=== PATIENT | male | born 1950 | race Hispanic/Latino ===

== ENCOUNTER 2018-02-02 17:39 | Inpatient (IN) | payer MEDICARE, OTHER ==
[~2018-02-02] VITALS: Ht 172.7 cm; Wt 97.5 kg
[~2018-02-02 17:39] MED LIST: GABAPENTIN300 MG PO; LISINOPRIL10 MG PO; METFORMIN HCL500 MG PO; PANTOPRAZOLE SO40 MG PO; TAMSULOSIN HCL0.4 MG PO; ULTRAM50 MG PO
[2018-02-02] MEDS ORDERED: ALBUTEROL SULFATE HFA 8GM INHALATION AEROSOL INH PRN (18:45)
[2018-02-02] MEDS: SALMETEROL/FLUTICASONE 250/50 INH SCH (19:00)
[2018-02-02 20:00] VITALS: BP 129/66
[2018-02-02] MEDS ORDERED: DEXTROSE 50% SYRINGE 50 ML IV PRN (20:00)
--- NOTE | 2018-02-02 20:30 | Diagnostic Imaging Report ---
EXAMINATION: Head CT without contrast. HISTORY:Near syncope. COMPARISON:None. TECHNIQUE: Multidetector axial images were obtained from the foramen magnum to the vertex without contrast. The images were reconstructed using brain and bone algorithms. Thin section brain images were reformatted into coronal and sagittal planes. Intravenous contrast: None IMAGE QUALITY: Suboptimal evaluation due to motion artifacts. FINDINGS: Skull/scalp: No lytic or blastic. lesions. No surgical changes. Parenchyma: Nonspecific few, scattered supratentorial white matter patchy hypodensity are likely related to small vessel ischemic changes. No acute hemorrhage, mass or acute major vascular territorial infarct. Arteries: No density suggestive of thrombosis. Dural sinuses: No abnormal density suggestive of thrombosis. Ventricles: Mild compensated dilatation due to volume loss. No hydrocephalus. Extra-axial spaces: No abnormal density. Brain volume: Normal for age. Craniocervical junction: No mass, Chiari malformation, or basilar invagination. Sella: No mass. Paranasal/mastoid sinuses: Imaged portions unremarkable. IMPRESSION: Suboptimal evaluation due to motion artifacts, despite the limitation no gross acute intracranial abnormality. Mild supratentorial white matter microvascular ischemic changes. Mild generalized cerebral volume loss. Signed by: Dr. Ashli Shearer M.D. on 02/02/2018 8:27 PM
[2018-02-02 20:40] LABS: BASOPHILS # (AUTO) 0.1 (0.0-0.1); BASOPHILS % 0.6 % (0.0-1.0); EOSINOPHILS # (AUTO) 0.1 (0.0-0.4); EOSINOPHILS % 1.2 % (0.0-6.0); HEMATOCRIT 40.1 % (38.2-49.6); HEMOGLOBIN 13.6 g/dL (14.0-18.0); LYMPHOCYTES # (AUTO) 2.9 (1.0-3.2); LYMPHOCYTES % 30.6 % (18.0-39.1); MEAN CORPUSCULAR HEMOGLOBIN 32.2 pg (28-32); MEAN CORPUSCULAR HGB CONC 33.9 g/dL (31-35); MONOCYTES # (AUTO) 0.6 (0.2-0.8); MONOCYTES % 6.2 % (4.4-11.3); NEUTROPHILS # (AUTO) 5.9 (2.1-6.9); PLATELET COUNT 146 x10e3/uL (140-360); RED BLOOD COUNT 4.22 x10e6/uL (4.3-5.7); RED CELL DISTRIBUTION WIDTH 12.2 % (11.7-14.4)
[2018-02-02 20:54] VITALS: BP 129/66
[2018-02-02 20:55] LABS: ALANINE AMINOTRANSFERASE 39 IU/L (0-55); ALBUMIN 3.7 g/dL (3.5-5.0); ALKALINE PHOSPHATASE 116 IU/L (40-150); ANION GAP 15.8 mmol/L (8-16); BLOOD UREA NITROGEN 19 mg/dL (7-26); BUN/CREATININE RATIO 16 (6-25); CALCIUM 9.4 mg/dL (8.4-10.2); CARBON DIOXIDE 18 mmol/L (22-29); CHLORIDE 105 mmol/L (98-107); CREATININE, SERUM 1.17 mg/dL (0.72-1.25); EST GLOMERULAR FILTRATION RATE > 60 ML/MIN (60-); GLUCOSE 305 mg/dL (74-118); POTASSIUM 3.8 mmol/L (3.5-5.1); SODIUM 135 mmol/L (136-145)
[2018-02-02] MEDS: GABAPENTIN 300 MG CAP PO SCH (21:00)
[2018-02-02] MEDS: SODIUM CHLORIDE 0.9% 1000ML 1,000 ML IV SCH (21:00)
[2018-02-02] MEDS: TAMSULOSIN HCL 0.4 MG CAP PO SCH (21:00)
[2018-02-02] MEDS: MONTELUKAST SODIUM 10 MG TAB PO SCH (21:00)
[2018-02-02] MEDS ORDERED: INSULIN DETEMIR 100 UNIT/ML PEN SQ SCH (21:00)
[2018-02-02] MEDS: TRAMADOL HCL 50 MG TAB PO SCH (21:00)
[2018-02-02] MEDS: INSULIN REGULAR, HUMAN 100 UNIT/1 ML 3ML VIAL SQ SCH (21:00)
[2018-02-02] MEDS: INSULIN DETEMIR 100 UNIT/ML PEN SQ SCH (21:00)
[2018-02-03] VITALS (7 sets, daily range): BP systolic 112–148; BP diastolic 55–70
[2018-02-03] MEDS: SODIUM CHLORIDE 0.9% 1000ML 1,000 ML IV SCH ×3 (04:49→20:25)
[2018-02-03] MEDS ORDERED: TIOTROPIUM 18 MCG INH POWDER INH SCH (06:00)
[2018-02-03] MEDS ORDERED: INSULIN DETEMIR 100 UNIT/ML PEN SQ SCH (07:30)
[2018-02-03] MEDS: PANTOPRAZOLE SOD 40 MG TABEC PO SCH (08:40)
[2018-02-03] MEDS: FENOFIBRATE 145 MG TAB PO SCH (08:40)
[2018-02-03] MEDS: INSULIN REGULAR, HUMAN 100 UNIT/1 ML 3ML VIAL SQ SCH ×4 (08:40→21:30)
[2018-02-03] MEDS: GABAPENTIN 300 MG CAP PO SCH ×3 (08:40→21:43)
[2018-02-03] MEDS: TRAMADOL HCL 50 MG TAB PO SCH ×3 (08:41→21:44)
[2018-02-03] MEDS ORDERED: METFORMIN HCL 500 MG TAB PO SCH (09:00)
--- NOTE | 2018-02-03 12:27 | History and Physical ---
HISTORY OF PRESENT ILLNESS: A 68-year-old male with past medical history positive for hypertension, diabetes mellitus, hypercholesterolemia and diabetic neuropathy came to the clinic originally complaining of difficulty walking, unsteady gait, extremely high blood sugar of 600. The patient was found to have orthostatic hypotension, extremely dizzy. The patient was admitted to the hospital. REVIEW OF SYSTEMS: CARDIOVASCULAR: No chest pain, no palpitation. RESPIRATORY: No shortness of breath. No cough. GASTROINTESTINAL: No nausea, no vomiting, no diarrhea. GENITOURINARY: No frequency, no dysuria. ALLERGIES: HE IS NOT ALLERGIC TO ANY MEDICATION. SOCIAL HISTORY: He smokes. He does not drink alcohol. PAST MEDICAL HISTORY: Positive for hypertension, hypercholesterolemia, diabetes mellitus type 2, diabetic neuropathy and COPD. PHYSICAL EXAMINATION: VITAL SIGNS: The blood pressure 112/55, temperature 96.9, heart rate 55 per minute, respiratory rate is 20 per minute. Oxygen saturation 98%. LAB: On the BMP: Sodium 135, potassium 3.8, chloride 105, CO2 18, BUN 19, creatinine 1.17 and glucose 305. On the CBC: White blood count 9.62, hemoglobin 13.6, hematocrit 40.1, platelet count 146,000. AST 54, ALT 39, total bilirubin 0.4, alkaline phosphatase 116. FINAL IMPRESSION: 1. Orthostatic hypotension most likely secondary to dehydration. 2. Uncontrolled diabetes mellitus type 2 with chronic renal insufficiency and neuropathy. 3. Chronic obstructive pulmonary disease. 4. Gastroesophageal reflux disease. 5. Unsteady gait. 6. Near syncopal episode. PLAN OF TREATMENT: Continue normal saline at 120 mL an hour, albuterol q.6 hours, Levemir 10 units in the morning and 30 units at night, Singular 10 mg daily, Spiriva 1 inhalation daily, Protonix 40 mg daily. Continue monitoring blood sugar a.c. and nightly. Continue Advair 1 inhalation twice a day. Continue fenofibrate 145 mg daily. Metformin 500 mg twice a day. Gabapentin 300 mg 3 times a day. Tramadol 50 mg 3 times a day as needed. Flomax 0.4 mg at bedtime. We are going to order the physical and occupational therapy. We are going to monitor BUN and creatinine. Continue monitoring the orthostatic blood pressure. Job#: [id number] EV
[2018-02-03] MEDS: METFORMIN HCL 500 MG TAB PO SCH (17:58)
[2018-02-03] MEDS: SALMETEROL/FLUTICASONE 250/50 INH SCH (19:40)
[2018-02-03 20:26] LABS: FOLATE 3.6 ng/mL (7.0-15.4)
[2018-02-03] MEDS: INSULIN DETEMIR 100 UNIT/ML PEN SQ SCH (21:35)
[2018-02-03] MEDS: MONTELUKAST SODIUM 10 MG TAB PO SCH (21:43)
[2018-02-03] MEDS: TAMSULOSIN HCL 0.4 MG CAP PO SCH (21:43)
[2018-02-04 00:05] VITALS: BP 140/64
[2018-02-04 00:39] VITALS: BP 140/64
--- NOTE | 2018-02-04 00:51 | Consultation ---
DATE OF CONSULTATION: February 03, 2018 NEUROLOGY CONSULTATION HISTORY OF PRESENT ILLNESS: Mr. Mendez is a 68-year-old right hand dominant man with past medical history significant for hypertension, hyperlipidemia, and insulin dependent diabetes type-2 admitted to [facility] on February 02, 2018 with dizziness, impairment of gait, and multiple falls. On February 02, 2018, the patient presented to his primary care physician, Dr. Garduno's, office for evaluation of dizziness which was further described as a lightheaded sensation, impairment of balance and gait, and multiple recent falls. While in Dr. Garduno's office, the patient was found to be hypotensive with a serum glucose in the 600's. Mr. Mendez was instructed to proceed to [facility] where he was admitted for further evaluation and treatment. The patient reports an unsteady gait and impairment of balance for "a long time". The patient endorses numbness over the feet and bilateral forelegs. He endorses burning pain and a pins and needles sensation in the same distribution. These symptoms occur intermittently. Mr. Mendez has not identified any triggers for these symptoms. He reports his pain is mildly alleviated with gabapentin 300 milligrams by mouth three times daily. When walking, the patient says it feels like he is "walking on pillows". Multiple family members have recently noticed Mr. Mendez's unsteady gait. The patient endorses multiple falls without significant injury over the last few months. The patient has a known history of insulin dependent diabetes mellitus for which he takes metformin and insulin. The patient reports his finger stick blood glucoses at home are usually in the 200's. He does not know the value of his most recent hemoglobin A1c. The patient does not endorse current or prior heavy alcohol use. He does not endorse prior treatment with a chemotherapeutic agent. There is no known family history of neuromuscular disease. In addition to the above symptoms, the patient does report recent urinary frequency as well as dizziness, which is further described as lightheadedness as documented above. REVIEW OF SYSTEMS: Urinary frequency, numbness and tingling of the feet and forelegs, burning pain in the feet and forelegs, impaired balance and gait, and low back pain. Otherwise the 12 point review of systems is negative. PAST MEDICAL HISTORY: Hypertension, hyperlipidemia, insulin-dependent diabetes mellitus type 2, benign prostatic hypertrophy. PAST SURGICAL HISTORY: None. PAST HOSPITALIZATIONS: The patient reports previous hospitalization for fall. He has had multiple prior hospitalizations, but does not recall the reason for these admissions. FAMILY HISTORY: The patient's paternal and maternal grandparents are . Their medical histories are not known. The patient's father is . He had hypertension and diabetes mellitus. The patient's mother is . She had diabetes mellitus. The patient has nine brothers, four of whom are . Three brothers are from coronary artery coronary disease/myocardial infarction. The 4th brother is from complications of diabetes mellitus. The patient had one sister who is from renal failure. The patient has five remaining brothers who are living. Four of those brothers have diabetes mellitus. Mr. Mendez has two sons and one daughter, all of whom are healthy. SOCIAL HISTORY: The patient is . He completed school through the eighth grade in [place], which is equivalent to graduating high school in the [place]. 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 The patient does report tobacco use, but says he quit smoking cigarettes one week ago. The patient does not report current or prior alcohol or recreational drug use. HOME MEDICATIONS: Gabapentin 300 mg by mouth three times daily, lisinopril 10 mg by mouth daily, metformin 500 mg by mouth twice daily, Protonix 40 mg by mouth daily, tamsulosin 0.4 milligrams by mouth daily, tramadol 50 milligrams by mouth three times daily, unknown insulin 10 units subcutaneously in the morning and 40 units subcutaneously in the evening. ALLERGIES: NO KNOWN DRUG ALLERGIES. NO KNOWN FOOD ALLERGIES. NO KNOWN ALLERGIES TO LATEX. NO KNOWN ALLERGIES TO IODINE OR OTHER CONTRAST MATERIALS. PHYSICAL EXAMINATION: VITAL SIGNS: Height 68 inches, weight 215 pounds. BMI 32.7 kilograms per meter squared. Blood pressure 148/70 mmHg, pulse 68 beats per minute. Respiratory rate 20 breaths per minute. Oxygen saturation 95% on room air. GENERAL: The patient is awake and alert. Does not appear distressed. Obese. HEENT: Normocephalic and atraumatic. Pupils are surgical. Moist mucous membranes. NECK: Supple. No appreciable thyromegaly. No appreciable carotid bruits. CARDIOVASCULAR: S1 and S2. Regular rate and rhythm. No murmurs, rubs or gallops. RESPIRATORY: Faint inspiratory and expiratory wheezing throughout. EXTREMITIES: The skin is warm and dry. No clubbing, cyanosis or edema. The posterior tibial and dorsalis pedis pulses are 1+ and symmetric. SKIN: No rashes or lesions. NEUROLOGIC: Memory/attention: The patient is awake and alert. Oriented to person, place, time, and situation. CRANIAL NERVES: Cranial nerve I: Not tested. Cranial nerves II, III, IV, : Pupils are surgical, extraocular movements intact, no nystagmus. Cranial nerve V: Sensation to light touch and pinprick is intact in the bilateral V1 through V3 distributions. Strength of the temporalis and masseter muscles is within normal limits. Cranial nerve VII: The face is symmetric, as are all facial movements. Strength is within normal limits. Cranial nerve VIII: Hearing is intact to finger rub bilaterally. Cranial nerve IX and X: The soft palate elevates equally and symmetrically. Cranial nerve XI: Normal strength of the bilateral sternocleidomastoid and trapezius muscles. Cranial nerve XII: The tongue protrudes midline and moves symmetrically from side to side. STRENGTH: Bulk is normal, and strength is 5/5 in the bilateral deltoids, biceps, triceps, wrist flexors and extensors, finger flexors and extensors, intrinsic hand muscles, hip flexors, knee flexors and extensors, ankle dorsiflexion and plantar flexion, and intrinsic foot muscles. Tone is normal. DTRs: Deep tendon reflexes are 2+ and symmetric at the triceps, biceps, and brachioradialis. Deep tendon reflexes are absent and symmetric at the patellas and Achilles. Plantar responses are flexor bilaterally. Absent clonus. SENSATION: Sensation to light touch and pin prick is diminished in a stocking distribution. Vibratory sensation is diminished at the toes. CEREBELLAR: Frqwec-magj-dtjozs and heel-noriega movements are intact without dysmetria or other impairment. Rapid alternating movements are intact. GAIT: Deferred. SPEECH: Spontaneous speech is normal without appreciable dysarthria or aphasia. Repetition is intact. INVOLUNTARY MOVEMENTS: None. PRONATOR DRIFT: None. LABORATORY DATA: Sodium 135, potassium 3.8, chloride 105, carbon dioxide 18. Anion gap 15.8. BUN 19, creatinine 1.17. Estimated GFR greater than 60. BUN to creatinine ratio 16. Glucose 305, 296, 224, 276, and 205. Calcium 9.4. Total bilirubin 0.4. AST 54, ALT 39, alkaline phosphatase 116. Total protein 7.3, albumin 3.7, globulin 3.6. Albumin to globulin ratio 1.0. CBC with differential and platelets revealed a white blood cell count of 9.62 with a normal differential. Hemoglobin and hematocrit 13.6 and 40.1, respectively. Platelet count is 146,000. DIAGNOSTIC STUDIES: CT of the brain without contrast on 02/02/2018: Evaluation is limited by motion artifact. There is no evidence of large territorial ischemia, hemorrhage, mass or mass effect. There is diffuse cerebral volume loss, appropriate for age. Their are findings compatible with mild chronic small vessel ischemic disease. ASSESSMENT AND PLAN: Mr. Mendez is a 68-year-old right hand dominant man with past medical history significant for hypertension, hyperlipidemia, and insulin dependent diabetes mellitus type II, not well controlled, admitted to [facility] on February 02, 2018 with dizziness, which is further described as lightheadedness, impairment of balance, unsteady gait with multiple recent falls, and neuropathic pain affecting the feet and forelegs. The patient's neurological examination is significant for absent deep tendon reflexes at the patellas and Achilles as well as diminished sensation to light touch, pinprick, and vibration in a stocking distribution. The patient's laboratory data and diagnostic studies have been reviewed and are documented above. Mr. Mendez has a peripheral neuropathy, probably secondary to diabetes mellitus which is the most common cause of peripheral neuropathy in the [place]. Superimposed on this peripheral neuropathy is dehydration with orthostatic hypotension (please see progress note labeled orthostatic vital signs). The presence of dehydration with orthostatic hypotension accounts for the lightheadedness described by the patient and contributes to the unsteady gait and impairment of balance. RECOMMENDATIONS: 1. Blood work will be ordered to evaluate for other treatable causes of peripheral neuropathy. However, as stated above, the most probable cause of the patient's peripheral neuropathy is poorly controlled diabetes mellitus. Mr. Mendez is advised to follow with his treating physician at regular intervals for repeated assessments of his diabetes mellitus and adjustments of his medications as needed. 2. Continue with intravenous fluids for dehydration and orthostatic hypotension. 3. The patient endorses burning pain and a pins and needles sensation affecting both feet and both forelegs, which is only mildly alleviated with gabapentin 300 milligrams by mouth three times daily. The dose of this medication will be increased to 600 mg by mouth three times daily. 4. A physical therapy evaluation has been ordered and is pending. Follow up the recommendations from the physical therapist. 5. Defer treatment of other medical comorbidities to the primary and other services. Thank you for this consultation. I will continue to follow this patient while he remains in the hospital. TIME SPENT: 70 minutes. Job#: [id number] MTDD
[2018-02-04] MEDS: SODIUM CHLORIDE 0.9% 1000ML 1,000 ML IV SCH (04:02)
[2018-02-04 04:18] VITALS: BP 142/69
[2018-02-04 07:02] LABS: ANION GAP 12.2 mmol/L (8-16); BLOOD UREA NITROGEN 15 mg/dL (7-26); BUN/CREATININE RATIO 18 (6-25); CALCIUM 8.9 mg/dL (8.4-10.2); CARBON DIOXIDE 24 mmol/L (22-29); CHLORIDE 108 mmol/L (98-107); CREATININE, SERUM 0.85 mg/dL (0.72-1.25); EST GLOMERULAR FILTRATION RATE > 60 ML/MIN (60-); GLUCOSE 216 mg/dL (74-118); POTASSIUM 4.2 mmol/L (3.5-5.1); SODIUM 140 mmol/L (136-145)
[2018-02-04 08:03] VITALS: BP 145/65
[2018-02-04] MEDS: METFORMIN HCL 500 MG TAB PO SCH (08:37)
[2018-02-04] MEDS: TRAMADOL HCL 50 MG TAB PO SCH (08:37)
[2018-02-04] MEDS: PANTOPRAZOLE SOD 40 MG TABEC PO SCH (08:37)
[2018-02-04] MEDS: FENOFIBRATE 145 MG TAB PO SCH (08:37)
[2018-02-04] MEDS: GABAPENTIN 300 MG CAP PO SCH (08:37)
[2018-02-04] MEDS: INSULIN REGULAR, HUMAN 100 UNIT/1 ML 3ML VIAL SQ SCH ×2 (08:38→12:00)
[2018-02-04] MEDS ORDERED: INSULIN DETEMIR 100 UNIT/ML PEN SQ SCH (09:00)
[2018-02-04 11:52] VITALS: BP 157/74
--- NOTE | 2018-02-04 11:56 | Diagnostic Imaging Report ---
PROCEDURE:US RETROPERITONEAL ( KIDNEY ). COMPARISON:None. INDICATIONS:ARF TECHNIQUE: Urrutia-scale and color sonographic images of the bilateral kidneys and bladder where obtained in transverse and longitudinal planes. FINDINGS: RIGHT KIDNEY: 11.3 cm, cortex 2.4 cm Cysts: None. Solid masses: None. Stones: None. Hydronephrosis: None. Echogenicity: Normal. LEFT KIDNEY: 10.5 cm, cortex 2.3 cm Cysts: None. Solid masses: None. Stones: None. Hydronephrosis: None. Echogenicity: Normal. Bladder: Normal contour. Left ureteral jet was visualized. Right ureteral jet was not visualized. Prostate: Normal. CONCLUSION: No acute sonographic abnormality. Dictated by: Santi Pickett M.D. on 02/04/2018 at 11:57 Electronically approved by: Santi Pickett M.D. on 02/04/2018 at 11:57
[2018-02-04 12:27] VITALS: BP 157/74
[2018-02-04] MEDS ORDERED: NEURONTIN300 MG PO (12:42)
[2018-02-04] MEDS ORDERED: SPIRIVA18 MCG INH (12:45)
[2018-02-04] MEDS ORDERED: ADVAIR 250-501 EACH INH (12:46)
[2018-02-04] MEDS ORDERED: LEVEMIR100 UNIT/1 SC (12:46)
[2018-02-04] MEDS ORDERED: LEVEMIR100 UNIT/1 SQ (12:47)
--- NOTE | 2018-02-04 13:01 | Discharge Summary ---
The patient is a 68-year-old male who has a past medical history positive for hypertension and diabetes, very noncompliant with the diet at home. Apparently the blood sugar was in the 600s. He had a near syncopal episode at home. He was very dizzy. His blood sugar, as I said, was 600. When he came to the clinic, he was very orthostatic. The systolic blood pressure dropped to the 80s in the clinic, so we sent the patient to the hospital and started him on IV normal saline. We increased the amount of insulin that he was taking. We requested neurology consult with Dr. Sung who diagnosed him with severe diabetic neuropathy. The dose on the metformin was increased. Patient is feeling a lot better and not orthostatic anymore. He had a renal ultrasound that came back negative. CT of the head came back negative. Blood pressure 157/74, temperature 96.8, heart rate 74 per minute, respiratory rate 20 per minute, oxygen saturation 94%. On the physical exam, the heart shows regular rhythm. Normal S1 and S2 sounds. Lungs are clear bilaterally. Abdomen is soft. Extremities show no evidence of cyanosis, edema or trauma. On the BMP, sodium 140, potassium 4.2, chloride 108, CO2 24, BUN 15, creatinine 0.85, glucose 216. On the CBC, white blood count 9.62, hemoglobin 13.6, hematocrit 40.1, platelet count 146,000. AST 54, ALT 39, total bilirubin 0.4, alkaline phosphatase 116. FINAL IMPRESSION 1. Uncontrolled diabetes mellitus, type 2, with severe diabetic neuropathy. 2. Orthostatic hypotension. 3. Hyperlipidemia. 4. Chronic obstructive pulmonary disease. PLAN OF TREATMENT: The patient is going to be discharged home today with Protonix 40 mg daily. He is also taking Symbicort 1 inhalation twice a day, fenofibrate 145 mg daily, metformin 500 mg twice a day, Flomax 0.4 mg daily. We are going to increase the Levemir to 35 units in the morning and 18 units in the evening. Continue Spiriva 1 inhalation daily. Gabapentin 600 mg 3 times a day. Diet is 1800-calorie, ADA diet. We are going to order home health for physical and occupational therapy due to an unsteady gait due to diabetic neuropathy. He is to see me in a week. HAYES BEAL MD Job#: [id number] MH
== END 2018-02-04 13:23 | disposition home health service (06) | DRG 74 ==
LOC: MED/SURG 18:32
PROVIDERS: ADMIT Internal Medicine; ATTEND Internal Medicine
DX: E11.40 Type 2 diabetes mellitus with diabetic neuropathy, unspecified (principal); E11.65 Type 2 diabetes mellitus with hyperglycemia; J44.9 Chronic obstructive pulmonary disease, unspecified; I10 Essential (primary) hypertension; I95.1 Orthostatic hypotension; E86.0 Dehydration; K21.9 Gastro-esophageal reflux disease without esophagitis; R26.81 Unsteadiness on feet; Z91.11 Patient's noncompliance with dietary regimen; Z79.4 Long term (current) use of insulin
CPT/HCPCS: 36415; 70450; 76770; 80048; 80053; 82607; 82746; 82948; 83036; 84252; 84425; 84443; 85025; 85651; 86039; 86140; 86235; 86431; 93005; 94640; J7030

== ENCOUNTER → 2018-04-05 | Outpatient (CLI) | payer MEDICARE, OTHER ==
[~2018-04-05] MED LIST changes: +ADVAIR 250-501 EACH INH; +LEVEMIR100 UNIT/1 SC; +LEVEMIR100 UNIT/1 SQ; +NEURONTIN300 MG PO; +SPIRIVA18 MCG INH
--- NOTE | 2018-04-05 13:04 | Diagnostic Imaging Report ---
PROCEDURE:SP LUMBAR, COMPLETE MIN 4VW TECHNIQUE:AP, lateral, coned-down lateral and bilateral oblique views lumbar spine: 5 radiographs INDICATION:Falls COMPARISON:None. FINDINGS: 5 nonrib-bearing lumbar vertebral bodies. Normal vertebral body height. Multilevel degenerative disc disease as evidenced by endplate sclerosis with marginal osteophytosis. The space narrowing most notable at L4-L5. Bilateral facet arthropathy at L5-S1. No spondylolysis. CONCLUSION: Mild multilevel degenerative disc disease and L5-S1 facet arthropathy. Moderate degenerative disc disease at L4-L5. Dictated by: Home June M.D. on 04/05/2018 at 13:07 Electronically approved by: Home June M.D. on 04/05/2018 at 13:07
--- NOTE | 2018-04-05 13:06 | Diagnostic Imaging Report ---
PROCEDURE:KNEE THREE VIEWS BILATERAL TECHNIQUE:AP, lateral and oblique views right and left knees. Total 6 radiograph. INDICATION:Falls COMPARISON:None. FINDINGS: Both knees are intact. Mild 3 compartment joint space narrowing bilaterally, most dominant in both medial compartments. Small marginal osteophytes. No effusions. Regional soft tissues are unremarkable. CONCLUSION: Mild 3 compartment osteoarthritis bilaterally. Dictated by: Home June M.D. on 04/05/2018 at 13:09 Electronically approved by: Home June M.D. on 04/05/2018 at 13:09
== END ==
LOC: RAD 11:51
PROVIDERS: ATTEND Internal Medicine
DX: M54.5 Low back pain (principal); M25.562 Pain in left knee; M25.561 Pain in right knee
CPT/HCPCS: 72110

== ENCOUNTER 2018-07-20 14:32 | Outpatient (RCR) | payer MEDICARE, OTHER | END 2018-07-25 | LOC: OT 14:32 | PROVIDERS: ATTEND Specialist | DX: S52.501D Unspecified fracture of the lower end of right radius, subsequent encounter for closed fracture with routine healing (principal); M25.531 Pain in right wrist; M25.631 Stiffness of right wrist, not elsewhere classified; R53.1 Weakness | CPT/HCPCS: 97022 ×3; 97110 ×3; 97165; G8987; G8988 ==

== ENCOUNTER 2018-07-27 15:42 | Outpatient (RCR) | payer MEDICARE, OTHER | END 2018-08-25 | LOC: OT 15:42 | PROVIDERS: ATTEND Specialist | DX: S62.101A Fracture of unspecified carpal bone, right wrist, initial encounter for closed fracture (principal) | CPT/HCPCS: 97110; 97139; G8988; G8989 ==

== ENCOUNTER 2018-09-30 18:14 | Observation (INO) | payer MEDICARE ==
[~2018-09-30] VITALS: Ht 172.7 cm; Wt 131.1 kg
[2018-09-30] MEDS ORDERED: SODIUM CHLORIDE 0.9% 1000ML 1,000 ML IV STA ×2 (18:44→19:01)
[2018-09-30] MEDS ORDERED: ONDANSETRON HCL INJ 2 MG/ML VIAL IV STA (18:44)
[2018-09-30 19:26] LABS: BASOPHILS # (AUTO) 0.1 (0.0-0.1); BASOPHILS % 0.5 % (0.0-1.0); EOSINOPHILS # (AUTO) 0.1 (0.0-0.4); HEMATOCRIT 49.7 % (38.2-49.6); LYMPHOCYTES # (AUTO) 3.6 (1.0-3.2); LYMPHOCYTES % 24.1 % (18.0-39.1); MEAN CORPUSCULAR HEMOGLOBIN 32.7 pg (28-32); MEAN CORPUSCULAR HGB CONC 34.2 g/dL (31-35); MEAN CORPUSCULAR VOLUME 95.6 fL (81-99); MONOCYTES # (AUTO) 0.9 (0.2-0.8); MONOCYTES % 6.2 % (4.4-11.3); NEUTROPHILS # (AUTO) 9.9 (2.1-6.9); NEUTROPHILS % 67.5 % (38.7-80.0); PLATELET COUNT 201 x10e3/uL (140-360); RED CELL DISTRIBUTION WIDTH 12.4 % (11.7-14.4)
[2018-09-30 19:53] LABS: ALANINE AMINOTRANSFERASE 45 IU/L (0-55); ALBUMIN 4.1 g/dL (3.5-5.0); ALBUMIN/GLOBULIN RATIO 0.8 (0.8-2.0); ALKALINE PHOSPHATASE 198 IU/L (40-150); ANION GAP 18.5 mmol/L (8-16); BLOOD UREA NITROGEN 29 mg/dL (7-26); BUN/CREATININE RATIO 16 (6-25); CALCIUM 9.8 mg/dL (8.4-10.2); CARBON DIOXIDE 13 mmol/L (22-29); CHLORIDE 104 mmol/L (98-107); CREATINE KINASE 76 IU/L (30-200); CREATININE, SERUM 1.85 mg/dL (0.72-1.25); EST GLOMERULAR FILTRATION RATE 37 ML/MIN (60-); GLUCOSE 222 mg/dL (74-118); LIPASE 81 U/L (8-78); POTASSIUM 4.5 mmol/L (3.5-5.1); SODIUM 131 mmol/L (136-145)
[2018-09-30 19:57] LABS: INR 0.94; PROTHROMBIN TIME 13.4 seconds (11.9-14.5)
[2018-09-30 19:58] LABS: PARTIAL THROMBOPLASTIN TIME 31.2 seconds (23.8-35.5)
--- NOTE | 2018-09-30 19:59 | Diagnostic Imaging Report ---
EXAMINATION: Chest PA and lateral views INDICATION: Chest pain. COMPARISON: None FINDINGS: TUBES and LINES: None. LUNGS: Mild prominence of the pulmonary vasculature bilaterally. Coarsening of the pulmonary interstitium. PLEURA: No pleural effusion or pneumothorax. HEART AND MEDIASTINUM: The cardiac silhouette is mildly enlarged. BONES AND SOFT TISSUES: No acute osseous lesion. Soft tissues are unremarkable. UPPER ABDOMEN: No free air under the diaphragm. IMPRESSION: Mild pulmonary venous congestion. Mild interstitial edema versus interstitial lung disease changes. Signed by: Dr. Nick Benitez M.D. on 09/30/2018 7:56 PM
[2018-09-30 20:36] LABS: CLARITY,URINE CLEAR (CLEAR); COLOR,URINE YELLOW (YELLOW)
[2018-09-30 20:37] LABS: BILIRUBIN,URINE 1+ (NEGATIVE); KETONES,URINE NEGATIVE (NEGATIVE); LEUKOCYTE ESTERASE ,URINE NEGATIVE (NEGATIVE); NITRITE,URINE NEGATIVE (NEGATIVE); PROTEIN,URINE DIPSTICK 2+ (NEGATIVE); URINE UROBILINOGEN 0.2 mg/dL (0.2 - 1)
[2018-09-30] MEDS ORDERED: DIATRIZOATE MEGL/DIATRIZOA SOD 30 ML BTL PO ONE (20:58)
[2018-09-30 21:03] LABS: BACTERIA,URINE MANY /HPF; EPITHELIAL CELLS,URINE FEW /LPF; RBC,URINE 0-5 /HPF (0-5); WBC,URINE (MAN) 0-5 /HPF (0-5)
[2018-09-30] MEDS ORDERED: OZEMPIC SC (22:02)
[2018-09-30] MEDS ORDERED: NAPROXEN500 MG PO (22:02)
--- NOTE | 2018-09-30 23:04 | Diagnostic Imaging Report ---
EXAM: CT ABDOMEN/PELVIS WO DATE: 09/30/2018 6:44 PM INDICATION: Abdominal pain, nausea, vomiting COMPARISON: None TECHNIQUE: The abdomen and pelvis were scanned using a multidetector helical scanner. Coronal and sagittal reformations were obtained. CT low dose techniques were utilized, as applicable. IV Contrast: 0 ml Isovue 300/370 Oral contrast was administered. FINDINGS: Lack of IV contrast decreases sensitivity in evaluating abdominal and pelvic organs. LOWER THORAX: Scattered peripheral reticular opacities, likely scarring. Nonspecific 5 mm right lower lobe nodule on image 10. LIVER/BILIARY: Nodular liver contour with hypertrophy of the caudate and left lateral segment. GALLBLADDER: Unremarkable SPLEEN: Unremarkable PANCREAS: Unremarkable ADRENALS: No nodules KIDNEYS: No stones. No hydronephrosis. GI TRACT: No wall thickening or evidence of obstruction. Diverticulosis. Normal appendix. VESSELS: Moderate to severe aortic and iliac atherosclerotic calcifications. PERITONEUM/RETROPERITONEUM: No free air or fluid LYMPH NODES: No lymphadenopathy REPRODUCTIVE ORGANS/BLADDER: Unremarkable SOFT TISSUES: Bilateral fat-containing inguinal hernias. Subcutaneous stranding anteriorly, likely inflammatory. BONES: Scattered degenerative changes, worse at L4-5 with disc bulge. IMPRESSION: 1. No acute abnormality in the abdomen or pelvis. 2. Morphologic changes which can be seen with cirrhosis/chronic liver disease. Signed by: Dr Surekha Rowe MD on 09/30/2018 11:00 PM
[2018-09-30] MEDS ORDERED: ONDANSETRON HCL INJ 2 MG/ML VIAL IV PRN (23:30)
[2018-09-30] MEDS ORDERED: DEXTROSE 50% SYRINGE 50 ML IV PRN (23:30)
--- OUTSIDE RECORDS SUMMARY | 2018-09-30 23:36 | XMS REPORT ---
Author Author [facility] Address Unknown Phone Unavailable Care Team Providers Care Meat Team Member Name Role Phone LEONILA, Prashant ENG Unavailable Unavailable HAYES BEAL Unavailable Unavailable Problems This patient has no known problems. Allergies, Adverse Reactions, Alerts This patient has no known allergies or adverse reactions. Medications This patient has no known medications. Results Test Description Test Time Test Comments Text Results Atomic Results Result Comments CT ABDOMEN/PELVIS WO 2018-09-30 22:55:00 [facility] [address] [place] [address] Patient Name: HAYES VERDE MR #: [id number] : 1950 Age/Sex: 68/M Req #: [id number] Adm Physician: Ordered by: JAIME OJEDA [employer] Report #: [id number] Location: ER Room/Bed: Procedure: [id number] CT/CT ABDOMEN/PELVIS WO Exam Date: 09/30/18 Exam Time: 2158 REPORT STATUS: Signed EXAM: CT ABDOMEN/PELVIS WO DATE: 09/30/2018 6:44 PM INDICATION: Abdominal pain, nausea, vomiting COMPARISON: None TECHNIQUE: The abdomen and pelvis were scanned using a multidetector helical scanner. Coronal and sagittal reformations were obtained. CT low dose techniques were utilized, as applicable. IV Contrast: 0 ml Isovue 300/370 Oral contrast was administered. FINDINGS: Lack of IV contrast decreases sensitivity in evaluating abdominal and pelvic organs. LOWER THORAX: Scattered peripheral reticular opacities, likely scarring. Nonspecific 5 mm right lower lobe nodule on image 10. LIVER/BILIARY: Nodular liver contour with hypertrophy of the caudate and left lateral segment. GALLBLADDER: Unremarkable SPLEEN: Unremarkable PANCREAS: Unremarkable ADRENALS: No nodules KIDNEYS: No stones. No hydronephrosis. GI TRACT: No wall thickening or evidence of obstruction. Diverticulosis. Normal appendix. VESSELS: Moderate to severe aortic and iliac atherosclerotic calcifications. PERITONEUM/RETROPERITONEUM: No free air or fluid LYMPH NODES: No lymphadenopathy REPRODUCTIVE ORGANS/BLADDER: Unremarkable SOFT TISSUES: Bilateral fat-containing inguinal hernias. Subcutaneous stranding anteriorly, likely inflammatory. BONES: Scattered degenerative changes, worse at L4-5 with disc bulge. IMPRESSION: 1. No acute abnormality in the abdomen or pelvis. 2. Morphologic changes which can be seen with cirrhosis/chronic liver disease. Signed by: Dr Kate Rowe MD on 09/30/2018 11:00 PM Dictated By: KATE ROWE MD 99 Transcribed By: NEMO on 09/30/182299 COPY TO: JAIME OJEDA NP CHEST SINGLE (PORTABLE) 2018-09-30 19:55:00 [place] [address] Patient Name: HAYES VERDE MR #: [id number] : 1950 Age/Sex: 68/M Req #: [id number] Adm Physician: Ordered by: JAIME OJEDA [employer] Report #: [id number] Location: ER Room/Bed: Procedure: [id number] DX/CHEST SINGLE (PORTABLE) Exam Date: 09/30/18 Exam Time: 1909 REPORT STATUS: Signed EXAMINATION: Chest PA and lateral views INDICA TION: Chest pain. COMPARISON: None FINDINGS: TUBES and LINES: None. LUNGS: Mild prominence of the pulmonary vasculature bilaterally. Coarsening of the pulmonary interstitium. PLEURA: No pleural effusion or pneumothorax. HEART AND MEDIASTINUM: The cardiac silhouette is mildly enlarged. BONES AND SOFT TISSUES: No acute osseous lesion. Soft tissues are unremarkable. UPPER ABDOMEN: No free air under the diaphragm. IMPRESSION: Mild pulmonary venous congestion. Mild interstitial edema versus interstitial lung disease changes. Signed by: Dr. Nick Bledsoe M.D. on 09/30/2018 7:56 PM Dictated By: GEOFFREY BLEDSOE MD, MD 55 Transcribed By: NEMO on 09/30/181955 COPY TO: JAIME OJEDA NP KNEE THREE VIEWS BILATERAL 2018-04-05 13:09:00 [place] [address] Patient Name: HAYES VERDE MR #: [id number] : 1950 Age/Sex: 68/M Req #: [id number] Adm Physician: Ordered by: HAYES BEAL MD Report #: [id number] Location: [facility] Room/Bed: Procedure: [id number] DX/KNEE THREE VIEWS BILATERAL Exam Date: 04/05/18 Exam Time: 1213 REPORT STATUS: Signed PROCEDURE: KNEE THREE VIEWS BILATERAL TECHNIQUE: AP, lateral and oblique views right and left knees. Total 6 radiograph. INDICATION: Falls COMPARISON: None. FINDINGS: Both knees are intact. Mild 3 compartmen t joint space narrowing bilaterally, most dominant in both medial compartments. Small marginal osteophytes. No effusions. Regional soft tissues are unremarkable. CONCLUSION: Mild 3 compartment osteoarthritis bilaterally. Dictated by: Kiko June M.D. on 04/05/2018 at 13:09 Electronically approved by: Kiko June M.D. on 04/05/2018 at 13:09 Dictated By: KIKO JUNE MD 1309 Transcribed By: ULYSSES on 04/05/18 1309 COPY TO: HAYES BEAL MD SP LUMBAR, COMPLETE MIN 4VW 2018-04-05 13:07:00 [place] [id number] Patient Name: HAYES VERDE MR #: [id number] : 1950 Age/Sex: 68/M Req #: [id number] Adm Physician: Ordered by: HAYES BEAL MD Report #: [id number] Location: [facility] Room/Bed: Procedure: [id number] DX/SP LUMBAR, COMPLETE MIN 4VW Exam Date: 04/05/18 Exam Time: 1240 REPORT STATUS: Signed PROCEDURE: SP LUMBAR, COMPLETE MIN 4VW TECHNIQUE: AP, lateral, coned-down lateral and bilateral oblique views lumbar spine: 5 radiographs INDICATION: Falls COMPARISON: None. FINDINGS: 5 nonrib-bearing lumbar vertebral bodies. Normal vertebral body height. Multilevel degenerative disc disease as evidenced by endplate sclerosis with marginal osteophytosis. The space narrowing most notable at L4-L5. Bilateral facet arthropathy at L5-S1. No spondylolysis. CONCLUSION: Mild multilevel degenerative disc disease and L5-S1 facet arthropathy. Moderate degenerative disc disease at L4-L5. Dictated by: Kiko June M.D. on 04/05/2018 at 13:07 Electronically approved by: Kiko June M.D. on 04/05/2018 at 13:07 Dictated By: KIKO JUNE MD 1307 Transcribed By: ULYSSES on 04/05/18 1307 COPY TO: HAYES BEAL MD US RENAL RETROPERITONEAL COMP [place] [address] Patient Name: HAYES VERDE MR #: [id number] : 1950 Age/Sex: 68/M Req #: [id number] Adm Physician: HAYES BEAL MD Ordered by: HAYES BEAL MD Report #: [id number] Location: MED/SURG Room/Bed: [facility] Procedure: [id number] US/US RENAL RETROPERITONEAL COMP Exam Date: 02/04/18 Exam Time: 1020 REPORT STATUS: Signed PROCEDURE: US RETROPERITONEAL ( KIDNEY ). COMPARISON: None. INDICATIONS: ARF TECHNIQUE: Urrutia-scale and color sonographic images of the bilateral kidneys and bladder where obtained in transverse and longitudinal planes. FINDINGS: RIGHT KIDNEY: 11.3 cm, cortex 2.4 cm Cysts: None. Solid masses: None. Stones: None. Hydronephrosis: None. Echogenicity: Normal. LEFT KIDNEY: 10.5 cm, cortex 2.3 cm Cysts: None. Solid masses: None. Stones: None. Hydronephrosis: None. Echogenicity: Normal. Bladder: Normal contour. Left ureteral jet was visualized. Right ureteral jet was not visualized. Prostate: Normal. CONCLUSION: No acute sonographic abnormality. Dictated by: Emeka Castellon M.D. on 02/04/2018 at 11:57 Electronically approved by: Emeka Castellon M.D. on 02/04/2018 at 11:57 Dictated By: EMEKA CASTELLON MD 1157 Transcribed By: ULYSSES on 02/04/181156 COPY TO: HAYES BEAL MD CT BRAIN WO [place] [address] Patient Name: HAYES VERDE MR #: [id number] : 1950 Age/Sex: 68/M Req #: [id number] Adm Physician: HAYES BEAL MD Ordered by: HAYES BEAL MD Report #: [id number] Location: MED/SURG Room/Bed: [facility] Procedure: [id number] CT/CT BRAIN WO Exam Date: 02/02/18 Exam Time: 1999 REPORT STATUS: Signed EXAMINATION: Head CT without contrast. HISTORY:Near syncope. COMPARISON:None. TECHNIQUE: Multidetector axial images were obtained from the foramen magnum to the vertex without contrast. The images were reconstructed using brain and bone algorithms. Thin section brain images were reformatted into coronal and sagittal planes. Intravenous contrast: None IMAGE QUALITY: Suboptimal evaluation due to motion artifacts. FINDINGS: Skull/scalp: No lytic or blastic. lesions. No surgical changes. Parenchyma: Nonspecific few, scattered supratentorial white matter patchy hypodensity are likely related to small vessel ischemic changes. No acute hemorrhage, mass or acute major vascular territorial infarct. Arteries: No density suggestive of thrombosis. Dural sinuses: No abnormal density suggestive of thrombosis. Ventricles: Mild compensated dilatation due to volume loss. No hydrocephalus. Extra-axial spaces: No abnormal density. Brain volume: Normal for age. Craniocervical junction: No mass, Chiari malformation, or basilar invagination. Sella: No mass. Paranasal/mastoid sinuses: Imaged portions unremarkable. IMPRESSION: Suboptimal evaluation due to motion artifacts, despite the limitation no gross acute intracranial abnormality. Mild supratentorial white matter microvascular ischemic changes. Mild generalized cerebral volume loss. Signed by: Dr. Ashli Shearer M.D. on 02/02/2018 8:27 PM Dictated By: ASHLI SHEARER MD 26 Transcribed By: NEMO on 02/02/182026 COPY TO: HAYES BEAL MD
[2018-10-01] MEDS: SODIUM CHLORIDE 0.9% 1000ML 1,000 ML IV SCH ×4 (00:02→18:04)
[2018-10-01 05:15] VITALS: BP 125/65
[2018-10-01] MEDS: GABAPENTIN 300 MG CAP PO SCH ×3 (05:21→21:29)
[2018-10-01 05:27] LABS: BASOPHILS # (AUTO) 0.1 (0.0-0.1); BASOPHILS % 0.5 % (0.0-1.0); EOSINOPHILS # (AUTO) 0.2 (0.0-0.4); EOSINOPHILS % 1.4 % (0.0-6.0); HEMATOCRIT 41.4 % (38.2-49.6); HEMOGLOBIN 13.7 g/dL (14.0-18.0); LYMPHOCYTES # (AUTO) 3.2 (1.0-3.2); LYMPHOCYTES % 24.5 % (18.0-39.1); MEAN CORPUSCULAR HEMOGLOBIN 32.6 pg (28-32); MEAN CORPUSCULAR HGB CONC 33.1 g/dL (31-35); MEAN CORPUSCULAR VOLUME 98.6 fL (81-99); MONOCYTES % 7.7 % (4.4-11.3); NEUTROPHILS # (AUTO) 8.7 (2.1-6.9); NEUTROPHILS % 65.6 % (38.7-80.0); PLATELET COUNT 125 x10e3/uL (140-360); RED CELL DISTRIBUTION WIDTH 12.4 % (11.7-14.4)
[2018-10-01 05:41] LABS: ALANINE AMINOTRANSFERASE 33 IU/L (0-55); ALBUMIN 3.1 g/dL (3.5-5.0); ALBUMIN/GLOBULIN RATIO 0.9 (0.8-2.0); ALKALINE PHOSPHATASE 159 IU/L (40-150); ANION GAP 13.1 mmol/L (8-16); BLOOD UREA NITROGEN 23 mg/dL (7-26); BUN/CREATININE RATIO 23 (6-25); CALCIUM 8.4 mg/dL (8.4-10.2); CARBON DIOXIDE 17 mmol/L (22-29); CHLORIDE 110 mmol/L (98-107); CREATININE, SERUM 1.02 mg/dL (0.72-1.25); EST GLOMERULAR FILTRATION RATE > 60 ML/MIN (60-); GLUCOSE 152 mg/dL (74-118); POTASSIUM 4.1 mmol/L (3.5-5.1); SODIUM 136 mmol/L (136-145)
[2018-10-01] MEDS: INSULIN REGULAR, HUMAN 100 UNIT/1 ML 3ML VIAL SQ SCH ×4 (07:30→21:00)
[2018-10-01 08:00] VITALS: BP 118/61
[2018-10-01 09:10] VITALS: BP 118/61
[2018-10-01] MEDS: TAMSULOSIN HCL 0.4 MG CAP PO SCH (09:16)
[2018-10-01] MEDS: PANTOPRAZOLE SOD 40 MG TABEC PO SCH (09:16)
[2018-10-01] MEDS: LISINOPRIL 10 MG TAB PO SCH (09:16)
[2018-10-01 11:00] VITALS: BP 125/69
[2018-10-01] MEDS: METFORMIN HCL 500 MG TAB PO SCH (18:03)
[2018-10-01] MEDS: LOPERAMIDE HCL 2 MG CAP PO PRN ×2 (18:03→22:23)
--- NOTE | 2018-10-01 19:47 | History and Physical ---
HISTORY OF PRESENT ILLNESS: A 68-year-old male with past medical history positive for hypertension, diabetes, and cirrhosis, came here with vomiting and having diarrhea since Thursday. Patient was feeling very-very weak. REVIEW OF SYSTEMS CARDIOVASCULAR: No chest pain or palpitation. RESPIRATORY: He has some shortness of breath on exertion because of COPD that he has. GASTROINTESTINAL: No nausea, vomiting, diarrhea. No abdominal pain. No blood in the stools. No hematemesis. GENITOURINARY: No frequency, no dysuria. ALLERGIES: HE IS NOT ALLERGIC TO ANY MEDICATION. SOCIAL HISTORY: He smokes. He drinks. PAST MEDICAL HISTORY: Hypertension, diabetes, and cirrhosis. PHYSICAL EXAMINATION HEART: Shows regular rhythm. Normal S1 and S2 sounds. LUNGS: Clear bilaterally. ABDOMEN: Soft. Minimal tenderness in the epigastric and mid-periumbilical area. No distention. No visceromegaly. EXTREMITIES: Show no evidence of cyanosis, edema or trauma. VITAL SIGNS: Blood pressure is 125/69, temperature 97.9, heart rate 67 per minute, respiratory rate is 20 per minute, and oxygen saturation 96%. LAB DATA: On the BMP; sodium 136, potassium 4.1, chloride 110, CO2 17. BUN 23, creatinine 1.02. Glucose of 152. On the CBC; white blood count 13.2, hemoglobin 13.7, hematocrit 41.4, platelet count 125,000. PT 13.4, INR 0.94, and PTT 31.2. AST 43, ALT 33. Total bilirubin 0.9, alkaline phosphatase 159. PLAN OF TREATMENT: We are going to continue normal saline at 150 mL an hour, Zofran 4 mg IV q.4 hours as needed, gabapentin 600 mg q.8 hours, lisinopril 10 mg daily, Protonix 40 mg daily, Flomax 0.4 mg daily. Continue monitoring blood sugar a.c. and h.s. Resume diabetic diet as tolerated. Continue the insulin regimen that he was taking before. We are going to do a CBC and BMP tomorrow. Imodium 2 mg every time he has diarrhea, not more than 6 tablets a day. Stool for C. difficile completely negative so far. Job#: [id number] RTY
[2018-10-01 20:00] VITALS: BP 131/71
[2018-10-01] MEDS ORDERED: INSULIN DETEMIR 35 UNIT SC SCH (21:00)
[2018-10-01] MEDS: INSULIN DETEMIR 100 UNIT/ML PEN SQ SCH (21:00)
[2018-10-02] VITALS (7 sets, daily range): BP systolic 112–141; BP diastolic 59–71
[2018-10-02] MEDS: SODIUM CHLORIDE 0.9% 1000ML 1,000 ML IV SCH ×4 (02:00→22:00)
[2018-10-02] MEDS: GABAPENTIN 300 MG CAP PO SCH ×3 (05:18→21:44)
[2018-10-02] MEDS: LOPERAMIDE HCL 2 MG CAP PO PRN ×2 (05:27→20:17)
[2018-10-02 05:44] LABS: BASOPHILS # (AUTO) 0.1 (0.0-0.1); BASOPHILS % 0.6 % (0.0-1.0); EOSINOPHILS # (AUTO) 0.2 (0.0-0.4); EOSINOPHILS % 1.5 % (0.0-6.0); HEMATOCRIT 40.8 % (38.2-49.6); HEMOGLOBIN 13.5 g/dL (14.0-18.0); LYMPHOCYTES # (AUTO) 2.9 (1.0-3.2); LYMPHOCYTES % 29.3 % (18.0-39.1); MEAN CORPUSCULAR HEMOGLOBIN 32.5 pg (28-32); MEAN CORPUSCULAR HGB CONC 33.1 g/dL (31-35); MEAN CORPUSCULAR VOLUME 98.3 fL (81-99); MONOCYTES # (AUTO) 0.8 (0.2-0.8); MONOCYTES % 7.9 % (4.4-11.3); NEUTROPHILS % 60.2 % (38.7-80.0); PLATELET COUNT 69 x10e3/uL (140-360); RED BLOOD COUNT 4.15 x10e6/uL (4.3-5.7)
[2018-10-02] MEDS: INSULIN REGULAR, HUMAN 100 UNIT/1 ML 3ML VIAL SQ SCH ×4 (07:30→20:58)
[2018-10-02] MEDS ORDERED: INSULIN DETEMIR SQ SCH (07:30)
[2018-10-02] MEDS: INSULIN DETEMIR 100 UNIT/ML PEN SQ SCH ×2 (08:50→21:00)
[2018-10-02] MEDS: METFORMIN HCL 500 MG TAB PO SCH ×2 (09:00→16:05)
[2018-10-02] MEDS: TAMSULOSIN HCL 0.4 MG CAP PO SCH (09:00)
[2018-10-02] MEDS: LISINOPRIL 10 MG TAB PO SCH (09:00)
[2018-10-02] MEDS: PANTOPRAZOLE SOD 40 MG TABEC PO SCH (09:00)
[2018-10-03] VITALS: BP 93/54
[2018-10-03 04:00] VITALS: BP 137/73
[2018-10-03] MEDS: SODIUM CHLORIDE 0.9% 1000ML 1,000 ML IV SCH (04:40)
[2018-10-03] MEDS: GABAPENTIN 300 MG CAP PO SCH ×3 (06:00→21:16)
[2018-10-03] MEDS: INSULIN REGULAR, HUMAN 100 UNIT/1 ML 3ML VIAL SQ SCH ×4 (07:30→20:54)
[2018-10-03 07:39] VITALS: BP 108/63
[2018-10-03] MEDS: TAMSULOSIN HCL 0.4 MG CAP PO SCH (08:27)
[2018-10-03] MEDS: METFORMIN HCL 500 MG TAB PO SCH ×2 (08:27→16:00)
[2018-10-03] MEDS: PANTOPRAZOLE SOD 40 MG TABEC PO SCH (08:27)
[2018-10-03] MEDS: INSULIN DETEMIR 100 UNIT/ML PEN SQ SCH ×2 (08:28→21:17)
[2018-10-03] MEDS: LISINOPRIL 10 MG TAB PO SCH (08:28)
[2018-10-03] MEDS ORDERED: OZEMPIC 0.5 MG SC SCH (09:00)
[2018-10-03 11:07] VITALS: BP 117/50
--- NOTE | 2018-10-03 13:48 | Progress Note ---
DATE: INTERNAL MEDICINE PROGRESS NOTE SUBJECTIVE: Patient is doing well, but is still complaining of diarrhea. PHYSICAL EXAMINATION VITAL SIGNS: Blood pressure 117/50, temperature 97.8, heart rate 68 per minute, respiratory rate 16 per minute, oxygen saturation 96%. HEART: Showed regular rhythm. Normal S1, S2 sounds. LUNGS: Clear bilaterally. ABDOMEN: Soft. No tenderness. No distention. No visceromegaly. EXTREMITIES: Show no evidence of cyanosis, edema, or trauma. LABS: On the blood work, we have a BMP, sodium 136, potassium 4.1, chloride 110, CO2 of 17, BUN 23, creatinine 1.02, glucose 152. On the CBC, white blood count 9.89, hemoglobin 13.7, hematocrit 40.8, platelet count 69,000. PT 13.4, INR 0.94, PTT 31.2. AST 43, ALT 33, total bilirubin 0.9, alkaline phosphatase 159. FINAL IMPRESSION 1. Acute gastroenteritis. 2. Hypertension. 3. Uncontrolled diabetes mellitus type 2. 4. Benign prostatic hypertrophy. PLAN OF TREATMENT: We are going to discontinue IV fluids because the patient is eating well. Continue Zofran 4 mg q.4 hours as needed, gabapentin 600 mg q.8 hours, lisinopril 10 mg daily, D50 IV push as needed, loperamide 2 mg q.4 hours as needed, Protonix 40 mg daily, metformin 500 mg twice a day. Continue gabapentin 600 mg q.8 hours, Flomax 0.4 mg daily, Levemir 35 units at bedtime. Continue monitoring blood sugar a.c. and nightly and Levemir 19 units with breakfast. Patient also has diabetic neuropathy. Stools for C. difficile are negative so far. Job#: [id number] LELA
[2018-10-03 15:20] VITALS: BP 120/71
[2018-10-03] MEDS: LEVOFLOXACIN 250 MG TAB PO SCH (15:30)
[2018-10-03] MEDS: LOPERAMIDE HCL 2 MG CAP PO PRN (16:15)
[2018-10-03 20:00] VITALS: BP 130/73
[2018-10-04] VITALS: BP 115/64
[2018-10-04 04:00] VITALS: BP 120/63
[2018-10-04] MEDS: GABAPENTIN 300 MG CAP PO SCH ×2 (05:38→14:50)
[2018-10-04 07:20] VITALS: BP 126/63
[2018-10-04 07:21] VITALS: BP 126/63
[2018-10-04] MEDS: INSULIN REGULAR, HUMAN 100 UNIT/1 ML 3ML VIAL SQ SCH ×3 (07:30→16:23)
[2018-10-04] MEDS: INSULIN DETEMIR 100 UNIT/ML PEN SQ SCH (07:55)
[2018-10-04] MEDS: METFORMIN HCL 500 MG TAB PO SCH (07:55)
[2018-10-04] MEDS: PANTOPRAZOLE SOD 40 MG TABEC PO SCH (08:57)
[2018-10-04] MEDS: LISINOPRIL 10 MG TAB PO SCH (08:57)
[2018-10-04] MEDS: TAMSULOSIN HCL 0.4 MG CAP PO SCH (08:57)
[2018-10-04 11:49] VITALS: BP 98/56
[2018-10-04] MEDS: LEVOFLOXACIN 250 MG TAB PO SCH (14:50)
[2018-10-04 16:15] VITALS: BP 131/69
--- NOTE | 2018-10-04 16:58 | Discharge Summary ---
The patient is a 68 year old with a past medical history positive for hypertension, diabetes, diabetic neuropathy, came to the hospital complaining of vomiting and diarrhea. He was started on IV fluids. Stool for C. difficile came back negative. The diarrhea and the vomiting are completely gone. Patient is asymptomatic. Tolerating the diet. He is going home today. PHYSICAL EXAMINATION HEART: Shows regular rhythm. Normal S1 and S2 sounds. LUNGS: Clear bilaterally. ABDOMEN: Soft. No hepatosplenomegaly or visceromegaly. VITAL SIGNS: Blood pressure is 98/56, temperature 96.5, heart rate 78 per minute, respiratory rate 16 per minute, oxygen saturation 97%. BLOOD WORK: We have a BMP with sodium of 136, potassium 4.1, chloride 110, CO2 17, BUN 23, creatinine 1.02, glucose 152. On the CBC, white blood count 9.89, hemoglobin 13.5, hematocrit 40.8, and platelet count 69,000. PT 13.4, INR 0.94 and PTT 31.2. AST 43, ALT 33, total bilirubin 0.9, alkaline phosphatase 159. Stool for C. difficile negative. FINAL IMPRESSION 1. Episode of nausea and vomiting most likely secondary to viral gastroenteritis, which has completely resolved. 2. Uncontrolled diabetes mellitus, type 2 with diabetic neuropathy. 3. Hypertension. 4. Benign prostatic hypertrophy. PLAN OF TREATMENT: We are going to continue: 1. Gabapentin 600 mg p.o. q.8 h. 2. Lisinopril 10 mg daily. 3. Protonix 40 mg daily. 4. Metformin 500 mg p.o. twice a day. 5. Continue Flomax 0.4 mg daily. 6. Levemir 35 units at bedtime and 19 units in the morning. 7. Continue monitoring blood sugar a.c. and at night. 8. Loperamide 2 mg q.4 h. as needed. Follow up in a couple of weeks. HAYES BEAL MD Job#: [id number] DC
== END 2018-10-04 17:05 | disposition home or self-care (01) ==
LOC: ER 18:14 → ERHOLD 23:33 → IMCU 10-01 00:39
PROVIDERS: ADMIT Internal Medicine; ATTEND Internal Medicine
DX: R11.2 Nausea with vomiting, unspecified (principal); R19.7 Diarrhea, unspecified; E86.0 Dehydration; E11.65 Type 2 diabetes mellitus with hyperglycemia; E11.40 Type 2 diabetes mellitus with diabetic neuropathy, unspecified; E11.22 Type 2 diabetes mellitus with diabetic chronic kidney disease; I12.9 Hypertensive chronic kidney disease with stage 1 through stage 4 chronic kidney disease, or unspecified chronic kidney disease; N18.9 Chronic kidney disease, unspecified; Z79.4 Long term (current) use of insulin; Z79.84 Long term (current) use of oral hypoglycemic drugs; I10 Essential (primary) hypertension; K74.60 Unspecified cirrhosis of liver; E78.5 Hyperlipidemia, unspecified; J44.9 Chronic obstructive pulmonary disease, unspecified; F17.210 Nicotine dependence, cigarettes, uncomplicated; N40.0 Benign prostatic hyperplasia without lower urinary tract symptoms
CPT/HCPCS: 36415 ×5; 71045; 74176; 80053 ×2; 81001; 82550; 82553; 82948 ×5; 83605; 83690; 84484; 85025 ×3; 85610; 85730; 87045; 87086; 87493; 93005; 99284; G0378 ×5; J2405; J7030 ×4; Q9663; S0164 ×4

== ENCOUNTER 2019-04-09 17:41 | Inpatient (IN) | payer MEDICARE ==
[~2019-04-09] VITALS: Ht 175.3 cm; Wt 131.1 kg
[~2019-04-09 17:41] MED LIST changes: +NAPROXEN500 MG PO; +OZEMPIC SC
[2019-04-09] MEDS ORDERED: SODIUM CHLORIDE 0.9% 1000ML 1,000 ML IV STA (18:02)
[2019-04-09] MEDS ORDERED: PANTOPRAZOLE 40 MG 10ML VIAL IV NR (18:15)
[2019-04-09 18:53] LABS: BASOPHILS # (AUTO) 0.1 (0.0-0.1); BASOPHILS % 0.5 % (0.0-1.0); EOSINOPHILS # (AUTO) 0.1 (0.0-0.4); HEMOGLOBIN 14.3 g/dL (14.0-18.0); LYMPHOCYTES # (AUTO) 2.4 (1.0-3.2); MEAN CORPUSCULAR HEMOGLOBIN 32.9 pg (28-32); MEAN CORPUSCULAR HGB CONC 34.9 g/dL (31-35); MEAN CORPUSCULAR VOLUME 94.5 fL (81-99); MONOCYTES # (AUTO) 0.9 (0.2-0.8); MONOCYTES % 7.9 % (4.4-11.3); NEUTROPHILS # (AUTO) 8.4 (2.1-6.9); NEUTROPHILS % 70.2 % (38.7-80.0); PLATELET COUNT 114 x10e3/uL (140-360); RED BLOOD COUNT 4.34 x10e6/uL (4.3-5.7); RED CELL DISTRIBUTION WIDTH 13.1 % (11.7-14.4)
[2019-04-09 18:56] LABS: BILIRUBIN,URINE NEGATIVE (NEGATIVE); CLARITY,URINE CLEAR (CLEAR); COLOR,URINE YELLOW (YELLOW); KETONES,URINE NEGATIVE (NEGATIVE); LEUKOCYTE ESTERASE ,URINE NEGATIVE (NEGATIVE); NITRITE,URINE NEGATIVE (NEGATIVE); PROTEIN,URINE DIPSTICK NEGATIVE (NEGATIVE); URINE UROBILINOGEN 0.2 mg/dL (0.2 - 1)
[2019-04-09 19:04] LABS: PROTHROMBIN TIME 13.7 seconds (11.9-14.5)
[2019-04-09] MEDS ORDERED: GABAPENTIN300 MG PO (19:11)
[2019-04-09] MEDS ORDERED: ULTRACET TABLE1 EACH PO (19:11)
[2019-04-09] MEDS ORDERED: FENOFIBRATE160 MG PO (19:11)
[2019-04-09] MEDS ORDERED: AMITIZA24 MCG PO (19:11)
[2019-04-09] MEDS ORDERED: OMEPRAZOLE20 MG PO (19:11)
[2019-04-09] MEDS ORDERED: MONTELUKAST SOD10 MG PO (19:11)
[2019-04-09] MEDS ORDERED: ADVAIR 250-501 EACH INH (19:11)
[2019-04-09 19:16] LABS: ALANINE AMINOTRANSFERASE 43 IU/L (0-55); ALBUMIN 3.6 g/dL (3.5-5.0); ALBUMIN/GLOBULIN RATIO 0.8 (0.8-2.0); ALKALINE PHOSPHATASE 341 IU/L (40-150); AMYLASE 78 U/L (25-125); ANION GAP 15.9 mmol/L (8-16); BACTERIA,URINE FEW /HPF; BLOOD UREA NITROGEN 10 mg/dL (7-26); BUN/CREATININE RATIO 11 (6-25); CARBON DIOXIDE 14 mmol/L (22-29); CHLORIDE 107 mmol/L (98-107); CREATINE KINASE 61 IU/L (30-200); CREATININE, SERUM 0.89 mg/dL (0.72-1.25); EST GLOMERULAR FILTRATION RATE > 60 ML/MIN (60-); LIPASE 103 U/L (8-78); POTASSIUM 3.9 mmol/L (3.5-5.1); RBC,URINE 0-5 /HPF (0-5); SODIUM 133 mmol/L (136-145); WBC,URINE (MAN) 0-5 /HPF (0-5)
[2019-04-09 19:17] LABS: YEAST,URINE RARE
[2019-04-09 19:31] LABS: GLUCOSE 407 mg/dL (74-118)
--- NOTE | 2019-04-09 19:54 | NUR ---
FORMED STOOL SENT TO LAB
[2019-04-09] MEDS ORDERED: INSULIN REGULAR, HUMAN 100 UNIT/1 ML 3ML VIAL SQ ONE (20:00)
[2019-04-09 20:33] LABS: OCCULT BLOOD STOOL POSITIVE (NEGATIVE)
--- NOTE | 2019-04-09 21:00 | NUR ---
PT AWAKE ALERT SKIN W/D RESP NONLAB, NAD NOTED. PT ASKING FOR FOOD, EXPLAINED NPO FOR NOW
--- NOTE | 2019-04-09 22:04 | Diagnostic Imaging Report ---
EXAMINATION: Chest PA and lateral views INDICATION: Pain. COMPARISON: 09/30/2018. FINDINGS: TUBES and LINES: None. LUNGS: Interval increase in diffuse coarsening of the pulmonary interstitium suggestive of interstitial lung disease is less fibrosis. PLEURA: No pleural effusion or pneumothorax. HEART AND MEDIASTINUM: The cardiac silhouette is mildly enlarged. BONES AND SOFT TISSUES: No acute osseous lesion. Soft tissues are unremarkable. UPPER ABDOMEN: No free air under the diaphragm. IMPRESSION: Interval increase in interstitial lung disease pattern. Signed by: Dr. Nick Benitez M.D. on 04/09/2019 10:01 PM
--- NOTE | 2019-04-09 22:12 | NUR ---
AWAKE ALERT SKIN W/D RESP NONLAB. NAD NOTED. AWAITING CT RESULTS. VSS
--- NOTE | 2019-04-09 22:26 | Diagnostic Imaging Report ---
EXAM: CT Abdomen and Pelvis WITH contrast INDICATION: Severe Abdominal pain, and diarrhea COMPARISON: 09/30/2018. TECHNIQUE: Abdomen and pelvis were scanned utilizing a multidetector helical scanner from the lung base to the pubic symphysis after administration of IV contrast. Coronal and sagittal reformations were obtained. Routine protocol was performed. Scan was performed when during portal venous phase. IV CONTRAST: 100 cc Isovue 300 ORAL CONTRAST: Water RADIATION DOSE: Total DLP: 811.67 mGy*cm Estimated effective dose: (DLP x 0.015 x size factor) mSv COMPLICATIONS: None FINDINGS: LINES and TUBES: None. LOWER THORAX: Unremarkable HEPATOBILIARY: Cirrhotic hepatic morphology. No focal hepatic lesions. No biliary ductal dilation. GALLBLADDER: Decompressed No radio-opaque stones or sludge. No wall thickening. SPLEEN: Enlarged measuring 15.4 cm in craniocaudal dimension. PANCREAS: Mild diffuse hyperenhancement, with minimal surrounding fat stranding particularly about the posterior body and tail as seen on image 36 may reflect acute interstitial pancreatitis. ADRENALS: No adrenal nodules. KIDNEYS/URETERS: Kidneys enhance symmetrically. No hydronephrosis. No cystic or solid mass lesions. No stones. GI TRACT: Mild diffuse wall thickening of the sigmoid colon. Diverticulosis predominantly involving the sigmoid colon, associated with mild perisigmoid fat stranding seen on images 76 and 77, possibly mild diverticulitis. Appendix is normal. PELVIC ORGANS/BLADDER: Unremarkable. LYMPH NODES: No lymphadenopathy. VESSELS: There is moderate atherosclerotic disease in the aorta and major arterial branches. The main portal vein measures 1.7 cm in diameter. PERITONEUM / RETROPERITONEUM: No free air or fluid. Increased density of the retroperitoneal and mesenteric fat associated with small lymph nodes BONES: There are degenerative changes in the lumbar spine. SOFT TISSUES: Small fat-containing inguinal hernias, left greater than right. IMPRESSION: 1. Findings suggestive of acute sigmoid diverticulitis. No abscess formation. 2. Possible mild acute edematous interstitial pancreatitis in the proper clinical setting. Recommend correlation with amylase and lipase. 3. Hepatic cirrhosis. 4. Mild shy mesentery is nonspecific, however, may reflect ongoing inflammatory/infectious process in the abdomen as described above. 5. Splenomegaly and portal hypertension. Signed by: Dr. Nick Benitez M.D. on 04/09/2019 10:23 PM
[2019-04-09] MEDS ORDERED: DEXTROSE 50% SYRINGE 50 ML IV PRN (22:45)
[2019-04-09] MEDS ORDERED: ONDANSETRON HCL INJ 2MG/ML 2ML 2 MG/ML VIAL IV PRN (22:45)
[2019-04-09] MEDS ORDERED: MORPHINE SULFATE 2 MG/ML SYR 1ML IV PRN (22:45)
[2019-04-09] MEDS: METRONIDAZOLE 500MG/NS 100ML 100 ML IV SCH (22:53)
--- NOTE | 2019-04-09 23:25 | NUR ---
received patient aaox3, at bedside. stable condition, no distress observed. denies pain. updated on plan of care. bed locked and in lowest position, call light within easy reach. instructed to call for assistance, patient verbalized understanding. bed alarm activated. will continue to monitor the patient.
[2019-04-10] VITALS (8 sets, daily range): BP systolic 101–143; BP diastolic 53–93
[2019-04-10] MEDS: LEVOFLOXACIN 500MG/D5W 100ML 100 ML IV SCH ×2 (00:07→21:41)
[2019-04-10] MEDS: SODIUM CHLORIDE 0.9% 1000ML 1,000 ML IV SCH ×4 (00:07→23:58)
[2019-04-10] MEDS ORDERED: IOPAMIDOL 370 MG/ML 200 ML INFUS..BTL INJ ONE (01:18)
[2019-04-10] MEDS ORDERED: SODIUM CHLORIDE 0.9% 50ML 50 ML ONE (01:18)
[2019-04-10 05:58] LABS: BASOPHILS % 0.5 % (0.0-1.0); EOSINOPHILS # (AUTO) 0.2 (0.0-0.4); EOSINOPHILS % 2.1 % (0.0-6.0); HEMATOCRIT 36.9 % (38.2-49.6); HEMOGLOBIN 12.7 g/dL (14.0-18.0); LYMPHOCYTES % 24.3 % (18.0-39.1); MEAN CORPUSCULAR HEMOGLOBIN 32.5 pg (28-32); MEAN CORPUSCULAR HGB CONC 34.4 g/dL (31-35); MEAN CORPUSCULAR VOLUME 94.4 fL (81-99); MONOCYTES # (AUTO) 0.6 (0.2-0.8); MONOCYTES % 7.6 % (4.4-11.3); NEUTROPHILS # (AUTO) 5.3 (2.1-6.9); NEUTROPHILS % 65.1 % (38.7-80.0); PLATELET COUNT 98 x10e3/uL (140-360); RED BLOOD COUNT 3.91 x10e6/uL (4.3-5.7); RED CELL DISTRIBUTION WIDTH 13.1 % (11.7-14.4)
[2019-04-10] MEDS: METRONIDAZOLE 500MG/NS 100ML 100 ML IV SCH ×5 (06:05→23:58)
[2019-04-10 06:37] LABS: ALANINE AMINOTRANSFERASE 34 IU/L (0-55); ALBUMIN/GLOBULIN RATIO 0.8 (0.8-2.0); ALKALINE PHOSPHATASE 294 IU/L (40-150); AMYLASE 60 U/L (25-125); ANION GAP 10.9 mmol/L (8-16); BLOOD UREA NITROGEN 7 mg/dL (7-26); BUN/CREATININE RATIO 9 (6-25); CALCIUM 8.6 mg/dL (8.4-10.2); CARBON DIOXIDE 18 mmol/L (22-29); CHLORIDE 111 mmol/L (98-107); CREATININE, SERUM 0.75 mg/dL (0.72-1.25); EST GLOMERULAR FILTRATION RATE > 60 ML/MIN (60-); GLUCOSE 183 mg/dL (74-118); LIPASE 74 U/L (8-78); POTASSIUM 3.9 mmol/L (3.5-5.1); SODIUM 136 mmol/L (136-145)
--- NOTE | 2019-04-10 07:00 | NUR ---
BEDSIDE SHIFT REPORT RECEIVED FROM NIGHT RN. PT DENIES NEEDS AT THIS TIME.
[2019-04-10] MEDS: INSULIN REGULAR, HUMAN 100 UNIT/1 ML 3ML VIAL SQ SCH ×4 (07:30→20:32)
[2019-04-10] MEDS ORDERED: MORPHINE SULFATE INJ 4 MG/ML INJ 1ML IV PRN (08:15)
[2019-04-10] MEDS ORDERED: TRAMADOL/APAP 37.5MG-325MG TAB PO PRN (12:30)
[2019-04-10 14:45] LABS: C DIFFICILE TOXIN A&B AMP PROB NEGATIVE (NEGATIVE)
[2019-04-10] MEDS: LUBIPROSTONE 24 MCG CAP PO SCH (17:25)
[2019-04-10] MEDS: METFORMIN HCL 500 MG TAB PO SCH (17:26)
[2019-04-10] MEDS: GABAPENTIN 300 MG CAP PO SCH (17:26)
--- NOTE | 2019-04-10 20:53 | History and Physical ---
HISTORY OF PRESENT ILLNESS: The patient is 69 years old male, past medical history positive for hypertension, diabetes, and cirrhosis of the liver, came here with abdominal pain. He was found to have diverticulitis and pancreatitis, and admitted to the hospital. REVIEW OF SYSTEMS: CARDIOVASCULAR: No chest pain or palpitation. RESPIRATORY: No shortness of breath. No cough. GASTROINTESTINAL: He had abdominal pain. No nausea. No vomiting. No diarrhea. GENITOURINARY: No frequency or dysuria. ALLERGIES: NOT ALLERGIC TO ANY MEDICATION. PAST MEDICAL HISTORY: Cirrhosis of the liver, diabetes mellitus, and hypertension. SOCIAL HISTORY: He used to be a heavy alcohol drinker in the past, he quit according to him 12 years ago. He smokes occasionally. PHYSICAL EXAMINATION: HEART: Showed regular rhythm. HEART: Normal S1, S2 sound. LUNGS: Clear bilaterally. ABDOMEN: Soft. He has mild tenderness in the suprapubic and periumbilical area. No distention. No visceromegaly. EXTREMITIES: No evidence of cyanosis or hematoma. LABORATORY DATA: Sodium 136, potassium 3.9, chloride 111, CO2 of 18, BUN 7, creatinine 0.75, and glucose 183. On CBC, white blood count 8.12, hemoglobin 12.7, hematocrit 36.9, and platelet count 188,000. PT 13.7, INR 1.00, and PTT 32.0. AST 43, ALT 34, total bilirubin 0.7, alkaline phosphatase 294, and lipase 74. CT of the abdomen showed diverticulitis and acute pancreatitis. IMPRESSION: 1. Acute pancreatitis. 2. Acute diverticulitis. 3. Cirrhosis of the liver. 4. Uncontrolled diabetes mellitus type 2. 5. Chronic obstructive pulmonary disease. PLAN OF TREATMENT: Continue n.p.o. status. We are going to start a liquid diet at the end of the day. Continue Levaquin and Flagyl. Continue with sodium chloride 125 mL an hour. Continue monitoring blood sugar before meals and at bedtime. Zofran 4 mg IV q.4 hours and morphine 4 mg IV q.4 hours as needed. We are going to resume all the home medications except for the metformin. We are going to recheck the CMP and lipase level tomorrow, consult Dr. Rich Ramos for Gastroenterology, and continue current antibiotic therapy. The patient is much more comfortable right now. MD ABILIO Antoine/NURY /[id number]
[2019-04-10] MEDS: MONTELUKAST SODIUM 10 MG TAB PO SCH (21:41)
[2019-04-10] MEDS: SALMETEROL/FLUTICASONE 250/50 INH SCH (23:30)
[2019-04-11] VITALS (8 sets, daily range): BP systolic 97–133; BP diastolic 52–70
[2019-04-11] MEDS: METRONIDAZOLE 500MG/NS 100ML 100 ML IV SCH ×3 (05:21→17:08)
[2019-04-11 06:08] LABS: ALANINE AMINOTRANSFERASE 31 IU/L (0-55); ALBUMIN/GLOBULIN RATIO 0.8 (0.8-2.0); ALKALINE PHOSPHATASE 256 IU/L (40-150); ANION GAP 10.7 mmol/L (8-16); BLOOD UREA NITROGEN 7 mg/dL (7-26); BUN/CREATININE RATIO 9 (6-25); CALCIUM 8.9 mg/dL (8.4-10.2); CARBON DIOXIDE 21 mmol/L (22-29); CHLORIDE 111 mmol/L (98-107); CREATININE, SERUM 0.76 mg/dL (0.72-1.25); EST GLOMERULAR FILTRATION RATE > 60 ML/MIN (60-); GLUCOSE 155 mg/dL (74-118); POTASSIUM 3.7 mmol/L (3.5-5.1); SODIUM 139 mmol/L (136-145)
[2019-04-11] MEDS: SODIUM CHLORIDE 0.9% 1000ML 1,000 ML IV SCH ×2 (06:45→14:45)
[2019-04-11] MEDS: SALMETEROL/FLUTICASONE 250/50 INH SCH ×2 (07:30→19:36)
[2019-04-11] MEDS: INSULIN REGULAR, HUMAN 100 UNIT/1 ML 3ML VIAL SQ SCH ×4 (08:30→21:00)
[2019-04-11] MEDS: PANTOPRAZOLE SOD 40 MG TABEC PO SCH (08:54)
[2019-04-11] MEDS: METFORMIN HCL 500 MG TAB PO SCH ×2 (08:54→17:08)
[2019-04-11] MEDS: TAMSULOSIN HCL 0.4 MG CAP PO SCH (08:54)
[2019-04-11] MEDS: LUBIPROSTONE 24 MCG CAP PO SCH ×2 (08:54→17:00)
[2019-04-11] MEDS: GABAPENTIN 300 MG CAP PO SCH ×2 (08:54→17:41)
[2019-04-11] MEDS: LISINOPRIL 10 MG TAB PO SCH (08:54)
--- NOTE | 2019-04-11 11:13 | NUR ---
EDUCATED ABOUT IMM, SIGNED, FILED IN CHART, WITH COPY LEFT WITH FAMILY AT BEDSIDE.
--- NOTE | 2019-04-11 11:46 | Progress Note ---
DATE: 04/11/2019 I am covering for Dr. Garduno. SUBJECTIVE: Mr. Mendez is a 69-year-old man with history of hypertension, diabetes, and liver cirrhosis, came to the emergency room complaining of abdominal pain. He was found to have pancreatitis and diverticulitis. He was admitted to the hospital. PHYSICAL EXAMINATION: GENERAL: Today, he is awake and alert. VITAL SIGNS: Temperature is 95, blood pressure is 131/60. HEART: Regular rate. LUNGS: Clear to auscultation. ABDOMEN: Soft. Bowel sounds positive. LABORATORY DATA: On the blood work; white count yesterday was 8.12, hemoglobin 12.7, hematocrit 36.9. Potassium 3.7, creatinine 0.76, glucose 155. Alkaline phosphatase is 256. Lipase is 43 today. The urine culture is showing gram-negative rods. Abdominal and pelvic CT show a finding suggestive of acute sigmoid diverticulitis, possible mild acute edematous interstitial pancreatitis, hepatic cirrhosis, splenomegaly and portal hypertension. Chest x-ray shows some interval increase in interstitial lung disease pattern. ASSESSMENT AND PLAN: On this patient is: 1. Acute pancreatitis. 2. Acute sigmoid diverticulitis. 3. Liver cirrhosis. 4. Diabetes type 2 with hyperglycemia. 5. Chronic obstructive pulmonary disease. 6. Hypertension. The plan at present time is to see if it is okay with GI. Start the patient on a liquid diet. Continue IV antibiotics. Continue sliding scale with insulin. Zofran for nausea and morphine for pain. Continue to monitor the liver enzymes and lipase. Dr. Rich Ramos already saw the patient and he is on the case following the patient with me. All this was discussed with the patient at bedside. All questions were answered to satisfaction. MD LARRY Oconnor/MODL /[id number]
--- NOTE | 2019-04-11 12:06 | NUR ---
Stool specimen taken to lab
--- NOTE | 2019-04-11 19:00 | NUR ---
report received from day nurse. patient is resting comfortably in bed. bed is in lowest position and call acevedo is within reach. will continue to monitor patient's plan of care.
[2019-04-11] MEDS: LEVOFLOXACIN 500MG/D5W 100ML 100 ML IV SCH (22:19)
[2019-04-11] MEDS: MONTELUKAST SODIUM 10 MG TAB PO SCH (22:19)
[2019-04-12] VITALS (8 sets, daily range): BP systolic 108–152; BP diastolic 53–75
[2019-04-12] MEDS: SODIUM CHLORIDE 0.9% 1000ML 1,000 ML IV SCH ×4 (00:21→21:30)
[2019-04-12] MEDS: METRONIDAZOLE 500MG/NS 100ML 100 ML IV SCH ×4 (01:33→16:29)
[2019-04-12] MEDS: SALMETEROL/FLUTICASONE 250/50 INH SCH ×2 (07:00→19:50)
--- NOTE | 2019-04-12 07:05 | NUR ---
report given to morning nurse. patient is resting comfortably in bed. bed is in lowest position and call acevedo is within reach.
[2019-04-12] MEDS: INSULIN REGULAR, HUMAN 100 UNIT/1 ML 3ML VIAL SQ SCH ×4 (08:00→21:15)
[2019-04-12] MEDS: LUBIPROSTONE 24 MCG CAP PO SCH ×2 (09:00→16:29)
[2019-04-12] MEDS: PANTOPRAZOLE SOD 40 MG TABEC PO SCH (09:45)
[2019-04-12] MEDS: LISINOPRIL 10 MG TAB PO SCH (09:45)
[2019-04-12] MEDS: TAMSULOSIN HCL 0.4 MG CAP PO SCH (09:45)
[2019-04-12] MEDS: GABAPENTIN 300 MG CAP PO SCH ×2 (09:45→16:29)
[2019-04-12] MEDS: METFORMIN HCL 500 MG TAB PO SCH ×2 (09:45→16:29)
--- NOTE | 2019-04-12 11:30 | Progress Note ---
DATE: 04/12/2019 SUBJECTIVE: Mr. Mendez is a 69-year-old man with history of hypertension, diabetes, liver cirrhosis, came to the emergency room complaining of abdominal pain. Lipase was a little elevated. He was found to have a mild pancreatitis and diverticulitis. He has been seen by Dr. Ramos. Stool guaiac came back positive. PHYSICAL EXAMINATION: GENERAL: Today, he is awake and alert. He is feeling better. He wants to go home. VITAL SIGNS: Temperature is 97.2, blood pressure 124/58. HEART: Regular rate. LUNGS: Clear to auscultation. ABDOMEN: Soft. LABORATORY DATA: On the blood work; white count 8.12, hemoglobin 12.7, hematocrit 36.9. Potassium 3.7, glucose 155, creatinine 0.76. Lipase and amylase are normal. Hepatitis profile negative. Clostridium difficile negative. Stool occult blood positive, stool lactoferrin positive. Urine culture is growing E coli. ASSESSMENT: 1. Acute mild pancreatitis. 2. Acute sigmoid diverticulitis. 3. Liver cirrhosis. 4. Diabetes type 2 with hyperglycemia. 5. Chronic obstructive pulmonary disease. 6. Hypertension. 7. Urinary tract infection with E coli. PLAN: The plan at present time is to continue IV antibiotics. Continue ADA diet, sliding scale. Continue to advance diet as tolerated. If the patient is stable and if it is okay with Dr. Rich Ramos, he is going to be discharged home tomorrow. All this was discussed with the patient. All questions were answered to his satisfaction. MD LARRY Oconnor/NURY /[id number]
[2019-04-12] MEDS ORDERED: ONDANSETRON HCL 4 MG ORAL DISINTEGRATING TAB PO PRN (14:45)
--- NOTE | 2019-04-12 19:25 | NUR ---
RECEIVED PATIENT. PATIENT IS AAOX3. RESP EVEN AND UNLABORED. NO ACUTE DISTRESS NOTED. PATIENT STATES HE DOESN'T HAVE ANYMORE DIARRHEA. FAMILY AT BED SIDE. CALL LIGHT WITHIN REACH. INSTRUCT TO CALL FOR ASSISTANCE. BED LOW/LOCKED. CONTINUE TO MONITOR CLOSELY
[2019-04-12] MEDS: MONTELUKAST SODIUM 10 MG TAB PO SCH (20:40)
[2019-04-12] MEDS: LEVOFLOXACIN 500MG/D5W 100ML 100 ML IV SCH (21:30)
[2019-04-13] MEDS: METRONIDAZOLE 500MG/NS 100ML 100 ML IV SCH ×3 (00:35→12:00)
[2019-04-13 01:00] VITALS: BP 121/60
[2019-04-13 05:41] LABS: HEMATOCRIT 37.1 % (38.2-49.6); HEMOGLOBIN 12.7 g/dL (14.0-18.0); MEAN CORPUSCULAR HEMOGLOBIN 32.9 pg (28-32); MEAN CORPUSCULAR HGB CONC 34.2 g/dL (31-35); MEAN CORPUSCULAR VOLUME 96.1 fL (81-99); PLATELET COUNT 99 x10e3/uL (140-360); RED BLOOD COUNT 3.86 x10e6/uL (4.3-5.7)
[2019-04-13 05:47] LABS: ANION GAP 11.6 mmol/L (8-16); BLOOD UREA NITROGEN 10 mg/dL (7-26); BUN/CREATININE RATIO 14 (6-25); CALCIUM 8.7 mg/dL (8.4-10.2); CARBON DIOXIDE 21 mmol/L (22-29); CHLORIDE 111 mmol/L (98-107); CREATININE, SERUM 0.73 mg/dL (0.72-1.25); EST GLOMERULAR FILTRATION RATE > 60 ML/MIN (60-); GLUCOSE 153 mg/dL (74-118); POTASSIUM 3.6 mmol/L (3.5-5.1); SODIUM 140 mmol/L (136-145)
[2019-04-13 05:51] VITALS: BP 132/63
[2019-04-13] MEDS: SODIUM CHLORIDE 0.9% 1000ML 1,000 ML IV SCH (05:52)
[2019-04-13] MEDS: SALMETEROL/FLUTICASONE 250/50 INH SCH (06:54)
--- NOTE | 2019-04-13 07:00 | NUR ---
BEDSIDE SHIFT REPORT RECEIVED FROM CECE REA. PT DENIES NEEDS AT THIS TIME.
[2019-04-13] MEDS: LUBIPROSTONE 24 MCG CAP PO SCH (08:21)
[2019-04-13] MEDS: METFORMIN HCL 500 MG TAB PO SCH (08:21)
[2019-04-13] MEDS: TAMSULOSIN HCL 0.4 MG CAP PO SCH (08:21)
[2019-04-13] MEDS: GABAPENTIN 300 MG CAP PO SCH (08:21)
[2019-04-13] MEDS: LISINOPRIL 10 MG TAB PO SCH (08:22)
[2019-04-13] MEDS: PANTOPRAZOLE SOD 40 MG TABEC PO SCH (08:22)
[2019-04-13] MEDS: INSULIN REGULAR, HUMAN 100 UNIT/1 ML 3ML VIAL SQ SCH ×2 (08:23→11:30)
[2019-04-13 08:54] VITALS: BP 143/66
[2019-04-13 11:09] LABS: EOSINOPHILS % (MANUAL) 3 % (0-7); LYMPHOCYTES % (MANUAL) 27 % (19-48); MONOCYTES % (MANUAL) 9 % (3.4-9.0); NEUTROPHILS % (MANUAL) 61 % (40-74); PLATELET ESTIMATE ADEQUATE; PLATELET MORPHOLOGY COMMENT NORMAL; RBC MORPHOLOGY COMMENT NORMAL
--- NOTE | 2019-04-13 11:26 | Discharge Summary ---
HOSPITAL COURSE: Mr. Mendez is a 69-year-old man with history of hypertension, diabetes, liver cirrhosis, came to the emergency room complaining of abdominal pain. He was found to have mild pancreatitis and sigmoid diverticulitis. He has been on IV antibiotics. Diet was advanced from soft to clear diet. He is doing better, the pain is resolved, he can tolerate the diet, so if it is okay with Dr. Ramos, the patient is going to be discharged home and he is going to follow up as an outpatient. PHYSICAL EXAMINATION: GENERAL: Today, he is awake and alert. He wants to go home. VITAL SIGNS: Temperature is 97.9, blood pressure is 143/66. HEART: Regular rate. LUNGS: Clear to auscultation. ABDOMEN: Soft. EXTREMITIES: Lower extremity; no edema, no erythema. LABORATORY DATA: On blood work, C difficile negative. Hepatitis profile negative. Potassium 3.6, creatinine 0.73, glucose 153. White count 5.50, hemoglobin 12.5, hematocrit 37.1. ASSESSMENT: 1. Acute mild pancreatitis, resolved. 2. Acute sigmoid diverticulitis, improved. 3. Liver cirrhosis. 4. Positive stool guaiac probably due to diverticulitis. 5. Diabetes type 2 with hyperglycemia. 6. Chronic obstructive pulmonary disease. 7. Hypertension. 8. Urinary tract infection with Escherichia coli. PLAN: At present time, since the patient had acute diverticulitis, we have to wait, but he is probably going to need colonoscopy. We are going to switch him to p.o. Levaquin 500 mg daily for 10 more days and Flagyl 500 mg q.8 h. for 10 more days. Continue ADA diet. Continue home medications. All this was discussed with the patient. All questions were answered to satisfaction. He needs followup with PCP next week and with Dr. Ramos as directed by him. He is to call me or come back to the emergency room if any recurrent problem. Please see home medication reconciliation list. MD LARRY Oconnor/NURY /[id number]
--- NOTE | 2019-04-13 11:38 | NUR ---
OK WITH DR. BONILLA TO DISCHARGE HOME. FU IN HIS OFFICE IN 1 WEEK.
[2019-04-13] MEDS ORDERED: LEVAQUIN500 MG PO (11:43)
[2019-04-13] MEDS ORDERED: FLAGYL250 MG (11:45)
--- NOTE | 2019-04-13 12:00 | NUR ---
Spoke to pt at bedside and reminded him of his Medicare Rights. He states he is ready to discharge. Signed copy placed in chart. Copy to pt.
[2019-04-13 12:11] VITALS: BP 129/76
== END 2019-04-13 12:20 | disposition home or self-care (01) | DRG 439 ==
LOC: ER 17:41 → ERHOLD 22:53 → MED/SURG2 23:33
PROVIDERS: ADMIT Internal Medicine; ATTEND Internal Medicine
DX: K85.90 Acute pancreatitis without necrosis or infection, unspecified (principal); K57.92 Diverticulitis of intestine, part unspecified, without perforation or abscess without bleeding; N39.0 Urinary tract infection, site not specified; K70.30 Alcoholic cirrhosis of liver without ascites; E11.65 Type 2 diabetes mellitus with hyperglycemia; J44.9 Chronic obstructive pulmonary disease, unspecified; B96.20 Unspecified Escherichia coli [E. coli] as the cause of diseases classified elsewhere; Z16.29 Resistance to other single specified antibiotic; F10.21 Alcohol dependence, in remission
CPT/HCPCS: 36415; 71045; 74177; 80048; 80053; 81001; 82150; 82270; 82550; 82553; 82948; 83630; 83690; 83735; 84484; 85007; 85025; 85027; 85610; 85730; 86850; 86900; 87045; 87086; 87177; 87186; 87493; 93005; 94664; 99284; J1956; J2270; J2405; J7030; Q9967

== ENCOUNTER 2019-05-05 17:13 | Emergency (ER) | payer MEDICARE, OTHER ==
[~2019-05-05] VITALS: Ht 175.3 cm; Wt 131.1 kg
[~2019-05-05 17:13] MED LIST changes: +AMITIZA24 MCG PO; +FENOFIBRATE160 MG PO; +FLAGYL250 MG; +LANTUS 3ML100 UNITS/ SQ; +LEVAQUIN500 MG PO; +MONTELUKAST SOD10 MG PO; +OMEPRAZOLE20 MG PO; +ULTRACET TABLE1 EACH PO
[2019-05-05] MEDS ORDERED: DIATRIZOATE MEGL/DIATRIZOA SOD 30 ML BTL PO ONE (18:07)
[2019-05-05 18:20] LABS: BASOPHILS # (AUTO) 0.1 (0.0-0.1); BASOPHILS % 0.6 % (0.0-1.0); EOSINOPHILS # (AUTO) 0.1 (0.0-0.4); EOSINOPHILS % 1.6 % (0.0-6.0); HEMATOCRIT 42.1 % (38.2-49.6); LYMPHOCYTES # (AUTO) 2.1 (1.0-3.2); LYMPHOCYTES % 24.7 % (18.0-39.1); MEAN CORPUSCULAR HEMOGLOBIN 32.4 pg (28-32); MEAN CORPUSCULAR HGB CONC 33.3 g/dL (31-35); MEAN CORPUSCULAR VOLUME 97.5 fL (81-99); MONOCYTES # (AUTO) 0.6 (0.2-0.8); MONOCYTES % 7.1 % (4.4-11.3); NEUTROPHILS # (AUTO) 5.7 (2.1-6.9); NEUTROPHILS % 65.7 % (38.7-80.0); PLATELET COUNT 120 x10e3/uL (140-360); RED BLOOD COUNT 4.32 x10e6/uL (4.3-5.7); RED CELL DISTRIBUTION WIDTH 12.6 % (11.7-14.4)
[2019-05-05 18:36] LABS: BILIRUBIN,URINE NEGATIVE (NEGATIVE); CLARITY,URINE CLEAR (CLEAR); COLOR,URINE STRAW (YELLOW); KETONES,URINE TRACE (NEGATIVE); LEUKOCYTE ESTERASE ,URINE TRACE (NEGATIVE); NITRITE,URINE NEGATIVE (NEGATIVE); PROTEIN,URINE DIPSTICK TRACE (NEGATIVE); URINE UROBILINOGEN 0.2 mg/dL (0.2 - 1)
[2019-05-05 18:38] LABS: ALANINE AMINOTRANSFERASE 37 IU/L (0-55); ALBUMIN 3.9 g/dL (3.5-5.0); ALBUMIN/GLOBULIN RATIO 0.9 (0.8-2.0); ALKALINE PHOSPHATASE 244 IU/L (40-150); ANION GAP 14.6 mmol/L (8-16); BLOOD UREA NITROGEN 15 mg/dL (7-26); BUN/CREATININE RATIO 16 (6-25); CALCIUM 9.4 mg/dL (8.4-10.2); CARBON DIOXIDE 19 mmol/L (22-29); CHLORIDE 106 mmol/L (98-107); CREATININE, SERUM 0.91 mg/dL (0.72-1.25); EST GLOMERULAR FILTRATION RATE > 60 ML/MIN (60-); GLUCOSE 200 mg/dL (74-118); POTASSIUM 3.6 mmol/L (3.5-5.1); SODIUM 136 mmol/L (136-145)
[2019-05-05 18:48] LABS: BACTERIA,URINE FEW /HPF; EPITHELIAL CELLS,URINE MODERATE /LPF
[2019-05-05 18:49] LABS: MUCUS,URINE MODERATE (RARE)
--- NOTE | 2019-05-05 19:42 | Diagnostic Imaging Report ---
EXAM: CT Abdomen and Pelvis WITH contrast INDICATION: Abdominal pain. Blood in stool. Diverticulitis. COMPARISON: 04/09/2019. TECHNIQUE: Abdomen and pelvis were scanned utilizing a multidetector helical scanner from the lung base to the pubic symphysis after administration of IV contrast. Coronal and sagittal reformations were obtained. Routine protocol was performed. Scan was performed when during portal venous phase. IV CONTRAST: 100 cc Isovue 300 ORAL CONTRAST: Gastrografin and water mixture. RADIATION DOSE: Total DLP: 787.92 mGy*cm Estimated effective dose: (DLP x 0.015 x size factor) mSv COMPLICATIONS: None FINDINGS: LINES and TUBES: None. LOWER THORAX: Unremarkable HEPATOBILIARY: Nodular hepatic contour suggestive of cirrhotic morphology. No focal hepatic lesions. No biliary ductal dilation. GALLBLADDER: No radio-opaque stones or sludge. No wall thickening. SPLEEN: The spleen is enlarged measuring 13.1 cm in length. PANCREAS: No focal masses or ductal dilatation. ADRENALS: No adrenal nodules KIDNEYS/URETERS: Kidneys enhance symmetrically. No hydronephrosis. No cystic or solid mass lesions. No stones. GI TRACT: No abnormal distention, wall thickening, or evidence of bowel obstruction. There are diverticula within the colon without evidence of diverticulitis. Appendix is normal. PELVIC ORGANS/BLADDER: Unremarkable. LYMPH NODES: No lymphadenopathy. VESSELS: There is moderate atherosclerotic disease in the aorta and major arterial branches. PERITONEUM / RETROPERITONEUM: No free air or fluid. BONES: There are degenerative changes in the lumbar spine. SOFT TISSUES: Bilateral small fat-containing inguinal hernias, left greater than right. IMPRESSION: 1. Colonic diverticulosis without acute diverticulitis. Previously present perisigmoid inflammatory changes have resolved. 2. Cirrhotic hepatic morphology. Signed by: Dr. Nick Benitez M.D. on 05/05/2019 7:38 PM
[2019-05-05 20:16] VITALS: BP 146/70
[2019-05-05] MEDS ORDERED: IOPAMIDOL 370 MG/ML 200 ML INFUS..BTL INJ ONE (23:03)
[2019-05-05] MEDS ORDERED: SODIUM CHLORIDE 0.9% 50ML 50 ML ONE (23:03)
[2019-06-02] MEDS ORDERED: METFORMIN HCL500 MG PO (13:47)
== END 2019-05-05 20:20 | disposition home or self-care (01) ==
LOC: ER 17:13
DX: R10.32 Left lower quadrant pain (principal); R19.7 Diarrhea, unspecified; K57.90 Diverticulosis of intestine, part unspecified, without perforation or abscess without bleeding
CPT/HCPCS: 36415; 74177; 80053; 81001; 85025; 86850; 86900; 99283; Q9967

== ENCOUNTER → 2019-05-12 | Day surgery (SDC) | payer MEDICARE, OTHER ==
[2019-05-03 14:24] LABS: BASOPHILS # (AUTO) 0.1 (0.0-0.1); BASOPHILS % 0.7 % (0.0-1.0); EOSINOPHILS # (AUTO) 0.1 (0.0-0.4); EOSINOPHILS % 1.6 % (0.0-6.0); HEMATOCRIT 42.8 % (38.2-49.6); HEMOGLOBIN 14.1 g/dL (14.0-18.0); LYMPHOCYTES # (AUTO) 1.9 (1.0-3.2); LYMPHOCYTES % 27.2 % (18.0-39.1); MEAN CORPUSCULAR HEMOGLOBIN 32.5 pg (28-32); MEAN CORPUSCULAR HGB CONC 32.9 g/dL (31-35); MEAN CORPUSCULAR VOLUME 98.6 fL (81-99); MONOCYTES # (AUTO) 0.5 (0.2-0.8); MONOCYTES % 7.6 % (4.4-11.3); NEUTROPHILS # (AUTO) 4.4 (2.1-6.9); NEUTROPHILS % 62.6 % (38.7-80.0); PLATELET COUNT 114 x10e3/uL (140-360); RED BLOOD COUNT 4.34 x10e6/uL (4.3-5.7); RED CELL DISTRIBUTION WIDTH 12.8 % (11.7-14.4)
[2019-05-03 14:35] LABS: INR 1.03
[2019-05-03 14:36] LABS: PARTIAL THROMBOPLASTIN TIME 31.4 seconds (23.8-35.5)
[2019-05-03 14:45] LABS: ALANINE AMINOTRANSFERASE 40 IU/L (0-55); ALBUMIN 3.8 g/dL (3.5-5.0); ALBUMIN/GLOBULIN RATIO 0.9 (0.8-2.0); ALKALINE PHOSPHATASE 212 IU/L (40-150); ANION GAP 11.6 mmol/L (8-16); BLOOD UREA NITROGEN 12 mg/dL (7-26); BUN/CREATININE RATIO 15 (6-25); CALCIUM 9.1 mg/dL (8.4-10.2); CARBON DIOXIDE 23 mmol/L (22-29); CHLORIDE 105 mmol/L (98-107); CREATININE, SERUM 0.81 mg/dL (0.72-1.25); EST GLOMERULAR FILTRATION RATE > 60 ML/MIN (60-); GLUCOSE 256 mg/dL (74-118); POTASSIUM 3.6 mmol/L (3.5-5.1); SODIUM 136 mmol/L (136-145)
[~2019-05-12] MED LIST changes: +FENTANYL CITRATE/PF 100MCG/2 ML INJ ONE; +HYOSCYAMINE 0.125 MG TAB ONE; +MIDAZOLAM HCL 2 MG/2 ML VIAL ONE; +PROPOFOL IV EMULSION 10 MG/ML 50 ML VIAL ONE
[2019-05-12 14:20] VITALS: BP 127/79
[2019-05-12 15:55] LABS: WBC,FECAL (FECAL LACTOFERRIN) NEGATIVE (NEGATIVE)
--- NOTE | 2019-05-12 16:23 | Operative Report ---
DATE OF PROCEDURE: 05/12/2019 SURGEON: Rich Ramos MD PROCEDURE: Colonoscopy with polypectomy and biopsies. INDICATIONS FOR COLONOSCOPY: Diarrhea, lower abdominal pain. MEDICATIONS: The patient was done under MAC, please see anesthesiologist's note. PROCEDURE IN DETAIL: With the patient in left lateral decubitus position, flexible fiberoptic Olympus colonoscope was inserted into the rectum with ease and advanced all the way to the cecum. One minute polyp was removed per hot biopsy forceps from the cecum and site was hemoclipped. The ileocecal valve was intubated and the scope was advanced into the terminal ileum. Biopsies were obtained. The scope was then withdrawn back into the colon. Of note, the prep was poor with moderate amount of retained stools in the colon. The scope was then withdrawn slowly whatever was visualized of the mucosa overlying the ascending colon, transverse colon appeared to be within normal limits. One polyp was hot biopsied from the descending colon. The mucosa overlying the left colon revealed some mild patchy inflammatory changes and random biopsies were obtained. Diverticular disease was noted to involve the distal descending and the sigmoid colon. One polyp was hot biopsied from the sigmoid colon. The scope was then retroflexed into the distal rectum. Small internal hemorrhoids were noted, none of which was actively bleeding. The scope was then straightened out, it was subsequently withdrawn after securing an adequate stool specimen that was sent for the appropriate stool studies. The patient tolerated the procedure well. IMPRESSION: 1. Poor prep. 2. Cecal polyp, hot biopsied, site hemoclipped. 3. Descending colon polyp, hot biopsied. 4. Mild patchy left-sided colitis. 5. Diverticulosis. 6. Sigmoid colon polyp, hot biopsied. 7. Internal hemorrhoids, none actively bleeding. PLAN: Follow up histology. Follow up stool studies. Initiate Bentyl 10 mg one p.o. t.i.d. The patient will need a repeat colonoscopy after a better prep. Rich Ramos MD [facility] [place] /[id number] cc: Pardeep Garduno MD
[2019-05-13 12:22] LABS: C DIFFICILE TOXIN A&B AMP PROB NEGATIVE (NEGATIVE)
== END | disposition home or self-care (01) ==
LOC: OR 08:22
PROVIDERS: ATTEND Internal Medicine Gastroenterology
DX: K51.50 Left sided colitis without complications (principal); D12.0 Benign neoplasm of cecum; D12.4 Benign neoplasm of descending colon; D12.5 Benign neoplasm of sigmoid colon; K64.8 Other hemorrhoids; K57.92 Diverticulitis of intestine, part unspecified, without perforation or abscess without bleeding; K59.00 Constipation, unspecified; K85.90 Acute pancreatitis without necrosis or infection, unspecified; K74.60 Unspecified cirrhosis of liver; K21.9 Gastro-esophageal reflux disease without esophagitis; K30 Functional dyspepsia; E11.9 Type 2 diabetes mellitus without complications; I11.0 Hypertensive heart disease with heart failure; I50.9 Heart failure, unspecified; Z01.812 Encounter for preprocedural laboratory examination; Z68.30 Body mass index [BMI] 30.0-30.9, adult; Z87.891 Personal history of nicotine dependence; Z80.0 Family history of malignant neoplasm of digestive organs
CPT/HCPCS: 36415 ×2; 45380; 45384; 80053; 82948; 83630; 83993; 85025; 85610; 85730; 87045; 87177; 87328; 87493; J2250; J2704; J3010

== ENCOUNTER → 2019-06-09 | Day surgery (SDC) | payer MEDICARE, OTHER ==
[2019-06-02 15:30] LABS: BASOPHILS % 0.3 % (0.0-1.0); EOSINOPHILS # (AUTO) 0.1 (0.0-0.4); EOSINOPHILS % 0.8 % (0.0-6.0); HEMATOCRIT 42.6 % (38.2-49.6); HEMOGLOBIN 14.3 g/dL (14.0-18.0); LYMPHOCYTES % 22.3 % (18.0-39.1); MEAN CORPUSCULAR HEMOGLOBIN 32.5 pg (28-32); MEAN CORPUSCULAR HGB CONC 33.6 g/dL (31-35); MEAN CORPUSCULAR VOLUME 96.8 fL (81-99); MONOCYTES # (AUTO) 0.6 (0.2-0.8); MONOCYTES % 6.8 % (4.4-11.3); NEUTROPHILS # (AUTO) 6.4 (2.1-6.9); NEUTROPHILS % 69.5 % (38.7-80.0); PLATELET COUNT 117 x10e3/uL (140-360); RED CELL DISTRIBUTION WIDTH 12.1 % (11.7-14.4)
[2019-06-02 15:40] LABS: INR 1.01; PARTIAL THROMBOPLASTIN TIME 31.7 seconds (23.8-35.5); PROTHROMBIN TIME 13.8 seconds (11.9-14.5)
[2019-06-02 15:48] LABS: ALANINE AMINOTRANSFERASE 52 IU/L (0-55); ALBUMIN 3.7 g/dL (3.5-5.0); ALBUMIN/GLOBULIN RATIO 0.8 (0.8-2.0); ALKALINE PHOSPHATASE 266 IU/L (40-150); ANION GAP 17.4 mmol/L (8-16); BLOOD UREA NITROGEN 11 mg/dL (7-26); BUN/CREATININE RATIO 13 (6-25); CALCIUM 9.5 mg/dL (8.4-10.2); CARBON DIOXIDE 19 mmol/L (22-29); CHLORIDE 105 mmol/L (98-107); CREATININE, SERUM 0.84 mg/dL (0.72-1.25); EST GLOMERULAR FILTRATION RATE > 60 ML/MIN (60-); GLUCOSE 224 mg/dL (74-118); POTASSIUM 3.4 mmol/L (3.5-5.1); SODIUM 138 mmol/L (136-145)
[~2019-06-09] MED LIST changes: +GLUCAGON FOR INJ 1 MG VIAL ONE
[2019-06-09 15:37] LABS: WBC,FECAL (FECAL LACTOFERRIN) NEGATIVE (NEGATIVE)
[2019-06-09 15:55] VITALS: BP 142/77
--- NOTE | 2019-06-09 16:08 | Operative Report ---
DATE OF PROCEDURE: 06/09/2019 SURGEON: Rich Ramos MD PROCEDURES: Esophagogastroduodenoscopy with biopsies and colonoscopy with polypectomy. INDICATIONS FOR EGD: History of melena. INDICATIONS FOR COLONOSCOPY: Surveillance colonoscopy, personal history of colon polyps, poor prep, one previous colonoscopy. MEDICATIONS: The patient was done under MAC, please see anesthesiologist's note. PROCEDURE IN DETAIL: With the patient in left lateral decubitus position, a flexible fiberoptic Olympus gastroscope was introduced into the esophagus under direct visualization without any difficulty. Grade 2 esophageal varices were noted in mid and distal esophagus without active bleeding or stigmata of recent hemorrhage. The scope was then advanced with ease into the stomach. Mucosa overlying the antrum and the body revealed some changes compatible with portal hypertensive gastropathy. Biopsies were obtained and sent to stain for H. pylori. The pylorus was intubated with ease and the scope was advanced all the way to the second portion of the duodenum. Biopsies were obtained from the second portion as well as the duodenal bulb to rule out sprue. The scope was then withdrawn back into the stomach and retroflexed. Mucosa overlying the fundus and cardia grossly appeared to be within normal limits. The scope was then straightened out, it was subsequently withdrawn. The patient tolerated the procedure well. IMPRESSION: 1. Grade 2 esophageal varices without active bleeding or stigmata of recent hemorrhage. 2. Portal hypertensive gastropathy. 3. Rule out sprue. PLAN: Followup histology. Initiate Protonix 40 mg one p.o. q.a.m. a.c. Check acute hepatitis panel. The patient will need an ultrasound of the liver and possibly an alpha fetoprotein. PROCEDURE IN DETAIL: The patient was then turned around and after adequate lubrication of the anal canal, flexible fiberoptic Olympus colonoscope was inserted into the rectum with ease and advanced all the way to the cecum. The scope was then withdrawn slowly. Mucosa overlying the cecum appeared to be within normal limits. One polyp was snared. One polyp was hot biopsied from the ascending colon. Diverticular disease was noted to be scattered pretty much throughout. Mucosa overlying the transverse colon grossly appeared to be within normal limits. One polyp was hot biopsied and two polyps were snared from the descending colon and one polyp was hot biopsied, one polyp was snared from the sigmoid colon. One previous polypectomy site appeared somewhat lobular and polypoid and it was hot biopsied. One minute polyp was hot biopsied from the rectum. The scope was then retroflexed into the distal rectum and moderate size internal hemorrhoids were noted, none of which was actively bleeding. The scope was then straightened out, it was subsequently withdrawn. The patient tolerated the procedure well. IMPRESSION: 1. Diverticulosis. 2. Ascending colon polyps x2, one snared and one hot biopsied. 3. Descending colon polyps x4, three snared and one hot biopsied. 4. Sigmoid colon polyps x2, one hot biopsied and one snared. 5. Previous polypectomy site, distal sigmoid colon somewhat globular and it was hot biopsied. 6. Rectal polyp, hot biopsied. 7. Internal hemorrhoids, none actively bleeding. PLAN: Follow up histology. Follow up stool studies. The patient might benefit from a followup colonoscopy in 2 to 3 years. Rich Ramos MD [facility] [place]/NURY /[id number] cc: Pardeep Garduno MD
[2019-06-10 10:20] LABS: C DIFFICILE TOXIN A&B AMP PROB NEGATIVE (NEGATIVE)
== END | disposition home or self-care (01) ==
LOC: OR 11:44
PROVIDERS: ATTEND Internal Medicine Gastroenterology
DX: R19.7 Diarrhea, unspecified (principal); K29.50 Unspecified chronic gastritis without bleeding; D12.4 Benign neoplasm of descending colon; D12.5 Benign neoplasm of sigmoid colon; K62.1 Rectal polyp; D12.2 Benign neoplasm of ascending colon; K74.60 Unspecified cirrhosis of liver; I85.10 Secondary esophageal varices without bleeding; K76.6 Portal hypertension; K31.89 Other diseases of stomach and duodenum; K21.9 Gastro-esophageal reflux disease without esophagitis; K58.9 Irritable bowel syndrome, unspecified; K57.30 Diverticulosis of large intestine without perforation or abscess without bleeding; K63.89 Other specified diseases of intestine; E11.9 Type 2 diabetes mellitus without complications; I11.0 Hypertensive heart disease with heart failure; I50.9 Heart failure, unspecified; M19.90 Unspecified osteoarthritis, unspecified site; J44.9 Chronic obstructive pulmonary disease, unspecified; E05.90 Thyrotoxicosis, unspecified without thyrotoxic crisis or storm; K64.8 Other hemorrhoids; F17.210 Nicotine dependence, cigarettes, uncomplicated; Z01.810 Encounter for preprocedural cardiovascular examination; Z01.812 Encounter for preprocedural laboratory examination; Z79.4 Long term (current) use of insulin; Z79.84 Long term (current) use of oral hypoglycemic drugs; Z80.0 Family history of malignant neoplasm of digestive organs
CPT/HCPCS: 36415 ×2; 43239; 45384; 45385; 80053; 82948; 83630; 85025; 85610; 85730; 87045; 87177; 87328; 87493; 93005; J1610; J2250; J2704; J3010; 45378; 83993

== ENCOUNTER → 2019-06-13 | Outpatient (CLI) | payer MEDICARE, OTHER ==
[~2019-06-13] MED LIST changes: -FENTANYL CITRATE/PF 100MCG/2 ML INJ ONE; -GLUCAGON FOR INJ 1 MG VIAL ONE; -HYOSCYAMINE 0.125 MG TAB ONE; -MIDAZOLAM HCL 2 MG/2 ML VIAL ONE; -PROPOFOL IV EMULSION 10 MG/ML 50 ML VIAL ONE
--- NOTE | 2019-06-13 13:21 | Diagnostic Imaging Report ---
Right upper quadrant abdominal ultrasound, 06/13/2019. History: Hepatitis. Comparison: CT abdomen 05/05/2019. Discussion: Transverse and longitudinal images of the right upper quadrant of the abdomen were obtained demonstrating a liver of normal size but diffusely coarsened echogenicity measuring 15.0 cm in length. There is mild nodularity of the liver surface contour. There is no evidence of a focal hepatic mass. The portal vein is patent with hepatopetal flow and is within normal limits measuring 11 mm in diameter. The biliary tree is within normal limits with the common bile duct measuring for mm in diameter. The gallbladder is normal without evidence of wall thickening or pericholecystic fluid. The sonographic Nunes's sign was negative. The right kidney is normal in size and echogenicity without evidence of hydronephrosis, stones, or mass and measures 10.5 cm in length. The pancreatic <body and tail> are visualized and are normal in appearance. The abdominal aorta is within normal limits. There is no evidence of free fluid. IMPRESSION: Cirrhotic appearance of the liver without focal hepatic abnormality. Otherwise unremarkable exam. Signed by: Solomon Lewis on 06/13/2019 1:18 PM
== END ==
LOC: US 09:56
PROVIDERS: ATTEND Internal Medicine Gastroenterology
DX: K76.9 Liver disease, unspecified (principal)
CPT/HCPCS: 76705

== ENCOUNTER 2019-11-15 16:39 | Inpatient (IN) | payer MEDICARE, OTHER ==
[~2019-11-15] VITALS: Ht 175.3 cm; Wt 92.1 kg
[~2019-11-15 16:39] MED LIST changes: +PREDNISONE10 MG PO
[2019-11-15] MEDS ORDERED: SODIUM CHLORIDE 0.9% 1000ML 1,000 ML IV STA ×3 (17:07→18:27)
--- NOTE | 2019-11-15 18:02 | Diagnostic Imaging Report ---
EXAMINATION: CHEST SINGLE (PORTABLE) COMPARISON: None INDICATION: ^sob, low BP ^[id number] ^1740 DISCUSSION: Frontal view of the chest obtained at 1739 hours. HEART AND MEDIASTINUM: The cardiomediastinal silhouette is unremarkable. LINES: None. LUNGS: Diffuse hyperinflation consistent with COPD. Increasing airspace opacities in the right upper lobe and right lower lobe. Coarse interstitial markings in the left lung are similar suggestive of fibrosis. PLEURA: No pleural effusion or pneumothorax. BONES AND SOFT TISSUES: No focal osseous lesion. The soft tissues are normal. IMPRESSION: New right upper lobe and right lower lobe airspace opacities may represent pneumonia. COPD. Stable fibrosis of the left lung. Signed by: Dr. Celestina Magana MD on 11/15/2019 6:00 PM
[2019-11-15 18:08] LABS: BASOPHILS # (AUTO) 0.1 (0.0-0.1); BASOPHILS % 0.2 % (0.0-1.0); EOSINOPHILS # (AUTO) 0.1 (0.0-0.4); EOSINOPHILS % 0.2 % (0.0-6.0); HEMATOCRIT 43.5 % (38.2-49.6); HEMOGLOBIN 14.3 g/dL (14.0-18.0); LYMPHOCYTES # (AUTO) 2.2 (1.0-3.2); LYMPHOCYTES % 7.6 % (18.0-39.1); MEAN CORPUSCULAR HEMOGLOBIN 32.7 pg (28-32); MEAN CORPUSCULAR HGB CONC 32.9 g/dL (31-35); MEAN CORPUSCULAR VOLUME 99.5 fL (81-99); MONOCYTES # (AUTO) 2.7 (0.2-0.8); MONOCYTES % 9.4 % (4.4-11.3); NEUTROPHILS # (AUTO) 22.6 (2.1-6.9); NEUTROPHILS % 79.9 % (38.7-80.0); PLATELET COUNT 124 x10e3/uL (140-360); RED BLOOD COUNT 4.37 x10e6/uL (4.3-5.7); RED CELL DISTRIBUTION WIDTH 12.9 % (11.7-14.4)
[2019-11-15 18:14] LABS: INR 1.3; PROTHROMBIN TIME 16.8 seconds (11.9-14.5)
[2019-11-15 18:15] LABS: PARTIAL THROMBOPLASTIN TIME 35.4 seconds (23.8-35.5)
[2019-11-15 18:25] LABS: ALBUMIN 3.8 g/dL (3.5-5.0); ALBUMIN/GLOBULIN RATIO 0.9 (0.8-2.0); ANION GAP 20.6 mmol/L (8-16); CALCIUM 9.5 mg/dL (8.4-10.2); CREATININE, SERUM 2.28 mg/dL (0.72-1.25); POTASSIUM 3.6 mmol/L (3.5-5.1)
[2019-11-15] MEDS ORDERED: ALBUTEROL SULF 0.083% NEB SOLN 3 ML NEB NEB STA (18:27)
[2019-11-15] MEDS ORDERED: CEFEPIME 2 GM/NS 0.9% 100 ML 100 ML IV ONE (18:30)
[2019-11-15] MEDS ORDERED: VANCOMYCIN 1GM/NS 250 ML 250 ML IV ONE (18:30)
[2019-11-15] MEDS ORDERED: IPRATROPIUM BROMIDE 0.02% 2.5 ML NEB NEB ONE (18:30)
[2019-11-15 18:32] LABS: CREATINE KINASE MB 8.7 ng/mL (0-5.0)
[2019-11-15 18:40] LABS: B-TYPE NATRIURETIC PEPTIDE2 204.4 pg/mL (0-100)
[2019-11-15] MEDS ORDERED: SODIUM CHLORIDE 0.9% 1000ML 1,000 ML IV SCH (19:22)
[2019-11-15] MEDS ORDERED: DEXTROSE 50% SYRINGE 50 ML IV PRN (19:30)
[2019-11-15 20:12] LABS: BAND NEUTROPHILS % (MANUAL) 1 %; LYMPHOCYTES % (MANUAL) 12 % (19-48); MONOCYTES % (MANUAL) 10 % (3.4-9.0); NEUTROPHILS % (MANUAL) 77 % (40-74)
[2019-11-15 20:13] LABS: PLATELET ESTIMATE ADEQUATE; PLATELET MORPHOLOGY COMMENT NORMAL; RBC MORPHOLOGY COMMENT NORMAL
--- NOTE | 2019-11-15 20:30 | NUR ---
PT BECOMING INCREASINGLY SOB. O2 SAT 91% ON O2 2L NC. O2 INCREASED TO 3L NC. O2 SAT INCREASED TO 93%. DR FERNANDO INFORMED. ORDERED TO STOP IVF BOLUS AND REDRAW LACTIC ACID. IVF STOPPED. LACTIC ACID REDRAWN AND SENT TO LAB.
--- NOTE | 2019-11-15 21:03 | NUR ---
RUFINA CULP NOTIFIED AND AWARE OF CRITICAL LAB VALUE, LACTIC ACID 5.7.
--- NOTE | 2019-11-15 21:05 | NUR ---
DR ENRIQUE CALLED TO ROOM. PT C LABORED BREATHING, RESP RATE 30. BIPAP ORDERED. RT CALLED. MD REQUEST CENTRAL LINE KIT TO BEDSIDE.
--- NOTE | 2019-11-15 21:20 | NUR ---
L FEMORAL TRIPLE LUMEN INSERTED BY MD AT BEDSIDE. STATES THAT CENTRAL LINE READY TO USE P INSERTOIN. Addendum: 11/15/19 at 2150 by LENORE L FEMORAL TRIPLE LUMEN INSERTED BY MD AT BEDSIDE. STATES THAT CENTRAL LINE READY TO USE P INSERTION.
--- NOTE | 2019-11-15 21:35 | NUR ---
16 FR ACOSTA CATHETER INSERTED PER MD ORDERS AT THIS TIME. STERILE TECHNIQUE MAINTAINED. URINE SPECIMEN COLLECTED AND SENT TO LAB PER ORDERS.
[2019-11-15] MEDS: ALBUTEROL SULF 0.083% NEB SOLN 3 ML NEB NEB SCH (21:36)
[2019-11-15] MEDS: IPRATROPIUM BROMIDE 0.02% 2.5 ML NEB NEB SCH ×2 (21:36→21:56)
[2019-11-15] MEDS: AZITHROMYCIN 500MG/NS 250 ML 250 ML IV SCH (21:45)
[2019-11-15 21:50] LABS: BILIRUBIN,URINE NEGATIVE (NEGATIVE); CLARITY,URINE SL CLOUDY (CLEAR); COLOR,URINE YELLOW (YELLOW); KETONES,URINE NEGATIVE (NEGATIVE); LEUKOCYTE ESTERASE ,URINE NEGATIVE (NEGATIVE); NITRITE,URINE NEGATIVE (NEGATIVE); PROTEIN,URINE DIPSTICK 2+ (NEGATIVE); URINE UROBILINOGEN 0.2 mg/dL (0.2 - 1)
[2019-11-15 21:59] LABS: AMORPHOUS SEDIMENT,URINE MODERATE (FEW); BACTERIA,URINE MODERATE /HPF; CALCIUM OXALATE CRYSTALS,UR RARE (FEW); EPITHELIAL CELLS,URINE RARE /LPF
[2019-11-15] MEDS: INSULIN LISPRO 100 UNIT/1 ML 3ML VIAL SQ SCH (22:13)
[2019-11-15] MEDS ORDERED: VANCOMYCIN 1GM/NS 250 ML 250 ML ONE (22:35)
[2019-11-15] MEDS: ACETAMINOPHEN 325 MG SUPP PR PRN (22:50)
[2019-11-15 23:00] VITALS: BP 98/50
[2019-11-16] VITALS (28 sets, daily range): BP systolic 78–154; BP diastolic 42–89
[2019-11-16] MEDS ORDERED: SODIUM CHLORIDE 0.9% 250ML 150 ML IV ONE
[2019-11-16] MEDS: SODIUM CHLORIDE 0.9% 1000ML 1,000 ML IV SCH ×2 (00:05→19:00)
[2019-11-16] MEDS: HEPARIN SOD (PORCINE) 5,000 UNIT/ML VIAL SC SCH ×3 (00:26→21:52)
[2019-11-16] MEDS ORDERED: NOREPINEPHRINE 8 MG/D5W 250 ML 250 ML IV PRN ×2 (01:15)
--- NOTE | 2019-11-16 01:36 | Consultation ---
DATE OF CONSULTATION: 11/15/2019 Pulmonary Critical Care Medicine Consult REASON FOR REFERRAL: Multiorgan dysfunction in evolution. HISTORY OF PRESENT ILLNESS: Mr. Mendez is a pleasant 69-year-old gentleman with evolving multiorgan dysfunction. The patient presented to [facility] on November 15, 2019. The patient had dyspnea. He had cough and weakness. He slumped to the floor last night. Onset of malaise was 3 days ago. He went to the emergency room yesterday, but was sent home. Today, he comes back to emergency room. The patient is noted with lactic acid 6.2 and creatinine 2.28. The patient became gradually more dyspneic. He required BiPAP for salvage. His noted chest x-ray was showing some right upper lobe and right lower lobe airspace opacity at that time with initial fibrosis of the lungs. The patient on laboratory had 28 white count, BNP 204, and albumin of 3.8. Of note, his creatinine about 10 days ago was normal. Urinalysis without evidence of urinary tract infection. At this point, he is admitted . PAST MEDICAL HISTORY: Hypertension, diabetes, chronic liver disease, cirrhosis, possible COPD, hyperlipidemia, CKD possible, although creatinines were previously normal in the past. MEDICATIONS: Medication list reviewed per the chart record. ALLERGIES: NO KNOWN DRUG ALLERGIES. SOCIAL HISTORY: The patient formally would drink about a 12-pack of beer a week. Smoking was from age [age] active, one pack per day. No drugs. 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 FAMILY HISTORY: Noncontributory. REVIEW OF SYSTEMS: Cannot get as he is on respiratory assist device BiPAP. PHYSICAL EXAMINATION: VITAL SIGNS: The patient is afebrile when he came to the emergency room, but fever came to 103.2. Heart rate in the 100s, tachypnea, stable, on BiPAP per report. HEENT: Normocephalic, atraumatic. NECK: Supple. Throat midline. LUNGS: Bilateral air entry, few rhonchi. CARDIOVASCULAR: S1, S2. No murmurs, rubs, or gallops. ABDOMINAL: Soft, obese, and nontender. EXTREMITIES: No clubbing. No cyanosis. There is 1 to 2+ edema. INTEGUMENT: No rash or purpura. LABORATORY DATA: Labs reviewed per the chart record. BUN 27 and creatinine 2.28. White count 16. Potassium 3.6. White count 28, hematocrit 44, platelets 124. INR 1.3. LFTs mostly unremarkable with the albumin being 3.8. IMPRESSION AND PLAN: 1. Severe sepsis. 2. Febrile syndrome consistent with sepsis. Source could be viral infection versus bacterial infection and the source is likely in the lungs due to the radiographic abnormalities. 3. Acute kidney injury. 4. Diabetes. 5. Hypertension. 6. Possible chronic obstructive pulmonary disease, long-time smoker. 7. Hyperlipidemia. 8. Liver cirrhosis. 9. Hypoxemia, 90% room air saturation on presentation. . Give antibiotics. Follow up cultures. Supportive therapy for fevers and for other hemodynamics. Continue some fluids, although cut down rate as the patient decompensated when he was given a lot of fluids. Smoking cessation is highly recommended. Follow kidney function and ensure stability. Control blood sugars. Thank you very much, Dr. Garduno, for this consult. Please call for questions. Abilio Urbano MD [facility] /[id number]
[2019-11-16 01:44] LABS: ABG HCO3 13 mmol/L (23-28); ABG PCO2 21 mmHg (41-51); ABG PO2 90 mmHg (80-105)
[2019-11-16 02:02] LABS: CREATINE KINASE MB 21.9 ng/mL (0-5.0)
[2019-11-16] MEDS: ALBUTEROL SULF 0.083% NEB SOLN 3 ML NEB NEB SCH ×6 (03:42→23:30)
[2019-11-16] MEDS: IPRATROPIUM BROMIDE 0.02% 2.5 ML NEB NEB SCH ×6 (03:42→23:30)
[2019-11-16 06:09] LABS: BASOPHILS # (AUTO) 0.1 (0.0-0.1); BASOPHILS % 0.3 % (0.0-1.0); EOSINOPHILS # (AUTO) 0.1 (0.0-0.4); EOSINOPHILS % 0.2 % (0.0-6.0); HEMATOCRIT 33.4 % (38.2-49.6); HEMOGLOBIN 11.2 g/dL (14.0-18.0); LYMPHOCYTES # (AUTO) 3.3 (1.0-3.2); LYMPHOCYTES % 9.3 % (18.0-39.1); MEAN CORPUSCULAR HEMOGLOBIN 33.1 pg (28-32); MEAN CORPUSCULAR HGB CONC 33.5 g/dL (31-35); MEAN CORPUSCULAR VOLUME 98.8 fL (81-99); MONOCYTES # (AUTO) 3.1 (0.2-0.8); MONOCYTES % 8.8 % (4.4-11.3); NEUTROPHILS # (AUTO) 27.2 (2.1-6.9); NEUTROPHILS % 77.7 % (38.7-80.0); PLATELET COUNT 165 x10e3/uL (140-360); RED BLOOD COUNT 3.38 x10e6/uL (4.3-5.7); RED CELL DISTRIBUTION WIDTH 13.2 % (11.7-14.4)
[2019-11-16 06:37] LABS: ALBUMIN 2.7 g/dL (3.5-5.0); ALBUMIN/GLOBULIN RATIO 0.8 (0.8-2.0); ANION GAP 16.4 mmol/L (8-16); CALCIUM 8.1 mg/dL (8.4-10.2); CREATININE, SERUM 1.62 mg/dL (0.72-1.25); POTASSIUM 3.4 mmol/L (3.5-5.1)
[2019-11-16] MEDS: INSULIN LISPRO 100 UNIT/1 ML 3ML VIAL SQ SCH ×4 (07:30→21:53)
[2019-11-16 07:41] LABS: BAND NEUTROPHILS % (MANUAL) 9 %; LYMPHOCYTES % (MANUAL) 6 % (19-48); MONOCYTES % (MANUAL) 8 % (3.4-9.0); NEUTROPHILS % (MANUAL) 77 % (40-74); PLATELET MORPHOLOGY COMMENT NORMAL; RBC MORPHOLOGY COMMENT NORMAL
[2019-11-16] MEDS ORDERED: ASPIRIN 81 MG CHEW TAB PO ONE (08:45)
--- NOTE | 2019-11-16 08:58 | Diagnostic Imaging Report ---
Chest, 1 view, 11/16/2019. History: Shortness of breath, pneumonia. Comparison: 11/15/2019. Findings: The cardiomediastinal silhouette and pulmonary vasculature are within normal limits for a portable exam. Patchy right upper and lower lobe opacities are unchanged. Linear scarring again noted throughout both lungs. There are no acute osseous or soft tissue abnormalities. Impression: No significant change. Signed by: Solomon Lewis on 11/16/2019 8:55 AM
[2019-11-16] MEDS: TAMSULOSIN HCL 0.4 MG CAP PO SCH (09:00)
[2019-11-16] MEDS: GABAPENTIN 300 MG CAP PO SCH ×2 (09:00→17:00)
[2019-11-16] MEDS: MONTELUKAST SODIUM 10 MG TAB PO SCH (09:00)
[2019-11-16] MEDS ORDERED: POTASSIUM CHLORIDE 20 MEQ TAB CR PO ONE (09:10)
[2019-11-16] MEDS: PANTOPRAZOLE SOD 40 MG TABEC PO SCH (09:30)
[2019-11-16] MEDS: LISINOPRIL 20 MG TAB PO SCH (09:30)
[2019-11-16] MEDS: SALMETEROL/FLUTICASONE 250/50 INH SCH ×2 (10:00→19:30)
[2019-11-16] MEDS: NON-FORMULARY MEDICATION (Fenofibrate 160 MG) PO SCH (10:00)
[2019-11-16] MEDS: FAMOTIDINE 20 MG/2 ML VIAL IV SCH (10:37)
[2019-11-16 10:38] LABS: MAGNESIUM 1.6 MG/DL (1.3-2.1)
[2019-11-16 10:45] LABS: CREATINE KINASE MB 13.3 ng/mL (0-5.0)
--- NOTE | 2019-11-16 12:46 | History and Physical ---
HISTORY OF PRESENT ILLNESS: The patient is a 69-year-old male, who had a past medical history positive for COPD, history of diabetes, and history of hypertension, came originally to the emergency room complaining of shortness of breath, cough, and fever. The patient was found to be hypotensive, started on IV fluids and IV Levophed. He was found to also be on respiratory failure secondary to COPD exacerbation, started on the BiPAP, started on broad-spectrum IV antibiotics. The patient was admitted to the intensive care unit due to the septic shock and acute respiratory failure. REVIEW OF SYSTEMS: CONSTITUTIONAL: The patient has BiPAP mask. He cannot give me too much information. RESPIRATORY: He does say that he has shortness of breath and cough. GASTROINTESTINAL: No nausea or vomiting. No diarrhea. GENITOURINARY: No frequency or dysuria. CARDIOVASCULAR: No chest pain or palpitation. ALLERGIES: NOT ALLERGIC TO ANY MEDICATION. PAST MEDICAL HISTORY: Positive for diabetes mellitus type 2, COPD, and hypertension. SOCIAL HISTORY: He is a smoker. He does not drink. PHYSICAL EXAMINATION: HEART: Showed regular rhythm. Normal S1 and S2 sound. LUNGS: Clear bilaterally with some crackles on the right side. ABDOMEN: Soft. No tenderness. No distention. EXTREMITIES: Show no evidence of edema. VITAL SIGNS: Blood pressure is right now 99/49, but he is on Levophed drip, temperature 98.6, heart rate is 62 per minute, respiratory rate 16 per minute, and oxygen saturation 98% on BiPAP. LABORATORY DATA: We have a CBC; white blood count is elevated at 34,950, hemoglobin 11.2, hematocrit 33.4, and platelet count 165,000. On the BMP, we have a low sodium of 132, low potassium of 3.4, chloride 104, CO2 is 15, BUN 33, creatinine 1.62, estimated GFR 43, which put him on stage 3 renal insufficiency. The last blood sugar was 196. Lactic acid was 4.0, now 3.4. Calcium is 8.1. Total bilirubin 1.6, AST 65, ALT 33, and alkaline phosphatase 77. Creatine kinase elevated at 1385. CK-MB is elevated at 21.90. Troponin is negative 0.068. Total protein 5.9, albumin 2.7, and globulin 3.2. The urine shows some red blood cells, amorphous sediment, bacteria, and hyaline casts. Serologies negative for influenza type A and B. We also have a chest x-ray, which showed new right upper lobe and right lower lobe opacity, which may represent pneumonia. He also has COPD and he also has fibrosis on the left lung. FINAL IMPRESSION: 1. Septic shock. 2. Acute respiratory failure secondary to chronic obstructive pulmonary disease exacerbation secondary to pneumonia, which is most likely gram-negative. 3. Right lower lobe and right upper lobe pneumonia, most likely negative bacteria. 4. Uncontrolled diabetes mellitus type 2 with chronic renal insufficiency. 5. Ibyuw-ys-yrxclnk renal failure, stage 3. 6. Hyponatremia. 7. Hypokalemia. 8. Elevated CK, most likely secondary to rhabdomyolysis. 9. History of smoking. 10. Leukocytosis. PLAN OF TREATMENT: The patient is seen in intensive care unit, of course on telemetry. We will continue with the Levophed drip. He is on Zithromax and cefepime, Zithromax 500 mg IV daily and cefepime 1 g IV daily. He is also on normal saline at 50 mL an hour. He received one dose of vancomycin in the emergency room. He is on Tylenol 650 mg q.8 hours as needed for mild pain or fever. He is also taking albuterol q.4 hours around the clock. He is on Atrovent q.4 hours. He is taking Pepcid 20 mg IV daily for gastritis prophylaxis. He is on gabapentin 300 mg twice a day for diabetic neuropathy. He is also getting DVT prophylaxis with heparin 5000 units subcutaneously twice a day. We are going to continue to monitor blood sugar before meals and at bedtime. He is on Lantus 10 units at bedtime. He is taking lisinopril 20 mg daily, Singulair 10 mg daily, and Protonix 20 mg daily. He received a dose of potassium 20 mEq x1 because of hypokalemia. He is on prednisone 10 mg daily. He is on Advair one inhalation twice a day and Flomax 0.4 mg daily. He is on tramadol 37.5-325 q.6 hours as needed for moderate pain. We are going to hold on the fenofibrate due to the fact that the patient has elevated LFTs. For the blood work, we are going to order a CMP and a CK tomorrow, going to cardiac markers also. We are going to get also a Cardiology consult due to elevated total CK, most likely secondary to rhabdomyolysis. The patient will continue to be monitoring in the intensive care unit until he is in a much more stable situation. He might qualify to go to a long-term care hospital down the line. We are going to also recheck the magnesium level also. MD ABILIO Antoine/NURY /[id number]
[2019-11-16] MEDS: CEFEPIME 1GM/ SOD CHL 50 ML BAG IV SCH (17:22)
[2019-11-16] MEDS: AZITHROMYCIN 500MG/NS 250 ML 250 ML IV SCH (18:35)
[2019-11-16] MEDS: TRAMADOL/APAP 37.5MG-325MG TAB PO PRN (18:36)
[2019-11-16] MEDS: ACETAMINOPHEN 325 MG TAB PO PRN (20:40)
[2019-11-16] MEDS: INSULIN GLARGINE 100 UNITS/ML VIAL SQ SCH (21:53)
[2019-11-16] MEDS ORDERED: VANCOMYCIN 1GM/NS 250 ML 250 ML IV ONE (23:45)
[2019-11-17] VITALS (25 sets, daily range): BP systolic 95–132; BP diastolic 45–81
--- NOTE | 2019-11-17 00:28 | NUR ---
Pulmonary Critical Care Medicine DATE 11/16/2019 SUBJECTIVE: NS at 50/hr ivf levophed 1.5/ . was as high as 12 mcg/min today on nasal cannula for much of the day later on bipap at night, some dyspnea noted UOP ~ 67/hr REVIEW OF SYSTEMS: Cannot get as he is on BiPAP. PHYSICAL EXAMINATION: VITAL SIGNS: afebrile now, vitals per EMR HEENT: Normocephalic, atraumatic. NECK: Supple. Throat midline. LUNGS: Bilateral air entry, few rhonchi. CARDIOVASCULAR: S1, S2. No murmurs, rubs, or gallops. ABDOMINAL: Soft, obese, and nontender. EXTREMITIES: No clubbing. No cyanosis. 1-2+ edema. INTEGUMENT: No rash or purpura. LABORATORY DATA: k 3.4, cr 1.62, hco3 15. 35 wbc, 33 hct, plt 165. IMPRESSION AND PLAN: 1. Severe sepsis. 2. Febrile syndrome. Source most likely viral vs bacterial pneumonia. r/o other 3. Acute kidney injury. 4. Diabetes. 5. Hypertension. 6. Possible chronic obstructive pulmonary disease, long-time smoker. 7. Hyperlipidemia. 8. Liver cirrhosis. 9. Hypoxemia, 90% room air saturation on presentation. 10. acute respiratory failure, bipap salvage BIPAP salvage continue continue antibiotics. Follow up cultures. He has not produced sputum yet Continue some fluids, although cut down rate as the patient decompensated when he was given a lot of fluids. Smoking cessation Follow kidney function and ensure stability. Control blood sugars. Thank you very much, Dr. Garduno, for this consult. Please call for questions.
--- NOTE | 2019-11-17 02:07 | Consultation ---
DATE OF CONSULTATION: 11/16/2019 Cardiology Consultation CONSULTING PHYSICIAN: Oj Porter MD, Interventional Cardiology REASON FOR CONSULTATION: Chest pain. HISTORY OF PRESENT ILLNESS: Mr. Mendez is a pleasant 69-year-old man with history of diabetes mellitus, hypertension, end-stage liver disease, COPD, and chronic kidney disease, recently discharged from hospital with pleuritic type chest discomfort, who presents with fever and hypertension and found to have severe sepsis with septic shock requiring pressor support, elevated lactic acid on initial admission with improvement with the initial therapy. He continues to complain of chest discomfort, worse with deep inspiration and cough. He continues to have dry cough. Antibiotics have been initiated. REVIEW OF SYSTEMS: A 12-system review and negative except for as noted above. PAST MEDICAL HISTORY: As per HPI. SOCIAL HISTORY: Negative x3. FAMILY HISTORY: Noncontributory. PHYSICAL EXAMINATION: VITAL SIGNS: Temperature 98.1, heart rate 81, respiratory rate 18, blood pressure 110/54. GENERAL: In no acute distress. Alert. CHEST: Decreased breath sounds in bilateral bases. CARDIOVASCULAR: Regular rate and rhythm. Normal S1, S2. Tachycardic. ABDOMEN: Soft. Bowel sounds positive. EXTREMITIES: No edema. Warm distal extremities. CARDIOVASCULAR MEDICATIONS: Reviewed, on Levophed. STUDIES: Reviewed. Cardiac enzymes negative. Creatinine 1.6. Hemoglobin 11.2. Bicarbonate 15. INR 1.3. Platelets 165, white blood cells 34.9. AST 65, ALT 33. ASSESSMENT AND PLAN: 1. Severe sepsis with septic shock in the setting of pneumonia. 2. End-stage liver disease. 3. Acute kidney injury on chronic kidney disease. 4. Diabetes mellitus. 5. History of hypertension. 6. Pleuritic-type chest discomfort. RECOMMEND: 1. Continue antibiotic therapy. 2. Continue hydration. 3. Wean pressors as tolerated. Maintain MAP 65 to 70. 4. Overall guarded prognosis. 5. Monitor renal function and correct electrolyte and metabolic imbalances. Oj Porter MD AFV/MODL /[id number]
[2019-11-17] MEDS: ALBUTEROL SULF 0.083% NEB SOLN 3 ML NEB NEB SCH ×6 (03:15→23:00)
[2019-11-17] MEDS: IPRATROPIUM BROMIDE 0.02% 2.5 ML NEB NEB SCH ×6 (03:15→23:00)
[2019-11-17 05:17] LABS: BASOPHILS # (AUTO) 0.1 (0.0-0.1); BASOPHILS % 0.4 % (0.0-1.0); EOSINOPHILS # (AUTO) 0.1 (0.0-0.4); EOSINOPHILS % 0.5 % (0.0-6.0); HEMATOCRIT 29.9 % (38.2-49.6); LYMPHOCYTES # (AUTO) 2.1 (1.0-3.2); MEAN CORPUSCULAR HEMOGLOBIN 32.6 pg (28-32); MEAN CORPUSCULAR HGB CONC 33.4 g/dL (31-35); MEAN CORPUSCULAR VOLUME 97.4 fL (81-99); MONOCYTES # (AUTO) 0.9 (0.2-0.8); MONOCYTES % 6.5 % (4.4-11.3); NEUTROPHILS # (AUTO) 10.5 (2.1-6.9); NEUTROPHILS % 76.4 % (38.7-80.0); PLATELET COUNT 99 x10e3/uL (140-360); RED BLOOD COUNT 3.07 x10e6/uL (4.3-5.7)
[2019-11-17 05:42] LABS: ALANINE AMINOTRANSFERASE 50 IU/L (0-55); ALBUMIN 2.4 g/dL (3.5-5.0); ALBUMIN/GLOBULIN RATIO 0.7 (0.8-2.0); ALKALINE PHOSPHATASE 81 IU/L (40-150); ANION GAP 13.5 mmol/L (8-16); BLOOD UREA NITROGEN 20 mg/dL (7-26); BUN/CREATININE RATIO 26 (6-25); CALCIUM 8.2 mg/dL (8.4-10.2); CARBON DIOXIDE 19 mmol/L (22-29); CHLORIDE 105 mmol/L (98-107); CREATINE KINASE 572 IU/L (30-200); CREATININE, SERUM 0.78 mg/dL (0.72-1.25); EST GLOMERULAR FILTRATION RATE > 60 ML/MIN (60-); GLUCOSE 157 mg/dL (74-118); POTASSIUM 3.5 mmol/L (3.5-5.1); SODIUM 134 mmol/L (136-145)
[2019-11-17] MEDS: SALMETEROL/FLUTICASONE 250/50 INH SCH ×2 (07:09→19:50)
[2019-11-17] MEDS ORDERED: PREDNISONE 10 MG TAB PO SCH (07:30)
[2019-11-17] MEDS: LISINOPRIL 20 MG TAB PO SCH (08:32)
[2019-11-17] MEDS: NON-FORMULARY MEDICATION (Fenofibrate 160 MG) PO SCH (08:32)
[2019-11-17] MEDS: INSULIN LISPRO 100 UNIT/1 ML 3ML VIAL SQ SCH ×4 (08:43→21:07)
--- NOTE | 2019-11-17 08:43 | Diagnostic Imaging Report ---
Chest, 1 view, 11/17/2019. History: Pneumonia, shortness of breath. Comparison: 11/16/2019. Findings: The cardiomediastinal silhouette and pulmonary vasculature are within normal limits for a portable exam. Patchy consolidation is present in the right upper lobe and both lower lobes, slightly increased compared to prior exam. There are no acute osseous or soft tissue abnormalities. Impression: Slight worsening of bilateral pneumonia. Signed by: Solomon Lewis on 11/17/2019 8:41 AM
[2019-11-17] MEDS: FAMOTIDINE 20 MG/2 ML VIAL IV SCH (09:13)
[2019-11-17] MEDS: HEPARIN SOD (PORCINE) 5,000 UNIT/ML VIAL SC SCH ×2 (09:13→21:07)
[2019-11-17] MEDS: PANTOPRAZOLE SOD 40 MG TABEC PO SCH (09:13)
[2019-11-17] MEDS: GABAPENTIN 300 MG CAP PO SCH ×2 (09:13→18:34)
[2019-11-17] MEDS: TAMSULOSIN HCL 0.4 MG CAP PO SCH (09:13)
[2019-11-17] MEDS: MONTELUKAST SODIUM 10 MG TAB PO SCH (09:13)
--- NOTE | 2019-11-17 11:20 | Progress Note ---
DATE: Internal Medicine Progress Note SUBJECTIVE: The patient is doing better now, off pressors, off the BiPAP, on oxygen by nasal cannula, complaining of left eye pain after a fall that he had a few days ago. PHYSICAL EXAMINATION: VITAL SIGNS: Blood pressure 110/45, temperature 98.1, heart rate 102 per minute, respiratory rate 21 per minute, oxygen saturation 95%. HEART: Showed regular rhythm. Normal S1, S2 sound. LUNGS: Showing decreased breath sounds bilaterally. ABDOMEN: Soft. EXTREMITIES: Show no evidence of cyanosis or hematoma. LABORATORY DATA: Blood work, we have CBC; white blood count 13,760, hemoglobin 10.0, hematocrit 29.9, platelet count is 99,000. CMP, sodium 134, potassium 3.5, chloride 105, CO2 of 19, BUN 20, creatinine 0.78, GFR is more than 60, blood sugar 170, calcium 8.2, total bilirubin 0.8, AST 89, ALT 50, alkaline phosphatase of 81. Troponin 0.081. Creatine kinase is 572, albumin is 2.4, globulin is 3.4. Influenza A and B were negative. Urinalyses showed some red blood cells, protein in the urine, moderate amount of amorphous sediment, bacteria and hyaline cast. The last chest x-ray showed no significant change compared to the prior one and then as of today, some slight worsening bilateral pneumonia. Blood culture has been negative so far. Urine culture is negative also. IMPRESSION: 1. Septic shock, which is resolving. 2. Acute respiratory failure, which is slowly resolving. 3. Bilateral most likely gram-negative pneumonia. 4. Chronic obstructive pulmonary disease exacerbation. 5. 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 6. Acute on chronic renal failure stage 3. TREATMENT: Continue oxygen by nasal cannula. Continue nebulization treatment with albuterol and Atrovent. He is on Zithromax 250 mg IV daily. He is on normal saline 50 mL an hour. He is on Tylenol 650 mg q.8 hours as needed for mild pain, albuterol q.4 hours, Atrovent q.4 hours, cefepime 1 g IV daily, Pepcid 20 mg IV daily for gastritis prophylaxis, gabapentin 300 mg twice a day because of diabetic neuropathy. He also getting heparin 5000 units subcutaneous twice a day for DVT prophylaxis. Continue monitoring blood sugar before meals and at bedtime, continue diabetic diet. Continue Lantus 10 units at bedtime. Continue lisinopril 20 mg daily, Singulair 10 mg daily, Protonix 40 mg daily, prednisone 10 mg daily. Continue Advair one inhalation twice a day, Flomax 0.4 mg daily because of the benign prostatic hypertrophy, continue Ultracet 1 tablet q.6 hours as needed for pain and finally fenofibrate 160 mg daily. The patient is progressing well. Finally, he is off the pressors, off the BiPAP. Case was discussed with the patient. Labs have been reviewed. Consult on report have been reviewed. MD ABILIO Antoine/NURY /[id number]
[2019-11-17] MEDS: SODIUM CHLORIDE 0.9% 1000ML 1,000 ML IV SCH (14:45)
--- NOTE | 2019-11-17 17:51 | Progress Note ---
DATE: 11/17/2019 Cardiology Progress Note SUBJECTIVE: Feels better today. Pleuritic chest discomfort improving. Shortness of breath improving. Off pressors. Sitting up in chair at bedtime. OBJECTIVE: VITAL SIGNS: Temperature 98.4, heart rate 82 to 120, sinus rhythm to sinus tachycardia on telemetry, blood pressure 141/62, respiratory rate 20, and O2 saturation 97%. GENERAL: No acute distress. Alert. NECK: No JVD. CHEST: Decreased breath sounds and scattered rales. CARDIOVASCULAR: Regular rate and rhythm. Normal S1 and S2. Systolic ejection murmur. ABDOMEN: Soft. Bowel sounds positive. EXTREMITIES: No edema. Warm distal extremities. CARDIOVASCULAR MEDICATIONS: Off pressors, on albuterol, ipratropium, azithromycin antibiotic, prednisone, and heparin 5000 units subcutaneous q.12 hours. STUDIES: Reviewed. Potassium 3.5, bicarbonate 19, and creatinine is 0.7. White blood cells 13.7, hemoglobin 10, and platelets 99. ASSESSMENT AND PLAN: 1. A 69-year-old man presents with severe sepsis with septic shock in the setting of pneumonia. 2. End-stage liver disease. 3. Acute kidney injury on chronic kidney disease. 4. Chronic diastolic heart failure. 5. History of hypertension. RECOMMEND: 1. Monitor blood pressure rates today. Consider up titration of antihypertensive medicines starting tomorrow if continues to remain stable. 2. Continue hydration. 3. Continue antibiotic therapy per primary service expertise. I thank, Dr. Garduno, for the opportunity to participate in the care of Mr. Mendez. Please call with any questions. Oj Porter MD AFFany/MODL /[id number]
[2019-11-17] MEDS: TRAMADOL/APAP 37.5MG-325MG TAB PO PRN (18:30)
[2019-11-17] MEDS: AZITHROMYCIN 500MG/NS 250 ML 250 ML IV SCH (18:34)
[2019-11-17] MEDS: CEFEPIME 1GM/ SOD CHL 50 ML BAG IV SCH (21:05)
[2019-11-17] MEDS: INSULIN GLARGINE 100 UNITS/ML VIAL SQ SCH (21:07)
[2019-11-17] MEDS: ACETAMINOPHEN 325 MG TAB PO PRN (21:34)
--- NOTE | 2019-11-17 22:27 | NUR ---
Pulmonary Critical Care Medicine DATE 11/17/2019 SUBJECTIVE: NS at 50/hr ivf levophed off at 5 am ate well sat in chair, didnt walk good UOP REVIEW OF SYSTEMS: Cannot get as he is on BiPAP. PHYSICAL EXAMINATION: VITAL SIGNS: vitals per EMR HEENT: Normocephalic, atraumatic. NECK: Supple. Throat midline. LUNGS: Bilateral air entry, few rhonchi. CARDIOVASCULAR: S1, S2. No murmurs, rubs, or gallops. ABDOMINAL: Soft, obese, and nontender. EXTREMITIES: No clubbing. No cyanosis. 1-2+ edema. INTEGUMENT: No rash or purpura. LABORATORY DATA: k 3.5, hco3 19, cr 0.70. wbc 13.7, hct 30 CXR worse edema / pneumonia pattern IMPRESSION AND PLAN: 1. Severe sepsis/shock 2. pneumonia. hospital associated , acquired prior to admit 3. Acute kidney injury. resolving 4. Diabetes. 5. Hypertension. 6. Possible chronic obstructive pulmonary disease, long-time smoker. 7. Hyperlipidemia. 8. Liver cirrhosis. 9. Hypoxemia, 90% room air saturation on presentation. 10. acute respiratory failure, bipap salvage / bipap off 11. fluid overload BIPAP dc oxygen per protocol dc central line tomorrow likely continue antibiotics. adjust based on cultures dc IVF start diuresis trial Smoking cessation Follow kidney function and ensure stability. Control blood sugars. Thank you very much, Dr. Garduno, for this consult. Please call for questions.
[2019-11-17] MEDS ORDERED: POTASSIUM CHLORIDE 20 MEQ TAB CR PO STA (22:30)
[2019-11-18] VITALS (20 sets, daily range): BP systolic 90–143; BP diastolic 44–90
[2019-11-18] MEDS: IPRATROPIUM BROMIDE 0.02% 2.5 ML NEB NEB SCH ×6 (03:00→23:30)
[2019-11-18] MEDS: ALBUTEROL SULF 0.083% NEB SOLN 3 ML NEB NEB SCH ×6 (03:00→23:30)
[2019-11-18 06:04] LABS: BASOPHILS % 0.2 % (0.0-1.0); EOSINOPHILS # (AUTO) 0.1 (0.0-0.4); EOSINOPHILS % 0.8 % (0.0-6.0); HEMATOCRIT 26.7 % (38.2-49.6); HEMOGLOBIN 9.3 g/dL (14.0-18.0); LYMPHOCYTES # (AUTO) 1.7 (1.0-3.2); LYMPHOCYTES % 19.3 % (18.0-39.1); MEAN CORPUSCULAR HEMOGLOBIN 33.7 pg (28-32); MEAN CORPUSCULAR HGB CONC 34.8 g/dL (31-35); MEAN CORPUSCULAR VOLUME 96.7 fL (81-99); MONOCYTES # (AUTO) 0.7 (0.2-0.8); MONOCYTES % 7.9 % (4.4-11.3); NEUTROPHILS # (AUTO) 6.1 (2.1-6.9); NEUTROPHILS % 71.2 % (38.7-80.0); PLATELET COUNT 101 x10e3/uL (140-360); RED BLOOD COUNT 2.76 x10e6/uL (4.3-5.7); RED CELL DISTRIBUTION WIDTH 12.7 % (11.7-14.4)
[2019-11-18] MEDS: SALMETEROL/FLUTICASONE 250/50 INH SCH ×2 (07:00→20:00)
[2019-11-18] MEDS: TAMSULOSIN HCL 0.4 MG CAP PO SCH (08:02)
[2019-11-18] MEDS: GABAPENTIN 300 MG CAP PO SCH ×2 (08:02→16:00)
[2019-11-18] MEDS: PANTOPRAZOLE SOD 40 MG TABEC PO SCH (08:02)
[2019-11-18] MEDS: FAMOTIDINE 20 MG/2 ML VIAL IV SCH (08:02)
[2019-11-18] MEDS: HEPARIN SOD (PORCINE) 5,000 UNIT/ML VIAL SC SCH ×2 (08:02→20:15)
[2019-11-18] MEDS: INSULIN LISPRO 100 UNIT/1 ML 3ML VIAL SQ SCH ×4 (08:02→20:14)
[2019-11-18] MEDS: MONTELUKAST SODIUM 10 MG TAB PO SCH (08:02)
[2019-11-18] MEDS: LISINOPRIL 20 MG TAB PO SCH (08:05)
[2019-11-18] MEDS: ACETAMINOPHEN 325 MG TAB PO PRN ×2 (08:45→20:17)
[2019-11-18] MEDS: NON-FORMULARY MEDICATION (Fenofibrate 160 MG) PO SCH (08:46)
--- NOTE | 2019-11-18 08:55 | Diagnostic Imaging Report ---
Chest, 1 view, 11/18/2019. History: Pneumonia. Comparison: 11/17/2019. Findings: The cardiomediastinal silhouette and pulmonary vasculature are within normal limits for a portable exam. Right upper lobe consolidation and patchy bibasilar opacities unchanged. There are no acute osseous or soft tissue abnormalities. Impression: No significant change. Signed by: Solomon Lewis on 11/18/2019 8:53 AM
--- NOTE | 2019-11-18 11:49 | NUR ---
Pulmonary Critical Care Medicine DATE 11/18/2019 SUBJECTIVE: 2 L/min oxygen 95% saturation CXR pneumonia stable high amount of assist to mobilize the patient REVIEW OF SYSTEMS: no headaches, no rash PHYSICAL EXAMINATION: VITAL SIGNS: vitals per EMR HEENT: Normocephalic, atraumatic. NECK: Supple. Throat midline. LUNGS: Bilateral air entry, few wheezing CARDIOVASCULAR: S1, S2. No murmurs, rubs, or gallops. ABDOMINAL: Soft, obese, and nontender. EXTREMITIES: No clubbing. No cyanosis. 1-2+ edema. INTEGUMENT: No rash or purpura. LABORATORY DATA: wbc 8.6, hct 27, plt 101 CXR worse edema / pneumonia pattern IMPRESSION AND PLAN: 1. Severe sepsis/shock 2. pneumonia. hospital associated , acquired prior to admit 3. Acute kidney injury. resolving 4. Diabetes. 5. Hypertension. 6. Possible chronic obstructive pulmonary disease, long-time smoker. 7. Hyperlipidemia. 8. Liver cirrhosis. 9. Hypoxemia, 90% room air saturation on presentation. 10. acute respiratory failure, bipap salvage / bipap off 11. fluid overload oxygen per protocol dc central line continue antibiotics. adjust based on cultures dc IVF Smoking cessation Control blood sugars. budesonide nebs for wheezing Thank you very much, Dr. Garduno, for this consult. Please call for questions
--- NOTE | 2019-11-18 12:25 | Progress Note ---
DATE: Cardiology Progress Note SUBJECTIVE: No complaints. OBJECTIVE: VITAL SIGNS: Temperature 98.5, heart rate 102, blood pressure 114/61, respiratory rate 26, and O2 saturation 97%. GENERAL: In no acute distress, alert. NECK: No JVD. CHEST: Clear to auscultation. CARDIOVASCULAR: Regular rate and rhythm. Normal S1, S2. ABDOMEN: Soft. Bowel sounds positive. EXTREMITIES: Trace edema. Warm distal extremities. CARDIOVASCULAR MEDICATIONS: Reviewed. On cefepime and azithromycin. Remains off pressors. Lisinopril 20 mg daily. STUDIES: Reviewed. Potassium 3.5, creatinine 0.78. White blood cells 8.6, hemoglobin 9.3, and platelets 101. INR 1.3. AST 89, ALT 50, and alkaline phosphatase 81. ASSESSMENT AND PLAN: A 69-year-old man, presents with, 1. Severe sepsis with septic shock, now status post pressors. 2. Pneumonia, on antibiotic therapy. 3. End-stage liver disease, currently euvolemic. 4. Hypertension, blood pressure currently well controlled. 5. Chronic diastolic heart failure, remains euvolemic. 6. Anemia, stable, being monitored. 7. Diabetes mellitus with stable glucose. We will follow closely with you. MD MARNI Joy/NURY /[id number]
[2019-11-18] MEDS: BUDESONIDE 0.5MG/2 ML NEB INH SCH ×2 (12:30→20:00)
[2019-11-18] MEDS: CEFEPIME 1GM/ SOD CHL 50 ML BAG IV SCH (16:00)
--- NOTE | 2019-11-18 16:31 | NUR ---
Received initial denial for [facility]. Daylin with [facility] is setting up peer to peer with Dr. Garduno
--- NOTE | 2019-11-18 16:46 | Progress Note ---
DATE: Internal Medicine Progress Note SUBJECTIVE: The patient is feeling better, treated with other physical deconditioning. He is on oxygen by room air 100%. PHYSICAL EXAMINATION: VITAL SIGNS: On the blood pressure 91/50, temperature is 96.7, heart rate 107 per minute, respiratory rate is 27 per minute, oxygen saturation is 95%. HEART: Showed regular rhythm. Normal S1, S2 sound. LUNGS: Show decreased breath sounds bilaterally. ABDOMEN: Soft. EXTREMITIES: Show no evidence of edema. LABORATORY DATA: On the BMP; sodium 134, potassium 3.5, chloride 105, CO2 19, BUN 20, creatinine 0.78, glucose 157, calcium 9.2. AST 89, ALT 50, alkaline phosphatase 81, creatine kinase 572, troponin 0.081, total protein 5.8, albumin 2.4, albumin globin ratio is 0.7. Last creatine kinase is 225. Last blood sugar is 238. On the CBC; white blood count 8.61, hemoglobin of 9.3, hematocrit 26.7, and platelet count of 101. PT 16.8, INR 1.30, PTT 35.4. Influenza A and B negative. Blood culture negative. Urine culture is negative after 36-48 hours. FINAL IMPRESSION: 1. Septic shock, which is finally resolving. 2. Right lung and left lung pneumonia, most likely gram-negative bacteria. 3. Acute respiratory failure, which is slowly resolving. 4. Chronic obstructive pulmonary disease exacerbation. 5. Uncontrolled diabetes mellitus type 2 with diabetic nephropathy. 6. Acute on chronic renal failure. PLAN OF TREATMENT: The patient is off the pressors. Central line has been removed. Continue Zithromax 500 mg IV daily, Tylenol 650 mg p.o. q.8 hours as needed for mild pain, albuterol q.4 hours, Atrovent q.4 hours, budesonide one inhalation twice a day, cefepime 1 g IV daily, Pepcid 20 mg IV daily for gastritis prophylaxis, gabapentin 300 mg twice a day, heparin 5000 units subcutaneously twice a day, Humalog with sliding scale before meals and at bedtime. Continue Lantus 30 units at bedtime, lisinopril 20 mg daily, Singulair 10 mg daily, Protonix 40 mg daily. Continue Advair 1 inhalation twice a day, Flomax 0.4 mg daily, Ultracet 1 tablet q.4 hours as needed for pain, fenofibrate 160 mg daily. I discussed the case with the family at the bedside. The consultants reports reviewed. Labs have been reviewed. Plan of care have been reviewed. The patient is going to be transferred to the medical floor as he is doing better. Diagnosis of cirrhosis. The patient has been seen by Dr. Oj Carbajal because of the elevated CPK. He has a diagnosis of chronic diastolic congestive heart failure. He remains euvolemic. In patient is going to be evaluated for long-term care hospital depending on how he is doing the rest of the weekend, but he meets all the criteria to go there. MD ABILIO Antoine/NURY /[id number]
--- NOTE | 2019-11-18 17:04 | NUR ---
Dr. Urbano gave orders to remove femoral central line and physical therapy. Dr. Garduno gave orders to transfer to medical surgical floor with telemetry. Pt ambulated in hallway with walker with physical therapy. Central line removed and new PIV started on L forearm. Report called to Daphne REA. Patient transferred to room 198.
[2019-11-18] MEDS: AZITHROMYCIN 500MG/NS 250 ML 250 ML IV SCH (18:30)
[2019-11-18] MEDS: INSULIN GLARGINE 100 UNITS/ML VIAL SQ SCH (20:15)
[2019-11-18] MEDS: TRAMADOL/APAP 37.5MG-325MG TAB PO PRN (23:04)
[2019-11-19] MEDS: IPRATROPIUM BROMIDE 0.02% 2.5 ML NEB NEB SCH ×6 (03:00→23:35)
[2019-11-19] MEDS: ALBUTEROL SULF 0.083% NEB SOLN 3 ML NEB NEB SCH ×6 (03:00→23:35)
[2019-11-19 04:45] VITALS: BP 84/54
[2019-11-19 05:20] LABS: BASOPHILS % 0.4 % (0.0-1.0); EOSINOPHILS # (AUTO) 0.1 (0.0-0.4); EOSINOPHILS % 1.3 % (0.0-6.0); HEMATOCRIT 27.8 % (38.2-49.6); HEMOGLOBIN 9.1 g/dL (14.0-18.0); LYMPHOCYTES # (AUTO) 2.2 (1.0-3.2); MEAN CORPUSCULAR HEMOGLOBIN 32.9 pg (28-32); MEAN CORPUSCULAR HGB CONC 32.7 g/dL (31-35); MEAN CORPUSCULAR VOLUME 100.4 fL (81-99); MONOCYTES # (AUTO) 1.1 (0.2-0.8); MONOCYTES % 11.5 % (4.4-11.3); PLATELET COUNT 114 x10e3/uL (140-360); RED BLOOD COUNT 2.77 x10e6/uL (4.3-5.7); RED CELL DISTRIBUTION WIDTH 12.8 % (11.7-14.4)
[2019-11-19 05:33] LABS: ANION GAP 13.6 mmol/L (8-16); BLOOD UREA NITROGEN 15 mg/dL (7-26); BUN/CREATININE RATIO 21 (6-25); CALCIUM 8.3 mg/dL (8.4-10.2); CARBON DIOXIDE 20 mmol/L (22-29); CHLORIDE 105 mmol/L (98-107); CREATININE, SERUM 0.72 mg/dL (0.72-1.25); EST GLOMERULAR FILTRATION RATE > 60 ML/MIN (60-); GLUCOSE 155 mg/dL (74-118); POTASSIUM 3.6 mmol/L (3.5-5.1); SODIUM 135 mmol/L (136-145)
[2019-11-19 07:13] VITALS: BP 114/47
[2019-11-19] MEDS: INSULIN LISPRO 100 UNIT/1 ML 3ML VIAL SQ SCH ×4 (07:25→20:10)
[2019-11-19] MEDS: BUDESONIDE 0.5MG/2 ML NEB INH SCH ×2 (08:05→19:25)
[2019-11-19] MEDS: SALMETEROL/FLUTICASONE 250/50 INH SCH ×2 (08:05→19:40)
[2019-11-19] MEDS: NON-FORMULARY MEDICATION (Fenofibrate 160 MG) PO SCH (09:00)
[2019-11-19] MEDS: GABAPENTIN 300 MG CAP PO SCH ×2 (09:58→17:10)
[2019-11-19] MEDS: TAMSULOSIN HCL 0.4 MG CAP PO SCH (09:58)
[2019-11-19] MEDS: FAMOTIDINE 20 MG/2 ML VIAL IV SCH (09:58)
[2019-11-19] MEDS: PANTOPRAZOLE SOD 40 MG TABEC PO SCH (09:58)
[2019-11-19] MEDS: MONTELUKAST SODIUM 10 MG TAB PO SCH (09:58)
[2019-11-19] MEDS: HEPARIN SOD (PORCINE) 5,000 UNIT/ML VIAL SC SCH ×2 (09:59→19:39)
[2019-11-19 11:12] VITALS: BP 86/47
[2019-11-19] MEDS: CEFEPIME 1GM/ SOD CHL 50 ML BAG IV SCH ×2 (11:16→19:37)
--- NOTE | 2019-11-19 11:39 | Progress Note ---
DATE: 11/19/2019 CHIEF COMPLAINT/HISTORY OF PRESENT ILLNESS: This is a 69-year-old man, his primary treating diagnosis is sepsis secondary to right-sided pneumonia. On admission, he was found to have acute renal failure as well as rhabdomyolysis. Moreover, he was found to have acute on chronic diastolic heart failure on admission. The patient states his breathing is improved. He is also able to ambulate better with his rolling walker. Apparently referral to long-term acute care facility was denied by his insurance. Overall, the patient states he feels better. LABORATORY DATA: Today's blood work revealed potassium 3.6. BUN creatinine 15 and 0.72 respectively. Serum bicarb is still low with a value of 20. White blood cell count today is 9400 with 63% segmented neutrophils. REVIEW OF SYSTEMS: As per HPI. PHYSICAL EXAMINATION: GENERAL: He is awake, alert, fluent, in distress, very pleasant on exam. VITAL SIGNS: Blood pressure 114/47, but overnight blood pressure did get as low as 84/54, pulse 96, respiratory rate 18, oxygen 99% on 2 L oxygen, temperature got as high as 102 degrees last night 8 p.m., currently is 99.4. INTEGUMENT: Skin is warm and dry. No pallor, jaundice, or diaphoresis. HEENT: Anterior sclerae with moist mucous membranes. NECK: Supple. CARDIOVASCULAR: Tachycardic rate. Regular rate and rhythm. The patient has an S3 gallop. LUNGS: The patient has diminished breath sounds in the right lung field. ABDOMEN: Benign. EXTREMITIES: No edema or deformity. DIAGNOSES: 1. Sepsis secondary to right-sided pneumonia, resolving. 2. Right-sided pneumonia likely gram-negative vikas. 3. Acute renal insufficiency secondary to acute tubular necrosis, resolved. 4. Acute on chronic diastolic heart failure, resolving. 5. Rhabdomyolysis, resolving. PLAN: 1. We will tamsulosin since patient is experiencing hypotension. 2. Start intravenous fluids. 3. We will follow electrolytes and renal function. 4. We will order chest x-ray today. 5. We will change intravenous cefepime from daily to twice a day. 6. We will check a creatine kinase level since patient was diagnosed with rhabdomyolysis on admission. 7. Mobilize physical therapy. 8. Continue nebulized bronchodilators. I spent 35 minutes in the care of this patient. MD KALE Foster/NURY /[id number]
--- NOTE | 2019-11-19 11:56 | Diagnostic Imaging Report ---
Chest, 1 view, 11/19/2019. History: Right-sided pneumonia. Comparison: 11/18/2019. Findings: The cardiomediastinal silhouette and pulmonary vasculature are within normal limits for a portable exam. Diffuse patchy reticular nodular opacities throughout the right lung. Diffuse coarsening of the left pulmonary interstitium, particularly in the lower lobe. Hyperinflation of the left upper lobe again observed. There are no acute osseous or soft tissue abnormalities. Impression: No significant interval change. Findings consistent with diffuse right lung and left lower lobe infectious etiology superimposed on chronic changes. Signed by: Dr. Nick Benitez M.D. on 11/19/2019 11:54 AM
--- NOTE | 2019-11-19 13:36 | NUR ---
Pulmonary Critical Care Medicine DATE 11/19/2019 SUBJECTIVE: 2 L/min oxygen 95% saturation off IVF not dizzy, walked the bolden CXR pneumonia moderate to large, but stable REVIEW OF SYSTEMS: no headaches, no rash PHYSICAL EXAMINATION: VITAL SIGNS: vitals per EMR HEENT: Normocephalic, atraumatic. NECK: Supple. Throat midline. LUNGS: Bilateral air entry, few wheezing CARDIOVASCULAR: S1, S2. No murmurs, rubs, or gallops. ABDOMINAL: Soft, obese, and nontender. EXTREMITIES: No clubbing. No cyanosis. 1-2+ edema. INTEGUMENT: No rash or purpura. LABORATORY DATA: k 3.6, cr 0.72. 9.5 wbc, hct 28 IMPRESSION AND PLAN: 1. Severe sepsis/shock 2. pneumonia. hospital associated organisms, acquired prior to admit 3. Acute kidney injury. resolving 4. Diabetes. 5. Hypertension. 6. Possible chronic obstructive pulmonary disease, long-time smoker. 7. Hyperlipidemia. 8. Liver cirrhosis. 9. Hypoxemia, slowly improving 10. acute respiratory failure, bipap salvage / bipap off 11. fluid overload, improving oxygen per protocol, wean continue antibiotics. adjust based on cultures, still NGTD Smoking cessation Control blood sugars. budesonide nebs for wheezing ambulate Thank you very much, Dr. Garduno, for this consult. Please call for questions
[2019-11-19] MEDS ORDERED: POTASSIUM CHLORIDE 20 MEQ TAB CR PO NR (13:45)
[2019-11-19] MEDS: ACETAMINOPHEN 325 MG TAB PO PRN ×2 (17:10→19:40)
[2019-11-19] MEDS: SODIUM CHLORIDE 0.9% 1000ML 1,000 ML IV SCH ×2 (17:10→20:13)
[2019-11-19] MEDS: AZITHROMYCIN 500MG/NS 250 ML 250 ML IV SCH (17:10)
[2019-11-19 17:11] VITALS: BP 125/78
--- NOTE | 2019-11-19 19:31 | Progress Note ---
DATE: Cardiology Progress Note SUBJECTIVE: Denies chest pain or shortness of breath. Tolerating meal and p.o. intake. No other complaints. OBJECTIVE: VITAL SIGNS: Temperature 99 degrees, heart rate 82, blood pressure 90/46, respiratory rate 18, and O2 saturation 93%. GENERAL: No acute distress, alert. NECK: No JVD. CHEST: Clear to auscultation. CARDIOVASCULAR: Regular rate and rhythm. Normal S1, S2. ABDOMEN: Soft. Bowel sounds positive. EXTREMITIES: Trace edema. CARDIOVASCULAR MEDICATIONS: Reviewed. STUDIES: Reviewed. Potassium 3.6, bicarbonate 20, creatinine 0.7. Hemoglobin 9.1, platelets 114. AST 89, ALT 56. ASSESSMENT AND PLAN: 1. A 69-year-old man presents with severe sepsis with septic shock in the setting of pneumonia. 2. End-stage liver disease. 3. Hypertension, chronic diastolic heart failure. RECOMMEND: Continue current cardiovascular medications. Avoid antihypertensive medications for now due to low normal blood pressure reads. MD MARNI Joy/MODL /[id number]
[2019-11-19] MEDS: TRAMADOL/APAP 37.5MG-325MG TAB PO PRN (19:40)
[2019-11-19] MEDS: INSULIN GLARGINE 100 UNITS/ML VIAL SQ SCH (20:10)
[2019-11-19 20:17] VITALS: BP 117/71
[2019-11-20] VITALS (7 sets, daily range): BP systolic 127–144; BP diastolic 51–84
[2019-11-20] MEDS: ALBUTEROL SULF 0.083% NEB SOLN 3 ML NEB NEB SCH ×6 (03:40→23:45)
[2019-11-20] MEDS: IPRATROPIUM BROMIDE 0.02% 2.5 ML NEB NEB SCH ×6 (03:40→23:45)
[2019-11-20 05:14] LABS: BASOPHILS % 0.5 % (0.0-1.0); EOSINOPHILS # (AUTO) 0.2 (0.0-0.4); EOSINOPHILS % 1.8 % (0.0-6.0); HEMATOCRIT 27.4 % (38.2-49.6); HEMOGLOBIN 8.9 g/dL (14.0-18.0); LYMPHOCYTES # (AUTO) 2.2 (1.0-3.2); LYMPHOCYTES % 26.4 % (18.0-39.1); MEAN CORPUSCULAR HEMOGLOBIN 33.2 pg (28-32); MEAN CORPUSCULAR HGB CONC 32.5 g/dL (31-35); MEAN CORPUSCULAR VOLUME 102.2 fL (81-99); MONOCYTES # (AUTO) 0.8 (0.2-0.8); MONOCYTES % 9.4 % (4.4-11.3); NEUTROPHILS # (AUTO) 5.2 (2.1-6.9); NEUTROPHILS % 60.5 % (38.7-80.0); PLATELET COUNT 119 x10e3/uL (140-360); RED BLOOD COUNT 2.68 x10e6/uL (4.3-5.7); RED CELL DISTRIBUTION WIDTH 13.1 % (11.7-14.4)
[2019-11-20 05:51] LABS: ALANINE AMINOTRANSFERASE 57 IU/L (0-55); ALBUMIN 2.2 g/dL (3.5-5.0); ALBUMIN/GLOBULIN RATIO 0.6 (0.8-2.0); ALKALINE PHOSPHATASE 99 IU/L (40-150); ANION GAP 13.6 mmol/L (8-16); BLOOD UREA NITROGEN 12 mg/dL (7-26); BUN/CREATININE RATIO 18 (6-25); CALCIUM 8.3 mg/dL (8.4-10.2); CARBON DIOXIDE 20 mmol/L (22-29); CHLORIDE 109 mmol/L (98-107); CREATININE, SERUM 0.65 mg/dL (0.72-1.25); EST GLOMERULAR FILTRATION RATE > 60 ML/MIN (60-); GLUCOSE 157 mg/dL (74-118); POTASSIUM 3.6 mmol/L (3.5-5.1); SODIUM 139 mmol/L (136-145)
[2019-11-20] MEDS: BUDESONIDE 0.5MG/2 ML NEB INH SCH ×2 (07:14→19:15)
[2019-11-20] MEDS: INSULIN LISPRO 100 UNIT/1 ML 3ML VIAL SQ SCH ×4 (07:26→21:36)
[2019-11-20] MEDS: SALMETEROL/FLUTICASONE 250/50 INH SCH ×2 (07:30→19:15)
--- NOTE | 2019-11-20 08:09 | NUR ---
Met with Daphne Fuchs RN and discussed pt status and order for home oxygen. She stated pt is not ready for dc for 2-3 days due to pneumonia. CM to follow up prior to dc
[2019-11-20] MEDS: MONTELUKAST SODIUM 10 MG TAB PO SCH (08:10)
[2019-11-20] MEDS: GABAPENTIN 300 MG CAP PO SCH ×2 (08:10→16:00)
[2019-11-20] MEDS: PANTOPRAZOLE SOD 40 MG TABEC PO SCH (08:10)
[2019-11-20] MEDS: CEFEPIME 1GM/ SOD CHL 50 ML BAG IV SCH ×2 (08:10→21:09)
[2019-11-20] MEDS: FAMOTIDINE 20 MG/2 ML VIAL IV SCH (08:10)
[2019-11-20] MEDS: HEPARIN SOD (PORCINE) 5,000 UNIT/ML VIAL SC SCH ×2 (08:12→21:09)
[2019-11-20] MEDS: NON-FORMULARY MEDICATION (Fenofibrate 160 MG) PO SCH (08:14)
--- NOTE | 2019-11-20 10:03 | Progress Note ---
DATE: 11/20/2019 CHIEF COMPLAINT/HISTORY OF PRESENT ILLNESS: This is a 69-year-old man whose primary treating diagnosis is sepsis secondary to right-sided pneumonia. The patient underwent a chest x-ray today, which revealed persistent right upper lobe and left lower lobe patchy opacities. The patient states he feels much better today. His hypotension has resolved. White blood cell count today is 8500 with 60% segmented neutrophils. Hemoglobin is 8.9 g/dL. The patient's BUN and creatinine are 12 and 0.65 respectively. Potassium is 3.6. AST and ALT are 63 and 57 respectively. Creatine kinase level is 80, which is normal. The patient's B-type natriuretic peptide level was normal at 83.5. REVIEW OF SYSTEMS: As per HPI. PHYSICAL EXAMINATION: GENERAL: He is awake, alert, and fully oriented, in distress, very pleasant on exam. VITAL SIGNS: Blood pressure is 128/74, pulse is 86, respiratory rate 22, ox saturation is 100% on 2 L oxygen, but apparently his oxygen saturation dropped to 81% on room air, temperature currently is 98.0. His temperature did get as high as 99.9 at 5:00 p.m. yesterday. INTEGUMENT: Skin is warm and dry. No pallor, jaundice, or diaphoresis. HEENT: Anterior sclerae with moist mucous membranes. NECK: Supple. CARDIOVASCULAR: Tachycardic rate. Regular rate and rhythm. The patient has S3 gallop. LUNGS: The patient has diminished breath sounds in the right lung field. ABDOMEN: Benign. EXTREMITIES: No edema or deformity. DIAGNOSES: 1. Sepsis secondary to right-sided pneumonia, resolved. 2. Right-sided pneumonia likely gram-negative vikas. 3. Acute renal insufficiency secondary to acute tubular necrosis, resolved. 4. Acute on chronic diastolic heart failure, resolving. 5. Rhabdomyolysis, resolved. PLAN: 1. Discontinue telemetry. 2. Remove El catheter. 3. Will not restart tamsulosin since the patient was experiencing orthostatic hypotension. 4. Continue intravenous fluids. 5. Continue intravenous antibiotics for his pneumonia. 6. Mobilize physical therapy. 7. Continue nebulized bronchodilators. 8. We will assess the patient for home oxygen therapy. 9. Discharge planning to home either tomorrow November 21 or Friday November 22, 2019. I spent 30 minutes in the care of the patient. MD KALE Foster/NURY /[id number]
[2019-11-20] MEDS: SODIUM CHLORIDE 0.9% 1000ML 1,000 ML IV SCH (10:18)
--- NOTE | 2019-11-20 10:34 | NUR ---
jansen catheter removed, patient tolerated well.
[2019-11-20] MEDS: ACETAMINOPHEN 325 MG SUPP PR PRN (14:55)
--- NOTE | 2019-11-20 14:55 | NUR ---
Visit made by the Spiritual Care Department Pastoral Visitor, Sandro Dowling. PV provided pastoral presence, prayer, communion, hospitality, and supportive listening. Pastoral Visitor informed pt/family of the scope of [employer] and availability. BRIAN PABLO Diesel Stationary Engineer Spiritual Care Department O: [phone] Pager: [phone] ([phone] number calling from)
[2019-11-20] MEDS: TRAMADOL/APAP 37.5MG-325MG TAB PO PRN (14:56)
--- NOTE | 2019-11-20 16:14 | NUR ---
Received patient resting in bed. No acute distress noted, denies pain or discomfort at this time. Call light within reach. Bed in the lowest position.
--- NOTE | 2019-11-20 17:39 | Progress Note ---
DATE: 11/20/2019 Cardiology Progress Note SUBJECTIVE: No complaints today. OBJECTIVE: VITAL SIGNS: Temperature 98.2, heart rate 94, blood pressure 128/64, respiratory rate 19, O2 saturation 97%. GENERAL: No acute distress, alert. NECK: No JVD. CHEST: Clear to auscultation. CARDIOVASCULAR: Regular rate and rhythm. Normal S1 and S2. ABDOMEN: Soft. Bowel sounds positive. EXTREMITIES: Trace edema. CARDIOVASCULAR MEDICATIONS: Reviewed. STUDIES: Reviewed. Creatinine 0.6. White blood cells 8.5, hemoglobin 8.9, platelets 119. ASSESSMENT: 1. Atypical chest pain, musculoskeletal etiology versus pleurisy, improved. 2. Chronic obstructive pulmonary disease. 3. Diabetes mellitus type 2. 4. Liver cirrhosis. 5. Hyperlipidemia. 6. Tobacco abuse, undergoing cessation counseling and treatment. 7. Status post severe sepsis with septic shock and pneumonia. RECOMMENDATIONS: 1. Continue current cardiovascular medication. 2. Continue to hold antihypertensive regimen for now, given low blood pressure reads. 3. Continue nicotine gum. MD MARNI Joy/NURY /[id number]
[2019-11-20] MEDS ORDERED: SODIUM CHLORIDE 0.9% 250ML 250 ML ONE (17:42)
--- NOTE | 2019-11-20 17:44 | NUR ---
Pulmonary Critical Care Medicine DATE 11/20/2019 SUBJECTIVE: 2 L/min oxygen more energy he walked eating better REVIEW OF SYSTEMS: no headaches, no rash PHYSICAL EXAMINATION: VITAL SIGNS: vitals per EMR HEENT: Normocephalic, atraumatic. NECK: Supple. Throat midline. LUNGS: Bilateral air entry, few wheezing CARDIOVASCULAR: S1, S2. No murmurs, rubs, or gallops. ABDOMINAL: Soft, obese, and nontender. EXTREMITIES: No clubbing. No cyanosis. 1+ edema. INTEGUMENT: No rash or purpura. LABORATORY DATA: k 3.6, cr 0.72. 9.5 wbc, hct 28 IMPRESSION AND PLAN: 1. Severe sepsis/shock, resolved 2. pneumonia. hospital associated organisms, acquired prior to admit 3. Acute kidney injury. resolving 4. Diabetes. 5. Hypertension. 6. Possible chronic obstructive pulmonary disease, long-time smoker. 7. Hyperlipidemia. 8. Liver cirrhosis. 9. Hypoxemia, slowly improving 10. acute respiratory failure, bipap salvage / bipap off 11. fluid overload, improving oxygen per protocol, wean continue antibiotics. adjust based on cultures, still NGTD Smoking cessation Control blood sugars. budesonide nebs for wheezing ambulate Thank you very much, Dr. Garduno, for this consult. Please call for questions
[2019-11-20] MEDS: AZITHROMYCIN 500MG/NS 250 ML 250 ML IV SCH (18:04)
--- NOTE | 2019-11-20 19:03 | NUR ---
Bedside shift report given to oncoming nurse. Patient is resting in bed. No acute distress noted, denies pain or discomfort. Family at bedside. Call light within reach. Bed in the lowest position.
[2019-11-20] MEDS: INSULIN GLARGINE 100 UNITS/ML VIAL SQ SCH (21:09)
[2019-11-21] VITALS (10 sets, daily range): BP systolic 112–192; BP diastolic 55–81
[2019-11-21] MEDS: IPRATROPIUM BROMIDE 0.02% 2.5 ML NEB NEB SCH ×6 (03:00→23:45)
[2019-11-21] MEDS: ALBUTEROL SULF 0.083% NEB SOLN 3 ML NEB NEB SCH ×6 (03:00→23:45)
[2019-11-21 05:59] LABS: BASOPHILS # (AUTO) 0.1 (0.0-0.1); BASOPHILS % 0.6 % (0.0-1.0); EOSINOPHILS # (AUTO) 0.2 (0.0-0.4); EOSINOPHILS % 2.2 % (0.0-6.0); HEMATOCRIT 30.1 % (38.2-49.6); HEMOGLOBIN 9.7 g/dL (14.0-18.0); LYMPHOCYTES # (AUTO) 2.2 (1.0-3.2); LYMPHOCYTES % 26.8 % (18.0-39.1); MEAN CORPUSCULAR HEMOGLOBIN 32.6 pg (28-32); MEAN CORPUSCULAR HGB CONC 32.2 g/dL (31-35); MONOCYTES # (AUTO) 0.8 (0.2-0.8); NEUTROPHILS # (AUTO) 4.8 (2.1-6.9); NEUTROPHILS % 57.6 % (38.7-80.0); PLATELET COUNT 169 x10e3/uL (140-360); RED BLOOD COUNT 2.98 x10e6/uL (4.3-5.7); RED CELL DISTRIBUTION WIDTH 13.2 % (11.7-14.4)
[2019-11-21 06:23] LABS: ALANINE AMINOTRANSFERASE 52 IU/L (0-55); ALBUMIN 2.4 g/dL (3.5-5.0); ALBUMIN/GLOBULIN RATIO 0.6 (0.8-2.0); ALKALINE PHOSPHATASE 123 IU/L (40-150); ANION GAP 13.7 mmol/L (8-16); BLOOD UREA NITROGEN 11 mg/dL (7-26); BUN/CREATININE RATIO 17 (6-25); CALCIUM 8.8 mg/dL (8.4-10.2); CARBON DIOXIDE 21 mmol/L (22-29); CHLORIDE 106 mmol/L (98-107); CREATININE, SERUM 0.65 mg/dL (0.72-1.25); EST GLOMERULAR FILTRATION RATE > 60 ML/MIN (60-); GLUCOSE 131 mg/dL (74-118); POTASSIUM 3.7 mmol/L (3.5-5.1); SODIUM 137 mmol/L (136-145)
[2019-11-21] MEDS: SALMETEROL/FLUTICASONE 250/50 INH SCH ×2 (07:00→19:40)
[2019-11-21] MEDS: BUDESONIDE 0.5MG/2 ML NEB INH SCH ×2 (07:04→19:40)
[2019-11-21] MEDS: INSULIN LISPRO 100 UNIT/1 ML 3ML VIAL SQ SCH ×4 (07:30→21:50)
[2019-11-21] MEDS: NON-FORMULARY MEDICATION (Fenofibrate 160 MG) PO SCH (09:00)
[2019-11-21] MEDS: FAMOTIDINE 20 MG/2 ML VIAL IV SCH (09:22)
[2019-11-21] MEDS: PANTOPRAZOLE SOD 40 MG TABEC PO SCH (09:43)
[2019-11-21] MEDS: GABAPENTIN 300 MG CAP PO SCH ×2 (09:43→18:24)
[2019-11-21] MEDS: CEFEPIME 1GM/ SOD CHL 50 ML BAG IV SCH ×2 (09:43→21:50)
[2019-11-21] MEDS: HEPARIN SOD (PORCINE) 5,000 UNIT/ML VIAL SC SCH ×2 (09:43→21:50)
[2019-11-21] MEDS: MONTELUKAST SODIUM 10 MG TAB PO SCH (09:43)
--- NOTE | 2019-11-21 11:17 | Progress Note ---
DATE: 11/21/2019 Cardiology Progress Note SUBJECTIVE: No complaints. OBJECTIVE: VITAL SIGNS: Temperature 98 degrees, heart rate 77, respiratory rate 20, blood pressure 118/56, and O2 saturation 98% on 3 L/minute nasal cannula. GENERAL: No acute distress. Alert. NECK: No JVD. CHEST: Clear to auscultation. CARDIOVASCULAR: Regular rate and rhythm. Normal S1 and S2. ABDOMEN: Soft. Bowel sounds positive. EXTREMITIES: No edema. CARDIOVASCULAR MEDICATIONS: Reviewed. STUDIES: Reviewed. White blood cells 8.3, hemoglobin 9.7, and platelets 169. Sodium 137, potassium 3.7, chloride 106, bicarbonate 21, BUN 11, creatinine 0.6, and glucose 131. Lactic acid normal at 1.5. Magnesium was 1.6 on 11/16. No repeated magnesium since. Telemetry has been discontinued. ASSESSMENT AND PLAN: 1. Atypical chest pain, suspect musculoskeletal etiology versus pleurisy, now improved. 2. Chronic obstructive pulmonary disease. 3. Diabetes mellitus type 2. 4. Liver cirrhosis. 5. Dyslipidemia. 6. Smoking/tobacco abuse, undergoing cessation counseling and treatment. 7. Severe sepsis with septic shock and pneumonia, now improving. RECOMMEND: Continue current cardiovascular medications, particularly hold off on any antihypertensives for now. Antibiotics per primary service. Oj Porter MD AFV/MODL /[id number]
--- NOTE | 2019-11-21 11:37 | Progress Note ---
DATE: Internal Medicine Progress Note SUBJECTIVE: The patient is sleeping comfortably. PHYSICAL EXAMINATION: HEART: Showed irregularly irregular heart rate. Normal S1 and S2 sounds. LUNGS: Show decreased breath sounds bilaterally. ABDOMEN: Soft. VITAL SIGNS: Blood pressure 118/56, temperature 98 degrees, heart rate 77 per minute, respiratory rate 20 per minute, oxygen saturation 98%. LABORATORY DATA: On the BMP; sodium 137, potassium 3.7, chloride 106 CO2 21, BUN 11, creatinine 0.65, glucose 131. On the CBC; white blood count 8.32, hemoglobin 9.7, hematocrit 30.1, platelet count of 169,000. PT 16.8, INR 1.30, PTT 35.4. AST 56, ALT 52, total bilirubin 1.0, alkaline phosphatase 123. FINAL IMPRESSION: 1. Septic shock, which is resolving. 2. Chronic obstructive pulmonary disease exacerbation. 3. Acute respiratory failure, which is resolving. 4. Uncontrolled diabetes mellitus type 2 with diabetic neuropathy. 5. Anemia of chronic disease. 6. Bilateral pneumonia, most likely gram-negative bacteria. 7. Acute renal failure, which is resolving. PLAN OF TREATMENT: Continue with current IV antibiotic therapy. Continue with albuterol q.4 hours, Atrovent q.4 hours, Zithromax 500 mg IV once a day, Tylenol 650 mg q.8 hours as needed for pain or fever, gabapentin 300 mg twice a day, Advair 1 inhalation twice a day, Pepcid 20 mg daily, Lantus 10 units at bedtime. Continue monitoring blood sugar before meals and at bedtime. Continue diabetic diet. Continue heparin 5000 units subcutaneously twice a day. For DVT prophylaxis Singulair 10 mg daily, cefepime 1 g IV twice a day, Ultracet 1 tablet q.6 hours as needed, Protonix 40 mg daily. Long-term care hospital transfer has been denied by the [facility] insurance medical editor while filling an appeal. We are going to also continue physical and occupational therapy. MD ABILIO Antoine/NURY /[id number]
--- NOTE | 2019-11-21 15:10 | NUR ---
Nutrition Screen Note RD Recommendation for Physician: - Continue current diet Plan of Care: RD following, monitoring for tolerance and adequacy Nutrition reason for involvement: LOS Primary Diagnose(s): PNA, septic shock, COPD exacerbation PMH: COPD, DM2, HTN Ht: 69 in Wt: 203 lb BMI: 30 kg/m2 IBW: [address] Assessment: (11/21) 69 YOM admitted for PNA, septic shock, and COPD exacerbation. 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 Pt reports UBW of "around 220#", pt with fluid loss since admit- volume overload per MD notes. Pt denies any GI distress. Pt discussed during am rounds. Chart reviewed. Labs and meds reviewed. Will monitor and continue to follow. Current Diet: 1600 ADA Malnutrition Evaluation (11/21/19) The patient does not meet criteria for a specified degree of malnutrition at this time. Will re-evaluate at follow-up as appropriate. Diet Education Needs Assessment: Diet education not indicated. Diet tolerance: tolerating po Nutrition Care Level: low Signed: Daysi Krishna RD, LD, [facility]
[2019-11-21] MEDS: AZITHROMYCIN 500MG/NS 250 ML 250 ML IV SCH (18:24)
--- NOTE | 2019-11-21 19:04 | NUR ---
Received bedside report from day nurse. Patient resting in bed, no s/s of distress or c/o pain at this time. All safety measures in place. Will continue to monitor.
[2019-11-21] MEDS: INSULIN GLARGINE 100 UNITS/ML VIAL SQ SCH (21:50)
[2019-11-22] VITALS (8 sets, daily range): BP systolic 111–139; BP diastolic 55–70
[2019-11-22] MEDS: IPRATROPIUM BROMIDE 0.02% 2.5 ML NEB NEB SCH ×6 (03:00→23:00)
[2019-11-22] MEDS: ALBUTEROL SULF 0.083% NEB SOLN 3 ML NEB NEB SCH ×6 (03:00→23:00)
--- NOTE | 2019-11-22 03:02 | NUR ---
Pulmonary Critical Care Medicine DATE 11/21/2019 SUBJECTIVE: 3 L/min oxygen walked the bolden not dizzy eating well REVIEW OF SYSTEMS: no headaches, no rash PHYSICAL EXAMINATION: VITAL SIGNS: vitals per EMR HEENT: Normocephalic, atraumatic. NECK: Supple. Throat midline. LUNGS: Bilateral air entry, few wheezing CARDIOVASCULAR: S1, S2. No murmurs, rubs, or gallops. ABDOMINAL: Soft, obese, and nontender. EXTREMITIES: No clubbing. No cyanosis. 1+ edema. INTEGUMENT: No rash or purpura. LABORATORY DATA: k 3.7, cr 0.66 IMPRESSION AND PLAN: 1. Severe sepsis/shock, resolved 2. large pneumonia. hospital associated organisms, acquired prior to admit 3. Acute kidney injury. resolving 4. Diabetes. 5. Hypertension. 6. Possible chronic obstructive pulmonary disease, long-time smoker. 7. Hyperlipidemia. 8. Liver cirrhosis. 9. Hypoxemia, slowly improving 10. acute respiratory failure, bipap salvage / bipap off 11. fluid overload, improving oxygen per protocol, wean continue antibiotics. negative cultures Smoking cessation Control blood sugars. budesonide nebs for wheezing ambulate DVT ppx Thank you very much, Dr. Garduno, for this consult. Please call for questions
--- NOTE | 2019-11-22 06:55 | NUR ---
Bedside report given to day nurse. Patient resting in bed, no s/s of distress or c/o pain at this time. All safety measures in place.
[2019-11-22] MEDS: BUDESONIDE 0.5MG/2 ML NEB INH SCH ×2 (07:00→19:45)
[2019-11-22] MEDS: SALMETEROL/FLUTICASONE 250/50 INH SCH ×2 (07:11→19:45)
[2019-11-22] MEDS: INSULIN LISPRO 100 UNIT/1 ML 3ML VIAL SQ SCH ×4 (07:43→22:51)
[2019-11-22] MEDS: NON-FORMULARY MEDICATION (Fenofibrate 160 MG) PO SCH (09:00)
[2019-11-22] MEDS: PANTOPRAZOLE SOD 40 MG TABEC PO SCH (09:11)
[2019-11-22] MEDS: GABAPENTIN 300 MG CAP PO SCH ×2 (09:11→17:06)
[2019-11-22] MEDS: FAMOTIDINE 20 MG/2 ML VIAL IV SCH (09:11)
[2019-11-22] MEDS: MONTELUKAST SODIUM 10 MG TAB PO SCH (09:11)
[2019-11-22] MEDS: CEFEPIME 1GM/ SOD CHL 50 ML BAG IV SCH ×2 (09:11→22:22)
[2019-11-22] MEDS: HEPARIN SOD (PORCINE) 5,000 UNIT/ML VIAL SC SCH ×2 (09:11→22:52)
--- NOTE | 2019-11-22 11:11 | Progress Note ---
DATE: 11/22/2019 Cardiology Progress Note SUBJECTIVE: No complaints. OBJECTIVE: VITAL SIGNS: Temperature 98.1, heart rate 53, blood pressure 111/55, respiratory rate 17, and O2 saturation 98%. GENERAL: No acute distress. Alert. NECK: No JVD. CHEST: Clear to auscultation. CARDIOVASCULAR: Regular rate and rhythm. Normal S1 and S2. ABDOMEN: Soft. Bowel sounds positive. EXTREMITIES: No edema. CARDIOVASCULAR MEDICATIONS: Reviewed. STUDIES: Reviewed. Creatinine 0.6. Hemoglobin 9.7 and platelets 167. ASSESSMENT AND PLAN: 1. A 69-year-old man with chronic obstructive pulmonary disease, end-stage liver disease, tobacco abuse, hypertension history, presents with pneumonia and severe sepsis with septic shock. 2. Chronic diastolic heart failure. RECOMMEND: 1. Continue current cardiovascular management. 2. Outpatient followup advised in 3 to 4 weeks post discharge. MD MARNI Joy/NURY /[id number]
--- NOTE | 2019-11-22 12:44 | NUR ---
Pulmonary Critical Care Medicine DATE 11/22/2019 SUBJECTIVE: 3 L/min oxygen walked the bolden again slightly more stamina eating well REVIEW OF SYSTEMS: no headaches, no rash PHYSICAL EXAMINATION: VITAL SIGNS: vitals per EMR HEENT: Normocephalic, atraumatic. NECK: Supple. Throat midline. LUNGS: Bilateral air entry, few wheezing CARDIOVASCULAR: S1, S2. No murmurs, rubs, or gallops. ABDOMINAL: Soft, obese, and nontender. EXTREMITIES: No clubbing. No cyanosis. 1+ edema. INTEGUMENT: No rash or purpura. LABORATORY DATA: no new updates IMPRESSION AND PLAN: 1. Severe sepsis/shock, resolved 2. large pneumonia. hospital associated organisms, acquired prior to admit 3. Acute kidney injury. resolving 4. Diabetes. 5. Hypertension. 6. Possible chronic obstructive pulmonary disease, long-time smoker. 7. Hyperlipidemia. 8. Liver cirrhosis. 9. Hypoxemia, slowly improving 10. acute respiratory failure, bipap salvage / bipap off 11. fluid overload, improving intermittent CXR until clear steady negative fluid balance for the hypoxemia oxygen per protocol, wean continue antibiotics. negative cultures so far Smoking cessation Control blood sugars. budesonide nebs for wheezing ambulate DVT ppx Thank you very much, Dr. Garduno, for this consult. Please call for questions
--- NOTE | 2019-11-22 17:08 | Progress Note ---
DATE: Internal Medicine Progress Note SUBJECTIVE: The patient is feeling better. PHYSICAL EXAMINATION: VITAL SIGNS: Blood pressure 139/70, temperature 96.8, heart rate 79 per minute, respiratory rate is 20 per minute, and oxygen saturation 99%. HEART: Showed regular rhythm. Normal S1 and S2 sound. LUNGS: Clear bilaterally. ABDOMEN: Soft. EXTREMITIES: Show no evidence of cyanosis or hematoma. LABORATORY DATA: On the BMP; sodium 137, potassium 3.7, chloride 106, CO2 21, BUN 11, creatinine 0.65, and glucose 131. On the CBC; white blood count 8.32, hemoglobin 9.7, hematocrit 30.1, and platelet count 169,000. PT 16.8, INR 1.30, and PTT 35.4. AST 56, ALT 52, total bilirubin 1.0, and alkaline phosphatase 123. Blood culture came negative. Urine culture is negative. FINAL IMPRESSION: 1. Status post septic shock, which is resolving. 2. Chronic obstructive pulmonary disease exacerbation. 3. Uncontrolled diabetes mellitus type 2 with diabetic neuropathy. 4. Chronic anemia. 5. Bilateral gram-negative pneumonia. 6. Acute renal failure. 7. Hypoxemic respiratory failure. PLAN OF TREATMENT: Continue oxygen. He does desaturate the oxygen saturation when he walks, so he is going to need oxygen when he goes home. We are waiting for a [place] to see if he can be approved to go to a long-term care hospital, since he was denied the first time and we sent an appeal. So, the rest of medication, albuterol q.4 hours, Atrovent q.4 hours, budesonide twice a day, Zithromax 250 mg IV once a day, Tylenol 650 mg q.8 hours as needed, gabapentin 300 mg twice a day, Advair 1 inhalation twice a day, Pepcid 20 mg daily, and Lantus 10 units at bedtime. Continue monitoring blood sugar before meals and at bedtime. Continue heparin subcutaneously 5,000 units twice a day, Singulair 10 mg daily, cefepime 1 g IV twice a day, Tylenol 650 mg q.8 hours as needed for pain or fever, Ultracet 1 tablet q.6 hours as needed, and Protonix 40 mg daily. We are waiting for the answer about the appeal for [facility] to see the patient can go to an LTAC, originally he was denied. If not, we will continue with IV antibiotics for few more days. MD ABILIO Antoine/NURY /[id number]
[2019-11-22] MEDS: AZITHROMYCIN 500MG/NS 250 ML 250 ML IV SCH (17:44)
--- NOTE | 2019-11-22 19:28 | NUR ---
SBAR report received at bedside, patient seen sitting on chair, in room, AOX3, able to verbalize needs, thai/latvian speaking, possible discharge tomorrow in the am after advertising copywriter consult, skin warm dry no c/o pain or discomfort at this time
[2019-11-22] MEDS: INSULIN GLARGINE 100 UNITS/ML VIAL SQ SCH (22:56)
[2019-11-23] VITALS (9 sets, daily range): BP systolic 105–142; BP diastolic 59–80
[2019-11-23] MEDS: ALBUTEROL SULF 0.083% NEB SOLN 3 ML NEB NEB SCH ×4 (03:00→16:30)
[2019-11-23] MEDS: IPRATROPIUM BROMIDE 0.02% 2.5 ML NEB NEB SCH ×4 (03:00→16:30)
[2019-11-23] MEDS: INSULIN LISPRO 100 UNIT/1 ML 3ML VIAL SQ SCH ×3 (07:18→17:07)
[2019-11-23] MEDS: SALMETEROL/FLUTICASONE 250/50 INH SCH (07:30)
[2019-11-23] MEDS ORDERED: FAMOTIDINE 20 MG TAB PO SCH (07:30)
[2019-11-23] MEDS: BUDESONIDE 0.5MG/2 ML NEB INH SCH (07:30)
[2019-11-23] MEDS: NON-FORMULARY MEDICATION (Fenofibrate 160 MG) PO SCH (09:00)
[2019-11-23] MEDS: CEFEPIME 1GM/ SOD CHL 50 ML BAG IV SCH (09:09)
[2019-11-23] MEDS: PANTOPRAZOLE SOD 40 MG TABEC PO SCH (09:09)
[2019-11-23] MEDS: MONTELUKAST SODIUM 10 MG TAB PO SCH (09:09)
[2019-11-23] MEDS: GABAPENTIN 300 MG CAP PO SCH ×2 (09:09→17:10)
--- NOTE | 2019-11-23 10:31 | Progress Note ---
DATE: Internal Medicine Progress Note SUBJECTIVE: The patient is still complaining of shortness of breath on exertion, still feeling better from what he was feeling before. PHYSICAL EXAMINATION: VITAL SIGNS: Blood pressure 122/80, temperature 96.8, heart rate 71 per minute, respiratory rate 20 per minute, oxygen saturation 99%. HEART: Showed regular rhythm. Normal S1, S2 sound. LUNGS: Clear bilaterally. ABDOMEN: Soft. EXTREMITIES: Show no evidence of cyanosis or hematoma. LABORATORY DATA: On the BMP; sodium 137, potassium 3.7, chloride 106, CO2 21, BUN 11, creatinine 0.65, glucose 131. CBC; white count 8.32, hemoglobin 9.7, hematocrit 30.1, platelet count of 169,000. On PT 16.8, INR 1.30, PTT 35.4. AST 56, ALT 52, total bilirubin 1.0, alkaline phosphatase 123. FINAL IMPRESSION: 1. Septic shock, which is resolving. 2. Chronic obstructive pulmonary disease exacerbation, which is low, slowly resolving. 3. Uncontrolled diabetes mellitus type 2 with diabetic neuropathy. 4. Anemia of chronic disease. 5. Bilateral gram-negative pneumonia. 6. Acute renal failure. 7. Hypoxemic respiratory failure secondary to chronic obstructive pulmonary disease exacerbation and pneumonia. PLAN OF TREATMENT: Continue albuterol and Atrovent q.4 hours. Continue budesonide twice a day. Continue Zithromax q.4 hours 24 hours, Singulair 10 mg daily, Tylenol 650 mg q.8 hours as needed for pain or fevers, cefepime 1 g IV twice a day. Continue monitoring blood sugar before meals and at bedtime. Continue Ultracet 1 tablet q.6 hours as needed for pain, Protonix 40 mg daily, Pepcid 20 mg daily. Continue gabapentin 300 mg twice a day for diabetic neuropathy. Continue Advair 1 inhalation twice a day. Continue with Lantus 10 units at bedtime. Continue physical and occupational therapy. Continue fenofibrate 160 mg daily. The patient requires oxygen whenever he walks. His oxygen saturation goes below 90%. Most likely he is going to need oxygen when he goes home. We are still waiting for [facility] to see if they can reverse the denial on the patient to go to [facility]. MD ABILIO Antoine/NURY /[id number]
--- NOTE | 2019-11-23 10:42 | Progress Note ---
DATE: 11/23/2019 Cardiology Progress Note SUBJECTIVE: No new complaints. Shortness of breath. OBJECTIVE: VITAL SIGNS: Temperature 96.8, heart rate 71, blood pressure 122/80, respiratory rate 20, O2 saturation 99%. BMI 29.9. GENERAL: No acute distress, alert. NECK: No JVD. CHEST: Clear to auscultation. CARDIOVASCULAR: Regular rate and rhythm. Normal S1, S2. ABDOMEN: Soft. Bowel sounds positive. EXTREMITIES: No edema. CARDIOVASCULAR MEDICATION: Reviewed. LABORATORY DATA: Studies reviewed. Creatinine 0.6. White blood cells 8.3, hemoglobin 9.7, platelets 169. AST 56, ALT 52, alkaline phosphatase 123. ASSESSMENT AND PLAN: A 69-year-old man with pneumonia, septic shock, history of end-stage liver disease, COPD, smoking, tobacco abuse, hypertension, diabetes mellitus. RECOMMEND: Continue rehabilitation. The patient seems to be doing better with ambulation in the halls, however, continues to have some dyspnea with exertion on antibiotic therapy with azithromycin and cefepime for recent infection. Pleuritic atypical chest discomfort continues to improve. Outpatient followup advised. Blood pressure currently adequately controlled. MD MARNI Joy/NURY /[id number]
--- NOTE | 2019-11-23 13:40 | NUR ---
Per Daylin with [facility], patient's denial of LTAC was overturned. She is reaching out to Dr. Garduno now. [facility] REA notified.
--- NOTE | 2019-11-23 13:59 | NUR ---
patient approved for [facility]. will transfer today.
--- NOTE | 2019-11-23 14:29 | NUR ---
Bed 208 is assigned to patient at [facility] Lopez RN contacting Dr. Garduno, This CM spoke to patient about his upcoming transfer. He verbalized understanding. MOT is completed. Call report to [phone]
[2019-11-23] MEDS: ACETAMINOPHEN 325 MG TAB PO PRN (14:30)
--- NOTE | 2019-11-23 21:14 | NUR ---
Pulmonary Critical Care Medicine DATE 11/23/2019 SUBJECTIVE: patient with continued hypoxemia desats readily too sick for home 2 L/min oxygen BM REVIEW OF SYSTEMS: no headaches, no rash PHYSICAL EXAMINATION: VITAL SIGNS: vitals per EMR HEENT: Normocephalic, atraumatic. NECK: Supple. Throat midline. LUNGS: Bilateral air entry, few wheezing CARDIOVASCULAR: S1, S2. No murmurs, rubs, or gallops. ABDOMINAL: Soft, obese, and nontender. EXTREMITIES: No clubbing. No cyanosis. 1+ edema. INTEGUMENT: No rash or purpura. LABORATORY DATA: no new updates IMPRESSION AND PLAN: 1. Severe sepsis/shock, resolved 2. large pneumonia. hospital associated organisms, acquired prior to admit 3. Acute kidney injury. resolving 4. Diabetes. 5. Hypertension. 6. Possible chronic obstructive pulmonary disease, long-time smoker. 7. Hyperlipidemia. 8. Liver cirrhosis. 9. Hypoxemia, slowly improving 10. acute respiratory failure, bipap salvage / bipap off 11. fluid overload, improving intermittent CXR until clear steady negative fluid balance for the hypoxemia oxygen per protocol, wean continue antibiotics. negative cultures so far Smoking cessation Control blood sugars. budesonide nebs for wheezing ambulate DVT ppx too sick for home, send to [facility] Thank you very much, Dr. Garduno, for this consult. Please call for questions
--- NOTE | 2019-11-24 11:50 | Discharge Summary ---
HOSPITAL COURSE: He is a 69-year-old male with past medical history positive for diabetes, cirrhosis, COPD, came here to the hospital with septic shock, pneumonia, acute respiratory failure. He required BiPAP. He required IV Levophed. He required IV fluids. He required IV antibiotics. The patient eventually improved. He was transferred out of the ICU. BiPAP was removed, but he states he had to continue the oxygen because of the severe oxygen desaturation that happened when he was walking. The patient had bilateral pneumonia also on top of the COPD, diabetes, and cirrhosis. Due to his multiple medical condition, bilateral pneumonia with severe respiratory failure, the patient finally was approved by [facility], which initially refused to approve him to go to a long-term care hospital, so finally after re-appeal they approved him to go to a long-term [facility] hospital. PHYSICAL EXAMINATION: HEART: Showed regular rhythm. Normal S1, S2 sound. LUNGS: Showing decreased breath sounds bilaterally. ABDOMEN: Soft. EXTREMITIES: Showed no edema. FINAL IMPRESSION: 1. Septic shock secondary to pneumonia. 2. Bilateral pneumonia, most likely gram-negative bacteria. 3. Acute respiratory failure secondary to chronic obstructive pulmonary disease exacerbation, pneumonia. 4. Cirrhosis of the liver. 5. Uncontrolled diabetes mellitus type 2 with diabetic neuropathy. PLAN OF TREATMENT: We are going to continue current IV antibiotic therapy. Continue corticosteroids. Continue with nebulization treatment. Continue oxygen supplementation. Continue with Lantus 10 units at bedtime. Continue diabetic diet. Continue the oxygen supplementation. The patient is going to be transferred to [facility] for continuation of IV antibiotic and optimization of pulmonary status. MD ABILIO Antoine/MODL /[id number]
== END 2019-11-23 19:00 | DRG 871 ==
LOC: ER 16:39 → ERHOLD 19:27 → ICU 22:55 → IMCU 11-18 17:46 → MED/SURG3 11-20 16:17
PROVIDERS: ADMIT Internal Medicine; ATTEND Internal Medicine
PROC: 02HV33Z Insertion of Infusion Device into Superior Vena Cava, Percutaneous Approach (ICD-10-PCS; principal; 2019-11-15)
PROC: B548ZZA Ultrasonography of Superior Vena Cava, Guidance (ICD-10-PCS; 2019-11-15)
PROC: 3E043XZ Introduction of Vasopressor into Central Vein, Percutaneous Approach (ICD-10-PCS; 2019-11-15)
PROC: 5A09357 Assistance with Respiratory Ventilation, Less than 24 Consecutive Hours, Continuous Positive Airway Pressure (ICD-10-PCS; 2019-11-15)
DX: A41.9 Sepsis, unspecified organism (principal); R65.21 Severe sepsis with septic shock; J96.01 Acute respiratory failure with hypoxia; J15.6 Pneumonia due to other Gram-negative bacteria; I50.33 Acute on chronic diastolic (congestive) heart failure; N17.0 Acute kidney failure with tubular necrosis; N17.9 Acute kidney failure, unspecified; J44.1 Chronic obstructive pulmonary disease with (acute) exacerbation; I13.0 Hypertensive heart and chronic kidney disease with heart failure and stage 1 through stage 4 chronic kidney disease, or unspecified chronic kidney disease; E87.1 Hypo-osmolality and hyponatremia; M62.82 Rhabdomyolysis; K74.60 Unspecified cirrhosis of liver; E11.22 Type 2 diabetes mellitus with diabetic chronic kidney disease; Z87.891 Personal history of nicotine dependence; Z82.49 Family history of ischemic heart disease and other diseases of the circulatory system; K72.90 Hepatic failure, unspecified without coma; N18.3 Chronic kidney disease, stage 3 (moderate); E11.42 Type 2 diabetes mellitus with diabetic polyneuropathy; E87.6 Hypokalemia; E78.5 Hyperlipidemia, unspecified; R07.81 Pleurodynia; E11.21 Type 2 diabetes mellitus with diabetic nephropathy
CPT/HCPCS: 36415; 36600; 51700; 71045; 71046; 80048; 80053; 81001; 82550; 82553; 82805; 82948; 83605; 83735; 83880; 84484; 85025; 85610; 85730; 87040; 87086; 87400; 93005; 94640; 94660; 94664; 96372; 97139; 99284; J0456; J0692; J1644; J1815; J3370; J7030; J7050; J7512

== ENCOUNTER → 2020-04-18 | Outpatient (CLI) | payer MEDICARE, OTHER ==
--- NOTE | 2020-04-18 15:31 | Diagnostic Imaging Report ---
CT of the chest, without contrast. History: COPD, history of tobacco use. Comparison: CT abdomen/pelvis from 05/05/2019, 04/09/2019. Technique: Multidetector CT scanning of the chest was performed from the level of the apices to the upper abdomen without contrast. Coronal and sagittal multiplanar reformations were obtained. RADIATION DOSE: Total DLP: 254.36 mGy*cm Dose modulation, iterative reconstruction, and/or weight based adjustment of the mA/kV was utilized to reduce the radiation dose to as low as reasonably achievable. FINDINGS: The thyroid and remaining visualized structures within the base of the neck demonstrate no significant abnormalities. The thoracic aorta is normal course and caliber with atherosclerotic calcifications within its course and branch vessels including the coronary arteries. The heart is not enlarged. There is no abnormal pericardial fluid present. Nonspecific normal sized to mildly prominent mediastinal lymph nodes identified. A precarinal lymph node measures 1.3 cm in short axis with normal appearing fatty hilum. There is no abnormal axillary or hilar lymph node enlargement. The trachea and proximal airways are patent. Examination of the lungs demonstrates moderate to severe centrilobular emphysematous changes, more prominent within the upper lobes. Additionally, there is interlobular septal thickening, architectural distortion, and traction bronchiectasis present with a peripheral and basilar predominance. Suggestion of early honeycombing noted within the periphery of the right lower lobe. There is no evidence for superimposed consolidation, mass, suspicious nodule, or pleural effusion. Subtle nodular contour noted of the visualized liver which can be seen in the setting of hepatic dysfunction/cirrhosis. Limited views of the upper abdomen otherwise demonstrate no significant abnormalities. The osseous structures demonstrate no evidence for acute fracture or destructive process. The extrathoracic soft tissues are unremarkable. IMPRESSION: Interlobular septal thickening, architectural distortion, and traction bronchiectasis noted with a peripheral and basilar predominance. Spectrum of findings are suggestive of a chronic interstitial lung disease superimposed on centrilobular emphysematous changes. Nonspecific normal sized to mildly prominent mediastinal lymph nodes. Signed by: Dr. Ruben Romano MD on 04/18/2020 3:28 PM
== END ==
LOC: CT 13:10
PROVIDERS: ATTEND Internal Medicine Critical Care Medicine
DX: R06.00 Dyspnea, unspecified (principal); J44.9 Chronic obstructive pulmonary disease, unspecified; K21.9 Gastro-esophageal reflux disease without esophagitis; I10 Essential (primary) hypertension; Z87.891 Personal history of nicotine dependence
CPT/HCPCS: 71250

== ENCOUNTER → 2020-06-19 | Day surgery (SDC) | payer MEDICARE, OTHER ==
[2020-06-14 13:05] LABS: BASOPHILS # (AUTO) 0.1 (0.0-0.1); BASOPHILS % 0.7 % (0.0-1.0); EOSINOPHILS # (AUTO) 0.1 (0.0-0.4); EOSINOPHILS % 1.4 % (0.0-6.0); HEMATOCRIT 42.3 % (38.2-49.6); HEMOGLOBIN 14.1 g/dL (14.0-18.0); LYMPHOCYTES # (AUTO) 1.8 (1.0-3.2); LYMPHOCYTES % 21.3 % (18.0-39.1); MEAN CORPUSCULAR HEMOGLOBIN 32.8 pg (28-32); MEAN CORPUSCULAR HGB CONC 33.3 g/dL (31-35); MEAN CORPUSCULAR VOLUME 98.4 fL (81-99); MONOCYTES # (AUTO) 0.6 (0.2-0.8); MONOCYTES % 6.5 % (4.4-11.3); NEUTROPHILS # (AUTO) 5.9 (2.1-6.9); NEUTROPHILS % 69.7 % (38.7-80.0); PLATELET COUNT 130 x10e3/uL (140-360); RED CELL DISTRIBUTION WIDTH 12.5 % (11.7-14.4)
[2020-06-14 13:17] LABS: INR 1.07; PROTHROMBIN TIME 14.5 seconds (11.9-14.5)
[2020-06-14 13:18] LABS: PARTIAL THROMBOPLASTIN TIME 31.5 seconds (23.8-35.5)
[2020-06-14 13:24] LABS: ALANINE AMINOTRANSFERASE 37 IU/L (0-55); ALBUMIN 3.6 g/dL (3.5-5.0); ALBUMIN/GLOBULIN RATIO 0.9 (0.8-2.0); ALKALINE PHOSPHATASE 128 IU/L (40-150); BLOOD UREA NITROGEN 13 mg/dL (7-26); BUN/CREATININE RATIO 17 (6-25); CALCIUM 9.3 mg/dL (8.4-10.2); CARBON DIOXIDE 19 mmol/L (22-29); CHLORIDE 109 mmol/L (98-107); CREATININE, SERUM 0.78 mg/dL (0.72-1.25); EST GLOMERULAR FILTRATION RATE > 60 ML/MIN (60-); GLUCOSE 131 mg/dL (74-118); SODIUM 140 mmol/L (136-145)
--- NOTE | 2020-06-14 13:43 | Diagnostic Imaging Report ---
Exam: CHEST 2 VIEWS Date: 06/14/2020 1:38 PM INDICATION: ^[id number] ^1310 ^PRE OP Comparison: 11/14 03/14 and 04/18/2020 FINDINGS: Lines/Tubes:None Lungs:Lungs are well expanded. Scattered areas of interstitial scarring are noted bilaterally. Previously identified patchy opacities in the right have resolved when compared to 11/19/2019. Difficult to exclude subtle interstitial infection given background of interstitial scarring. Negative for focal consolidation. Pleura:No pleural effusion. No pneumothorax. Heart/Mediastinum:The cardiomediastinal silhouette is normal in size and contour. Bones/Soft Tissues: No acute osseous abnormality. Upper abdomen: Unremarkable. IMPRESSION: 1. Negative for focal consolidation or suspicious infiltrate. 2. Stable background of chronic interstitial scarring throughout the lungs. Superimposed subtle interstitial infection is difficult to exclude given background of scarring. In the presence of concerning symptoms would recommend follow-up CT chest if clinically indicated. Signed by: Bg Navarro MD on 06/14/2020 1:40 PM
[~2020-06-19] MED LIST changes: +BUPIVACAINE HCL 0.5% INJ 30 ML VIAL INJ ONE; +CEFAZOLIN SOD 1 GM/NS 50ML 100 ML IV ONE; +FENTANYL CITRATE/PF 100MCG/2 ML INJ ONE; +LEVEMIR FL100 UNIT/1 SC; +MIDAZOLAM HCL 2 MG/2 ML VIAL ONE
[2020-06-19 13:55] VITALS: BP 123/65
--- NOTE | 2020-06-28 21:20 | Operative Report ---
DATE OF PROCEDURE: 06/19/2020 SURGEON: Venu Minaya MD PREOPERATIVE DIAGNOSIS: Soft tissue subcutaneous mass over the anterior right knee. POSTOPERATIVE DIAGNOSIS: Soft tissue subcutaneous mass over the anterior right knee. OPERATIONS AND PROCEDURES PERFORMED: The patient underwent removal of an inclusion cyst in the subcutaneous tissues of the right knee. TRADEMARK ATTORNEY: None. ANESTHESIA: General endotracheal intubation anesthesia. IV FLUIDS: Per anesthesia record BRIEF DESCRIPTION OF THE PATIENT'S OPERATIVE PROCEDURE: Mr. Mendez was taken to the operating room, and placed in supine position on the operating room table. Following induction of general anesthesia as well as endotracheal intubation, the patient's right lower extremity was examined under anesthesia. The patient was found to have a soft tissue lesion in the subcutaneous tissues overlying the proximal tibia near the right knee. The patient's lower extremity was prepped and draped in surgical fashion. The case was begun by creating incision overlying this lesion. This incision was carried through skin only. Blunt dissection was used to deepen the incision and a well-circumscribed inclusion cyst was removed from the subcutaneous tissues. The cyst was opened on the back table and contained a small foreign body. The wound was copiously irrigated. Hemostasis was obtained and the wound was closed in a multilayer fashion. Sterile dressings were applied and the patient was then awakened and taken to postanesthesia care in stable condition. MD BRUNO العلي/MODL /[id number]
== END | disposition home or self-care (01) ==
LOC: OR 10:47
PROVIDERS: ATTEND Specialist
DX: L72.0 Epidermal cyst (principal); M17.0 Bilateral primary osteoarthritis of knee; J44.9 Chronic obstructive pulmonary disease, unspecified; G47.33 Obstructive sleep apnea (adult) (pediatric); I10 Essential (primary) hypertension; K74.60 Unspecified cirrhosis of liver; E11.9 Type 2 diabetes mellitus without complications; Z01.810 Encounter for preprocedural cardiovascular examination; Z01.812 Encounter for preprocedural laboratory examination; Z01.818 Encounter for other preprocedural examination; Z11.59 Encounter for screening for other viral diseases; Z79.4 Long term (current) use of insulin; Z79.84 Long term (current) use of oral hypoglycemic drugs; Z87.891 Personal history of nicotine dependence
CPT/HCPCS: 27327; 36415 ×2; 71046; 80053; 82948; 85025; 85610; 85730; 93005; J0690; J2250; J3010; U0002

== ENCOUNTER 2020-09-19 16:37 | Emergency (ER) | payer MEDICARE, OTHER ==
[~2020-09-19] VITALS: Ht 165.1 cm; Wt 103.9 kg
[~2020-09-19 16:37] MED LIST changes: -BUPIVACAINE HCL 0.5% INJ 30 ML VIAL INJ ONE; -CEFAZOLIN SOD 1 GM/NS 50ML 100 ML IV ONE; -FENTANYL CITRATE/PF 100MCG/2 ML INJ ONE; -MIDAZOLAM HCL 2 MG/2 ML VIAL ONE
[2020-09-19] MEDS ORDERED: HYDROMORPHONE 1MG/1ML INJ IV ONE (17:02)
--- NOTE | 2020-09-19 17:23 | Emergency Department Note ---
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 Any updates have been documented here. (JEAN-PAUL BHAGAT MD) Past Medical History Recent Fever: No Clinical Suspicion of Infectio: No New/Unexplained Change in Ment: No Past Medical History: Hypertension, Diabetes, COPD, Liver Disease, Hyperlipedemia, Chronic Kidney Disease Other Medical History: LIVER CIRROHSIS Past Surgical History: Cataract Removal Other Surgery: BILATERAL EYE CATARACT (JEAN-PAUL BHAGAT MD) Other Last Tetanus: UTD (JEAN-PAUL BHAGAT MD) Review of Systems Review of Systems Constitutional: Reports no symptoms EENTM: Reports no symptoms Cardiovascular: Reports no symptoms Respiratory: Reports no symptoms Gastrointestinal: Reports no symptoms Genitourinary: Reports no symptoms Musculoskeletal: Reports as per HPI Integumentary: Reports no symptoms Neurological: Reports no symptoms Psychological: Reports no symptoms Endocrine: Reports no symptoms Hematological/Lymphatic: Reports no symptoms (JEAN-PAUL BHAGAT MD) Physical Exam Related Data Allergies: Coded Allergies: No Known Allergies (Unverified , 04/09/19) Triage Vital Signs Vital Signs Date Time Temp Pulse Resp B/P (MAP) Pulse Ox O2 Delivery O2 Flow Rate FiO2 09/19/20 16:56 98.1 58 17 110/63 99 Room Air Vital signs reviewed: Yes (JEAN-PAUL BHAGAT MD) Physical Exam CONSTITUTIONAL Constitutional: Present well-developed, Present well-nourished HENT HENT: Present normocephalic, Present atraumatic, Present oropharynx clear/moist, Present nose normal HENT L/R: Present left ext ear normal, Present right ext ear normal EYES Eyes: Reports PERRL, Reports conjunctivae normal NECK Neck: Present ROM normal PULMONARY Pulmonary: Present effort normal, Present breath sounds normal CARDIOVASCULAR Cardiovascular: Present regular rhythm, Present heart sounds normal, Present capillary refill normal, Present normal rate GASTROINTESTINAL Abdominal: Present soft, Present nontender, Present bowel sounds normal GENITOURINARY Genitourinary: Present exam deferred SKIN Skin: Present warm, Present dry MUSCULOSKELETAL Musculoskeletal: Present other (LUE pain to shouler and wrist. Cannot move shoulder actively. Passive ROM is largely intact but limited 2/2 pain. Pulses 2+/equal and sensation intact) NEUROLOGICAL Neurological: Present alert, Present oriented x 3, Present no gross motor or sensory deficits PSYCHOLOGICAL Psychological: Present mood/affect normal, Present judgement normal (JEAN-PAUL BHAGAT MD) Results Imaging Imaging results reviewed: Yes (JEAN-PAUL BHAGAT MD) Imaging results reviewed: Yes Impressions Procedure: [id number] CT/CT CERVICAL SPINE WO Exam Date: 09/19/20 Exam Time: 1730 REPORT STATUS: Draft Exam: CT head without contrast, CT cervical spine without contrast History: 70-year-old male with head/neck pain following a fall. Comparison studies: Head CT 02/02/2018 Technique: Axial images were obtained from the brain and cervical spine. Coronal and sagittal images reconstructed from the axial data. Dose modulation, iterative reconstruction, and/or weight based adjustment of the mA/kV was utilized to reduce the radiation dose to as low as reasonably achievable. Intravenous contrast: None Findings: Head CT: Scalp/skull: No abnormalities. No fractures, blastic or lytic lesions. Brain sulci: Mildly prominent. Ventricles: Mild compensatory dilatation. No hydrocephalus. Extra-axial spaces: No masses. No fluid collections. Parenchyma: No abnormal densities. No masses, hemorrhage, acute or chronic cortical vascular insults. Sellar/suprasellar region: No abnormalities. Craniocervical junction: Patent foramen magnum. No Chiari one malformation. Cervical spine CT: Airway: Patent. Fractures: None. Soft tissues: No gross abnormalities. Atlantoaxial articulation: Intact. Advanced degenerative findings at the atlantoaxial interval. Alignment: Straightening of the usual cervical lordosis. Levoscoliotic curvature with the apex at C5. Cervicomedullary junction: No abnormalities. Patent foramen magnum. Vertebrae: No vertebral body fracture. Osseous fusion of C5-C6. Degenerative changes: Moderate degenerative changes of the cervical spine, including uncovertebral facet hypertrophy, which is more pronounced on the right at C3-4, C4-5, and C6-7. Small marginal osteophytes are seen, with posterior osteophytic ridging at C3-C4. Incidental findings: Atherosclerotic calcification in the bilateral carotid bulbs.. IMPRESSION: Head CT: No acute abnormalities. Chronic findings: Mild diffuse cerebral cortical volume loss. Cervical spine CT: 1. No acute fracture of the cervical spine. 2. Moderate degenerative findings of the cervical spine, as described above. 3. Cannot adequately evaluate for ligament, spinal cord and or vascular abnormalities. Dictated By: RUTH MELLO DO 06 COPY TO: ~ Procedure: [id number] DX/WRIST COMPLETE LEFT Exam Date: 09/19/20 Exam Time: 1729 REPORT STATUS: Signed WRIST COMPLETE LEFT - 3 views HISTORY: Pain status post fall. COMPARISON: None available. FINDINGS: Bones: There is a comminuted impaction fracture of the distal radial metadiaphysis, with intra-articular extension, and dorsal angulation. There is also lateral displacement of the distal fracture fragment. Joints: The joint spaces are well-maintained. Soft tissues: Overlying soft tissue swelling. Coarse calcification in the soft tissues of the ventral distal forearm. IMPRESSION: Comminuted impaction fracture of the distal radial metadiaphysis, with intra-articular extension, and dorsal angulation Signed by: Dr. Nick Bledsoe M.D. on 09/19/2020 6:20 PM Dictated By: GEOFFREY BLEDSOE MD, MD 19 Transcribed By: NEMO on 09/19/201819 COPY TO: JEAN-PAUL BHAGAT MD~ Procedure: [id number] DX/CHEST SINGLE (NOT PORTABLE) Exam Date: 09/19/20 Exam Time: 1730 REPORT STATUS: Signed EXAMINATION: CHEST SINGLE (NOT PORTABLE) INDICATION: Pain. Trauma. COMPARISON: 06/14/2020. FINDINGS: TUBES and LINES: None. LUNGS: There is diffuse coarsening of the pulmonary interstitium suture with honeycombing, increased since the prior examination consistent with interstitial lung disease/fibrosis. Parenchymal scarring in the left lower lobe, unchanged. PLEURA: No pleural effusion or pneumothorax. HEART AND MEDIASTINUM: The cardiomediastinal silhouette is stable. BONES AND SOFT TISSUES: No acute osseous lesion. Soft tissues are unremarkable. UPPER ABDOMEN: No free air under the diaphragm. IMPRESSION: Interval increase in bilateral pulmonary fibrosis. No acute abnormality. Signed by: Dr. Nick Bledsoe M.D. on 09/19/2020 6:23 PM Dictated By: GEOFFREY BLEDSOE MD, MD 22 Transcribed By: NEMO on 09/19/201822 COPY TO: JEAN-PAUL BHAGAT MD~ Procedure: [id number] DX/SHOULDER LEFT COMPLETE Exam Date: 09/19/20 Exam Time: 1730 REPORT STATUS: Signed SHOULDER LEFT COMPLETE, ELBOW LEFT AP LAT, HUMERUS LEFT 2+VIEWS - 3 views HISTORY: Pain status post fall. COMPARISON: None available. FINDINGS: Bones: There is a comminuted displaced impaction fracture of the left humeral neck. Degenerative changes of the elbow joint. There is mild deformity of the coronoid process of the ulna not well visualized due to positioning. Joints: The joint spaces are well-maintained. Soft tissues: The soft tissues appear unremarkable. IMPRESSION: Comminuted displaced impaction fracture of the left humeral neck. Signed by: Dr. Nick Bledsoe M.D. on 09/19/2020 6:17 PM Dictated By: GEOFFREY BLEDSOE MD, MD 16 Transcribed By: NEMO on 09/19/201816 COPY TO: JEAN-PAUL BHAGAT MD~ (TK REDD MD) Procedures Orthopedic Splinting/Casting Injury: Injury #1 Side: left Upper exremity injury location: wrist Upper extremity immobilizer: volar splint (orthoglass) Additional comments sling to left shoulder for humeral neck fracture (TK REDD MD) Assessment & Plan Medical Decision Making MDM 70 yo M presents for fall from ground level and subsequent L shoulder/wrist pa in. Exam shows limited ROM of L arm 2/2 pain. Neurovascularly intact. X-rays ordered as well at CT brain/C-spine. Handed off to Hr. Vásquez @ 1800 pending X-rays (JEAN-PAUL BHAGAT MD) Assessment & Plan Final Impression: (1) Shoulder fracture (JEAN-PAUL BHAGAT MD) Final Impression: (1) Shoulder fracture (2) Distal radius fracture, left (TK REDD MD) Depart Disposition: HOME, SELF-CARE Last Vital Signs Date Time Temp Pulse Resp B/P (MAP) Pulse Ox O2 Delivery O2 Flow Rate FiO2 09/19/20 16:56 98.1 58 17 110/63 99 Room Air (JEAN-PAUL BHAGAT MD) Home Meds Reported Medications Insulin Detemir (Levemir Flextouch) 100 Unit/1 Ml Insuln.pen, SC BID, UNIT 06/18/20 Metformin Hcl (METFORMIN HCL) 500 Mg Tablet, 500 MG PO BID, #60 TAB 06/02/19 Insulin Glargine (LANTUS 3ML PEN) 100 Units/1 Ml Inj, SQ BID 40 UNITS IN AM 50 UNITS AT NIGHT 05/03/19 Gabapentin (GABAPENTIN) 300 Mg Capsule, 300 MG PO TID 04/09/19 Lisinopril (LISINOPRIL) 10 Mg Tablet, 100 MG PO DAILY, #30 TAB 10/05/17 Medications in the ED Hydromorphone HCl 1 mg NOW ONCE IV ; Start 09/19/20 at 17:02; Stop 09/19/20 at 17:08; Status DC (JEAN-PAUL BHAGAT MD) JEAN-PAUL BHAGAT MD Sep 19, 2020 17:23 TK REDD MD Sep 19, 2020 18:21
--- OUTSIDE RECORDS SUMMARY | 2020-09-19 17:23 | XMS REPORT | Clinical Summary ---
Author Author [facility] Address Unknown Phone Unavailable Care Team Providers Care Process Controller Name Role Phone Pardeep Garduno MD PCP [phone] Allergies No Known Active Allergies Medications End Date Status Medication Sig Dispensed Refills Start Date Active metFORMIN XR Take 500 mg 0 (GLUCOPHAGE-XR) 500 mg 24 by mouth 5 hr tablet daily. Active lisinopriL (PRINIVIL) 20 Take 20 mg by 0 10/17 mg tablet mouth daily. 5 Active gabapentin (NEURONTIN) Take 300 mg 0 01 300 mg capsule by mouth 3 6 (three) times a day. 09/16/2020 acetaminophen (Tylenol Take 1 tablet 30 tablet 1 1 Extra Strength) 500 MG (500 mg 0 tablet total) by mouth every 6 (six) hours as needed for mild pain (Not to exceed 3 gms) for up to 30 days. Active Problems Problem Noted Date Lumbosacral radiculopathy 08/10/2020 Encounters Care Team Description Date Type Specialty 09/12/2020 Travel Julia Hamm 09/12/2020 Telephone Orthopedic Surgery Ramandeep Willingham MD Therapeutic Left TFESI of L4/5 and L3/4 08/28/2020 Surgery General Surgery Damian Cross MD 08/28/2020 Anesthesia General Surgery Event Ramandeep Willingham MD 08/28/2020 Hospital General Surgery Encounter 08/28/2020 Travel Ramandeep Willingham MD Lumbosacral radiculopathy (Primary Dx) 08/22/2020 Orders Only Orthopedic Surgery Ramandeep Willingham MD Lumbosacral radiculopathy (Primary Dx); Spinal stenosis at L4-L5 level; Facet degeneration of lumbosacral region 08/17/2020 Office Visit Orthopedic Surgery 08/17/2020 Travel Han Patel DO Lumbar radiculopathy (Primary Dx); Lumbosacral radiculopathy 08/10/2020 Office Visit Sports Medicine 08/10/2020 Travel 08/06/2020 Travel Han Patel DO Lumbar radiculopathy 08/03/2020 Hospital Radiology Encounter 08/03/2020 Travel 08/02/2020 Travel 07/30/2020 Travel 07/27/2020 Travel Gisela Zayas MA Lumbar radiculopathy (Primary Dx) 07/25/2020 Orders Only Orthopedic Surgery 07/25/2020 Travel Gisela Zayas MA 07/24/2020 Telephone Orthopedic Surgery 07/20/2020 Travel Han Patel, 07/16/2020 Hospital Radiology Encounter Han Patel, 07/16/2020 Hospital Radiology Encounter Han Patel, DO 07/16/2020 Hospital Radiology Encounter Han Patel DO Lumbar radiculopathy (Primary Dx); Lumbosacral neuritis; Low back pain, unspecified back pain laterality, unspecified chronicity, unspecified whether sciatica present 07/16/2020 Office Visit Sports Medicine 07/16/2020 Travel Gisela Zayas MA Low back pain, unspecified back pain lat erality, unspecified chronicity, unspecified whether sciatica present (Primary Dx) 07/16/2020 Orders Only Orthopedic Surgery 07/13/2020 Travel after 09/19/2019 Surgical History Surgery Date Site/Laterality Comments INJECTION, STEROID, 08/28/2020 Right Procedure: Therapeutic Left TFESI of L4/5 and SPINE, LUMBAR, EPIDURAL, L3/4; Surgeon: Ramandeep Willingham MD; Location: [facility] OR; Service: Pain Management; Laterality: Right; Medical History Medical History Date Comments Arthritis 2 years ago COPD (chronic obstructive pulmonary 1 year ago disease) (HCC) Diabetes (HCC) 9 years Type 2 diabetes mellitus (HCC) Hypertension Family History Medical History Relation Name Comments Diabetes Brother Pa Mendez Diabetes Mother Michelle mendez Relation Name Status Comments Brother Pa Mendez Father Mother Michelle mendez Social History Date Tobacco Use Types Packs/Day Years Used 12/17/1964 - 11/12/2019 Former Smoker Cigarettes 0 0 Smokeless Tobacco: Never Used Drinks/Week oz/Week Comments Alcohol Use 0 Glasses of wine 0 Cans of beer 0 Shots of liquor 0 Standard drinks or equivalent 0.0 Not Currently Sex Assigned at Date Recorded Not on file Industry Job Start Date Occupation Not on file Not on file Not on file Date Recorded COVID-19 Exposure Response 09/12/2020 5:59 PM 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 Last Filed Vital Signs Reading Time Taken Comments Vital Sign 121/67 08/28/2020 8:28 AM GRAVURE PRESS OPERATOR Blood Pressure 65 08/28/2020 8:28 AM GRAVURE PRESS OPERATOR Pulse 36.4 C (97.5 F) 08/28/2020 8:04 AM GRAVURE PRESS OPERATOR Temperature 19 08/28/2020 8:28 AM GRAVURE PRESS OPERATOR Respiratory Rate 95% 08/28/2020 8:28 AM GRAVURE PRESS OPERATOR Oxygen Saturation - - Inhaled Oxygen Concentration 89.4 kg (197 lb) 08/17/2020 2:19 PM CDT Weight 172.7 cm (5' 8") 08/17/2020 2:19 PM CDT Height 29.95 08/17/2020 2:19 PM CDT Body Mass Index Plan of Treatment Care Team Description Date Type Specialty ColmentRamandeep eaton MD [address] [facility] [address] [place], [place] [id number] 09/24/2020 Office Visit Orthopedic Surgery Health Maintenance Due Date Last Done Comments DIABETES: RETINAL EYE 1961 EXAM DIABETIC FOOT EXAM 1961 URINE MICROALBUMIN 1961 COLONOSCOPY SCREENING 2001 SHINGLES VACCINES (#1) 2001 65+ PNEUMOCOCCAL VACCINE 01/24/2016 (1 of 1 - PPSV23) INFLUENZA VACCINE 05/26/2020 Procedures Comments Procedure Name Priority Date/Time Associated Diag nosis ECG 12-LEAD Routine 08/28/2020 8:15 AM GRAVURE PRESS OPERATOR OR [place] < 1 HOUR Routine 08/28/2020 8:10 AM GRAVURE PRESS OPERATOR INJECTION, STEROID, 08/28/2020 Lumbosacral radic ulopathy SPINE, LUMBAR, EPIDURAL, 7:42 AM GRAVURE PRESS OPERATOR SINGLE POC GLUCOSE Routine 08/28/2020 7:19 AM GRAVURE PRESS OPERATOR MRI LUMBAR SPINE WO Routine 08/03/2020 Lumbar rad iculopathy CONTRAST 8:16 PM CDT XR LUMBAR SPINE 2 OR 3 VW Routine 07/17/2020 Low back pain, 4:05 PM CDT unspecified back pain laterality, unspecified chronicity, unspecified whether sciatica present NURSING COMMUNICATION Routine 07/16/2020 XR ABD/PELVIC EXTERNAL Routine 06/28/2020 STUDY 3:18 PM CDT XR LOWER EXTREMITY Routine 06/28/2020 EXTERNAL STUDY 3:12 PM CDT after 09/19/2019 Results * ECG 12 lead (08/28/2020 8:15 AM GRAVURE PRESS OPERATOR) Ventricular 71 [facility] rate Atrial rate 71 [facility] NC interval 164 [facility] QRSD interval 98 [facility] QT interval 402 [facility] QTC interval 436 [facility] P axis 1 54 [facility] QRS axis 1 61 [facility] T wave axis 83 [facility] EKG impression Normal sinus rhythm-Normal [facility] ECG-No previous ECGs available- Specimen Narrative Performed At This result has an attachment that is n ot available. Performing Organization Address City/[facility] Code P alin Number [facility] [address] [place] [address] * OR FL < 1 Hour (08/28/2020 8:10 AM GRAVURE PRESS OPERATOR) Specimen Narrative Performed At EXAMINATION: OR FL < 1 HOUR [facility] C-arm fluoroscopy was requested in OR. FLUORO TIME 1:52 IMPRESSION: Intraoperative fluoroscopic images. Rad iologist was not present during the examination. Separate operative report will be issue d by the physician performing the procedure. [id number] Procedure Note Hm Interface, Radiology Results Incoming - 08/28/2020 10:12 AM GRAVURE PRESS OPERATOR EXAMINATION: OR FL < 1 HOUR C-arm fluoroscopy was requested in OR. FLUORO TIME 1:52 IMPRESSION: Intraoperative fluoroscopic images. Radiologist was not present during the examination. Separate operative report will be issued by the physician performing the procedure. [id number] Performing Organization Address City/State/ZIP Code P alin Number [facility] [address] [place] [address] * POC glucose (08/28/2020 7:19 AM GRAVURE PRESS OPERATOR) POC glucose 121 (H) 65 - 99 mg/dL [facility] Comment: MICHELLE BURR Cager Operator Name: [facility] Device ID: [id number] Specimen Blood Performing Organization Address City/State/ZIP Code [place] [address] [place], [place] [address] PATHOLOGY AND GENOMIC MEDICINE [facility] MICHELLE BURR [address] [place] [address] [facility] * MRI Lumbar Spine Wo Contrast (08/03/2020 8:16 PM CDT) Specimen Narrative Performed At EXAMINATION: MRI LUMBAR SPINE WO CONTRAST [facility] CLINICAL HISTORY: M54.16 Radiculopathy lumbar region, lumbar radiculopathy COMPARISON: None TECHNIQUE: Multiplanar multisequence no nenhanced MRI examination was performed of the Lumbar spine. FINDINGS: Last completely dis c space is labeled as L5-S1. Vertebral body heights are maintained. No acute fractures are seen. There is Modic type I end plate edema p resent at L4-L5. No other areas of significant marrow ed ace are present. Visualized distal thoracic cord/conus i s normal in morphology. The conus is seen to terminate at L1-L2 junction. Changes at individual levels are provid ed below. At L1-L2, there is mild diffuse disc bu lge, facet arthrosis. There is no spinal canal narrowing. There is mild bilatera l neural foraminal narrowing. At L2-L3, there is mild diffuse disc bu lge. There is small more focal appearing disc protrusion in the left neural fora lalitha. There is moderate left neural foraminal narrowing. There is facet art hrosis with mild to moderate right neural foraminal narrowing. There is no spinal canal jamie rowing. At L3-L4, there is a small fissuring in the annulus anteriorly. There is a diffuse disc bulge. There is facet arth rosis. There is no spinal canal narrowing. There is moderate to severe bilateral neural foraminal narrowing. At L4-L5, there is a diffuse disc bulge . There is a central, cranially extending disc extrusion that measures 19 mm x 8 mm, this causes severe spinal stenosis, facet arthrosis with severe bilateral n eural foraminal narrowing including bilateral lateral recess narrowing. At L5-S1, minimal annular fissuring is seen. Facet arthrosis. No significant spinal canal or neural foraminal narrow ing. Pre and paraspinal soft tissues are luis ntained. IMPRESSION: Degenerative changes most p rominently present at L4-L5, there is a large cranially extending disc extrusio n with severe spinal stenosis and severe bilateral neural foraminal narrowing. Other changes at individual levels are provided above. [id number] Procedure Note Hm Interface, Radiology Results - 08/03/2020 9:03 PM CDT EXAMINATION: MRI LUMBAR SPINE WO CONTRAST CLINICAL HISTORY: M54.16 Radiculopathy lumbar region, lumbar radiculopathy COMPARISON: None TECHNIQUE: Multiplanar multisequence nonenhanced MRI examination was performed of the Lumbar spine. FINDINGS: Last completely disc space is labeled as L5-S1. Vertebral body heights are maintained. No acute fractures are seen. There is Modic type I end plate edema present at L4-L5. No other areas of significant marrow edema are present. Visualized distal thoracic cord/conus is normal in morphology. The conus is seen to terminate at L1-L2 junction. Changes at individual levels are provided below. At L1-L2, there is mild diffuse disc bulge, facet arthrosis. There is no spinal canal narrowing. There is mild bilateral neural foraminal narrowing. At L2-L3, there is mild diffuse disc bulge. There is small more focal appearing disc protrusion in the left neural foramina. There is moderate left neural foraminal narrowing. There is facet arthrosis with mild to moderate right neural foraminal narrowing. There is no spinal canal narrowing. At L3-L4, there is a small fissuring in the annulus anteriorly. There is a diffuse disc bulge. There is facet arthrosis. There is no spinal canal narrowing. There is moderate to severe bilateral neural foraminal narrowing. At L4-L5, there is a diffuse disc bulge. There is a central, cranially extending disc extrusion that measures 19 mm x 8 mm, this causes severe spinal stenosis, facet arthrosis with severe bilateral neural foraminal narrowing including bilateral lateral recess narrowing. At L5-S1, minimal annular fissuring is seen. Facet arthrosis. No significant spinal canal or neural foraminal narrowing. Pre and paraspinal soft tissues are maintained. IMPRESSION: Degenerative changes most prominently present at L4-L5, there is a large cranially extending disc extrusion with severe spinal stenosis and severe bilateral neural foraminal narrowing. Other changes at individual levels are provided above. [id number] Performing Organization Address City/State/ZIP Code P alin Number [facility] [address] [place] [address] * XR Lumbar Spine 2 Or 3 Vw (07/17/2020 4:05 PM CDT) Specimen Narrative Performed At This result has an attachment that is n ot available. I ordered and reviewed 3 views of the l umbar spine today in the office and discussed them with the patient. He h as diffuse osteoarthritic changes. * Nursing communication (07/16/2020) Narrative Performed At This result has an attachment that is n ot available. * XR Abd/Pelvic External Study (06/28/2020 3:18 PM CDT) Specimen Narrative Performed At This exam was not acquired at a [facility] facility an d has not been [facility] interpreted by a [facility] Provider. The exam was imported into our imaging system. Performing Organization Address [facility]/ZIP Code P alin Number [facility] [address] [place] [address] * XR Lower Extremity External Study (06/28/2020 3:12 PM CDT) Specimen Narrative Performed At This exam was not acquired at a [facility] facility an d has not been [facility] interpreted by a [facility] Provider. The exam was imported into our imaging system. Performing Organization Address City/[facility]/ZIP Code P alin Number [facility] [address] [place] [address] after 09/19/2019 Insurance Type Payer Benefit Subscriber ID Effective Phone Address Plan / Dates Group O [facility] MEDICARE [facility] DUAL [id number] 2019-P COMPLETE resent [facility] Advance Directives For more information, please contact: [phone] Patient It Instructor Explanation Type Date Recorded Advance Directives, Living Will and Medical Power of Senior Treasury Consultant
--- OUTSIDE RECORDS SUMMARY | 2020-09-19 17:23 | XMS REPORT | Clinical Summary ---
Author Author [facility] Organization [facility] Address Unknown Phone Unavailable Care Team Providers Care Auto Body Estimator Name Role Phone Lakia Otero DMD [phone] Allergies No Known Allergies Medications End Date Status Medication Sig Dispensed Refills Start Date Active budesonide-formoterol 2 Puffs by 1 Inhaler 6 11/26 (SYMBICORT HFA) 160-4.5 Mouth route 2 3 mcg/actuation times daily. inhalerIndications: COPD (chronic obstructive pulmonary disease), Cough, Obstructive chronic bronchitis with exacerbation Active benzonatate (TESSALON) Take 2 90 capsule 0 100 mg capsules by 3 capsuleIndications: Cough mouth 3 times daily as needed for Cough. Active tamsulosin (FLOMAX) 0.4 Take 1 90 capsule 2 mg extended release capsule by 3 capsuleIndications: mouth daily. Hypertrophy of prostate without urinary obstruction and other lower urinary tract symptoms (LUTS) Active LANCETSIndications: Type every other 1 Box 5 1 II or unspecified type day. 3 diabetes mellitus without mention of complication, not stated as uncontrolled Active fenofibrate (LOFIBRA) 160 Take 1 tablet 90 tablet 3 mg tabletIndications: by mouth 3 Pure hyperglyceridemia daily. Active albuterol-ipratropium Administer 2 1 Inhaler 6 (COMBIVENT) 18-103 Puffs by 3 mcg/actuation inhalation 4 AeroIndications: COPD times daily. (chronic obstructive pulmonary disease) Active ammonium lactate Apply to 225 g 3 (LAC-HYDRIN) 12 % affected area 3 lotionIndications: 2 times Xerosis cutis daily. Label in Palestinian Active fenofibrate TOME 1 90 tablet 3 nanocrystallized (TRICOR) TABLETA POR 4 145 mg tablet LA BOCA CADA POORNIMA. (AUTO SUBSTITUCION PARA FENOFIBRATE 160) Active piroxicam (FELDENE) 20 mg Take 1 90 capsule 1 capsuleIndications: capsule by 4 Plantar fasciitis mouth daily with dinner. Active clotrimazole (LOTRIMIN) 1 File nails 30 mL 9 % external and apply 2 4 solutionIndications: drops 2 times Onychomycosis daily for 1 year. Active nystatin (MYCOSTATIN) Apply to 30 g 2 05/27 topical creamIndications: affected area 4 Tinea pedis 2 times daily. Active ipratropium (ATROVENT Inhale 2 38.7 g 1 10/27 HFA) 17 mcg/actuation Puffs by 5 inhalerIndications: COPD mouth 4 times (chronic obstructive daily. pulmonary disease) Active ketoconazole (NIZORAL) 2 Apply to 30 g 3 0 % topical affected area 5 creamIndications: 2 times daily Dermatophytosis of foot Label in Palestinian. Active metFORMIN (GLUCOPHAGE-XR) Take 1 tablet 180 tablet 2 500 mg ER extended by mouth 2 5 release times daily. tabletIndications: Essential hypertension Active lisinopril (PRINIVIL, Take 1 tablet 90 tablet 3 ZESTRIL) 20 mg by mouth 5 tabletIndications: daily. Essential hypertension Active varenicline (CHANTIX) 1 Take 1 tablet 60 tablet 5 mg tabletIndications: by mouth 2 5 Tobacco abuse times daily. Active gabapentin (NEURONTIN) Take 1 360 capsule 1 300 mg capsule by 6 capsuleIndications: Type mouth 3 times 2 diabetes mellitus with daily. diabetic polyneuropathy Active blood glucose (PRECISION 2 times 50 Each 1 0 XTRA TEST STRIPS) test weekly. 6 strips Active blood glucose meter Use as 1 Kit 0 (PRECISION XTRA directed.. 6 GLUCOMETER) Active albuterol (VENTOLIN Inhale 2 6.7 g 1 HFA,PROVENTIL HFA,PROAIR Puffs by 6 HFA) 90 mcg/actuation mouth 4 times inhalerIndications: daily as Bronchitis, Tobacco user needed for Wheezing. Active Problems Problem Noted Date DM type 2, uncontrolled, with neuropathy 06/28/2015 Diabetes mellitus 02/27/2012 Hypertension Diabetes Cervical spinal stenosis Immunizations Name Administration Dates Next Due Herpes Zoster Vaccine In 02/29/2016 Clinic Influenza Vaccine 07/31/2015, 07/05/2014, , 08/15/2010 PPD 03/08/2012 Pneumoccoccal 08/01/2013 Tdap Tetanus, diphtheria, 08/15/2010 acellular pertussis Vaccine Family History Medical History Relation Name Comments Diabetes Brother Diabetes Mother Diabetes Sister Relation Name Status Comments Brother Father Mother Sister Social History Date Tobacco Use Types Packs/Day Years Used Current Every Day Smoker Cigarettes 1 40 Smokeless Tobacco: Never Used Tobacco Cessation: Counseling Given: No Drinks/Week oz/Week Comments Alcohol Use social Yes Sex Assigned at Date Recorded Not on file Industry Job Start Date Occupation Not on file Not on file Not on file Travel End Travel History Travel Start No recent travel history available. Last Filed Vital Signs Not on file Plan of Treatment Health Maintenance Due Date Last Done Comments DM Foot Exam (Yearly) 1969 Colorectal Cancer Scrn 2001 Annual (FIT/FOBT) Age 50 to 75 DM HGBA1C (Yearly) 06/15/2016 06/15/2015, 02/06/2014, 03/04/2013, Additional history exists DM Retinal Exam (Yearly) 07/20/2016 07/20/2015, 07/20/2015 IMM Pneumococcal Age 66 Completed 08/01/2013 and Up Results Not on fileafter 09/19/2019 Insurance Type Payer Benefit Subscriber ID Effective Phone Address Plan / Dates Group [place] MEDICAID [id number] xxxxxxxxx 2016-P [id number] MEDICARE [place], [place] BENEFICIAR [id number] Y
--- OUTSIDE RECORDS SUMMARY | 2020-09-19 17:24 | XMS REPORT | Continuity of Care Document ---
Author Author [facility] t Organization [facility] t Address [address] [place] [address] Phone Unavailable Care Team Providers [facility] Name Role Phone PARDEEP BEAL MD PCP Julia Hamm Attphys Unavailable Ramandeep Willingham MD Attphys Donovan Cross MD Attphys Ry Henderson DO Attphys [phone] Gisela Zayas MA Attphys Unavailable Blanco ROSA Attphys Unavailable FARHANARobby Beard Attphys Unavailable PARDEEP BEAL Attphys Unavailable Kingston FERNANDO Attphys Unavailable BONILLALAMAR EDMONDSON Attphys Unavailable MANEEVESSelma, Fany RAMSAY Attphys Unavailable LEONILA, S ALBERTINA Attphys Unavailable RAMANDEEP WILLINGHAM Admphys Unavailable PARDEEP BEAL Admphys Unavailable Payers Payer Name Policy Type Policy Number Effective Date Expiration Date Prashant peterson UHC MEDICAREUHC DUAL COMPLETE [id number] 2018-PresentHMO [id number] 2019 00:00:00 [facility] [id number] 2019 00:00:00 [facility] [id number] 2016 00:00 :00 [facility] [employer] [id number] 2018 00:00:00 [facility] [employer] [id number] 2017 00:00:00 [facility] Problems Condition Name Condition Details Condition Category Status Onset Date Resolution Date Last Treatment Date Treating Clinician Comments Source Lumbosacral radiculopathy Lumbosacral radiculopathy Disease Ac tive 2020-08-10 00:00:00 [facility] DM type 2, uncontrolled, with neuropathy DM type 2, un controlled, with neuropathy Disease Active 2015-06-28 00:00:00 [facility] Acute renal insufficiency Acute renal insufficiency Problem Active [facility] Dehydration Dehydration Problem Active [facility] Diarrhea Diarrhea Problem Active [facility] Hypotension due to hypovolemia Hypotension due to hypovolemia Problem Active [facility] Vomiting Vomiting Problem Active [facility] Diverticulitis Diverticulitis Problem Active [facility] Occult blood in stools Occult blood in stools Problem Active [facility] Pancreatitis Pancreatitis Problem Active [facility] Chest pain Chest pain Problem Active [facility] Pneumonia Pneumonia Problem Active [facility] Septic shock Septic shock Problem Active [facility] Hypertension Hypertension Disease Active [facility] Diabetes Diabetes Disease Active [facility] Cervical spinal stenosis Cervical spinal stenosis Disease Active [facility] Allergies, Adverse Reactions, Alerts Allergy Name Allergy Type Status Severity Reaction(s) Onset Date Inacti ve Date Treating Clinician Comments Source No Known Allergies DA Active U 2018-02-27 00:00:00 [facility] Family History Family Member Diagnosis Comments Start Date Stop Date Source Natural brother Diabetes Frausto M ethodist Natural brother Diabetes [facility] alth Natural mother Diabetes [facility] thodist Natural mother Diabetes [facility] Natural sister Diabetes [facility] Social History Social Habit Start Date Stop Date Quantity Comments Source Exposure to SARS-CoV-2 (event) Not sure Jett Jo Sex Assigned At [facility] Tobacco use and exposure 2020-08-28 00:00:00 2020-08-28 00:00:00 Elaine hope used Jett Jo History of tobacco use 1963-12-17 00:00:00 2019-11-12 00:00:00 Luis Armando waters smoker Jett Jo Cigarettes smoked current (pack per day) - Reported 00:00:00 2016-02-29 00:00:00 [facility] Cigarette pack-years 2016-02-29 00:00:00 2016-02-29 00:00:00 [facility] Alcohol intake 2016-02-29 00:00:00 2016-02-29 00:00:00 Current drinker of alcohol (finding) [facility] Alcohol Comment 2010-07-31 00:00:00 2010-07-31 00:00:00 social [facility] Smoking Status Start Date Stop Date Source Former smoker 2020-08-28 00:00:00 2020-08-28 00:00:00 Jett Jo Current every day smoker 2016-02-29 00:00:00 [facility] Medications Ordered Medication Name Filled Medication Name Start Date Stop Da te Current Medication? Ordering Clinician Indication Dosage Frequency Signature (SIG) Comments Components Source acetaminophen (Tylenol Extra Strength) 500 MG tablet 2020-08-17 00:00:00 2020-09-16 23:59:00 No 500mg Q6H Take 1 tablet (500 mg total) by mouth every 6 (six) hours as needed for mild pain (Not to exceed 3 gms) for up to 30 days. Jett Jo albuterol (VENTOLIN HFA,PROVENTIL HFA,PROAIR HFA) 90 mcg/act uation inhaler 2016-08-06 00:00:00 Yes Tobacco user 2{puff} Inhale 2 Puffs by mouth 4 times daily as needed for Wheezing. [facility] blood glucose (PRECISION XTRA TEST STRIPS) test strips 2016-03-03 00:00:00 Yes 2 times weekly. Anatoly ornelas gabapentin (NEURONTIN) 300 mg capsule 2016-02-29 00:00:00 Yes 300mg Q.[id number] Take 300 mg by mouth 3 (three) times a day. Jett Jo gabapentin (NEURONTIN) 300 mg capsule 2016-02-29 00:00:00 Yes Type 2 diabetes mellitus with diabetic polyneuropathy 300mg Take 1 capsule by mouth 3 times daily. [facility] blood glucose meter (PRECISION XTRA GLUCOMETER) 2016-02-29 00:00 :00 Yes Use as directed.. [facility] metFORMIN XR (GLUCOPHAGE-XR) 500 mg 24 hr tablet 2015-10-17 00:00:00 Yes 500mg QD Take 500 mg by mouth daily. [facility] lisinopriL (PRINIVIL) 20 mg tablet 2015-10-17 00:00:00 Yes 20mg QD Take 20 mg by mouth daily. [facility] metFORMIN (GLUCOPHAGE-XR) 500 mg ER extended release tablet 2015-10-17 00:00:00 Yes Essential hypertension 500mg Q.5D Take 1 tablet by mouth 2 times daily. [facility] lisinopril (PRINIVIL, ZESTRIL) 20 mg tablet 2015-10-17 00:00 :00 Yes Essential hypertension 20mg QD Take 1 tablet by mouth daily. [facility] varenicline (CHANTIX) 1 mg tablet 2015-10-17 00:00:00 Ye s Tobacco abuse 1mg Q.5D Take 1 tablet by mouth 2 times daily. [facility] ketoconazole (NIZORAL) 2 % topical cream 2014-11-28 00:00:00 Yes Dermatophytosis of foot Q.5D Apply to affecte d area 2 times daily Label in Moldovan. [facility] ipratropium (ATROVENT HFA) 17 mcg/actuation inhaler 11-14 00:00:00 Yes COPD (chronic obstructive pulmonary disease) 2{puff} Inhale 2 Puffs by mouth 4 times daily. [facility] piroxicam (FELDENE) 20 mg capsule 2014-06-16 00:00:00 Yes Plantar fasciitis 20mg QD Take 1 capsule by mouth daily with dinner. [facility] clotrimazole (LOTRIMIN) 1 % external solution 2014-06-16 00: 00:00 Yes Onychomycosis File nails and apply 2 drops 2 times daily f or 1 year. [facility] nystatin (MYCOSTATIN) topical cream 2014-06-16 00:00:00 Yes Tinea pedis Q.5D Apply to affected area 2 times daily. [facility] fenofibrate nanocrystallized (TRICOR) 145 mg tablet 03-28 00:00:00 Yes TOME 1 TABLETA P OR LA BOCA CADA POORNIMA.(AUTO SUBSTITUCION PARA FENOFIBRATE 160) [facility] ammonium lactate (LAC-HYDRIN) 12 % lotion 2013-09-13 00:00:0 0 Yes Xerosis cutis Q.5D Apply to affected area 2 times daily. Label in Moldovan [facility] LANCETS 2013-09-01 00:00:00 Yes Type II or unspecified type diabetes mellitus without mention of complication, not stated as uncontrolled every other day. [facility] fenofibrate (LOFIBRA) 160 mg tablet 2013-09-01 00:00:00 Yes Pure hyperglyceridemia 160mg QD Take 1 tablet by mouth daily. [facility] albuterol-ipratropium (COMBIVENT) 18-103 mcg/actuation Aero 2013-09-01 00:00:00 Yes COPD (chronic obstructive pulmonary dise ase) 2{puff} Administer 2 Puffs by inhalation 4 times daily. [facility] tamsulosin (FLOMAX) 0.4 mg extended release capsule 03-22 00:00:00 Yes Hypertrophy of prostate without urinary obstruction and other lower urinary tract symptoms (LUTS) .4mg QD Take 1 capsule by mouth daily. [facility] budesonide-formoterol (SYMBICORT HFA) 160-4.5 mcg/actuation inhaler 2012-12-09 00:00:00 Yes Obstructive chronic bronchitis with exac erbation 2{puff} Q.5D 2 Puffs by Mouth route 2 times daily. [facility] benzonatate (TESSALON) 100 mg capsule 2012-12-09 00:00:00 Yes Cough 200mg Take 2 capsules by mouth 3 times daily as needed for Cough. [facility] Fenofibrate 160 Mg Tablet Fenofibrate 160 Mg Tablet Yes 160 Daily [facility] Fluticasone/Salmeterol (Advair 250-50 Diskus) 1 Each D isk.w.dev Fluticasone/Salmeterol (Advair 250-50 Diskus) 1 Each Disk.w.dev Yes 1 Twice A Day [facility] Gabapentin 300 Mg Capsule Gabapentin 300 Mg Capsule Yes 300 Twice A Day [facility] Insulin Glargine (Lantus 3ML Pen) 100 Units/1 Ml Inj I nsulin Glargine (Lantus 3ML Pen) 100 Units/1 Ml Inj Yes Twice A Da y [facility] Lisinopril 10 Mg Tablet Lisinopril 10 Mg Tablet Yes 20 Daily [facility] Metformin Hcl 500 Mg Tablet Metformin Hcl 500 Mg Tablet Yes 500 Twice Daily With Meals [facility] Montelukast Sodium 10 Mg Tablet Montelukast Sodium 10 Mg Tablet Yes 10 Daily [facility] Omeprazole 20 Mg Capsule. Omeprazole 20 Mg Capsule. Yes 20 Daily [facility] Prednisone 10 Mg Tab Prednisone 10 Mg Tab Yes 10 [facility] Tamsulosin Hcl 0.4 Mg Cap.er.24h Tamsulosin Hcl 0.4 Mg Cap.er.24h Yes .4 Daily [facility] Tramadol Hcl/Acetaminophen (Ultracet Tablet) 1 Each Ta blet Tramadol Hcl/Acetaminophen (Ultracet Tablet) 1 Each Tablet Yes 1 Every 6 Hours as needed for Moderate Pain (4-6) [facility] Lubiprostone (Amitiza) 24 Mcg Capsule, 24 Mcg Oral Lub iprostone (Amitiza) 24 Mcg Capsule, 24 Mcg Oral 2019-06-02 00:00:00 No 24 Twi ce A Day [facility] Levofloxacin (Levaquin) 500 Mg Tablet, 500 Mg Oral Lev ofloxacin (Levaquin) 500 Mg Tablet, 500 Mg Oral 2019-05-03 00:00:00 No 500 D aily [facility] Metformin Hcl 500 Mg Tablet, 500 Mg Oral Metformin Hcl 500 Mg Tablet, 500 Mg Oral 2019-05-03 00:00:00 No 500 Twice A Day [facility] Metronidazole (Flagyl) 250 Mg Tablet, 500 Metronidazol e (Flagyl) 250 Mg Tablet, 500 2019-05-03 00:00:00 No 500 Every 8 Hours [facility] Gabapentin 300 Mg Capsule, 300 Mg Oral Gabapentin 300 Mg Capsule , 300 Mg Oral 2018-02-04 00:00:00 No 300 Three Times A Day [facility] Immunizations Ordered Immunization Name Filled Immunization Name Date Status Comments Source Herpes Zoster Vaccine In Clinic 2016-02-29 00:00:00 Comple seth [facility] Influenza Vaccine 2015-07-31 00:00:00 Completed [facility] Influenza Vaccine 2014-07-05 00:00:00 Completed [facility] Pneumoccoccal 2013-08-01 00:00:00 Completed [facility] PPD 2012-03-08 00:00:00 [facility] Influenza Vaccine 2011-07-25 00:00:00 Completed [facility] Influenza Vaccine 2010-08-15 00:00:00 Completed [facility] Tdap Tetanus, diphtheria, acellular pertussis Vaccine 2010-08-15 00:00:00 Completed [facility] Vital Signs Vital Name Observation Time Observation Value Comments Source Systolic blood pressure 2020-08-28 08:28:00 121 mm[Hg] Jett Jo Diastolic blood pressure 2020-08-28 08:28:00 67 mm[Hg] Jett Jo Heart rate 2020-08-28 08:28:00 65 /min Jett Jo Respiratory rate 2020-08-28 08:28:00 19 /min Bryan Jo Oxygen saturation in Arterial blood by Pulse oximetry 2019-10 08:28:00 95 /min Jett Jo Body temperature 2020-08-28 08:04:00 36.39 Katie Bryan Jo Body height 2020-08-17 14:19:00 172.7 cm Jett Jo Body weight 2020-08-17 14:19:00 89.359 kg Jett Jo BMI 2020-08-17 14:19:00 29.95 kg/m2 Jett Jo Procedures Procedure Date / Time Performed Performing Clinician [facility] e ECG 12-LEAD 2020-08-28 08:15:20 Ramandeep Willingham OR [place] < 1 HOUR 2020-08-28 08:10:00 Ramandeep Willinghamodist INJECTION, STEROID, SPINE, LUMBAR, EPIDURAL, SINGLE 07:42:00 Ramandeep Willingham POC GLUCOSE 2020-08-28 07:19:00 Ramandeep Willingham ethodist MRI LUMBAR SPINE WO CONTRAST 2020-08-03 20:16:29 Han Henderson XR LUMBAR SPINE 2 OR 3 VW 2020-07-17 16:05:14 Han Henderson NURSING COMMUNICATION 2020-07-16 00:00:00 Provider, Historical [place] [facility] XR ABD/PELVIC EXTERNAL STUDY 2020-06-28 15:18:07 Han Henderson XR LOWER EXTREMITY EXTERNAL STUDY 2020-06-28 15:12:14 Casey Henderson X-ray of chest, two views 2019-11-19 00:00:00 JACKY NGO CANDIDA I [facility] X-ray of chest, two views 2019-11-06 00:00:00 SOLOMON OJEDA [facility] US Liver 2019-06-13 00:00:00 LAMAR BONILLA [facility] EGD BIOPSY SINGLE/MULTIPLE 2019-06-09 00:00:00 LAMAR BONILLA [facility] COLONOSCOPY W/LESION REMOVAL 2019-06-09 00:00:00 LAMAR BONILLA [facility] COLONOSCOPY W/LESION REMOVAL 2019-06-09 00:00:00 LAMAR BONILLA [facility] COLONOSCOPY AND BIOPSY 2019-05-12 00:00:00 LAMAR BONILLA [facility] COLONOSCOPY W/LESION REMOVAL 2019-05-12 00:00:00 IRENE LAMAR [facility] Computed tomography of abdomen and pelvis with contrast 2018 00:00:00 SOBIA DELATORRE V [facility] Computed tomography of abdomen and pelvis with contrast 2018 00:00:00 BURAK FERNANDO [facility] Plan of Care Planned Activity Planned Date Details Comments Source Future Scheduled Test 2020-05-26 00:00:00 INFLUENZA VACCINE [code = INFLUENZA VACCINE] Jett Jo Future Scheduled Test 2016-07-20 00:00:00 DM Retinal Exam (Y early) [code = DM Retinal Exam (Yearly)] [facility] Scheduled Test 2016-06-15 00:00:00 Hemoglobin A1c ela surement (procedure) [code = 84333644] [facility] Scheduled Test 2016-01-24 00:00:00 65+ PNEUMOCOCCAL V ACCINE (1 of - PPSV23) [code = 65+ PNEUMOCOCCAL VACCINE (1 of 1 - PPSV23)] [facility] Scheduled Test 2001 00:00:00 COLONOSCOPY SCREEN ING [code = COLONOSCOPY SCREENING] [facility] Scheduled Test 2001 00:00:00 SHINGLES VACCINES (#1) [code = SHINGLES VACCINES (#1)] [facility] Scheduled Test 2001 00:00:00 Screening for jose luis gnant neoplasm of colon (procedure) [code = 582101335] [facility] Scheduled Test 1969 00:00:00 DM Foot Exam (Year ly) [code = DM Foot Exam (Yearly)] [facility] Scheduled Test 1961 00:00:00 DIABETES: RETINAL EYE EXAM [code = DIABETES: RETINAL EYE EXAM] [facility] Scheduled Test 1961 00:00:00 DIABETIC FOOT EXAM [code = DIABETIC FOOT EXAM] [facility] Scheduled Test 1961 00:00:00 URINE MICROALBUMIN [code = URINE MICROALBUMIN] [facility] Encounters Start Date/Time End Date/Time En[facility] Encounter ID Source 2020-08-28 00:00:00 2020-08-28 00:00:00 Outpatient COLMENTLAUREN ALMARAZ [facility] [id number] [facility] 2020-08-17 00:00:00 2020-08-17 00:00:00 Outpatient COLLAUREN DELGADO [facility] [id number] [facility] 2020-08-10 00:00:00 2020-08-10 00:00:00 Outpatient VELVET HENDERSON [facility] [id number] [facility] 2020-08-06 00:00:00 2020-08-06 00:00:00 Outpatient VELVET HENDERSON [facility] [id number] [facility] 2020-08-03 00:00:00 2020-08-03 00:00:00 Outpatient VELVET HENDERSON [facility] [id number] [facility] 2020-08-03 00:00:00 2020-08-03 00:00:00 Outpatient VELVET HENDERSON [facility] [id number] [facility] 2020-07-30 00:00:00 2020-07-30 00:00:00 Outpatient HENDERSON, VELVET D [facility] [id number] [facility] 2020-07-27 00:00:00 2020-07-27 00:00:00 Outpatient HENDERSON, VELVET D [facility] [id number] [facility] 2020-07-25 00:00:00 2020-07-25 00:00:00 Outpatient HENDERSON, VELVET D [facility] [id number] [facility] 2020-07-20 00:00:00 2020-07-20 00:00:00 Outpatient HENDERSON, VELVET D [facility] [id number] [facility] 2020-07-16 00:00:00 2020-07-16 00:00:00 Outpatient HENDERSON, VELVET D [facility] [id number] [facility] 2020-07-16 00:00:00 2020-07-16 00:00:00 Outpatient HENDERSON, VELVET D [facility] [id number] [facility] 2020-07-16 00:00:00 2020-07-16 00:00:00 Outpatient HENDERSON, VELVET D [facility] [id number] [facility] 2020-07-16 00:00:00 2020-07-16 00:00:00 Outpatient HENDERSON, VELVET D [facility] [id number] [facility] 2019-11-15 19:27:00 2019-11-23 19:00:00 Discharged Inpatient 1 PARDEEP BEAL [facility] [id number] [facility] 2019-11-06 18:55:00 2019-11-08 13:48:00 Discharged Inpatient (obs) 1 ABDULLAHIBURAK [facility] [id number] [facility] 2019-06-13 09:56:00 2019-06-13 09:56:00 Registered Clinic 3 BONILLATAVIAE [facility] [id number] [facility] 2019-06-09 11:44:00 2019-06-09 11:44:00 Registered Surgical Day Care [facility] [id number] [facility] 2019-05-12 08:22:00 2019-05-12 08:22:00 Registered Surgical Day Care [facility] [id number] [facility] 2019-05-05 17:13:00 2019-05-05 20:20:00 Departed Emergency Room 1 SOBIA DELATORRE [facility] [id number] [facility] 2019-04-09 22:53:00 2019-04-13 12:20:00 Discharged Inpatient 1 BURAK FERNANDO [facility] [id number] [facility] 2018-09-30 23:33:00 2018-10-04 17:05:00 Discharged Inpatient (obs) 1 ALBERTINA KEEN [facility] [id number] [facility] 2018-07-27 15:42:00 2018-08-25 23:59:00 Discharged Recurring [facility] [id number] [facility] 2018-06-30 12:57:00 2018-07-25 23:59:00 Discharged Recurring [facility] [id number] [facility] 2018-04-05 11:51:00 2018-04-05 11:51:00 Registered Clinic 3 PARDEEP BEAL [facility] [id number] [facility] 2018-02-02 18:32:00 2018-02-04 13:23:00 Discharged Inpatient EL PARDEEP BEAL [facility] [id number] [facility] 2017-10-06 11:50:00 2017-10-06 11:50:00 Registered Surgical Day Care [facility] [id number] [facility] Results Test Description Test Time Test Comments Results Result Comments Source ECG 12 lead 2020-08-29 08:02:11 Test Item Ventricular rate (test code = 253) 71 Atrial rate (test code = 255) 71 [place] interval (test code = 266) 164 QRSD interval (test code = 260) 98 QT interval (test code = 264) 402 QTC interval (test code = 265) 436 P axis 1 (test code = 267) 54 QRS axis 1 (test code = 268) 61 T wave axis (test code = 270) 83 EKG impression (test code = 273) Normal sinus rhythm-N ormal ECG-No previous ECGs available- [facility] [place] < 1 [id number] 10:09:56Hm Interface, Radiology Results Incoming - 08/28/2020 10:12 AM CSTEXAMINATION: OR FL < 1 HOURC-arm fluoroscopy was requested in OR. FLUORO TIME 1:52IMPRESSION:Intraoperative fluoroscopic images. Radiologist was not present during the examination.Separate operative report will be issued by the physician performing the proced [id number] [id number] 07:19:59* Test Item Value Reference Range Interpretation Comments POC glucose (test code = 48302-2) 121 mg/dL 65-99 [employer] Name: Saud Alvarado ID: [id number] Lab Interpretation (test code = 13516-2) Abnormal Frausto JewI Lumbar Spine Wo [id number] 21:00:52Hm Interface, Radiology Results Incoming - 08/03/2020 9:03 PM CDTEXAMINATION: MRI LUMBAR SPINE WO CONTRASTCLINICAL HISTORY: M54.16 Radiculopathy lumbar region, lumbar radiculopathyCOMPARISON: NoneTECHNIQUE: Multiplanar multisequence nonenhanced MRI examination was performed of the Lumbar spine.FINDINGS: Last completely disc space is labeled as L5-S1.Vertebral body heights are maintain ed.No acute fractures are seen.There is Modic type I end plate edema present at L4-L5.No other areas of significant marrow edema are present.Visualized distal t horacic cord/conus is normal in morphology. The conus is seen to terminate at L1 -L2 junction.Changes at individual levels are provided below.At L1-L2, there is mild diffuse disc bulge, facet arthrosis. There is no spinal canal narrowing. Th ere is mild bilateral neural foraminal narrowing.At L2-L3, there is mild diffuse disc bulge. There is small more focal appearing disc protrusion in the left carlos ral foramina. There is moderate left neural foraminal narrowing. There is facet arthrosis with mild to moderate right neural foraminal narrowing. There is no sp inal canal narrowing.At L3-L4, there is a small fissuring in the annulus anterio rly. There is a diffuse disc bulge. There is facet arthrosis. There is no spinal canal narrowing. There is moderate to severe bilateral neural foraminal narrowi ng.At L4-L5, there is a diffuse disc bulge. There is a central, cranially extend ing disc extrusion that measures 19 mm x 8 mm, this causes severe spinal stenosi s, facet arthrosis with severe bilateral neural foraminal narrowing including bi lateral lateral recess narrowing.At L5-S1, minimal annular fissuring is seen. Fa cet arthrosis. No significant spinal canal or neural foraminal narrowing.Pre and paraspinal soft tissues are maintained.IMPRESSION: Degenerative changes most pr ominently present at L4-L5, there is a large cranially extending disc extrusion with severe spinal stenosis and severe bilateral neural foraminal narrowing.Othe r changes at individual levels are provided above. [id number] 2 Or 3 [id number] 16:05:14I ordered and reviewed 3 views of the lumbar spine today in the office and discussed them with the patient. He has diffuse osteoarthritic changes.[facility]/Pelvic External Study 2020-07-16 15:18:19This exam was not acquired at a Jew facility and has not been interpreted by a Jew Provider. The exam was imported into our imaging system.[facility] Lower Extremity External [id number] 15:12:26This exam was not acquired at a Jew facility and has not been interpreted by a Jew Provider. The exam was imported into our imaging system.[facility]- XR HIP W/PEL UNI 2+V [id number] 11:06:00 FAX: Sammy Fernández MD [phone] [place]: St: REG FAX: Pardeep Dawkins MD [phone] Name: PARDEEP VERDE [facility] : 1950 Age/S: 70/M [address] Unit #: [id number] Loc: [place] [address] Phys: Sammy Weaver MD Acct: [id number] Dis Date: Status: REG RCR PHONE #: [phone] Exam Date: 06/28/2020 1100 FAX #: Reason: RIGHT HIP PAIN EXAMS: CPT CODE: [id number] XR HIP W/PEL UNI 2+[place] [address] HISTORY: RIGHT HIP PAIN EXAM: AP pelvis as well as AP and frog-leg views of the right hip Comparison: Pelvis and r ight hip radiographs May 23, 2020 FINDINGS: No acut e fracture of the bony pelvis. No diastases of the SI joints or p ubic symphysis. There are degenerative changes in the bilateral h ip joints that appears similar to the previous exam. Proximal femurs are i ntact. Degenerative changes are present in the spine. IMPRESSION: Degenerative changes of the hips but no acute fracture or malalignment. Location: [facility] Electronically Si gned by David Gutierrez MD on 06/28/2020 at 1106 Reported an d signed by: David Gutierrez MD CC: Sammy Weaver MD; Pardeep Beal Technologist: Akilah Cleary RT(R) Trnscrd Date/Time/By: 06/28/2020 (1106) : By: [email or web address] Orig Print D/T: S: 06/28/2020 (0922) PAGE 1 Signed Report CHEST 2 [id number] 13:38:[address] [address] Patient Name: PARDEEP VERDE MR #: [id number] : 1950 Age/Sex: 70/M Req #: [id number] Adm Physician: Ordered by: DARRELL ROSA MD Report #: [id number] Location: OR Room/Bed: Procedure: [id number] DX/CHEST 2 EWS Exam Date: 06/14/20 Exam Time: 1310 REPORT STATUS: Signed Exam: CHEST 2 VIEWS Date: 06/14/2020 1:38 PM INDICATION: [id number] 1310 PRE OP Com parison: 11/14 03/14 and 04/18/2020 FINDINGS: Lines/Tubes:None Lungs :Lungs are well expanded. Scattered areas of interstitial scarring are noted b ilaterally. Previously identified patchy opacities in the right have resolved when compared to 11/19/2019. Difficult to exclude subtle interstitial infection given background of interstitial scarring. Negative for focal consolidation. Pleura:No pleural effusion. No pneumothorax. Heart/Mediastinum:The car diomediastinal silhouette is normal in size and contour. Bones/Soft Tissu es: No acute osseous abnormality. Upper abdomen: Unremarkable. IMPR ESSION: 1. Negative for focal consolidation or suspicious infiltrate. 2. Stable background of chronic interstitial scarring throughout the lungs. Super imposed subtle interstitial infection is difficult to exclude given background of scarring. In the presence of concerning symptoms would recommend follow-up CT chest if clinically indicated. 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 Mild narrowing of the joint space of both hips. Significant n arrowing of the disc space L4/5. There is almost complete obliteration of the medial aspect of the joint space of the right knee, associated with queen bchondral sclerosis and marginal osteophyte formation. Periarticular soft tissues unremarkable. IMPRESSION: 1. No evidence of acute osseous trauma. 2. Mild osteoarthritis of both hip joints. 3. 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 4. A dvanced osteoarthritis of the right knee joint, affecting primarily the medial compartment. Location code: [facility] El ectronically Signed by Kia Valladares on 05/23 at 1711 Reported and signed by: Maria C Valladares M.D. CC: Pardeep Beal; Kade Blevins NP Technologist: CALEB HUERTA, RT(R),CT Trnscrpt Data: 05/23/2020 (1711) tMARIA A Orig Print D/T: S: 05/23/2020 (3014) PAGE 1 Signed Report - XR HIP W/PEL UNI 2+V [id number] 17:11:00 Name: MEHREENPARDEEP [facility] : 1950 Age/S:70 /M [address] [facility] Unit#:[id number] Loc: [place] [address] Phys: Kade Blevins OLDER WORKER SPECIALIST Dis Date: PHONE #: [phone] Status: REG ER FAX #: [phone] Exam Date: 05/23/2020 Reason: TRAUMA EXAMS: CPT CODE: [id number] XR HIP W/PEL UNI 2+[place] [address] EXAM: Pelvis, one view, right hip, 2 views and right knee, 3 views; INFORMATION: Trauma, pain; FINDINGS: Image bones are intact; no evidence of fracture or dislocation. Mild narrowing of the joint space of both hips. Significant narrowing of the disc space L4/5. There is almost complete obliteration of the medial aspect of the joint space of the right knee, associated with subchondral sclerosis and marginal osteophyte formation. Periarticular soft tissues unremarkable. IMPRESSION: 1. No evidence of acute osseous trauma. 2. Mild osteoarthritis of both hip joints. 3. 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 4. Advanced osteoarthritis of the right knee joint, affecting primarily the medial compartment. Location code: [facility] at 1711 Reported and signed by: Dhruv Valladares M.D. CC: Pardeep Beal; Kade Blevins NP Technologist: CALEB HUERTA, RT(R),CT Trnscrpt Data: 05/23/2020 (1711) t.GRW Orig Print D/T: S: 05/23/2020 (5984) PAGE 1 Signed Report SURGICAL [id number] 04:11:00 RUN DATE: 05/08/20 [facility] *LIVE* PAGE 1 RUN TIME: 411 Specimen Inqui ry RUN USER: INTERFACE PATIENT: PARDEEP VERDE ACCT #: [id number] LOC: [facility] U #: [id number] AGE/SX: 70/M ROOM: RE05/04/20REG DR: Fiona Taylor MD : [birth year] BED: DIS: STATUS: DEP [facility] TLOC: SPEC #: [id number] RECD: 05/04/20 STATUS: [facility] #: [id number] RACHELLE: 05/04/[address] [facility] [address]: Fiona Taylor MD ENTERED: 05/07/20 SP TYPE: SURG SPEC OTHR DR: DOES_N OT KNOW Pardeep Beal MDORDERED: GM LEVEL 4 CODES: [id number] - SOFT TISSUES, N COPIES TO: DOES_NOT KNOW Fiona Taylor MD [address] [place], [place] [id number] Pardeep Beal MD [address] [place] [address] [phone] PROCEDURES: GM LEVEL 4 (Incomplete) TISSUES: 1. SOFT TISSUES , NOS - Soft tissue, pancreas, FNA FINAL DIAGNOSIS Soft tissue, pa ncreas, FNA: Degenerating cyst contents. GROSS AND MICROSCOPIC INTRAOPER ATIVE CONSULTATION (): No cells diagnostic of malignancy. GROSS EXAMINA TION: Received are 4 stain slides and fluid for cell block. MICROSCOPIC EXAMI NATION: Smears of the pancreatic cystic structure reveal hemorrhage with mix ed inflammation and histiocytes. There are only focal epithelial cells pres ent without evidence of malignancy. POST-OP DIAGNOSIS None given CONTINUED ON NEXT PAGE -- RUN DATE: 05/08/20 [facility] *LIVE* PAGE 2 RUN TIME: 411 Specimen Inquiry RUN USER: INTERFACE SPEC #: [id number] PATIENT: PARDEEP VERDE #[id number] (Continued) PRE-OP DIAGNOSIS Pancreatic cyst REVIEWED BY: RAY Signed SIGNATURE ON FILE Han Cagle DO 05/08/20 041 END OF R EPORT [id number] 13:13:00* Test Item Value Reference Range Interpretation Comments GLUBED (test code = GLUBED) 132 MG/DL 70-110 H Performed by certified computer aided design operator at [facility] [id number] 12:13:00* Test Item Value Reference Range Interpretation Comments GLUBED (test code = GLUBED) 148 MG/DL 70-110 H Performed by certified computer aided design operator at [facility] Novel Coronavirus 2019 [id number] 03:23:00* Test Item Value Reference Range Interpretation Comments Novel Coronavirus 2019 Inhouse (test code = COVNONPUI) Negative Negative - XR CHEST 2 [id number] 16:24:00 FAX: Fiona Perea MD [phone] [place]: St: PRE FAX: Pardeep Dawkins MD [phone] FAX: Jenni Culver N Name: PARDEEP VERDE [facility] : 1950 Age/S: 70/M [address] [place] [address] Unit #: [id number] Loc: [place] [address] Phys: Jenni Culver OLDER WORKER SPECIALIST Acct: [id number] Dis Date: Status: PRE SDC PH ONE #: [phone] Exam Date: 05/02/2020 1610 FAX #: [phone] Reason: PREOP EXAMS: CPT CODE: [id number] XR CHEST 2 V 95973 EXAM: XR CHEST 2 VIEWS DATE: 05/02/2020 3:20 PM : 1950; Age: 70 years y/o Male INDICATION: Pancreatic cyst PREOP COMPARISON: November 14, 2019 TECHNIQUE: PA and lateral chest radiographs. FINDINGS: Lines, tubes and hardware: None. Lungs and pleura: Moderate peripheral fibrotic changes are again seen. No definite consolidation. No pleural effusion. Heart and mediasti num: The heart size is normal for technique. Vascular calcifications are p resent at the aorta. Pulmonary vascularity is normal. IMPRESSION: No acute cardiopulmonary process. SL: [id number] at 1624 Reported and signed by: Eligio Rodriguez D.O. CC: Fiona Taylor MD; Pardeep Beal MD; Jenni Culver NP Technologist: Sergio Corral RT(R) Trnscrd Date/Time/By: 05/02/20 20 (5252) : By: [email or web address] Orig Print D/T: S: 05/02/2020 (8945) PAGE 1 Signed Report BASIC METABOLIC [id number] 15:52:00* Test Item Value Reference Range Interpretation Comments SODIUM (test code = NA) 137 mEq/L 134-147 N POTASSIUM (test code = K) 3.9 mEq/L 3.4-5.0 N CHLORIDE (test code = CL) 108 mEq/L 100-108 N CARBON DIOXIDE (test code = CO2) 24 mEq/L 21-33 N ANION GAP (test code = GAP) 9 0-20 N GLUCOSE (test code = GLU) 95 mg/dL 70-110 N BLOOD UREA NITROGEN (test code = BUN) 16 mg/dL 7-18 N GLOMERULAR FILTRATION RATE (test code = GFR) 74.1 80-90 L Units of measure = ml/min/1.73 m2 CREATININE (test code = CREAT) 1.0 mg/dL 0.6-1.3 N CALCIUM (test code = CA) 8.9 mg/dL 8.0-10.5 N BASIC METABOLIC [id number] 15:49:00* Test Item Value Reference Range Interpretation Comments SODIUM (test code = NA) 137 mEq/L 134-147 N POTASSIUM (test code = K) 3.9 mEq/L 3.4-5.0 N CHLORIDE (test code = CL) 108 mEq/L 100-108 N CARBON DIOXIDE (test code = CO2) 24 mEq/L 21-33 N ANION GAP (test code = GAP) 9 0-20 N GLUCOSE (test code = GLU) 95 mg/dL 70-110 N BLOOD UREA NITROGEN (test code = BUN) 16 mg/dL 7-18 N GLOMERULAR FILTRATION RATE (test code = GFR) 80-90 CREATININE (test code = CREAT) mg/dL 0.6-1.3 CALCIUM (test code = CA) 8.9 mg/dL 8.0-10.5 N CBC W/AUTO [id number] 15:43:00* Test Item Value Reference Range Interpretation Comments WHITE BLOOD CELL (test code = WBC) 8.16 x10 3/uL 4.5-11.0 N RED BLOOD CELL (test code = RBC) 4.41 x10 6/uL 4.00-5.60 N HEMOGLOBIN (test code = HGB) 14.8 g/dL 12.5-16.9 N HEMATOCRIT (test code = HCT) 45.5 % 37.5-50.7 N MEAN CELL VOLUME (test code = MCV) 103.2 fL 81.0-99.0 H MEAN CELL HGB (test code = MCH) 33.6 pg 27.0-33.0 H MEAN CELL HGB CONCETRATION (test code = MCHC) 32.5 g/dL 33.0-37. 0 L RED CELL DISTRIBUTION WIDTH CV (test code = RDW) 12.5 % 11.5- 14.5 N RED CELL DISTRIBUTION WIDTH SD (test code = RDW-SD) 48.2 fL 37 .0-54.0 N PLATELET COUNT (test code = PLT) 123 x10 3/uL 150-400 L MEAN PLATELET VOLUME (test code = MPV) 11.8 fL 7.0-9.0 H NEUTROPHIL % (test code = NT%) 65.3 % 56.0-77.0 N IMMATURE GRANULOCYTE % (test code = IG%) 0.4 % 0.0-2.0 N LYMPHOCYTE % (test code = LY%) 24.1 % 14.0-32.0 N MONOCYTE % (test code = MO%) 8.1 % 4.8-9.0 N EOSINOPHIL % (test code = EO%) 1.2 % 0.3-3.7 N BASOPHIL % (test code = BA%) 0.9 % 0.0-2.0 N NUCLEATED RBC % (test code = NRBC%) 0.0 % 0-0 N NEUTROPHIL # (test code = NT#) 5.33 x10 3/uL 2.0-7.6 N IMMATURE GRANULOCYTE # (test code = IG#) 0.03 x10 3/uL 0.00-0.03 N LYMPHOCYTE # (test code = LY#) 1.97 x10 3/uL 1.0-3.8 N MONOCYTE # (test code = MO#) 0.66 x10 3/uL 0.1-0.8 N EOSINOPHIL # (test code = EO#) 0.10 x10 3/uL 0.0-0.2 N BASOPHIL # (test code = BA#) 0.07 x10 3/uL 0.0-0.2 N NUCLEATED RBC # (test code = NRBC#) 0.00 x10 3/uL 0.0-0.1 N MANUAL DIFF REQUIRED (test code = MDIFF) NO CT CHEST [id number] 15:17:00 [place] [address] Patient Name: PARDEEP VERDE MR #: [id number] : 1950 Age/Sex: 70/M Req #: [id number] Adm Physician: Ordered by: MIKE DELCID MD Report #: [id number] Location: CT Room/Bed: Procedure: [id number] CT/CT CHEST WO Exam Date: 04/18/20 Exam Time: 1320 REPORT STATUS: Signed CT of the chest, without contrast. History: COPD, history of tobacco use. Comparison: CT abdomen/pelvis from 05/05/2019, 04/09/2019. Technique: Multidetector CT scan abran of the chest was performed from the level of the apices to the upper abdo men without contrast. Coronal and sagittal multiplanar reformations were obta ined. RADIATION DOSE: Total DLP: 254.36 mGy*cm Dose modulatio n, iterative reconstruction, and/or weight based adjustment of the mA/kV was u tilized to reduce the radiation dose to as low as reasonably achievable. FINDINGS: The thyroid and remaining visualized structures within the base of the neck demonstrate no significant abnormalities. The thoracic aorta is normal course and caliber with atherosclerotic calcifications within its cours e and branch vessels including the coronary arteries. The heart is not enlarge d. There is no abnormal pericardial fluid present. Nonspecific normal sized to mildly prominent mediastinal lymph nodes identified. A precarinal lymph node measures 1.3 cm in short axis with normal appearing fatty hilum. There is no a bnormal axillary or hilar lymph node enlargement. The trachea and proxima l airways are patent. Examination of the lungs demonstrates moderate to severe centrilobular emphysematous changes, more prominent within the upper lobes. A dditionally, there is interlobular septal thickening, architectural distortion , and traction bronchiectasis present with a peripheral and basilar predominan ce. Suggestion of early honeycombing noted within the periphery of the right l ower lobe. There is no evidence for superimposed consolidation, mass, suspicio us nodule, or pleural effusion. Subtle nodular contour noted of the visuali zed liver which can be seen in the setting of hepatic dysfunction/cirrhosis. L imited views of the upper abdomen otherwise demonstrate no significant abnorma lities. The osseous structures demonstrate no evidence for acute fracture o r destructive process. The extrathoracic soft tissues are unremarkable. IMPRESSION: Interlobular septal thickening, architectural distortion, and traction bronchiectasis noted with a peripheral and basilar predominance. Spe ctrum of findings are suggestive of a chronic interstitial lung disease superi mposed on centrilobular emphysematous changes. Nonspecific normal sized t o mildly prominent mediastinal lymph nodes. Signed by: Dr. Ruben Romano MD on 04/18/2020 3:28 PM Dictated By: RUBEN ROMANO MD 1528 Transcribed By: NEMO on 04/18/20 1528 COPY TO: MIKE DELCID MD, [facility] [id number] 16:32:00* Test Item Value Reference Range Interpretation Comments Bedside Glucose (test code = 71747-8) 149 70-120 H Meter ID: [id number] Methodist Baytown Hospitalodium Level 2019-11-21 06:37:00* Test Item Value Reference Range Interpretation Comments Sodium Level (test code = 2951-2) 137 136-145 [facility]stPotassium Acrai8677-70-92 06:37:00* Test Item Value Reference Range Interpretation Comments Potassium Level (test code = 2823-3) 3.7 3.5-5.1 [facility]stChloride Prytg6017-90-38 06:37:00* Test Item Value Reference Range Interpretation Comments Chloride Level (test code = 2075-0) 106 98-107 [facility] Hill[facility]stCarbon Dioxide Pzxhi5835-62-28 06:37:00* Test Item Value Reference Range Interpretation Comments Carbon Dioxide Level (test code = 2028-9) 21 22-29 L [facility] HillcrestAnion [id number] 06:37:00* Test Item Value Reference Range Interpretation Comments Anion Gap (test code = 43977-1) 13.7 8-16 [facility] Hill[facility]stBlood Urea Xfevsmqf1121-74-59 06:37:00* Test Item Value Reference Range Interpretation Comments Blood Urea Nitrogen (test code = 3094-0) 11 7-26 [facility] Hill[facility]stCreatinine2020-01-27 06:37:00* Test Item Value Reference Range Interpretation Comments Creatinine (test code = 2160-0) 0.65 0.72-1.25 L [facility] Hill[facility]stBUN/Creatinine Gouci6791-00-96 06:37:00* Test Item Value Reference Range Interpretation Comments BUN/Creatinine Ratio (test code = 3097-3) 17 6-25 [facility] HillcrestEstimat Glomerular Filtration Rate 2019-11-21 06:37:00* Test Item Value Reference Range Interpretation Comments Estimat Glomerular Filtration Rate (test code = 612837033) > 60 >60 Ranges were taken from the National Kidney Disease Education Program and the [employer] [facility] [employer] literature.Reference ranges:60 or greater: Jkcrbd35-14 ( for 3 consecutive months): Chronic kidney disease 15 or less: Kidney failureBaylor Scott & White Medical Center – HillcrestGlucose Voiim2061-55-74 06:37:00* Test Item Value Reference Range Interpretation Comments Glucose Level (test code = OEP7371) 131 74-118 H [facility] HillcrestCalcium Rjoam1249-59-97 06:37:00* Test Item Value Reference Range Interpretation Comments Calcium Level (test code = 71834-1) 8.8 8.4-10.2 [facility] HillcrestTotal Aifawqxke0392-76-86 06:37:00* Test Item Value Reference Range Interpretation Comments Total Bilirubin (test code = 1975-2) 1.0 0.2-1.2 [facility] HillcrestAspartate Amino Transf (AST/SGOT) 2019-11-21 06:37:00* Test Item Value Reference Range Interpretation Comments Aspartate Amino Transf (AST/SGOT) (test code = Aspartate Amino Transf (AST/SGOT)) 56 5-34 H [facility] HillcrestAlanine Aminotransferase (ALT/SGPT) 2019-11-21 06:37:00* Test Item Value Reference Range Interpretation Comments Alanine Aminotransferase (ALT/SGPT) (test code = 1742-6) 52 0-55 [facility]tal Qrlpwng2709-63-06 06:37:00* Test Item Value Reference Range Interpretation Comments Total Protein (test code = 2885-2) 6.7 6.5-8.1 [facility] HillcrestAlbumin2020-01-27 06:37:00* Test Item Value Reference Range Interpretation Comments Albumin (test code = 1751-7) 2.4 3.5-5.0 L [facility] Hill[facility]stGlobulin2020-01-27 06:37:00* Test Item Value Reference Range Interpretation Comments Globulin (test code = 01866-3) 4.3 2.3-3.5 H [facility] Hill[facility]stAlbumin/Globulin Fhdet5035-95-10 06:37:00 * Test Item Value Reference Range Interpretation Comments Albumin/Globulin Ratio (test code = 1759-0) 0.6 0.8-2.0 L [facility] HillcrestAlkaline Lsdznxbhtvz8110-03-40 06:37:00* Test Item Value Reference Range Interpretation Comments Alkaline Phosphatase (test code = 6768-6) 123 40-150 [facility] HillcrestLactic Acid Nqayv2799-60-49 06:07:00* Test Item Value Reference Range Interpretation Comments Lactic Acid Level (test code = Lactic Acid Level) 1.5 0.5- 2.0 [facility] HillcrestWhite Blood Qykst2958-54-04 06:00:00* Test Item Value Reference Range Interpretation Comments White Blood Count (test code = 6690-2) 8.32 4.8-10.8 [facility] HillcrestRed Blood Pmawa7603-56-15 06:00:00* Test Item Value Reference Range Interpretation Comments Red Blood Count (test code = 789-8) 2.98 4.3-5.7 L [facility]stHemoglobin2020-01-27 06:00:00* Test Item Value Reference Range Interpretation Comments Hemoglobin (test code = 21454-2) 9.7 14.0-18.0 L [facility] Hill[facility]stHematocrit2020-01-27 06:00:00* Test Item Value Reference Range Interpretation Comments Hematocrit (test code = 4544-3) 30.1 38.2-49.6 L [facility] HillcrestMean Corpuscular Yeghrj0075-00-00 06:00:00* Test Item Value Reference Range Interpretation Comments Mean Corpuscular Volume (test code = 787-2) 101.0 81-99 H [facility] Hill[facility]stMean Corpuscular Wmglhbvxbh2295-42-38 06:00:00* Test Item Value Reference Range Interpretation Comments Mean Corpuscular Hemoglobin (test code = 785-6) 32.6 28-32 H [facility] HillcrestMean Corpuscular Hemoglobin Concent 2019-11-21 06:00:00* Test Item Value Reference Range Interpretation Comments Mean Corpuscular Hemoglobin Concent (test code = 786-4) 32.2 31-35 [facility] Hill[facility]stRed Cell Distribution Eebsn1377-11-43 06:00:00* Test Item Value Reference Range Interpretation Comments Red Cell Distribution Width (test code = 97366-6) 13.2 11.7 -14.4 [facility] HillcrestPlatelet Giufy1033-88-72 06:00:00* Test Item Value Reference Range Interpretation Comments Platelet Count (test code = 777-3) 169 140-360 [facility] HillcrestNeutrophils (%) (Auto)2019-11-21 06:00:00 * Test Item Value Reference Range Interpretation Comments Neutrophils (%) (Auto) (test code = 67442-2) 57.6 38.7-80.0 [facility] HillcrestLymphocytes (%) (Auto)2019-11-21 06:00:00 * Test Item Value Reference Range Interpretation Comments Lymphocytes (%) (Auto) (test code = 736-9) 26.8 18.0-39.1 [facility] Hill[facility]stMonocytes (%) (Auto)2019-11-21 06:00:00* Test Item Value Reference Range Interpretation Comments Monocytes (%) (Auto) (test code = 5905-5) 10.0 4.4-11.3 [facility]stEosinophils (%) (Auto)2019-11-21 06:00:00 * Test Item Value Reference Range Interpretation Comments Eosinophils (%) (Auto) (test code = 713-8) 2.2 0.0-6.0 [facility] Hill[facility]stBasophils (%) (Auto)2019-11-21 06:00:00* Test Item Value Reference Range Interpretation Comments Basophils (%) (Auto) (test code = 706-2) 0.6 0.0-1.0 [facility] HillcrestIM GRANULOCYTES %2019-11-21 06:00:00* Test Item Value Reference Range Interpretation Comments IM GRANULOCYTES % (test code = IM GRANULOCYTES %) 2.8 0.0- 1.0 H [facility] HillcrestNeutrophils # (Auto)2019-11-21 06:00:00* Test Item Value Reference Range Interpretation Comments Neutrophils # (Auto) (test code = 751-8) 4.8 2.1-6.9 [facility] HillcrestLymphocytes # (Auto)2019-11-21 06:00:00* Test Item Value Reference Range Interpretation Comments Lymphocytes # (Auto) (test code = 93572-7) 2.2 1.0-3.2 [facility] HillcrestMonocytes # (Auto)2019-11-21 06:00:00* Test Item Value Reference Range Interpretation Comments Monocytes # (Auto) (test code = 742-7) 0.8 0.2-0.8 [facility]stEosinophils # (Auto)2019-11-21 06:00:00* Test Item Value Reference Range Interpretation Comments Eosinophils # (Auto) (test code = 711-2) 0.2 0.0-0.4 [facility]stBasophils # (Auto)2019-11-21 06:00:00* Test Item Value Reference Range Interpretation Comments Basophils # (Auto) (test code = 704-7) 0.1 0.0-0.1 [facility] HillcrestAbsolute Immature Granulocyte (auto 2019-11-21 06:00:00* Test Item Value Reference Range Interpretation Comments Absolute Immature Granulocyte (auto (earle t code = Absolute Immature Granulocyte (auto) 0.23 0-0.1 H [facility] HillcrestBlood Fzqgvgu5282-49-41 18:19:00* Test Item Value Reference Range Interpretation Comments Blood Culture (test code = 33933711) NO GROWTH AFTER 5 DAYS, FINAL REPORT [facility] HillcrestCreatine Olbnka5571-57-59 06:34:00* Test Item Value Reference Range Interpretation Comments Creatine Kinase (test code = 2157-6) 80 30-200 [facility] HillcrestB-Type Natriuretic [id number] 06:11:00* Test Item Value Reference Range Interpretation Comments B-Type Natriuretic Peptide (test code = 24289-2) 83.5 0-100 [facility] 2 CBHFX2614-12-04 11:53:00 [facility] [address] [place] [address] Patient Name: PARDEEP VERDE MR #: [id number] : 1950 Age/Sex: 69/M Req #: [id number] Adm Physician: PARDEEP BEAL MD Ordered by: JACKY NGO MD Report #: [id number] Location: [facility] Room/Bed: [place] [address] Procedure: [id number] DX/C HEST 2 VIEWS Exam Date: 11/19/19 Exam Time: 1138 REPORT STATUS: Signed Chest, 1 view, 11/19/2019. History: Right-sided pneumonia. Comparison: 2019. Findings: The cardiomediastinal silhouette and pulmonary vasculature are within normal limits for a portable exam. Diffuse patchy reticular nodular opacities throughout the right lung. Diffuse coarsening of the left pulmonary interstitium, particularly in the lower lobe. Hyperinflation of the left upper lobe again observed. There are no acute osseous or soft tissue abnormalities. Impression: No significant interval change. Findings consistent with diffuse right lung and left lower lobe infectious etiology superimposed on chr onic changes. Signed by: Dr. Nick Benitez M.D. on 11/19/2019 11:54 AM Dictated By: GEOFFREY BENITEZ MD, MD 1154 Transcribed By: NEMO on 11/19/19 1154 INDUSTRIAL TECHNOLOGIST Y TO: JACKY NGO MD CHEST SINGLE (PORTABLE)2019-11-18 08:50:00 [place] [address] Patient Name: PARDEEP VERDE MR #: [id number] : 1950 Age/Sex: 69/M Req #: [id number] Adm Physician: PARDEEP BEAL MD Ordered by: MIKE DELCID MD Report #: [id number] Location: ICU Room/Bed: ICU 191 Procedure: [id number] DX /CHEST SINGLE (PORTABLE) Exam Date: 11/18/19 Exam Ti me: 0455 REPORT STATUS: Signed C hest, 1 view, 11/18/2019. History: Pneumonia. Comparison: 2019. Findings: The cardiomediastinal silhouette and pulmonary vasculature are within normal limits for a portable exam. Right upper lobe consolidation a nd patchy bibasilar opacities unchanged. There are no acute osseous or soft ti ssue abnormalities. Impression: No significant change. Signed by : Solomon Clark on 11/18/2019 8:53 AM Dictated By: SOLOMON CLARK MD Elect ronically Signed By: SOLMOON CLARK MD on 11/18/19852 Transcribed By: NEMO on 11/18/19852 COPY TO: MIKE DELCID MD, [facility] CHEST SINGLE (PORTABLE)2019-11-17 08:40:00 [place] [address] Patient Name: PARDEEP VERDE MR #: [id number] : 1950 Age/Sex: 69/M Req #: [id number] Adm Physician: PARDEEP BEAL MD Ordered by: MIKE DELCID MD Report #: [id number] Location: ICU Room/Bed: ICU [facility] Procedure: [id number] DX /CHEST SINGLE (PORTABLE) Exam Date: 11/17/19 Exam Ti me: 0610 REPORT STATUS: Signed Opal looneyt, 1 view, 11/17/2019. History: Pneumonia, shortness of breath. Comparison: 11/16/2019. Findings: The cardiomediastinal silhouette and p ulmonary vasculature are within normal limits for a portable exam. Patchy cons olidation is present in the right upper lobe and both lower lobes, slightly in creased compared to prior exam. There are no acute osseous or soft tissue abno rmalities. Impression: Slight worsening of bilateral pneumonia. Si gned by: Solomon Clark on 11/17/2019 8:41 AM Dictated By: SOLOMON CLARK MD 0 Transcribed By: Opal RODRIGUEZ on 11/17/19840 COPY TO: MIKE DELCID MD, ABIM Creatine Kinase [id number] 05:58:00* Test Item Value Reference Range Interpretation Comments Creatine Kinase MB (test code = 95590-7) 4.90 0-5.0 [facility]stTroponin [id number] 05:58:00* Test Item Value Reference Range Interpretation Comments Troponin I (test code = XYY0466) 0.081 0-0.300 [facility]stMagnesium Dfcgs3406-03-91 10:38:00* Test Item Value Reference Range Interpretation Comments Magnesium Level (test code = 83315-1) 1.6 1.3-2.1 [facility] SINGLE [facility])2019-11-16 08:54:00 [place] [address] Patient Name: PARDEEP VERDE MR #: [id number] : 1950 Age/Sex: 69/M Req #: [id number] Adm Physician: PARDEEP BEAL MD Ordered by: BURAK FERNANDO MD Report #: [id number] Location: ICU Room/Bed: ICU 1911 Procedure: [id number] DX/C HEST SINGLE (PORTABLE) Exam Date: 11/16/19 Exam Time : 0530 REPORT STATUS: Signed Francesca st, 1 view, 11/16/2019. History: Shortness of breath, pneumonia. Comparison: 11/15/2019. Findings: The cardiomediastinal silhouette and pul monary vasculature are within normal limits for a portable exam. Patchy right upper and lower lobe opacities are unchanged. Linear scarring again noted thro ughout both lungs. There are no acute osseous or soft tissue abnormalities. Impression: No significant change. Signed by: Solomon Clark on 2019 8:55 AM Dictated By: SOLOMON CLARK MD 4 Transcribed By: NEMO on 11/16/19854 C OPY TO: BURAK FERNANDO MD Differential Total Cells Xjipnuw7593-76-80 07:41:00* Test Item Value Reference Range Interpretation Comments Differential Total Cells Counted (test code = Differen tial Total Cells Counted) 100 [facility]stNeutrophils % (Manual)2019-11-16 07:41:00 * Test Item Value Reference Range Interpretation Comments Neutrophils % (Manual) (test code = 96525-0) 77 40-74 H [facility] Hill[facility]stBand Neutrophils %2019-11-16 07:41:00* Test Item Value Reference Range Interpretation Comments Band Neutrophils % (test code = 764-1) 9 [facility]stLymphocytes % (Manual)2019-11-16 07:41:00 * Test Item Value Reference Range Interpretation Comments Lymphocytes % (Manual) (test code = 737-7) 6 19-48 L [facility]stMonocytes % (Manual)2019-11-16 07:41:00* Test Item Value Reference Range Interpretation Comments Monocytes % (Manual) (test code = 744-3) 8 3.4-9.0 [facility] Hill[facility]stPlatelet Morphology Htzimch8892-26-62 07:41:00* Test Item Value Reference Range Interpretation Comments Platelet Morphology Comment (test code = 91734-5) NORMAL [facility] Hill[facility]stRed Cell Morphology Ngyikfu5642-68-55 07:41:00* Test Item Value Reference Range Interpretation Comments Red Cell Morphology Comment (test code = 6742-1) NORMAL [facility]stArterial Blood [id number] 01:45:00* Test Item Value Reference Range Interpretation Comments Arterial Blood pH (test code = 2744-1) 7.40 7.31-7.41 [facility]stArterial Blood Partial Pressure CO2 2019-11-16 01:45:00* Test Item Value Reference Range Interpretation Comments Arterial Blood Partial Pressure CO2 (test code = 2018-8) 21 41-51 L [facility]stArterial Blood Partial Pressure O2 2019-11-16 01:45:00* Test Item Value Reference Range Interpretation Comments Arterial Blood Partial Pressure O2 (test code = 2018-8) 90 80-105 [facility]stArterial Blood [id number] 01:45:00* Test Item Value Reference Range Interpretation Comments Arterial Blood HCO3 (test code = 1960-4) 13 23-28 L [facility]stArterial Blood Base Lcpyux2564-30-40 01:45:00* Test Item Value Reference Range Interpretation Comments Arterial Blood Base Excess (test code = 1925-7) -12.0 -2-3 L [facility]stArterial Blood Oxygen Saturation 2019-11-16 01:45:00* Test Item Value Reference Range Interpretation Comments Arterial Blood Oxygen Saturation (test code = 2708-6) 97.0 95-98 [facility] Hill[facility]stFiO22020-01-22 01:45:00* Test Item Value Reference Range Interpretation Comments FiO2 (test code = FiO2) 50 Pt was BIPAP 12/6 50% blood drwan from left brachial artery.[facility]stInfluenza Virus Types A,B Qvikkmt1540-33-86 01:03:00* Test Item Value Reference Range Interpretation Comments Influenza Virus Types A,B Antigen (test code = 09474-0) NEGATIVE NEGATIVE [facility]stUrine [id number] 21:59:00* Test Item Value Reference Range Interpretation Comments Urine WBC (test code = 5821-4) NONE 0-5 [facility] Hill[facility]stUrine [id number] 21:59:00* Test Item Value Reference Range Interpretation Comments Urine RBC (test code = 44310-8) 6-10 0-5 H [facility]stUrine Vzedcxpo9807-22-09 21:59:00* Test Item Value Reference Range Interpretation Comments Urine Bacteria (test code = 15568-1) MODERATE NONE H [facility] Hill[facility]stUrine Epithelial Tasfu8102-31-16 21:59:00 * Test Item Value Reference Range Interpretation Comments Urine Epithelial Cells (test code = 77709-9) RARE NONE [facility] Hill[facility]stUrine Calcium Oxalate Stonjqms9272-36-81 21:59:00* Test Item Value Reference Range Interpretation Comments Urine Calcium Oxalate Crystals (test code = 5774-5) RARE FE W [facility] Hill[facility]stUrine Amorphous Elsilaaz7499-70-92 21:59:00* Test Item Value Reference Range Interpretation Comments Urine Amorphous Sediment (test code = 8246-1) MODERATE FEW H [facility] Hill[facility]stUrine Hyaline Alrzn3375-24-20 21:59:00* Test Item Value Reference Range Interpretation Comments Urine Hyaline Casts (test code = 59432-2) 2-5 0-1 H [facility]stUrine Krufy1625-85-72 21:50:00* Test Item Value Reference Range Interpretation Comments Urine Color (test code = 5778-6) YELLOW YELLOW [facility] Hill[facility]stUrine Ejdavng5158-88-78 21:50:00* Test Item Value Reference Range Interpretation Comments Urine Clarity (test code = 36143-2) SL CLOUDY CLEAR H [facility] Hill[facility]stUrine Specific Gxmcwho2711-73-11 21:50:00 * Test Item Value Reference Range Interpretation Comments Urine Specific Gaylord (test code = 5811-5) 1.020 1.010-1.02 5 [facility] Hill[facility]stUrine hU1188-94-31 21:50:00* Test Item Value Reference Range Interpretation Comments Urine pH (test code = 39794-0) 5.5 5-7 [facility] Hill[facility]stUrine Leukocyte Qpewmkza0101-05-53 21:50:00* Test Item Value Reference Range Interpretation Comments Urine Leukocyte Esterase (test code = 5799-2) NEGATIVE NEGATIVE [facility] HillcrestUrine Iohpcxl5123-91-93 21:50:00* Test Item Value Reference Range Interpretation Comments Urine Nitrite (test code = 46117-8) NEGATIVE NEGATIVE [facility] Hill[facility]stUrine Fsmqbns8877-78-64 21:50:00* Test Item Value Reference Range Interpretation Comments Urine Protein (test code = 5804-0) 2+ NEGATIVE H [facility] Hill[facility]stUrine Glucose (UA)2019-11-15 21:50:00* Test Item Value Reference Range Interpretation Comments Urine Glucose (UA) (test code = 2349-9) NEGATIVE NEGATIVE [facility] HillcrestUrine Hfgtifz6423-23-69 21:50:00* Test Item Value Reference Range Interpretation Comments Urine Ketones (test code = 59956-4) NEGATIVE NEGATIVE [facility] Hill[facility]stUrine Sqcuzwlfohdh2141-69-46 21:50:00* Test Item Value Reference Range Interpretation Comments Urine Urobilinogen (test code = 59339-2) 0.2 0.2-1 [facility]stUrine Tevsrvjsa7124-60-61 21:50:00* Test Item Value Reference Range Interpretation Comments Urine Bilirubin (test code = 1978-6) NEGATIVE NEGATIVE [facility] Hill[facility]stUrine Kjjuh6511-03-45 21:50:00* Test Item Value Reference Range Interpretation Comments Urine Blood (test code = 25493-7) 2+ NEGATIVE H [facility] HillcrestPlatelet Jngdsawy5895-40-94 20:13:00* Test Item Value Reference Range Interpretation Comments Platelet Estimate (test code = 87623-6) ADEQUATE [facility] Hill[facility]stProthrombin Rstp6959-76-26 18:18:00* Test Item Value Reference Range Interpretation Comments Prothrombin Time (test code = 5902-2) 16.8 11.9-14.5 H [facility]stProthromb Time International Ratio 2019-11-15 18:18:00* Test Item Value Reference Range Interpretation Comments Prothromb Time International Ratio (test code = 6301-6) 1.30 Oral Anticoagulant Therapy INR Values:1. Low Intensity Therapy 1.5 - 2.02 . Moderate Intensity Therapy 2.0 - 3.03. High Intensity Therapy(1) 2.5 - 3. 54. High Intensity Therapy(2) 3.0 - 4.05. Panic Value INR > 5.0 [facility] HillcrestActivated Partial Thromboplast Time 2019-11-15 18:18:00* Test Item Value Reference Range Interpretation Comments Activated Partial Thromboplast Time (test code = 90886-5) 35.4 23.8-35.5 [facility]stCHEST SINGLE (PORTABLE)2019-11-15 17:58:00 [facility] [address] [place] [address] Patient Name: PARDEEP VERDE MR #: [id number] : 1950 Age/Sex: 69/M Req #: [id number] Adm Physician: Ordered by: BURAK FERNANDO MD Report #: [id number] Location: ER Room/Bed: Procedure: [id number] DX/ EST SINGLE (PORTABLE) Exam Date: 11/15/19 Exam Time: 1739 REPORT STATUS: Signed EXAM INATION: CHEST SINGLE (PORTABLE) COMPARISON: None INDICATION: sob, low BP [id number] DISCUSSION: Frontal view of the chest obtained at 1739 hours. HEART AND MEDIASTINUM: The cardiomediastinal silho uette is unremarkable. LINES: None. LUNGS: Diffuse hyperinflation c onsistent with COPD. Increasing airspace opacities in the right upper lobe and right lower lobe. Coarse interstitial markings in the left lung are similar s uggestive of fibrosis. PLEURA: No pleural effusion or pneumothorax. B ONES AND SOFT TISSUES: No focal osseous lesion. The soft tissues are normal. IMPRESSION: New right upper lobe and right lower lobe airspace opacities may represent pneumonia. COPD. Stable fibrosis of the left lung. Signed by: Dr. Celestina Wheat MD on 11/15/2019 6:00 PM Dictated By: CELESTINA WHEAT MD 99 T ranscribed By: NEMO on 11/15/19 1800 COPY TO: BURAK FERNANDO MD DRUGS OF ABUSE SCREEN [id number] 22:57:00* Test Item Value Reference Range Interpretation Comments UA PH DIPSTICK (test code = DAVION) 6.5 5.0-8.0 URN COCAINE (test code = COCAURN) NEGATIVE <300 ng/mL URN CANNABINOIDS (test code = CANNABURN) NEGATIVE <50 ng/mL URN AMPHETAMINE (test code = AMPHETURN) NEGATIVE <1000 ng/mL URN BARBITURATE (test code = BARBITURN) NEGATIVE <200 ng/mL URN BENZODIAZEPINE (test code = BENZOURN) NEGATIVE <200 ng/mL URN OPIATES (test code = OPIATURN) NEGATIVE <300 ng/mL URN PHENCYCLIDINE (PCP) (test code = PHENCURN) NEGATIVE <25 ng/ mL URN METHADONE (test code = METHAURN) NEGATIVE <300 ng/mL DRUGS OF ABUSE SCREEN [id number] 22:21:00* Test Item Value Reference Range Interpretation Comments UA PH DIPSTICK (test code = DAVION) 5.0-8.0 URN COCAINE (test code = COCAURN) NEGATIVE <300 ng/mL URN CANNABINOIDS (test code = CANNABURN) NEGATIVE <50 ng/mL URN AMPHETAMINE (test code = AMPHETURN) NEGATIVE <1000 ng/mL URN BARBITURATE (test code = BARBITURN) NEGATIVE <200 ng/mL URN BENZODIAZEPINE (test code = BENZOURN) NEGATIVE <200 ng/mL URN OPIATES (test code = OPIATURN) NEGATIVE <300 ng/mL URN PHENCYCLIDINE (PCP) (test code = PHENCURN) NEGATIVE <25 ng/ mL URN METHADONE (test code = METHAURN) NEGATIVE <300 ng/mL URINALYSIS [id number] 22:15:00* Test Item Value Reference Range Interpretation Comments UA COLOR (test code = COLU) Light-Yellow YELLOW UA APPEARANCE (test code = APPU) CLEAR CLEAR UA GLUCOSE DIPSTICK (test code = DGLUU) NEGATIVE mg/dL NEGATIVE UA BILIRUBIN DIPSTICK (test code = BILU) NEGATIVE mg/dL NEGATIVE UA KETONE DIPSTICK (test code = KETU) NEGATIVE mg/dL NEGATIVE UA SPECIFIC GRAVITY (test code = SGU) 1.018 1.001-1.035 UA BLOOD DIPSTICK (test code = JULIUS) Negative mg/dL NEGATIVE UA PH DIPSTICK (test code = DAVION) 6.5 5.0-8.0 UA PROTEIN DIPSTICK (test code = PROU) NEGATIVE mg/dL NEGATIVE UA UROBILINIOGEN DIPSTICK (test code = URO) Normal mg/dL NEGATIVE UA NITRITE DIPSTICK (test code = NELSY) NEGATIVE NEGATIVE UA LEUKOCYTE ESTERASE W REFLEX (test code = LEUUR) NEGATIVE [place]/uL NEGATIVE UA WBC (test code = WBCU) 0-5 per HPF 0-5 UA RBC (test code = RBCU) 0-2 #/HPF 0-5 UA EPITHELIAL CELLS (test code = EPIU) None seen per HPF Few UA BACTERIA (test code = BACU) NONE SEEN per HPF NONE Urine Source? Clean CatchURINALYSIS [id number] 22:13:00* Test Item Value Reference Range Interpretation Comments UA COLOR (test code = COLU) Light-Yellow YELLOW UA APPEARANCE (test code = APPU) CLEAR CLEAR UA GLUCOSE DIPSTICK (test code = DGLUU) NEGATIVE mg/dL NEGATIVE UA BILIRUBIN DIPSTICK (test code = BILU) NEGATIVE mg/dL NEGATIVE UA KETONE DIPSTICK (test code = KETU) NEGATIVE mg/dL NEGATIVE UA SPECIFIC GRAVITY (test code = SGU) 1.018 1.001-1.035 UA BLOOD DIPSTICK (test code = JULIUS) Negative mg/dL NEGATIVE UA PH DIPSTICK (test code = DAVION) 6.5 5.0-8.0 UA PROTEIN DIPSTICK (test code = PROU) NEGATIVE mg/dL NEGATIVE UA UROBILINIOGEN DIPSTICK (test code = URO) Normal mg/dL NEGATIVE UA NITRITE DIPSTICK (test code = NELSY) NEGATIVE NEGATIVE UA LEUKOCYTE ESTERASE W REFLEX (test code = LEUUR) NEGATIVE Herberth/uL NEGATIVE UA WBC (test code = WBCU) per HPF 0-5 UA RBC (test code = RBCU) per HPF 0-5 UA EPITHELIAL CELLS (test code = EPIU) per HPF Few UA BACTERIA (test code = BACU) per HPF NONE Urine Source? Clean CatchURINALYSIS [id number] 22:13:00* Test Item Value Reference Range Interpretation Comments UA COLOR (test code = COLU) Light-Yellow YELLOW UA APPEARANCE (test code = APPU) CLEAR CLEAR UA GLUCOSE DIPSTICK (test code = DGLUU) NEGATIVE mg/dL NEGATIVE UA BILIRUBIN DIPSTICK (test code = BILU) NEGATIVE mg/dL NEGATIVE UA KETONE DIPSTICK (test code = KETU) NEGATIVE mg/dL NEGATIVE UA SPECIFIC GRAVITY (test code = SGU) 1.018 1.001-1.035 UA BLOOD DIPSTICK (test code = JULIUS) Negative mg/dL NEGATIVE UA PH DIPSTICK (test code = DAVION) 6.5 5.0-8.0 UA PROTEIN DIPSTICK (test code = PROU) NEGATIVE mg/dL NEGATIVE UA UROBILINIOGEN DIPSTICK (test code = URO) Normal mg/dL NEGATIVE UA NITRITE DIPSTICK (test code = NELSY) NEGATIVE NEGATIVE UA LEUKOCYTE ESTERASE W REFLEX (test code = LEUUR) NEGATIVE Her[place]th/uL NEGATIVE UA WBC (test code = WBCU) 0-5 per HPF 0-5 UA RBC (test code = RBCU) 0-2 #/HPF 0-5 UA EPITHELIAL CELLS (test code = EPIU) per HPF Few UA BACTERIA (test code = BACU) per HPF NONE Urine Source? Clean Catch- XR CHEST 1 [id number] 22:07:00 FAX: Jennifer Cook MD [place]: St: REG FAX: Pardeep Dawkins MD [phone] Name: PARDEEP VERDE [facility] : 1950 Age/S: 69/M [address] [facility] Unit #: [id number] Loc: [place] [address] Phys: Jennifer Cook MD Acct: [id number] Dis Date: Status: REG ER PHONE #: [phone] Exam Date: 11/14/20192143 FAX #: [phone] Reason: fall EXAMS: CPT CODE: [id number] XR CHEST 1 V 74067 REASON FOR EXAM: fall EXAM ORDER DATE: 10/27 9:36 PM Ordering: Jennifer Cook MD Attending:Bart Cook MD Location: PROCEDURE: - XR CHEST 1 V COMPARISON: 02/27/2018 FINDINGS: Portable AP frontal view of the chest obtained at 9:44 PM shows mild patchy diffuse airspace opacity. There is no evidence of effusion. The heart size is within normal limits. Pulmonary vasculatures are unremarkable. IMPRESSION: Di ffuse pulmonary fibrosis with atelectasis of the lung bases at 2207 Reported and signed by: Michael Carlos M.D. CC: Jennifer Cook MD; Pardeep Beal Technologist: ARTURO LUKE RT(R) Trnscrd Date/Time/By: 11/14/2019 (2206) : By: Dallin QUEZADAL Orig Print D/T: S: 11/14/2019 (2209) PAGE 1 Signed Report B-TYPE NATRIURETIC [id number] 20:30:00* Test Item Value Reference Range Interpretation Comments B-TYPE NATRIURETIC PEPTIDE (test code = BNP) 64.65 pgram/mL 0-100 N BASIC METABOLIC [id number] 19:56:00* Test Item Value Reference Range Interpretation Comments SODIUM (test code = NA) 136 mmol/L 136-145 N POTASSIUM (test code = K) 4.3 mmol/L 3.5-5.1 N CHLORIDE (test code = CL) 103.0 mmol/L 98-107 N CARBON DIOXIDE (test code = CO2) 25.0 mmol/L 21-32 N ANION GAP (test code = GAP) 12.3 10-20 N GLUCOSE (test code = GLU) 154 mg/dL 74-106 H BLOOD UREA NITROGEN (test code = BUN) 18 mg/dL 7-18 N GLOMERULAR FILTRATION RATE (test code = GFR) > 60 mL/min >=60 Estimated GFR by using Modified MDRD formula.Chronic kidney disease is defined as either kidney damageor GFR <60 mL/min/1.73 m2 for >3 months. CREATININE (test code = CREAT) 1.10 mg/dL 0.7-1.3 N BUN/CREATININE RATIO (test code = BUN/CREA) 16.4 10-20 N CALCIUM (test code = CA) 8.8 mg/dL 8.5-10.1 N HEPATIC FUNCTION [id number] 19:56:00* Test Item Value Reference Range Interpretation Comments TOTAL PROTEIN (test code = PROT) 8.4 gram/dL 6.4-8.2 H ALBUMIN (test code = ALB) 3.8 g/dL 3.4-5.0 N GLOBULIN (test code = GLOB) 4.6 gram/dL 2.7-4.2 H ALBUMIN/GLOBULIN RATIO (test code = A/G) 0.8 0.75-1.50 N BILIRUBIN TOTAL (test code = BILT) 1.30 mg/dL 0.0-1.0 H BILIRUBIN DIRECT (test code = BILD) 0.29 mg/dL 0.0-0.20 H SGOT/AST (test code = AST) 40 IUnit/L 15-37 H SGPT/ALT (test code = ALT) 34 IUnit/L 12-78 N ALKALINE PHOSPHATASE TOTAL (test code = ALKP) 113 IUnit/L 45-117 N Note change in reference range due to change in reagent. [id number] 19:56:00* Test Item Value Reference Range Interpretation Comments TROPONIN-I (test code = TROPI) <0.015 ng/mL 0-0.045 N [id number] 19:56:00* Test Item Value Reference Range Interpretation Comments ALCOHOL (test code = ALC) < 3 mg/dL 0.0-3.0 N -- INTERPRETIVE DATA NOTE: POSITIVE SCREENING RESULTS SHOULD BE CONSIDERED PRESUMPTIVE.WHEN COLLECTED FOR MEDICAL PURPOSES ONLY. SPECIMEN WILL NOTBE COLLECTED BY CHAIN OF CUSTODY.IF A CONFIRMATION OF POSITIVE RESULTS IS DESIRED, ACONFIRMATION TEST MUST BE REQUESTED BY THE PHYSICIAN AT ANADDITIONAL CHARGE TO THE PATIENT. BASIC METABOLIC [id number] 19:47:00* Test Item Value Reference Range Interpretation Comments SODIUM (test code = NA) 136 mmol/L 136-145 N POTASSIUM (test code = K) 4.3 mmol/L 3.5-5.1 N CHLORIDE (test code = CL) 103.0 mmol/L 98-107 N CARBON DIOXIDE (test code = CO2) mmol/L 21-32 ANION GAP (test code = GAP) 10-20 GLUCOSE (test code = GLU) mg/dL 74-106 BLOOD UREA NITROGEN (test code = BUN) mg/dL 7-18 GLOMERULAR FILTRATION RATE (test code = GFR) mL/min >=60 CREATININE (test code = CREAT) mg/dL 0.7-1.3 BUN/CREATININE RATIO (test code = BUN/CREA) 10-20 CALCIUM (test code = CA) mg/dL 8.5-10.1 HEPATIC FUNCTION [id number] 19:47:00* Test Item Value Reference Range Interpretation Comments TOTAL PROTEIN (test code = PROT) gram/dL 6.4-8.2 ALBUMIN (test code = ALB) g/dL 3.4-5.0 GLOBULIN (test code = GLOB) gram/dL 2.7-4.2 ALBUMIN/GLOBULIN RATIO (test code = A/G) 0.75-1.50 BILIRUBIN TOTAL (test code = BILT) mg/dL 0.0-1.0 BILIRUBIN DIRECT (test code = BILD) mg/dL 0.0-0.20 SGOT/AST (test code = AST) IUnit/L 15-37 SGPT/ALT (test code = ALT) IUnit/L 12-78 ALKALINE PHOSPHATASE TOTAL (test code = ALKP) IUnit/L 45-117 [id number] 19:47:00* Test Item Value Reference Range Interpretation Comments TROPONIN-I (test code = TROPI) ng/mL 0-0.045 [id number] 19:47:00* Test Item Value Reference Range Interpretation Comments ALCOHOL (test code = ALC) mg/dL 0-3 - CT HEAD/BRAIN W/O [id number] 19:47:00 [facility] 1950 Age/S: 69 / M [address] [facility] Unit #: [id number] Loc: [place] [address] Phys: Jennifer Cook MD Acct: [id number] Dis Date: Status: REG ER PHONE #: [phone] Exam Date: 11/14/2019 193 FAX #: [phone] Reason: Syncope EXAMS: CPT CODE: [id number] CT HEAD/BRAIN W/O CONT 53822 REASON FOR EXAM: Syncope EXAM ORDER DATE: 11/14/2019 7:09 PM Ordering: Jennifer Cook MD Attending:Jennifer Cook MD Location:[facility] PROCEDURE: - CT HEAD/BRAIN W/O CONT COMPARISON: FINDINGS: CT images of the brain were obtained without IV contrast. Dose modulation, iterative reconstruction, and/or weight based adjustment of the MA/KV was utilized to reduce the radiation dose to as low as reasonably achievable. Mild patchy low densities appearance of the paraventricular region noted consistent with nonspecific white matter disease. The palacio-white matter delineation is unremarkable. The ventricles, cisterns, and sulci are unremarkable. There is no evidence of hemorrhage, mass, mass effect. There is no evidence of acute or old infarct. The calvarium is intact. IMPRESSION: Unremarkable brain. at 1947 Reported and signed by: Michael Carlos M.D. CC: Jennifer Cook MD; Pardeep Beal Technologist:Gemini Welsh RT(R) CTDI: DLP: Trnscb Date/Time: 11/14/2019 (1946) [email or web address] Orig Print D/T: S: 11/14/2019 (1949) PAGE 1 Signed Report - XR HIP W/PEL UNI 2+V LT 2019-11-14 19:40:00 FAX: Jennifer Cook MD [place]: St: [facility] FAX: Y Pardeep Beal MD [phone] Name: PARDEEP VERDE [facility] : 1950 Age/S: 69/M [address] [facility] Unit #: [id number] Loc: [place] [address] Phys: Jennifer Cook MD Acct: [id number] Dis Date: Status: REG ER PHONE #: [phone] Exam Date: 11/14/20191938 FAX #: [phone] Reason: FALL EXAMS: CPT CODE: [id number] XR HIP W/PEL UNI 2+V LT [address]6737 REASON FOR EXAM: FALL EXAM ORDER DATE: 11/14/2019 7:09 PM Ordering: Jennifer Cook MD Attending:Jennifer Cook MD Location:[facility] PROCEDURE: - XR HIP W/PEL UNI 2+V LT FINDINGS: 3 views of the left hip with frontal view of the pelvis were obtained. The osseous structures are unremarkable in size and shape. The joint spaces are maintained. No evidence of fracture. There is normal alignment of the left hip joint IMPRESSION: Unremarkable left hip at 1940 Reported and signed by: Michael Carlos M.D. CC: Jennifer Cook MD; Pardeep Beal Technologist: NICOLAS Dengrd Date/Time/By: 11/14/2019 (1939) : By: KathyVTL Orig Print D/T: S: 11/14/2019 (1942) PAGE 1 Signed Report - XR KNEE 1 OR 2 V [id number] 19:40:00 FAX: Jennifer Cook MD [place]: St: [facility] FAX: Y Pardeep Beal MD [phone] Name: PARDEEP VERDE [facility] : 1950 Age/S: 69/M [address] [facility] Unit #: [id number] Loc: [place] [address] Phys: Jennifer Cook MD Acct: [id number] Dis Date: Status: REG ER PHONE #: [phone] Exam Date: 11/14/20191938 FAX #: [phone] Reason: FALL EXAMS: CPT CODE: [id number] XR KNEE 1 OR 2 V LT 17904 REASON FOR EXAM: FALL EXAM ORDER DATE: 11/14/2019 7:09 PM Ordering: Jennifer Cook MD Attending:Jennifer Cook MD Location:[facility] PROCEDURE: - XR KNEE 1 OR 2 V LT FINDINGS: 2 views of the left knee were obtained. The osseous structures are unremarkable in size and shape. The joint s paces are maintained. No evidence of fracture. No evidence of joint effu fran. The patella is intact IMPRESSION: Unremarkable left knee at 1940 Reported and signed by: Michael Carlos M.D. CC: Jennifer Cook MD; Pardeep Beal Technologist: NICOLAS GRIDER Trnscrd Date/Time/By: 11/14/2019 (1939) : By: Hanane Orig Print D/T: S: 11/14/2019 (169) PAGE 1 Signed Report CBC W/O [id number] 19:39:00* Test Item Value Reference Range Interpretation Comments WHITE BLOOD CELL (test code = WBC) 18.0 K/mm3 4.5-12.5 H RED BLOOD CELL (test code = RBC) 4.44 mill/mm3 4.0-5.8 N HEMOGLOBIN (test code = HGB) 14.7 gram/dL 13.0-17.5 N HEMATOCRIT (test code = HCT) 44.0 % 42.0-52.0 N MEAN CELL VOLUME (test code = MCV) 99.1 fL 80-98 H MEAN CELL HGB (test code = MCH) 33.1 picogram 27.0-33.0 H MEAN CELL HGB CONCETRATION (test code = MCHC) 33.4 gram/dL 33.0-36. 0 N RED CELL DISTRIBUTION WIDTH (test code = RDW) 12.8 % 11.6-16. 2 N PLATELET COUNT (test code = PLT) 115 K/mm3 150-450 L MEAN PLATELET VOLUME (test code = MPV) 12.7 fL 6.7-11.0 H Bedside Kxxwunp9267-55-24 07:15:00* Test Item Value Reference Range Interpretation Comments Bedside Glucose (test code = 44171-1) 132 70-120 H Meter ID: [id number] [facility] HospitalCreat[facility] Kinase MB 2019-11-07 14:51:00* Test Item Value Reference Range Interpretation Comments Creatine Kinase MB (test code = 17670-2) 0.80 0-5.0 [facility]stTroponin O3908-30-97 14:51:00* Test Item Value Reference Range Interpretation Comments Troponin I (test code = ZVQ5619) < 0.001 0-0.300 [facility]stCreatine Hnuzmf2096-40-26 14:32:00* Test Item Value Reference Range Interpretation Comments Creatine Kinase (test code = 2157-6) 52 30-200 [facility]stMagnesium Imppe0189-32-72 10:58:00* Test Item Value Reference Range Interpretation Comments Magnesium Level (test code = 91504-0) 1.6 1.3-2.1 [facility]odium Zvkfd8611-31-82 06:58:00* Test Item Value Reference Range Interpretation Comments Sodium Level (test code = 2951-2) 138 136-145 [facility]stPotassium Udxxf7596-48-65 06:58:00* Test Item Value Reference Range Interpretation Comments Potassium Level (test code = 2823-3) 3.7 3.5-5.1 [facility]stChloride Mtvmc9334-69-73 06:58:00* Test Item Value Reference Range Interpretation Comments Chloride Level (test code = 2075-0) 106 98-107 [facility] Hill[facility]stCarbon Dioxide Czgmg2600-04-45 06:58:00* Test Item Value Reference Range Interpretation Comments Carbon Dioxide Level (test code = 2028-9) 22 22-29 [facility] HillcrestAnion Len4181-22-29 06:58:00* Test Item Value Reference Range Interpretation Comments Anion Gap (test code = 94785-9) 13.7 8-16 [facility] HillcrestBlood Urea Froozxuq6589-00-59 06:58:00* Test Item Value Reference Range Interpretation Comments Blood Urea Nitrogen (test code = 3094-0) 17 7-26 [facility]stCreatinine2020-01-13 06:58:00* Test Item Value Reference Range Interpretation Comments Creatinine (test code = 2160-0) 0.80 0.72-1.25 [facility] HillcrestBUN/Creatinine Yywij3655-06-27 06:58:00* Test Item Value Reference Range Interpretation Comments BUN/Creatinine Ratio (test code = 3097-3) 21 6-25 [facility] HillcrestEstimat Glomerular Filtration Rate 2019-11-07 06:58:00* Test Item Value Reference Range Interpretation Comments Estimat Glomerular Filtration Rate (test code = 202467245) > 60 >60 Ranges were taken from the National Kidney Disease Education Program and the [facility] Kidney Foundation literature.Reference ranges:60 or greater: Btfufy07-56 ( for 3 consecutive months): Chronic kidney disease 15 or less: Kidney failureBaylor Scott & White Medical Center – HillcrestGlucose Galog1464-35-13 06:58:00* Test Item Value Reference Range Interpretation Comments Glucose Level (test code = UGJ7770) 139 74-118 H [facility] HillcrestCalcium Zxdos4962-93-68 06:58:00* Test Item Value Reference Range Interpretation Comments Calcium Level (test code = 46671-7) 8.8 8.4-10.2 [facility] HillcrestTotal Cobjqdvto9477-09-39 06:58:00* Test Item Value Reference Range Interpretation Comments Total Bilirubin (test code = 1975-2) 0.6 0.2-1.2 [facility] HillcrestAspartate Amino Transf (AST/SGOT) 2019-11-07 06:58:00* Test Item Value Reference Range Interpretation Comments Aspartate Amino Transf (AST/SGOT) (test code = Aspartate Amino Transf (AST/SGOT)) 33 5-34 [facility] HillcrestAlanine Aminotransferase (ALT/SGPT) 2019-11-07 06:58:00* Test Item Value Reference Range Interpretation Comments Alanine Aminotransferase (ALT/SGPT) (test code = 1742-6) 23 0-55 [facility] HillcrestTotal Kqmzckc5236-20-19 06:58:00* Test Item Value Reference Range Interpretation Comments Total Protein (test code = 2885-2) 7.1 6.5-8.1 [facility] HillcrestAlbumin2020-01-13 06:58:00* Test Item Value Reference Range Interpretation Comments Albumin (test code = 1751-7) 3.2 3.5-5.0 L [facility] HillcrestGlobulin2020-01-13 06:58:00* Test Item Value Reference Range Interpretation Comments Globulin (test code = 78908-5) 3.9 2.3-3.5 H [facility] Hill[facility]stAlbumin/Globulin Qyeem2074-38-06 06:58:00 * Test Item Value Reference Range Interpretation Comments Albumin/Globulin Ratio (test code = 1759-0) 0.8 0.8-2.0 [facility] Hill[facility]stAlkaline Audqiceyykp4798-86-07 06:58:00* Test Item Value Reference Range Interpretation Comments Alkaline Phosphatase (test code = 6768-6) 121 40-150 [facility] Hill[facility]stTriglycerides Lmoks2989-70-20 06:58:00* Test Item Value Reference Range Interpretation Comments Triglycerides Level (test code = 2571-8) 172 0-149 H [facility]stCholesterol Vtuaa8262-43-49 06:58:00* Test Item Value Reference Range Interpretation Comments Cholesterol Level (test code = 2093-3) 114 0-199 Less than 200 mg/dL Low Fvnw451 - 239 mg/dL Borderline Zcjo458 m g/dl and greater High Risk [facility] HillcrestLDL Zkwnkodnswl8311-78-41 06:58:00* Test Item Value Reference Range Interpretation Comments LDL Cholesterol (test code = 2089-1) 61 60-130 [facility] Ktljtxmapnr9029-14-45 06:58:00* Test Item Value Reference Range Interpretation Comments HDL Cholesterol (test code = 2085-9) 19 40-60 L [facility] Hill[facility]stCholesterol/HDL Icadp0872-68-83 06:58:00 * Test Item Value Reference Range Interpretation Comments Cholesterol/HDL Ratio (test code = 9830-1) 6.0 3.9-4.7 H [facility] Hill[facility]stTriglycerides Ywcat9374-53-65 06:58:00* Test Item Value Reference Range Interpretation Comments Triglycerides Level (test code = 2571-8) 172 0-149 H [facility]stCholesterol Gycdv3226-44-48 06:58:00* Test Item Value Reference Range Interpretation Comments Cholesterol Level (test code = 2093-3) 114 0-199 Less than 200 mg/dL Low Ktyp437 - 239 mg/dL Borderline Dson855 m g/dl and greater High Risk [facility] HillcrestLDL Skbclutfgjc7187-68-45 06:58:00* Test Item Value Reference Range Interpretation Comments LDL Cholesterol (test code = 2089-1) 61 60-130 [facility] Rfuejttqrfl1915-93-10 06:58:00* Test Item Value Reference Range Interpretation Comments HDL Cholesterol (test code = 2085-9) 19 40-60 L [facility]stCholesterol/HDL Ekrmz4402-73-24 06:58:00 * Test Item Value Reference Range Interpretation Comments Cholesterol/HDL Ratio (test code = 9830-1) 6.0 3.9-4.7 H [facility] HillcrestWhite Blood Tyzuy5806-84-86 06:20:00* Test Item Value Reference Range Interpretation Comments White Blood Count (test code = 6690-2) 6.17 4.8-10.8 [facility] HillcrestRed Blood Nevfu0934-71-74 06:20:00* Test Item Value Reference Range Interpretation Comments Red Blood Count (test code = 789-8) 4.04 4.3-5.7 L [facility] Hill[facility]stHemoglobin2020-01-13 06:20:00* Test Item Value Reference Range Interpretation Comments Hemoglobin (test code = 95598-1) 13.2 14.0-18.0 L [facility] HillcrestHematocrit2020-01-13 06:20:00* Test Item Value Reference Range Interpretation Comments Hematocrit (test code = 4544-3) 39.9 38.2-49.6 [facility] HillcrestMean Corpuscular Tmppcx8457-88-10 06:20:00* Test Item Value Reference Range Interpretation Comments Mean Corpuscular Volume (test code = 787-2) 98.8 81-99 [facility] HillcrestMean Corpuscular Oxmxgvmfcf1981-02-28 06:20:00* Test Item Value Reference Range Interpretation Comments Mean Corpuscular Hemoglobin (test code = 785-6) 32.7 28-32 H [facility] HillcrestMean Corpuscular Hemoglobin Concent 2019-11-07 06:20:00* Test Item Value Reference Range Interpretation Comments Mean Corpuscular Hemoglobin Concent (test code = 786-4) 33.1 31-35 [facility] HillcrestRed Cell Distribution Ytnnj5120-87-43 06:20:00* Test Item Value Reference Range Interpretation Comments Red Cell Distribution Width (test code = 16863-8) 12.8 11.7 -14.4 [facility] HillcrestPlatelet Qcqqh7114-04-39 06:20:00* Test Item Value Reference Range Interpretation Comments Platelet Count (test code = 777-3) 97 140-360 L [facility] HillcrestNeutrophils (%) (Auto)2019-11-07 06:20:00 * Test Item Value Reference Range Interpretation Comments Neutrophils (%) (Auto) (test code = 27100-8) 55.7 38.7-80.0 [facility] HillcrestLymphocytes (%) (Auto)2019-11-07 06:20:00 * Test Item Value Reference Range Interpretation Comments Lymphocytes (%) (Auto) (test code = 736-9) 34.2 18.0-39.1 [facility] Hill[facility]stMonocytes (%) (Auto)2019-11-07 06:20:00* Test Item Value Reference Range Interpretation Comments Monocytes (%) (Auto) (test code = 5905-5) 7.8 4.4-11.3 [facility]stEosinophils (%) (Auto)2019-11-07 06:20:00 * Test Item Value Reference Range Interpretation Comments Eosinophils (%) (Auto) (test code = 713-8) 1.8 0.0-6.0 [facility] Hill[facility]stBasophils (%) (Auto)2019-11-07 06:20:00* Test Item Value Reference Range Interpretation Comments Basophils (%) (Auto) (test code = 706-2) 0.3 0.0-1.0 [facility] HillcrestIM GRANULOCYTES %2019-11-07 06:20:00* Test Item Value Reference Range Interpretation Comments IM GRANULOCYTES % (test code = IM GRANULOCYTES %) 0.2 0.0- 1.0 [facility] Hill[facility]stNeutrophils # (Auto)2019-11-07 06:20:00* Test Item Value Reference Range Interpretation Comments Neutrophils # (Auto) (test code = 751-8) 3.4 2.1-6.9 [facility] Hill[facility]stLymphocytes # (Auto)2019-11-07 06:20:00* Test Item Value Reference Range Interpretation Comments Lymphocytes # (Auto) (test code = 23313-9) 2.1 1.0-3.2 [facility] Hill[facility]stMonocytes # (Auto)2019-11-07 06:20:00* Test Item Value Reference Range Interpretation Comments Monocytes # (Auto) (test code = 742-7) 0.5 0.2-0.8 [facility]stEosinophils # (Auto)2019-11-07 06:20:00* Test Item Value Reference Range Interpretation Comments Eosinophils # (Auto) (test code = 711-2) 0.1 0.0-0.4 [facility] Hill[facility]stBasophils # (Auto)2019-11-07 06:20:00* Test Item Value Reference Range Interpretation Comments Basophils # (Auto) (test code = 704-7) 0.0 0.0-0.1 [facility] HillcrestAbsolute Immature Granulocyte (auto 2019-11-07 06:20:00* Test Item Value Reference Range Interpretation Comments Absolute Immature Granulocyte (auto (earle t code = Absolute Immature Granulocyte (auto) 0.01 0-0.1 [facility] HillcrestCHEST 2 MACCB8513-48-99 17:42:00 [facility] [address] [place] [address] Patient Name: PARDEEP VERDE MR #: [id number] : 1950 Age/Sex: 69/M Req #: [id number] Adm Physician: Ordered by: SOLOMON OJEDA 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 LUNGS: Diffuse h yperinflation consistent with COPD. Mild diffuse peripheral fibrosis. No soft tissue mass or infiltrate. PLEURA: No pleural effusion or pneumothorax. HEART AND MEDIASTINUM: The cardiomediastinal silhouette is unremarkable.. BONES AND SOFT TISSUES: No focal osseous lesions. Soft tissues are un remarkable. UPPER ABDOMEN: Unremarkable. IMPRESSION: Pulmonary hyp erinflation consistent with COPD. Mild burden of fibrosis. No acute cardiopulm onary process. Signed by: Dr. Celestina Wheat MD on 11/06/2019 5:44 PM Dictated By: CELESTINA WHEAT MD 43 Transcribed By: NEMO on 11/06/191743 COPY TO: SOLOMON OJEDA NP Prothrombin Sobk2591-93-76 16:22:00* Test Item Value Reference Range Interpretation Comments Prothrombin Time (test code = 5902-2) 13.6 11.9-14.5 [facility] HillcrestProthromb Time International Ratio 2019-11-06 16:22:00* Test Item Value Reference Range Interpretation Comments Prothromb Time International Ratio (test code = 6301-6) 0.99 Oral Anticoagulant Therapy INR Values:1. Low Intensity Therapy 1.5 - 2.02 . Moderate Intensity Therapy 2.0 - 3.03. High Intensity Therapy(1) 2.5 - 3. 54. High Intensity Therapy(2) 3.0 - 4.05. Panic Value INR > 5.0 [facility] HillcrestActivated Partial Thromboplast Time 2019-11-06 16:22:00* Test Item Value Reference Range Interpretation Comments Activated Partial Thromboplast Time (test code = 26348-8) 32.8 23.8-35.5 [facility] Hill[facility]stUS VSLNG7363-02-92 13:15:00 [place] [address] Patient Name: PARDEEP VERDE MR #: [id number] : 1950 Age/Sex: 69/M Req #: [id number] [facility] Physician: Ordered by: LAMAR BONILLA MD Report #: [id number] Location: Room/Bed: Procedure: [id number] US/U S LIVER Exam Date: 06/13/19 Exam Time: 1019 REPORT STATUS: Signed Right upper aracely drant abdominal ultrasound, 06/13/2019. History: Hepatitis. Compari son: CT abdomen 05/05/2019. Discussion: Transverse and longitudinal images o f the right upper quadrant of the abdomen were obtained demonstrating a liver of normal size but diffusely coarsened echogenicity measuring 15.0 cm in lengt h. There is mild nodularity of the liver surface contour. There is no evidenc e of a focal hepatic mass. The portal vein is patent with hepatopetal flow and is within normal limits measuring 11 mm in diameter. The biliary t ree is within normal limits with the common bile duct measuring for mm in diam eter. The gallbladder is normal without evidence of wall thickening or pericho lecystic fluid. The sonographic Nunes's sign was negative. The righ t kidney is normal in size and echogenicity without evidence of hydronephrosis , stones, or mass and measures 10.5 cm in length. The pancreatic <body and tail> are visualized and are normal in appearance. The abdominal aorta is within normal limits. There is no evidence of free fluid. IMPRESSION: Cirrhotic appearance of the liver without focal hepatic abnormality. Otherwise unremarkable exam. Signed by: Solomon Clark on 06/13/2019 1:18 PM Dictated By: SOLOMON CLARK MD 1318 Transcribed By: NEMO on 06/13/19 1318 COPY TO: LAMAR BONILLA MD Hepatitis A IgM Ssgvpjej3603-08-99 17:19:00* Test Item Value Reference Range Interpretation Comments Hepatitis A IgM Antibody (test code = 62227-3) Negative Negativ e [facility] B Surface Bbxklql8098-59-93 17:19:00* Test Item Value Reference Range Interpretation Comments Hepatitis B Surface Antigen (test code = 5196-1) Negative Negat [place] [facility] B Core IgM Pbzxtjqp4090-34-01 17:19:00* Test Item Value Reference Range Interpretation Comments Hepatitis B Core IgM Antibody (test code = 79628-7) Negative Ne [facility] C Ubzsbcus9925-04-32 17:19:00* Test Item Value Reference Range Interpretation Comments Hepatitis C Antibody (test code = 11923-8) <0.1 0.0-0.9 Negative: < 0.8 Indeterminate: 0.8 - 0.9 Positive: > 0.9 The CDC recommends that a positive HCV antibody result be followed up with a HCV Nucleic Acid Amplification test (592316).Performed at: - [facility] [id number] Director: Seven Obando MD, Phone: [phone] Hospital at [facility] A IgM Antibody 2019-06-10 17:19:00* Test Item Value Reference Range Interpretation Comments Hepatitis A IgM Antibody (test code = 04949-0) Negative Negativ [facility] B Surface Ilftpry4618-40-73 17:19:00* Test Item Value Reference Range Interpretation Comments Hepatitis B Surface Antigen (test code = 5196-1) Negative Negat [facility] B Core IgM Lcacifhx7876-69-86 17:19:00* Test Item Value Reference Range Interpretation Comments Hepatitis B Core IgM Antibody (test code = 12270-0) Negative Ne [facility] C Hytqojej5211-83-18 17:19:00* Test Item Value Reference Range Interpretation Comments Hepatitis C Antibody (test code = 79207-4) <0.1 0.0-0.9 Negative: < 0.8 Indeterminate: 0.8 - 0.9 Positive: > 0.9 The CDC recommends that a positive HCV antibody result be followed up with a HCV Nucleic Acid Amplification test (808074).Performed at: - [employer] [id number] Director: Seven Obando MD, Phone: [phone] Scott & [facility] Medical Center – HillcrestClostridium Difficile Toxin A & X3599-26-16 10:20:00* Test Item Value Reference Range Interpretation Comments Clostridium Difficile Toxin A & B (test code = 715650701) NEGATIVE NEGATIVE Testing on stool aspirate specimens is outside special education assistant claims since specime n type not validated on this assay.[facility] Clostridium Difficile Toxin A & R5495-56-22 10:20:00* Test Item Value Reference Range Interpretation Comments Clostridium Difficile Toxin A & B (test code = 137851428) NEGATIVE NEGATIVE Testing on stool aspirate specimens is outside special education assistant claims since specime n type not validated on this assay.[facility] Hospitaltool Lactoferrin (LAB)2019-06-09 15:37:00* Test Item Value Reference Range Interpretation Comments Stool Lactoferrin (LAB) (test code = 58649-9) NEGATIVE NEGATIVE Testing on stool aspirate specimens is outside special education assistant claims since specime n type not validated on this assay.[facility] Lactoferrin (LAB)2019-06-09 15:37:00* Test Item Value Reference Range Interpretation Comments Stool Lactoferrin (LAB) (test code = 90826-7) NEGATIVE NEGATIVE Testing on stool aspirate specimens is outside special education assistant claims since specime n type not validated on this assay.[facility] Lhsthdbjloso8088-21-55 05:12:00* Test Item Value Reference Range Interpretation Comments Stool Calprotectin (test code = 83821-4) <16 0-120 Concentration Interpretation Follow-Up<16 - 50 ug/g Normal None>50 -120 ug/g Borderline Re-evaluate in 4-6 weeks >120 ug/g Abnormal Repeat as clinically indicatedPerformed at: [facility] [id number] Director: Adelia Fishman MD, Phone: [phone] [facility] Centertool Oeopuraoklbc9645-20-30 05:12:00* Test Item Value Reference Range Interpretation Comments Stool Calprotectin (test code = 79502-4) <16 0-120 Concentration Interpretation Follow-Up<16 - 50 ug/g Normal None>50 -120 ug/g Borderline Re-evaluate in 4-6 weeks >120 ug/g Abnormal Repeat as clinically indicatedPerformed at: [facility] [id number] Director: Adelia Fishman MD, Phone: [phone] [facility] HospitalCT ABDOMEN/PELVIS R0496-46-73 19:23:00 [facility] [address] [place] [address] Patient Name: PARDEEP VERDE MR #: [id number] : 1950 Age/Sex: 69/M Req #: [id number] Adm Physician: Ordered by: SOBIA DELATORRE MD Report #: [id number] Location: ER Room/Bed: Procedure: [id number] C T/CT ABDOMEN/PELVIS W Exam Date: 05/05/19 Exam Time: 1900 REPORT STATUS: Signed EXAM: CT Abdomen and Pelvis WITH contrast INDICATION: Abdominal pain. Blood in stool. Diverticulitis. COMPARISON: 04/09/2019. TECHNIQUE: Abdomen and pelvis were scanned utilizing a multidetector helical scanner from the lung base to the pubic symphysis after administration of IV contrast. Coronal and sagittal reformations were obtained. Routine protocol was performed. Scan was performed when during portal venous phase. IV CONTRAST: 100 cc Isovue 300 ORAL CONTRAST: Gastrografin and water mixture. RADIAT ION DOSE: Total DLP: 787.92 mGy*cm Estimated effective dose: (DLP x 0.015 x size factor) mSv COMPLICATIONS: None FINDINGS: LINES and TUBES: None. LOWER THORAX: Unremarkable HEPATOBILIARY: No dular hepatic contour suggestive of cirrhotic morphology. No focal hepatic le sions. No biliary ductal dilation. GALLBLADDER: No radio-opaque stones or sludge. No wall thickening. SPLEEN: The spleen is enlarged measuring 13.1 cm in length. PANCREAS: No focal masses or ductal dilatation. ADRENA LS: No adrenal nodules KIDNEYS/URETERS: Kidneys enhance symmetrically. No hydronephrosis. No cystic or solid mass lesions. No stones. GI TRACT: No abnormal distention, wall thickening, or evidence of bowel obstruction. There are diverticula within the colon without evidence of diverticulitis. Ap pendix is normal. PELVIC ORGANS/BLADDER: Unremarkable. LYMPH NODES: No lymphadenopathy. VESSELS: There is moderate atherosclerotic disease in the aorta and major arterial branches. PERITONEUM / RETROPERITONEUM: No free air or fluid. BONES: There are degenerative changes in the lumbar spine. SOFT TISSUES: Bilateral small fat-containing inguinal hernias, left greater than right. IMPRESSION: 1. Colonic diverticulosis without acute diver ticulitis. Previously present perisigmoid inflammatory changes have resolved. 2. Cirrhotic hepatic morphology. Signed by: Yojana Oliva on 05/05/2019 7:38 PM Dictated By: GEOFFREY BENITEZ MD, MD 38 Transcribed By: NEMO on 1936 COPY TO: SOBIA DELATORRE MD Urine [id number] 18:49:00* Test Item Value Reference Range Interpretation Comments Urine WBC (test code = 5821-4) NONE 0-5 [facility]st[facility] [id number] 18:49:00* Test Item Value Reference Range Interpretation Comments Urine RBC (test code = 69116-6) NONE 0-5 [facility]stU[facility] Apjcavsx5681-50-06 18:49:00* Test Item Value Reference Range Interpretation Comments Urine Bacteria (test code = 74004-6) FEW NONE [facility]stUrine Epithelial Pupvp8229-18-11 18:49:00 * Test Item Value Reference Range Interpretation Comments Urine Epithelial Cells (test code = 68026-6) MODERATE NONE [facility]stU[facility] Qolai9946-55-65 18:49:00* Test Item Value Reference Range Interpretation Comments Urine Mucus (test code = 8247-9) MODERATE RARE H [facility]stU[facility] [id number] 18:49:00* Test Item Value Reference Range Interpretation Comments Urine WBC (test code = 5821-4) NONE 0-5 [facility] [id number] 18:49:00* Test Item Value Reference Range Interpretation Comments Urine RBC (test code = 41707-9) NONE 0-5 [facility] Utretuar7121-71-43 18:49:00* Test Item Value Reference Range Interpretation Comments Urine Bacteria (test code = 04126-7) FEW NONE [facility]st[facility] Epithelial Uwmnl6459-89-93 18:49:00 * Test Item Value Reference Range Interpretation Comments Urine Epithelial Cells (test code = 49447-6) MODERATE NONE [facility] Vvdri7015-29-80 18:49:00* Test Item Value Reference Range Interpretation Comments Urine Mucus (test code = 8247-9) MODERATE RARE H [facility] Ccyim1513-25-31 18:49:00* Test Item Value Reference Range Interpretation Comments Urine Mucus (test code = 8247-9) MODERATE RARE H [facility] Cqljg1666-91-32 18:38:00* Test Item Value Reference Range Interpretation Comments Sodium Level (test code = 2951-2) 136 136-145 [facility]stPotassium Toxpu8121-45-17 18:38:00* Test Item Value Reference Range Interpretation Comments Potassium Level (test code = 2823-3) 3.6 3.5-5.1 [facility]stChloride Tdetv0124-55-30 18:38:00* Test Item Value Reference Range Interpretation Comments Chloride Level (test code = 2075-0) 106 98-107 [facility]stCarbon Dioxide Eosii3671-98-60 18:38:00* Test Item Value Reference Range Interpretation Comments Carbon Dioxide Level (test code = 2028-9) 19 22-29 L [facility]stAnion [id number] 18:38:00* Test Item Value Reference Range Interpretation Comments Anion Gap (test code = 66605-1) 14.6 8-16 [facility]stBlood Urea Mmbsevha9924-25-49 18:38:00* Test Item Value Reference Range Interpretation Comments Blood Urea Nitrogen (test code = 3094-0) 15 7-26 [facility]stCreatinine2019-07-11 18:38:00* Test Item Value Reference Range Interpretation Comments Creatinine (test code = 2160-0) 0.91 0.72-1.25 [facility]stBUN/Creatinine Eoato2827-37-33 18:38:00* Test Item Value Reference Range Interpretation Comments BUN/Creatinine Ratio (test code = 3097-3) 16 6-25 [facility] HillcrestEstimat Glomerular Filtration Rate 2019-05-05 18:38:00* Test Item Value Reference Range Interpretation Comments Estimat Glomerular Filtration Rate (test code = 445587676) > 60 >60 Ranges were taken from the National Kidney Disease Education Program and the [facility] Foundation literature.Reference ranges:60 or greater: Wxdpxu66-81 ( for 3 consecutive months): Chronic kidney disease 15 or less: Kidney failureBaylor Scott & [facility] – HillcrestGlucose Taigt8924-23-56 18:38:00* Test Item Value Reference Range Interpretation Comments Glucose Level (test code = ZVZ0180) 200 74-118 H [facility]stCalcium Hthsx2479-18-70 18:38:00* Test Item Value Reference Range Interpretation Comments Calcium Level (test code = 77922-5) 9.4 8.4-10.2 [facility] Hill[facility]stTotal Fwpaanfoe5238-93-70 18:38:00* Test Item Value Reference Range Interpretation Comments Total Bilirubin (test code = 1975-2) 0.8 0.2-1.2 [facility] HillcrestAspartate Amino Transf (AST/SGOT) 2019-05-05 18:38:00* Test Item Value Reference Range Interpretation Comments Aspartate Amino Transf (AST/SGOT) (test code = Aspartate Amino Transf (AST/SGOT)) 64 5-34 H [facility] HillcrestAlanine Aminotransferase (ALT/SGPT) 2019-05-05 18:38:00* Test Item Value Reference Range Interpretation Comments Alanine Aminotransferase (ALT/SGPT) (test code = 1742-6) 37 0-55 [facility]stTotal Snlvudb1805-37-88 18:38:00* Test Item Value Reference Range Interpretation Comments Total Protein (test code = 2885-2) 8.2 6.5-8.1 H [facility] HillcrestAlbumin2019-07-11 18:38:00* Test Item Value Reference Range Interpretation Comments Albumin (test code = 1751-7) 3.9 3.5-5.0 [facility]stGlobulin2019-07-11 18:38:00* Test Item Value Reference Range Interpretation Comments Globulin (test code = 11228-8) 4.3 2.3-3.5 H [facility]stAlbumin/Globulin Iarwr7554-88-75 18:38:00 * Test Item Value Reference Range Interpretation Comments Albumin/Globulin Ratio (test code = 1759-0) 0.9 0.8-2.0 [facility]stAlkaline Cwjmixkzdlg5696-10-07 18:38:00* Test Item Value Reference Range Interpretation Comments Alkaline Phosphatase (test code = 6768-6) 244 40-150 H [facility]stUrine Sgrev2105-78-54 18:36:00* Test Item Value Reference Range Interpretation Comments Urine Color (test code = 5778-6) STRAW YELLOW [facility]stUrine Etdkqgt7804-24-15 18:36:00* Test Item Value Reference Range Interpretation Comments Urine Clarity (test code = 30326-3) CLEAR CLEAR [facility]stUrine Specific Npwdpnz0122-82-88 18:36:00 * Test Item Value Reference Range Interpretation Comments Urine Specific Gaylord (test code = 5811-5) >=1.030 1.010-1.02 5 [facility]stUrine [id number] 18:36:00* Test Item Value Reference Range Interpretation Comments Urine pH (test code = 69281-8) 5.5 5-7 [facility]stUrine Leukocyte Jdqvusiq7945-99-31 18:36:00* Test Item Value Reference Range Interpretation Comments Urine Leukocyte Esterase (test code = 60738-6) TRACE NEGATIV E H [facility]stUrine Xoerkuy3543-68-96 18:36:00* Test Item Value Reference Range Interpretation Comments Urine Nitrite (test code = 00818-5) NEGATIVE NEGATIVE [facility] HillcrestUrine Xmrfdsw5793-49-81 18:36:00* Test Item Value Reference Range Interpretation Comments Urine Protein (test code = 64724-9) TRACE NEGATIVE [facility] LancasterUrine Glucose (UA)2019-05-05 18:36:00* Test Item Value Reference Range Interpretation Comments Urine Glucose (UA) (test code = 75096-8) NEGATIVE NEGATIVE [facility]stUrine Unjlbzm2453-39-91 18:36:00* Test Item Value Reference Range Interpretation Comments Urine Ketones (test code = 45536-4) TRACE NEGATIVE [facility] LancasterUrine Quikatnebuyt8761-96-73 18:36:00* Test Item Value Reference Range Interpretation Comments Urine Urobilinogen (test code = 61556-2) 0.2 0.2-1 [facility]stUrine Yoegtnvoq9874-41-62 18:36:00* Test Item Value Reference Range Interpretation Comments Urine Bilirubin (test code = 1977-8) NEGATIVE NEGATIVE [facility]stUrine Vnkov3148-18-23 18:36:00* Test Item Value Reference Range Interpretation Comments Urine Blood (test code = 56132-8) NEGATIVE NEGATIVE [facility]stUrine Jsnej5553-64-08 18:36:00* Test Item Value Reference Range Interpretation Comments Urine Color (test code = 5778-6) STRAW YELLOW [facility]stUrine Lebgilt6848-73-93 18:36:00* Test Item Value Reference Range Interpretation Comments Urine Clarity (test code = 97375-2) CLEAR CLEAR [facility]stUrine Specific Jngntih8951-70-64 18:36:00 * Test Item Value Reference Range Interpretation Comments Urine Specific Gaylord (test code = 5811-5) >=1.030 1.010-1.02 5 [facility]stUrine [id number] 18:36:00* Test Item Value Reference Range Interpretation Comments Urine pH (test code = 21077-5) 5.5 5-7 [facility]stUrine Leukocyte Uuwdldcp9152-65-96 18:36:00* Test Item Value Reference Range Interpretation Comments Urine Leukocyte Esterase (test code = 90117-3) TRACE NEGATIV E H [facility]stUrine Jtjdvpd9859-06-80 18:36:00* Test Item Value Reference Range Interpretation Comments Urine Nitrite (test code = 25650-3) NEGATIVE NEGATIVE [facility]stUrine Lbcgxac7715-31-03 18:36:00* Test Item Value Reference Range Interpretation Comments Urine Protein (test code = 03970-6) TRACE NEGATIVE [facility] LancasterUrine Glucose (UA)2019-05-05 18:36:00* Test Item Value Reference Range Interpretation Comments Urine Glucose (UA) (test code = 98679-5) NEGATIVE NEGATIVE [facility]stUrine Uhyztlx4548-56-22 18:36:00* Test Item Value Reference Range Interpretation Comments Urine Ketones (test code = 70342-5) TRACE NEGATIVE H [facility]stUrine Sgddtoxltmrd2597-67-40 18:36:00* Test Item Value Reference Range Interpretation Comments Urine Urobilinogen (test code = 98829-5) 0.2 0.2-1 [facility]stUrine Dmhoytyhu0273-93-05 18:36:00* Test Item Value Reference Range Interpretation Comments Urine Bilirubin (test code = 1977-8) NEGATIVE NEGATIVE [facility]stUrine Efgas9704-07-50 18:36:00* Test Item Value Reference Range Interpretation Comments Urine Blood (test code = 77400-7) NEGATIVE NEGATIVE [facility]stWhite Blood Nphnu5182-91-74 18:23:00* Test Item Value Reference Range Interpretation Comments White Blood Count (test code = 6690-2) 8.62 4.8-10.8 [facility] Hill[facility]stRed Blood Spobb4184-84-27 18:23:00* Test Item Value Reference Range Interpretation Comments Red Blood Count (test code = 789-8) 4.32 4.3-5.7 [facility]stHemoglobin2019-07-11 18:23:00* Test Item Value Reference Range Interpretation Comments Hemoglobin (test code = 44368-6) 14.0 14.0-18.0 [facility]stHematocrit2019-07-11 18:23:00* Test Item Value Reference Range Interpretation Comments Hematocrit (test code = 4544-3) 42.1 38.2-49.6 [facility]stMean Corpuscular Rfzkfx6765-67-67 18:23:00* Test Item Value Reference Range Interpretation Comments Mean Corpuscular Volume (test code = 787-2) 97.5 81-99 [facility]stMean Corpuscular Ibebttszdo9632-33-68 18:23:00* Test Item Value Reference Range Interpretation Comments Mean Corpuscular Hemoglobin (test code = 785-6) 32.4 28-32 H [facility]stMean Corpuscular Hemoglobin Concent 2019-05-05 18:23:00* Test Item Value Reference Range Interpretation Comments Mean Corpuscular Hemoglobin Concent (test code = 786-4) 33.3 31-35 [facility]stRed Cell Distribution Fpoki9309-09-20 18:23:00* Test Item Value Reference Range Interpretation Comments Red Cell Distribution Width (test code = 79408-2) 12.6 11.7 -14.4 [facility]stPlatelet Bskot1717-63-43 18:23:00* Test Item Value Reference Range Interpretation Comments Platelet Count (test code = 777-3) 120 140-360 L [facility]stNeutrophils (%) (Auto)2019-05-05 18:23:00 * Test Item Value Reference Range Interpretation Comments Neutrophils (%) (Auto) (test code = 52268-7) 65.7 38.7-80.0 [facility]stLymphocytes (%) (Auto)2019-05-05 18:23:00 * Test Item Value Reference Range Interpretation Comments Lymphocytes (%) (Auto) (test code = 736-9) 24.7 18.0-39.1 [facility]stMonocytes (%) (Auto)2019-05-05 18:23:00* Test Item Value Reference Range Interpretation Comments Monocytes (%) (Auto) (test code = 5905-5) 7.1 4.4-11.3 [facility]stEosinophils (%) (Auto)2019-05-05 18:23:00 * Test Item Value Reference Range Interpretation Comments Eosinophils (%) (Auto) (test code = 713-8) 1.6 0.0-6.0 [facility]stBasophils (%) (Auto)2019-05-05 18:23:00* Test Item Value Reference Range Interpretation Comments Basophils (%) (Auto) (test code = 706-2) 0.6 0.0-1.0 [facility]stIM GRANULOCYTES %2019-05-05 18:23:00* Test Item Value Reference Range Interpretation Comments IM GRANULOCYTES % (test code = IM GRANULOCYTES %) 0.3 0.0- 1.0 [facility]stNeutrophils # (Auto)2019-05-05 18:23:00* Test Item Value Reference Range Interpretation Comments Neutrophils # (Auto) (test code = 751-8) 5.7 2.1-6.9 [facility]stLymphocytes # (Auto)2019-05-05 18:23:00* Test Item Value Reference Range Interpretation Comments Lymphocytes # (Auto) (test code = 23721-6) 2.1 1.0-3.2 [facility]stMonocytes # (Auto)2019-05-05 18:23:00* Test Item Value Reference Range Interpretation Comments Monocytes # (Auto) (test code = 742-7) 0.6 0.2-0.8 [facility]stEosinophils # (Auto)2019-05-05 18:23:00* Test Item Value Reference Range Interpretation Comments Eosinophils # (Auto) (test code = 711-2) 0.1 0.0-0.4 [facility]stBasophils # (Auto)2019-05-05 18:23:00* Test Item Value Reference Range Interpretation Comments Basophils # (Auto) (test code = 704-7) 0.1 0.0-0.1 [facility]stAbsolute Immature Granulocyte (auto 2019-05-05 18:23:00* Test Item Value Reference Range Interpretation Comments Absolute Immature Granulocyte (auto (earle t code = Absolute Immature Granulocyte (auto) 0.03 0-0.1 [facility]stBedside Wlggike0789-23-99 10:57:00* Test Item Value Reference Range Interpretation Comments Bedside Glucose (test code = 31189-1) 132 70-120 H Meter ID: [id number] [facility] & [facility] HillcrestDifferential Total Cells Fgfsyax5430-70-10 11:09:00* Test Item Value Reference Range Interpretation Comments Differential Total Cells Counted (test code = Stella tial Total Cells Counted) 100 [facility]stNeutrophils % (Manual)2019-04-13 11:09:00 * Test Item Value Reference Range Interpretation Comments Neutrophils % (Manual) (test code = 83418-7) 61 40-74 [facility]stLymphocytes % (Manual)2019-04-13 11:09:00 * Test Item Value Reference Range Interpretation Comments Lymphocytes % (Manual) (test code = 737-7) 27 19-48 [facility]stMonocytes % (Manual)2019-04-13 11:09:00* Test Item Value Reference Range Interpretation Comments Monocytes % (Manual) (test code = 744-3) 9 3.4-9.0 [facility]stEosinophils % (Manual)2019-04-13 11:09:00 * Test Item Value Reference Range Interpretation Comments Eosinophils % (Manual) (test code = 714-6) 3 0-7 [facility] HillcrestPlatelet Kwacmbgz9824-46-46 11:09:00* Test Item Value Reference Range Interpretation Comments Platelet Estimate (test code = 82721-2) ADEQUATE [facility] HillcrestPlatelet Morphology Gskcdvy7867-14-93 11:09:00* Test Item Value Reference Range Interpretation Comments Platelet Morphology Comment (test code = 59170-7) NORMAL [facility] Hill[facility]stRed Cell Morphology Fgfdwup5250-17-64 11:09:00* Test Item Value Reference Range Interpretation Comments Red Cell Morphology Comment (test code = 6742-1) NORMAL [facility]stDifferential Total Cells Counted 2019-04-13 11:09:00* Test Item Value Reference Range Interpretation Comments Differential Total Cells Counted (test code = Stella tial Total Cells Counted) 100 [facility]stNeutrophils % (Manual)2019-04-13 11:09:00 * Test Item Value Reference Range Interpretation Comments Neutrophils % (Manual) (test code = 61176-5) 61 40-74 [facility]stLymphocytes % (Manual)2019-04-13 11:09:00 * Test Item Value Reference Range Interpretation Comments Lymphocytes % (Manual) (test code = 737-7) 27 19-48 [facility]stMonocytes % (Manual)2019-04-13 11:09:00* Test Item Value Reference Range Interpretation Comments Monocytes % (Manual) (test code = 744-3) 9 3.4-9.0 [facility]stEosinophils % (Manual)2019-04-13 11:09:00 * Test Item Value Reference Range Interpretation Comments Eosinophils % (Manual) (test code = 714-6) 3 0-7 [facility] HillcrestPlatelet Ydcnehup4015-67-01 11:09:00* Test Item Value Reference Range Interpretation Comments Platelet Estimate (test code = 21710-6) ADEQUATE [facility] HillcrestPlatelet Morphology Onksffo7435-18-72 11:09:00* Test Item Value Reference Range Interpretation Comments Platelet Morphology Comment (test code = 98810-2) NORMAL [facility] Hill[facility]stRed Cell Morphology Jsoazzj6468-70-16 11:09:00* Test Item Value Reference Range Interpretation Comments Red Cell Morphology Comment (test code = 6742-1) NORMAL [facility]stDifferential Total Cells Counted 2019-04-13 11:09:00* Test Item Value Reference Range Interpretation Comments Differential Total Cells Counted (test code = Differcarlene tial Total Cells Counted) 100 [facility]stNeutrophils % (Manual)2019-04-13 11:09:00 * Test Item Value Reference Range Interpretation Comments Neutrophils % (Manual) (test code = 10870-5) 61 40-74 [facility]stLymphocytes % (Manual)2019-04-13 11:09:00 * Test Item Value Reference Range Interpretation Comments Lymphocytes % (Manual) (test code = 737-7) 27 19-48 [facility]stMonocytes % (Manual)2019-04-13 11:09:00* Test Item Value Reference Range Interpretation Comments Monocytes % (Manual) (test code = 744-3) 9 3.4-9.0 [facility]stEosinophils % (Manual)2019-04-13 11:09:00 * Test Item Value Reference Range Interpretation Comments Eosinophils % (Manual) (test code = 714-6) 3 0-7 [facility] HillcrestPlatelet Yjkfjbbu5864-11-76 11:09:00* Test Item Value Reference Range Interpretation Comments Platelet Estimate (test code = 90702-8) ADEQUATE [facility] HillcrestPlatelet Morphology Hkzxejm7372-03-28 11:09:00* Test Item Value Reference Range Interpretation Comments Platelet Morphology Comment (test code = 74282-4) NORMAL [facility] Hill[facility]stRed Cell Morphology Lbkhpnn0780-93-63 11:09:00* Test Item Value Reference Range Interpretation Comments Red Cell Morphology Comment (test code = 6742-1) NORMAL [facility]stEosinophils % (Manual)2019-04-13 11:09:00 * Test Item Value Reference Range Interpretation Comments Eosinophils % (Manual) (test code = 714-6) 3 0-7 [facility]stWhite Blood Bhalx3140-62-95 06:09:00* Test Item Value Reference Range Interpretation Comments White Blood Count (test code = 6690-2) 5.60 4.8-10.8 [facility]stRed Blood Pwqvd1809-87-24 06:09:00* Test Item Value Reference Range Interpretation Comments Red Blood Count (test code = 789-8) 3.86 4.3-5.7 L [facility]stHemoglobin2019-06-19 06:09:00* Test Item Value Reference Range Interpretation Comments Hemoglobin (test code = 81605-0) 12.7 14.0-18.0 L [facility] Hill[facility]stHematocrit2019-06-19 06:09:00* Test Item Value Reference Range Interpretation Comments Hematocrit (test code = 4544-3) 37.1 38.2-49.6 L [facility]stMean Corpuscular Ezakml0245-78-57 06:09:00* Test Item Value Reference Range Interpretation Comments Mean Corpuscular Volume (test code = 787-2) 96.1 81-99 [facility]stMean Corpuscular Kyclpvymps3277-25-28 06:09:00* Test Item Value Reference Range Interpretation Comments Mean Corpuscular Hemoglobin (test code = 785-6) 32.9 28-32 H [facility]stMean Corpuscular Hemoglobin Concent 2019-04-13 06:09:00* Test Item Value Reference Range Interpretation Comments Mean Corpuscular Hemoglobin Concent (test code = 786-4) 34.2 31-35 [facility]stRed Cell Distribution Rqwxr2761-74-18 06:09:00* Test Item Value Reference Range Interpretation Comments Red Cell Distribution Width (test code = 19001-8) 13.0 11.7 -14.4 [facility] Hill[facility]stPlatelet Npxoi4624-48-92 06:09:00* Test Item Value Reference Range Interpretation Comments Platelet Count (test code = 777-3) 99 140-360 L [facility] Hospitalodium Hewsx5535-82-93 05:49:00* Test Item Value Reference Range Interpretation Comments Sodium Level (test code = 2951-2) 140 136-145 [facility] Hill[facility]stPotassium Plzvf7267-17-62 05:49:00* Test Item Value Reference Range Interpretation Comments Potassium Level (test code = 2823-3) 3.6 3.5-5.1 [facility]stChloride Wqjap0143-32-13 05:49:00* Test Item Value Reference Range Interpretation Comments Chloride Level (test code = 2075-0) 111 98-107 H [facility] HillcrestCarbon Dioxide Fmysg2406-08-28 05:49:00* Test Item Value Reference Range Interpretation Comments Carbon Dioxide Level (test code = 2028-9) 21 22-29 L [facility] HillcrestAnion Fhg2229-14-94 05:49:00* Test Item Value Reference Range Interpretation Comments Anion Gap (test code = 12180-3) 11.6 8-16 [facility] HillcrestBlood Urea Icfetxce0064-50-35 05:49:00* Test Item Value Reference Range Interpretation Comments Blood Urea Nitrogen (test code = 3094-0) 10 7-26 [facility]stCreatinine2019-06-19 05:49:00* Test Item Value Reference Range Interpretation Comments Creatinine (test code = 2160-0) 0.73 0.72-1.25 [facility]stBUN/Creatinine Kgdah5543-53-69 05:49:00* Test Item Value Reference Range Interpretation Comments BUN/Creatinine Ratio (test code = 3097-3) 14 6-25 [facility] HillcrestEstimat Glomerular Filtration Rate 2019-04-13 05:49:00* Test Item Value Reference Range Interpretation Comments Estimat Glomerular Filtration Rate (test code = 466986026) > 60 >60 Ranges were taken from the National Kidney Disease Education Program and the [facility] Foundation literature.Reference ranges:60 or greater: Wkobuo60-81 ( for 3 consecutive months): Chronic kidney disease 15 or less: Kidney failureBaylor Scott & [facility] – HillcrestGlucose Fsvfu0441-35-60 05:49:00* Test Item Value Reference Range Interpretation Comments Glucose Level (test code = JNH8530) 153 74-118 H [facility]stCalcium Nwkyc9547-89-02 05:49:00* Test Item Value Reference Range Interpretation Comments Calcium Level (test code = 78960-9) 8.7 8.4-10.2 [facility] A IgM Ffexfpgh1919-13-10 05:22:00* Test Item Value Reference Range Interpretation Comments Hepatitis A IgM Antibody (test code = 02870-2) Negative Negativ e [facility] B Surface Gqwqbnt3691-49-37 05:22:00* Test Item Value Reference Range Interpretation Comments Hepatitis B Surface Antigen (test code = 5196-1) Negative Negat [place] [facility] B Core IgM Awjpdkmq1495-93-68 05:22:00* Test Item Value Reference Range Interpretation Comments Hepatitis B Core IgM Antibody (test code = 82025-8) Negative Ne gative [facility] C Vcfcxcud8002-36-95 05:22:00* Test Item Value Reference Range Interpretation Comments Hepatitis C Antibody (test code = 46500-7) <0.1 0.0-0.9 Negative: < 0.8 Indeterminate: 0.8 - 0.9 Positive: > 0.9 The CDC recommends that a positive HCV antibody result be followed up with a HCV Nucleic Acid Amplification test (006654).Performed at: [facility] [id number] Director: Seven Obando MD, Phone: [phone] Hospital at [facility] A IgM Antibody 2019-04-12 05:22:00* Test Item Value Reference Range Interpretation Comments Hepatitis A IgM Antibody (test code = 27465-1) Negative Negativ e [facility] B Surface Qbogibo2518-57-24 05:22:00* Test Item Value Reference Range Interpretation Comments Hepatitis B Surface Antigen (test code = 5196-1) Negative Negat [place] [facility] B Core IgM Psxatycb8997-54-91 05:22:00* Test Item Value Reference Range Interpretation Comments Hepatitis B Core IgM Antibody (test code = 54500-7) Negative Ne gative [facility]stHepatitis C Rhvhbljl8790-80-75 05:22:00* Test Item Value Reference Range Interpretation Comments Hepatitis C Antibody (test code = 43507-2) <0.1 0.0-0.9 Negative: < 0.8 Indeterminate: 0.8 - 0.9 Positive: > 0.9 The CDC recommends that a positive HCV antibody result be followed up with a HCV Nucleic Acid Amplification test (325607).Performed at: [facility] [id number] Director: Seven Obando MD, Phone: [phone] Methodist Baytown Hospitaltool Lactoferrin (LAB) 2019-04-11 14:12:00* Test Item Value Reference Range Interpretation Comments Stool Lactoferrin (LAB) (test code = 55667-9) POSITIVE NEGATIVE H Testing on stool aspirate specimens is outside special education assistant claims since specime n type not validated on this assay.[facility] Hospitaltool Lactoferrin (LAB)2019-04-11 14:12:00* Test Item Value Reference Range Interpretation Comments Stool Lactoferrin (LAB) (test code = 46181-3) POSITIVE NEGATIVE H Testing on stool aspirate specimens is outside special education assistant claims since specime n type not validated on this assay.[facility]stUrine Cvlpygu8345-73-22 09:48:00* Test Item Value Reference Range Interpretation Comments Urine Culture (test code = 630-4) Organism: ESCHERICHIA COLI [facility]stUrine Htepddv6338-65-43 09:48:00* Test Item Value Reference Range Interpretation Comments Urine Culture (test code = 630-4) Organism: ESCHERICHIA COLI [facility] HillcrestUrine Jlyasxy4077-80-73 09:48:00* Test Item Value Reference Range Interpretation Comments Urine Culture (test code = 630-4) No Result Data Provided [facility] HillcrestUrine Ehvfvpk8485-04-60 09:48:00* Test Item Value Reference Range Interpretation Comments Urine Culture (test code = 630-4) No Result Data Provided [facility] HillcrestLipase2019-06-17 06:56:00* Test Item Value Reference Range Interpretation Comments Lipase (test code = 3040-3) 43 878 [facility] Hill[facility]stLipase2019-06-17 06:56:00* Test Item Value Reference Range Interpretation Comments Lipase (test code = 3040-3) 43 8-78 [facility] Hill[facility]stLipase2019-06-17 06:56:00* Test Item Value Reference Range Interpretation Comments Lipase (test code = 3040-3) 43 8-78 [facility] Hill[facility]stLipase2019-06-17 06:56:00* Test Item Value Reference Range Interpretation Comments Lipase (test code = 3040-3) 43 878 [facility] HillcrestTotal Ndlgxmyhp9943-51-70 06:08:00* Test Item Value Reference Range Interpretation Comments Total Bilirubin (test code = 1975-2) 1.0 0.2-1.2 [facility] HillcrestAspartate Amino Transf (AST/SGOT) 2019-04-11 06:08:00* Test Item Value Reference Range Interpretation Comments Aspartate Amino Transf (AST/SGOT) (test code = Aspartate Amino Transf (AST/SGOT)) 40 5-34 H [facility] HillcrestAlanine Aminotransferase (ALT/SGPT) 2019-04-11 06:08:00* Test Item Value Reference Range Interpretation Comments Alanine Aminotransferase (ALT/SGPT) (test code = 1742-6) 31 0-55 [facility] HillcrestTotal Atsljld9450-83-72 06:08:00* Test Item Value Reference Range Interpretation Comments Total Protein (test code = 2885-2) 6.7 6.5-8.1 [facility] Hill[facility]stAlbumin2019-06-17 06:08:00* Test Item Value Reference Range Interpretation Comments Albumin (test code = 1751-7) 3.0 3.5-5.0 L [facility] Hill[facility]stGlobulin2019-06-17 06:08:00* Test Item Value Reference Range Interpretation Comments Globulin (test code = 61765-5) 3.7 2.3-3.5 H [facility]stAlbumin/Globulin Axqyc2768-43-09 06:08:00 * Test Item Value Reference Range Interpretation Comments Albumin/Globulin Ratio (test code = 1759-0) 0.8 0.8-2.0 [facility] Hill[facility]stAlkaline Xwzfimguubp1840-13-66 06:08:00* Test Item Value Reference Range Interpretation Comments Alkaline Phosphatase (test code = 6768-6) 256 40-150 H [facility] HillcrestClostridium Difficile Toxin A & B 2019-04-10 14:45:00* Test Item Value Reference Range Interpretation Comments Clostridium Difficile Toxin A & B (test code = 712437970) NEGATIVE NEGATIVE Testing on stool aspirate specimens is outside special education assistant claims since specime n type not validated on this assay.[facility] Clostridium Difficile Toxin A & J4610-65-16 14:45:00* Test Item Value Reference Range Interpretation Comments Clostridium Difficile Toxin A & B (test code = 795929203) NEGATIVE NEGATIVE Testing on stool aspirate specimens is outside special education assistant claims since specime n type not validated on this assay.[facility] Bedside Mvcqasm3505-31-41 12:17:00* Test Item Value Reference Range Interpretation Comments Bedside Glucose (test code = 66428-6) 173 70-120 H Meter ID: [id number] Scott & White Medical [facility] – HillcrestAmylase Level 2019-04-10 06:40:00* Test Item Value Reference Range Interpretation Comments Amylase Level (test code = 1798-8) 60 25-125 [facility] HillcrestAmylase Irouo2157-39-49 06:40:00* Test Item Value Reference Range Interpretation Comments Amylase Level (test code = 1798-8) 60 25-125 [facility] HillcrestAmylase Rhipr4397-32-67 06:40:00* Test Item Value Reference Range Interpretation Comments Amylase Level (test code = 1798-8) 60 25-125 [facility] HillcrestAmylase Yqcub3982-58-93 06:40:00* Test Item Value Reference Range Interpretation Comments Amylase Level (test code = 1798-8) 60 25-125 [facility]stNeutrophils (%) (Auto)2019-04-10 06:05:00 * Test Item Value Reference Range Interpretation Comments Neutrophils (%) (Auto) (test code = 71401-3) 65.1 38.7-80.0 [facility]stLymphocytes (%) (Auto)2019-04-10 06:05:00 * Test Item Value Reference Range Interpretation Comments Lymphocytes (%) (Auto) (test code = 736-9) 24.3 18.0-39.1 [facility]stMonocytes (%) (Auto)2019-04-10 06:05:00* Test Item Value Reference Range Interpretation Comments Monocytes (%) (Auto) (test code = 5905-5) 7.6 4.4-11.3 [facility]stEosinophils (%) (Auto)2019-04-10 06:05:00 * Test Item Value Reference Range Interpretation Comments Eosinophils (%) (Auto) (test code = 713-8) 2.1 0.0-6.0 [facility]stBasophils (%) (Auto)2019-04-10 06:05:00* Test Item Value Reference Range Interpretation Comments Basophils (%) (Auto) (test code = 706-2) 0.5 0.0-1.0 [facility]stIM GRANULOCYTES %2019-04-10 06:05:00* Test Item Value Reference Range Interpretation Comments IM GRANULOCYTES % (test code = IM GRANULOCYTES %) 0.4 0.0- 1.0 [facility]stNeutrophils # (Auto)2019-04-10 06:05:00* Test Item Value Reference Range Interpretation Comments Neutrophils # (Auto) (test code = 751-8) 5.3 2.1-6.9 [facility]stLymphocytes # (Auto)2019-04-10 06:05:00* Test Item Value Reference Range Interpretation Comments Lymphocytes # (Auto) (test code = 00810-2) 2.0 1.0-3.2 [facility]stMonocytes # (Auto)2019-04-10 06:05:00* Test Item Value Reference Range Interpretation Comments Monocytes # (Auto) (test code = 742-7) 0.6 0.2-0.8 [facility]stEosinophils # (Auto)2019-04-10 06:05:00* Test Item Value Reference Range Interpretation Comments Eosinophils # (Auto) (test code = 711-2) 0.2 0.0-0.4 [facility]stBasophils # (Auto)2019-04-10 06:05:00* Test Item Value Reference Range Interpretation Comments Basophils # (Auto) (test code = 704-7) 0.0 0.0-0.1 [facility] Hill[facility]stAbsolute Immature Granulocyte (auto 2019-04-10 06:05:00* Test Item Value Reference Range Interpretation Comments Absolute Immature Granulocyte (auto (earle t code = Absolute Immature Granulocyte (auto) 0.03 0-0.1 [facility] HillcrestCT ABDOMEN/PELVIS [id number] 22:02:00 [place] [address] Patient Name: PARDEEP VERDE MR #: [id number] : 1950 Age/Sex: 69/M Req #: [id number] Adm Physician: Ordered by: BURAK FERNANDO MD Report #: [id number] Location: ER Room/Bed: Procedure: [id number] CT/CT ABDOMEN/PELVIS W Exam Date: 04/09/19 Exam Time: 2124 REPORT STATUS: Signed EXAM: CT Abdomen and Pelvis WITH contrast INDICATION: Severe Abdominal pain, and diarrhea COMPARISON: 09/30/2018. TECHNIQUE: Abdomen and pelvis were sca nned utilizing a multidetector helical scanner from the lung base to the pubic symphysis after administration of IV contrast. Coronal and sagittal reformati ons were obtained. Routine protocol was performed. Scan was performed when dur ing portal venous phase. IV CONTRAST: 100 cc Isovue 300 ORAL CONTRAST: Water RADIATION DOSE: Total DLP: 811.67 mGy*cm Estimated effective dose: (DLP x 0.015 x size factor) mSv COMPLICATIONS: None FINDINGS: LINES and TUBES: None. LOWER THORAX: Unremarkable HEPATOBILIARY: Cirrhotic hepatic morphology. No foc al hepatic lesions. No biliary ductal dilation. GALLBLADDER: Decompresse d No radio-opaque stones or sludge. No wall thickening. SPLEEN: Enlarged measuring 15.4 cm in craniocaudal dimension. PANCREAS: Mild diffuse hypere nhancement, with minimal surrounding fat stranding particularly about the post erior body and tail as seen on image 36 may reflect acute interstitial pancrea titis. ADRENALS: No adrenal nodules. KIDNEYS/URETERS: Kidneys enhance symmetrically. No hydronephrosis. No cystic or solid mass lesions. No stones . GI TRACT: Mild diffuse wall thickening of the sigmoid colon. Diverticulos is predominantly involving the sigmoid colon, associated with mild perisigmoid fat stranding seen on images 76 and 77, possibly mild diverticulitis. Appendix is normal. PELVIC ORGANS/BLADDER: Unremarkable. LYMPH NODES: No ly mphadenopathy. VESSELS: There is moderate atherosclerotic disease in the ao rta and major arterial branches. The main portal vein measures 1.[address] PERITONEUM / RETROPERITONEUM: No free air or fluid. Increased density of the retroperitoneal and mesenteric fat associated with small lymph nodes BONES: There are degenerative changes in the lumbar spine. SOFT TISSUES: Small fat-containing inguinal hernias, left greater than right. IMPRESSION: 1. Findings suggestive of acute sigmoid diverticulitis. No abscess formati on. 2. Possible mild acute edematous interstitial pancreatitis in the [facility] clinical setting. Recommend correlation with amylase and lipase. 3. H epatic cirrhosis. 4. Mild shy mesentery is nonspecific, however, may ref lect ongoing inflammatory/infectious process in the abdomen as described above . 5. Splenomegaly and portal hypertension. Signed by: Dr. Nick Benitez M.D. on 04/09/2019 10:23 PM Dictated By: GEOFFREY BENITEZ MD, MD 22 Transcribed By: NEMO on 04/09/192222 COPY TO: BURAK FERNANDO MD CHEST SINGLE (PORTABLE)2019-04-09 22:00:00 [place] [address] Patient Name: PARDEEP VERDE MR #: [id number] : 1950 Age/Sex: 69/M Req #: [id number] Adm Physician: Ordered by: BURAK FERNANDO MD Report #: [id number] Location: ER Room/Bed: Procedure: [id number] DX/CH EST SINGLE (PORTABLE) Exam Date: 04/09/19 Exam Time: 2134 REPORT STATUS: Signed EXAM INATION: Chest PA and lateral views INDICATION: Pain. COMPARISON: . FINDINGS: TUBES and LINES: None. LUNGS: Interval incr ease in diffuse coarsening of the pulmonary interstitium suggestive of interst itial lung disease is less fibrosis. PLEURA: No pleural effusion or pneumo thorax. HEART AND MEDIASTINUM: The cardiac silhouette is mildly enlarged. BONES AND SOFT TISSUES: No acute osseous lesion. Soft tissues are unrem arkable. UPPER ABDOMEN: No free air under the diaphragm. IMPRESSIO N: Interval increase in interstitial lung disease pattern. Signed by: Dr Andreas Benitez M.D. on 04/09/2019 10:01 PM Dictated By: GEOFFREY PIPER MD, MD 00 Tr anscribed By: NEMO on 04/09/192200 COPY TO: BURAK FERNANDO MD Stool Occult Oijny7472-65-55 20:33:00* Test Item Value Reference Range Interpretation Comments Stool Occult Blood (test code = 2335-8) POSITIVE NEGATIVE [facility] Occult Vypcc7839-53-00 20:33:00* Test Item Value Reference Range Interpretation Comments Stool Occult Blood (test code = 2335-8) POSITIVE NEGATIVE [facility] Occult Qwvqp0773-54-11 20:33:00* Test Item Value Reference Range Interpretation Comments Stool Occult Blood (test code = 2335-8) POSITIVE NEGATIVE [facility] Occult Qoaaw9686-14-15 20:33:00* Test Item Value Reference Range Interpretation Comments Stool Occult Blood (test code = 2335-8) [facility]IT[facility]GATIVE [facility] Tmibd8484-12-18 19:31:00* Test Item Value Reference Range Interpretation Comments Magnesium Level (test code = 72710-3) 2.0 1.3-2.1 [facility]stCreatine Cuvhev3432-08-12 19:31:00* Test Item Value Reference Range Interpretation Comments Creatine Kinase (test code = 2157-6) 61 30-200 [facility] Hill[facility]stCreatine Kinase LX5430-65-35 19:31:00* Test Item Value Reference Range Interpretation Comments Creatine Kinase MB (test code = 33035-7) 0.40 0-5.0 [facility] Hill[facility]stTroponin [id number] 19:31:00* Test Item Value Reference Range Interpretation Comments Troponin I (test code = NGA0974) < 0.001 0-0.300 [facility] Areaesium Imyfw7796-36-94 19:31:00* Test Item Value Reference Range Interpretation Comments Magnesium Level (test code = 58332-2) 2.0 1.3-2.1 [facility]stCreatine Hwftou1191-48-72 19:31:00* Test Item Value Reference Range Interpretation Comments Creatine Kinase (test code = 2157-6) 61 30-200 [facility] Hill[facility]stCreatine Kinase QG2432-97-37 19:31:00* Test Item Value Reference Range Interpretation Comments Creatine Kinase MB (test code = 58410-5) 0.40 0-5.0 [facility] Hill[facility]stTroponin [id number] 19:31:00* Test Item Value Reference Range Interpretation Comments Troponin I (test code = BJJ9581) < 0.001 0-0.300 [facility] HillcrestUrine ESR6408-44-83 19:17:00* Test Item Value Reference Range Interpretation Comments Urine WBC (test code = 5821-4) 0-5 0-5 [facility] Hill[facility]stUrine QCO1803-85-36 19:17:00* Test Item Value Reference Range Interpretation Comments Urine RBC (test code = 69404-9) 0-5 0-5 [facility]stUrine Lmqbmwxu6113-31-72 19:17:00* Test Item Value Reference Range Interpretation Comments Urine Bacteria (test code = 83962-7) FEW NONE [facility] HillcrestUrine Epithelial Uonaw3304-70-82 19:17:00 * Test Item Value Reference Range Interpretation Comments Urine Epithelial Cells (test code = 98966-1) NONE NONE [facility] Bhsbb8795-23-49 19:17:00* Test Item Value Reference Range Interpretation Comments Urine Yeast (test code = 76221-3) RARE NONE [facility] Rnabf6290-14-41 19:17:00* Test Item Value Reference Range Interpretation Comments Urine Yeast (test code = 79607-0) RARE NONE [facility] Brbos0980-68-06 19:17:00* Test Item Value Reference Range Interpretation Comments Urine Yeast (test code = 44016-1) RARE NONE [facility] Xzmhj2835-06-11 19:17:00* Test Item Value Reference Range Interpretation Comments Urine Yeast (test code = 27266-6) RARE NONE [facility] LancasterProthrombin Tney7345-87-14 19:07:00* Test Item Value Reference Range Interpretation Comments Prothrombin Time (test code = 5902-2) 13.7 11.9-14.5 [facility] Hill[facility]stProthromb Time International Ratio 2019-04-09 19:07:00* Test Item Value Reference Range Interpretation Comments Prothromb Time International Ratio (test code = 6301-6) 1.00 Oral Anticoagulant Therapy INR Values:1. Low Intensity Therapy 1.5 - 2.02 . Moderate Intensity Therapy 2.0 - 3.03. High Intensity Therapy(1) 2.5 - 3. 54. High Intensity Therapy(2) 3.0 - 4.05. Panic Value INR > 5.0 [facility] Hill[facility]stActivated Partial Thromboplast Time 2019-04-09 19:07:00* Test Item Value Reference Range Interpretation Comments Activated Partial Thromboplast Time (test code = 15412-3) 32.0 23.8-35.5 [facility] Hill[facility]stProthrombin Mvql4270-56-17 19:07:00* Test Item Value Reference Range Interpretation Comments Prothrombin Time (test code = 5902-2) 13.7 11.9-14.5 [facility] Hill[facility]stProthromb Time International Ratio 2019-04-09 19:07:00* Test Item Value Reference Range Interpretation Comments Prothromb Time International Ratio (test code = 6301-6) 1.00 Oral Anticoagulant Therapy INR Values:1. Low Intensity Therapy 1.5 - 2.02 . Moderate Intensity Therapy 2.0 - 3.03. High Intensity Therapy(1) 2.5 - 3. 54. High Intensity Therapy(2) 3.0 - 4.05. Panic Value INR > 5.0 [facility] Hill[facility]stActivated Partial Thromboplast Time 2019-04-09 19:07:00* Test Item Value Reference Range Interpretation Comments Activated Partial Thromboplast Time (test code = 01404-7) 32.0 23.8-35.5 [facility] HillcrestUrine Gnivc4743-71-99 18:57:00* Test Item Value Reference Range Interpretation Comments Urine Color (test code = 5778-6) YELLOW YELLOW [facility] Hill[facility]stUrine Teukcqt2980-73-11 18:57:00* Test Item Value Reference Range Interpretation Comments Urine Clarity (test code = 60167-3) CLEAR CLEAR [facility] Hill[facility]stUrine Specific Wikqccp4570-90-90 18:57:00 * Test Item Value Reference Range Interpretation Comments Urine Specific [place] (test code = 5811-5) 1.020 1.010-1.02 5 [facility] Hill[facility]stUrine oO5702-31-49 18:57:00* Test Item Value Reference Range Interpretation Comments Urine pH (test code = 64682-7) 5 5-7 [facility] Hill[facility]stUrine Leukocyte Kdzhqaxc2047-47-03 18:57:00* Test Item Value Reference Range Interpretation Comments Urine Leukocyte Esterase (test code = 15835-9) NEGATIVE NEGATIV E [facility] Hill[facility]stUrine Eqafpdb2150-55-20 18:57:00* Test Item Value Reference Range Interpretation Comments Urine Nitrite (test code = 51803-6) NEGATIVE NEGATIVE [facility] Hill[facility]stUrine Vzhuxvj2710-73-80 18:57:00* Test Item Value Reference Range Interpretation Comments Urine Protein (test code = 45331-6) NEGATIVE NEGATIVE [facility] Glucose (UA)2019-04-09 18:57:00* Test Item Value Reference Range Interpretation Comments Urine Glucose (UA) (test code = 77064-9) 3+ NEGATIVE [facility] Hill[facility]stUrine Clznkry4034-90-50 18:57:00* Test Item Value Reference Range Interpretation Comments Urine Ketones (test code = 43708-4) NEGATIVE NEGATIVE [facility] HillcrestUrine Msbwfbnnxdzf2716-62-66 18:57:00* Test Item Value Reference Range Interpretation Comments Urine Urobilinogen (test code = 46128-4) 0.2 0.2-1 [facility] Hill[facility]stUrine Jmdbsfzib3908-91-36 18:57:00* Test Item Value Reference Range Interpretation Comments Urine Bilirubin (test code = 1977-8) NEGATIVE NEGATIVE [facility] HillcrestUrine Pspch6285-72-49 18:57:00* Test Item Value Reference Range Interpretation Comments Urine Blood (test code = 52958-1) NEGATIVE NEGATIVE [facility] Hill[facility]stBedside Yxtianf2333-66-44 16:27:00* Test Item Value Reference Range Interpretation Comments Bedside Glucose (test code = 23830-3) 115 70-120 Meter ID: [id number] Scott & [facility] – HillcrestWhite Blood Count 2018-10-02 05:49:00* Test Item Value Reference Range Interpretation Comments White Blood Count (test code = 6690-2) 9.89 4.8-10.8 [facility] Hill[facility]stRed Blood Xeevi3940-52-10 05:49:00* Test Item Value Reference Range Interpretation Comments Red Blood Count (test code = 789-8) 4.15 4.3-5.7 L [facility] Hill[facility]stHemoglobin2018-12-08 05:49:00* Test Item Value Reference Range Interpretation Comments Hemoglobin (test code = 52164-0) 13.5 14.0-18.0 L [facility] Hill[facility]stHematocrit2018-12-08 05:49:00* Test Item Value Reference Range Interpretation Comments Hematocrit (test code = 4544-3) 40.8 38.2-49.6 [facility] Hill[facility]stMean Corpuscular Qpyqru1035-18-98 05:49:00* Test Item Value Reference Range Interpretation Comments Mean Corpuscular Volume (test code = 787-2) 98.3 81-99 [facility]stMean Corpuscular Ysnzmerfyp1729-02-37 05:49:00* Test Item Value Reference Range Interpretation Comments Mean Corpuscular Hemoglobin (test code = 785-6) 32.5 28-32 H [facility]stMean Corpuscular Hemoglobin Concent 2018-10-02 05:49:00* Test Item Value Reference Range Interpretation Comments Mean Corpuscular Hemoglobin Concent (test code = 786-4) 33.1 31-35 [facility]stRed Cell Distribution Sdfrk2977-52-02 05:49:00* Test Item Value Reference Range Interpretation Comments Red Cell Distribution Width (test code = 95326-5) 12.0 11.7 -14.4 [facility]stPlatelet Vijak3308-57-53 05:49:00* Test Item Value Reference Range Interpretation Comments Platelet Count (test code = 777-3) 69 140-360 L [facility]stNeutrophils (%) (Auto)2018-10-02 05:49:00 * Test Item Value Reference Range Interpretation Comments Neutrophils (%) (Auto) (test code = 96031-2) 60.2 38.7-80.0 [facility]stLymphocytes (%) (Auto)2018-10-02 05:49:00 * Test Item Value Reference Range Interpretation Comments Lymphocytes (%) (Auto) (test code = 736-9) 29.3 18.0-39.1 [facility]stMonocytes (%) (Auto)2018-10-02 05:49:00* Test Item Value Reference Range Interpretation Comments Monocytes (%) (Auto) (test code = 5905-5) 7.9 4.4-11.3 [facility]stEosinophils (%) (Auto)2018-10-02 05:49:00 * Test Item Value Reference Range Interpretation Comments Eosinophils (%) (Auto) (test code = 713-8) 1.5 0.0-6.0 [facility]stBasophils (%) (Auto)2018-10-02 05:49:00* Test Item Value Reference Range Interpretation Comments Basophils (%) (Auto) (test code = 706-2) 0.6 0.0-1.0 [facility]stIM GRANULOCYTES %2018-10-02 05:49:00* Test Item Value Reference Range Interpretation Comments IM GRANULOCYTES % (test code = IM GRANULOCYTES %) 0.5 0.0- 1.0 [facility]stNeutrophils # (Auto)2018-10-02 05:49:00* Test Item Value Reference Range Interpretation Comments Neutrophils # (Auto) (test code = 751-8) 6.0 2.1-6.9 [facility]stLymphocytes # (Auto)2018-10-02 05:49:00* Test Item Value Reference Range Interpretation Comments Lymphocytes # (Auto) (test code = 63397-8) 2.9 1.0-3.2 [facility]stMonocytes # (Auto)2018-10-02 05:49:00* Test Item Value Reference Range Interpretation Comments Monocytes # (Auto) (test code = 742-7) 0.8 0.2-0.8 [facility]stEosinophils # (Auto)2018-10-02 05:49:00* Test Item Value Reference Range Interpretation Comments Eosinophils # (Auto) (test code = 711-2) 0.2 0.0-0.4 [facility]stBasophils # (Auto)2018-10-02 05:49:00* Test Item Value Reference Range Interpretation Comments Basophils # (Auto) (test code = 704-7) 0.1 0.0-0.1 [facility]stAbsolute Immature Granulocyte (auto 2018-10-02 05:49:00* Test Item Value Reference Range Interpretation Comments Absolute Immature Granulocyte (auto (earle t code = Absolute Immature Granulocyte (auto) 0.05 0-0.1 [facility]stClostridium Difficile Toxin A & B 2018-10-01 11:15:00* Test Item Value Reference Range Interpretation Comments Clostridium Difficile Toxin A & B (test code = 904460899) NEGATIVE NEGATIVE Testing on stool aspirate specimens is outside special education assistant claims since specime n type not validated on this assay.[facility] Hospitalodium Yxkfp2872-13-45 05:43:00* Test Item Value Reference Range Interpretation Comments Sodium Level (test code = 2951-2) 136 136-145 [facility]stPotassium Nlccz7159-54-91 05:43:00* Test Item Value Reference Range Interpretation Comments Potassium Level (test code = 2823-3) 4.1 3.5-5.1 [facility]stChloride Xhhtz8830-77-24 05:43:00* Test Item Value Reference Range Interpretation Comments Chloride Level (test code = 2075-0) 110 98-107 H [facility] Hill[facility]stCarbon Dioxide Mrmpa8995-67-28 05:43:00* Test Item Value Reference Range Interpretation Comments Carbon Dioxide Level (test code = 2028-9) 17 22-29 L [facility] Hill[facility]stAnion Eyo2482-03-78 05:43:00* Test Item Value Reference Range Interpretation Comments Anion Gap (test code = 30901-5) 13.1 8-16 [facility] Hill[facility]stBlood Urea Dhdoowvs2578-02-43 05:43:00* Test Item Value Reference Range Interpretation Comments Blood Urea Nitrogen (test code = 3094-0) 23 7-26 [facility]stCreatinine2018-12-07 05:43:00* Test Item Value Reference Range Interpretation Comments Creatinine (test code = 2160-0) 1.02 0.72-1.25 [facility]stBUN/Creatinine Wudab2488-37-99 05:43:00* Test Item Value Reference Range Interpretation Comments BUN/Creatinine Ratio (test code = 3097-3) 23 6-25 [facility] HillcrestEstimat Glomerular Filtration Rate 2018-10-01 05:43:00* Test Item Value Reference Range Interpretation Comments Estimat Glomerular Filtration Rate (test code = 782986949) > 60 >60 Ranges were taken from the National Kidney Disease Education Program and the [facility] Kidney Foundation literature.Reference ranges:60 or greater: Cytcvn97-38 ( for 3 consecutive months): Chronic kidney disease 15 or less: Kidney failureBaylor Scott & White Medical Center – HillcrestGlucose Zapne1424-95-59 05:43:00* Test Item Value Reference Range Interpretation Comments Glucose Level (test code = SAK9696) 152 74-118 H [facility]stCalcium Hqxxb2051-75-66 05:43:00* Test Item Value Reference Range Interpretation Comments Calcium Level (test code = 33578-7) 8.4 8.4-10.2 [facility] Hill[facility]stTotal Rfqkshzww6611-68-87 05:43:00* Test Item Value Reference Range Interpretation Comments Total Bilirubin (test code = 1975-2) 0.9 0.2-1.2 [facility] HillcrestAspartate Amino Transf (AST/SGOT) 2018-10-01 05:43:00* Test Item Value Reference Range Interpretation Comments Aspartate Amino Transf (AST/SGOT) (test code = Aspartate Amino Transf (AST/SGOT)) 43 5-34 H [facility] HillcrestAlanine Aminotransferase (ALT/SGPT) 2018-10-01 05:43:00* Test Item Value Reference Range Interpretation Comments Alanine Aminotransferase (ALT/SGPT) (test code = 1742-6) 33 0-55 [facility] Hill[facility]stTotal Hlhudwg3494-14-66 05:43:00* Test Item Value Reference Range Interpretation Comments Total Protein (test code = 2885-2) 6.6 6.5-8.1 [facility] HillcrestAlbumin2018-12-07 05:43:00* Test Item Value Reference Range Interpretation Comments Albumin (test code = 1751-7) 3.1 3.5-5.0 L [facility] HillcrestGlobulin2018-12-07 05:43:00* Test Item Value Reference Range Interpretation Comments Globulin (test code = 04684-4) 3.5 2.3-3.5 [facility] Hill[facility]stAlbumin/Globulin Sfslk9007-89-44 05:43:00 * Test Item Value Reference Range Interpretation Comments Albumin/Globulin Ratio (test code = 1759-0) 0.9 0.8-2.0 [facility] Hill[facility]stAlkaline Lffjddigdwa4450-26-08 05:43:00* Test Item Value Reference Range Interpretation Comments Alkaline Phosphatase (test code = 6768-6) 159 40-150 H [facility] HillcrestCT ABDOMEN/PELVIS ZE9201-71-71 22:55:00 [facility] [address] [place] [address] Patient Name: PARDEEP VERDE MR #: [id number] : 1950 Age/Sex: 68/M Req #: [id number] Adm Physician: Ordered by: SOLOMON OJEDA OLDER WORKER SPECIALIST Report #: [id number] Location: ER Room/Bed: Procedure: [id number] CT/ CT ABDOMEN/PELVIS WO Exam Date: 09/30/18 Exam Time: 2158 REPORT STATUS: Signed EXAM: CT ABDOMEN/PELVIS WO DATE: 09/30/2018 6:44 PM INDICATION: Abdominal pain, nausea, vomiting COMPARISON: None TECHNIQUE: The abdomen and pelvis were scanned using a multidetector helical scanner. Coronal and sagittal reformatio ns were obtained. CT low dose techniques were utilized, as applicable. IV C ontrast: 0 ml Isovue 300/370 Oral contrast was administered. FINDINGS: Lack of IV contrast decreases sensitivity in evaluating abdominal and pelvic organs. LOWER THORAX: Scattered peripheral reticular opacities, likely scarrin g. Nonspecific 5 mm right lower lobe nodule on image 10. LIVER/BILIARY: N odular liver contour with hypertrophy of the caudate and left lateral segment. GALLBLADDER: Unremarkable SPLEEN: Unremarkable PANCREAS: Unremarkable ADRENALS: No nodules KIDNEYS: No stones. No hydronephrosis. GI TR ACT: No wall thickening or evidence of obstruction. Diverticulosis. Normal elizabeth endix. VESSELS: Moderate to severe aortic and iliac atherosclerotic calcifi cations. PERITONEUM/RETROPERITONEUM: No free air or fluid LYMPH NODES: No ly mphadenopathy REPRODUCTIVE ORGANS/BLADDER: Unremarkable SOFT TISSUES: Bilateral fat-containing inguinal hernias. Subcutaneous stranding anteriorly, likely inflammatory. BONES: Scattered degenerative changes, worse at L4-5 with disc bulge. IMPRESSION: 1. No acute abnormality in the abdomen or pelvis. 2. Morphologic changes which can be seen with cirrhosis/chronic liver disease. Signed by: Dr Kate Frank MD on 09/30/2018 11:00 PM Dictated By: KATE FRANK MD 2 300 Transcribed By: NEMO on 09/30/18 2300 COPY TO: SOLOMON OJEDA P Urine BAZ0669-02-73 21:03:00* Test Item Value Reference Range Interpretation Comments Urine WBC (test code = 5821-4) 0-5 0-5 [facility] Hill[facility]stUrine GPW9356-73-82 21:03:00* Test Item Value Reference Range Interpretation Comments Urine RBC (test code = 23562-1) 0-5 0-5 [facility] Hill[facility]stUrine Esjoabwa6259-27-36 21:03:00* Test Item Value Reference Range Interpretation Comments Urine Bacteria (test code = 57953-5) MANY NONE H [facility] HillcrestUrine Epithelial Lwyqd1458-15-49 21:03:00 * Test Item Value Reference Range Interpretation Comments Urine Epithelial Cells (test code = 72194-5) FEW NONE [facility] HillcrestUrine Krxsa7107-83-18 20:37:00* Test Item Value Reference Range Interpretation Comments Urine Color (test code = 5778-6) YELLOW YELLOW [facility] HillcrestUrine Ibqzctq4890-48-18 20:37:00* Test Item Value Reference Range Interpretation Comments Urine Clarity (test code = 88100-3) CLEAR CLEAR [facility] Specific Uqdfaqb3861-80-36 20:37:00 * Test Item Value Reference Range Interpretation Comments Urine Specific Gaylord (test code = 5811-5) 1.025 1.010-1.02 5 [facility] HillcrestUrine yH7145-83-84 20:37:00* Test Item Value Reference Range Interpretation Comments Urine pH (test code = 99065-8) 6 5-7 [facility] HillcrestUrine Leukocyte Jbouxayl4605-86-44 20:37:00* Test Item Value Reference Range Interpretation Comments Urine Leukocyte Esterase (test code = 5799-2) NEGATIVE NEGATIVE [facility] HillcrestUrine Fmztyue3520-81-37 20:37:00* Test Item Value Reference Range Interpretation Comments Urine Nitrite (test code = 52841-5) NEGATIVE NEGATIVE [facility] HillcrestUrine Ajeepaq9624-88-98 20:37:00* Test Item Value Reference Range Interpretation Comments Urine Protein (test code = 5804-0) 2+ NEGATIVE H [facility] HillcrestUrine Glucose (UA)2018-09-30 20:37:00* Test Item Value Reference Range Interpretation Comments Urine Glucose (UA) (test code = 2349-9) NEGATIVE NEGATIVE [facility] HillcrestUrine Lglbkou7088-27-40 20:37:00* Test Item Value Reference Range Interpretation Comments Urine Ketones (test code = 30481-5) NEGATIVE NEGATIVE [facility] HillcrestUrine Tvcgcubjjjhf4692-35-82 20:37:00* Test Item Value Reference Range Interpretation Comments Urine Urobilinogen (test code = 88875-0) 0.2 0.2-1 [facility] HillcrestUrine Xnoakogqb7177-45-83 20:37:00* Test Item Value Reference Range Interpretation Comments Urine Bilirubin (test code = 1978-6) 1+ NEGATIVE H Confirmatory test currently unavailable. False positive results may occur.[facility]stUrine Tsjcy0905-95-75 20:37:00* Test Item Value Reference Range Interpretation Comments Urine Blood (test code = 00172-6) NEGATIVE NEGATIVE [facility] HillcrestProthrombin Oiga0361-76-01 20:01:00* Test Item Value Reference Range Interpretation Comments Prothrombin Time (test code = 5902-2) 13.4 11.9-14.5 [facility] HillcrestProthromb Time International Ratio 2018-09-30 20:01:00* Test Item Value Reference Range Interpretation Comments Prothromb Time International Ratio (test code = 6301-6) 0.94 Oral Anticoagulant Therapy INR Values:1. Low Intensity Therapy 1.5 - 2.02 . Moderate Intensity Therapy 2.0 - 3.03. High Intensity Therapy(1) 2.5 - 3. 54. High Intensity Therapy(2) 3.0 - 4.05. Panic Value INR > 5.0 [facility] HillcrestActivated Partial Thromboplast Time 2018-09-30 20:01:00* Test Item Value Reference Range Interpretation Comments Activated Partial Thromboplast Time (test code = 03391-1) 31.2 23.8-35.5 [facility] Hill[facility]stCreatine Kinase PB2330-73-11 20:00:00* Test Item Value Reference Range Interpretation Comments Creatine Kinase MB (test code = 71144-8) 1.10 0-5.0 [facility] Hill[facility]stTroponin F9878-60-88 20:00:00* Test Item Value Reference Range Interpretation Comments Troponin I (test code = VOV4798) < 0.001 0-0.300 [facility] Hill[facility]stCHEST SINGLE (PORTABLE)2018-09-30 19:55:[address], [place] [address] Patient Name: PARDEEP VERDE MR #: [id number] : 1950 Age/Sex: 68/M Req #: [id number] Adm Physician: Ordered by: SOLOMON OJEDA NP Report #: [id number] Location: ER Room/Bed: Procedure: [id number] DX/ CHEST SINGLE (PORTABLE) Exam Date: 09/30/18 Exam Mendoza e: 1909 REPORT STATUS: Signed EX AMINATION: Chest PA and lateral views INDICATION: Chest pain. COMPARI SON: None FINDINGS: TUBES and LINES: None. LUNGS: Mild promin ence of the pulmonary vasculature bilaterally. Coarsening of the pulmonary int erstitium. PLEURA: No pleural effusion or pneumothorax. HEART AND MED IASTINUM: The cardiac silhouette is mildly enlarged. BONES AND SOFT TISSUE S: No acute osseous lesion. Soft tissues are unremarkable. UPPER ABDOME N: No free air under the diaphragm. IMPRESSION: Mild pulmonary venou s congestion. Mild interstitial edema versus interstitial lung disease changes . Signed by: Dr. Nick Benitez M.D. on 09/30/2018 7:56 PM Dictated By: GEOFFREY BENITEZ MD, MD 55 Transcribed By: NEMO on 09/30/181955 COPY TO: SOLOMON PRIEST OLDER WORKER SPECIALIST Lactic Acid Rqhfm9621-10-58 19:54:00* Test Item Value Reference Range Interpretation Comments Lactic Acid Level (test code = Lactic Acid Level) 22.8 4.5- 19.8 [facility]Creat[facility] Nrrybe8040-44-72 19:54:00* Test Item Value Reference Range Interpretation Comments Creatine Kinase (test code = 2157-6) 76 30-200 [facility] Hill[facility]stLipase2018-12-06 19:54:00* Test Item Value Reference Range Interpretation Comments Lipase (test code = 3040-3) 81 8-78 H [facility] HillcrestLactic Acid Qwxok0385-11-11 19:54:00* Test Item Value Reference Range Interpretation Comments Lactic Acid Level (test code = Lactic Acid Level) 22.8 4.5- 19.8 [facility] HospitalLactic Acid Kpwap0934-12-61 19:54:00* Test Item Value Reference Range Interpretation Comments Lactic Acid Level (test code = Lactic Acid Level) 22.8 4.5- 19.8 [facility] HospitalKNEE THREE VIEWS CMALUFMTY6978-74-44 13:09:00 [facility] [address] [place] [address] Patient Name: PARDEEP VERDE MR #: [id number] : 1950 Age/Sex: 68/M Req #: [id number] Adm Physician: Ordered by: PARDEEP BEAL MD Report #: [id number] Location: [facility] Room/Bed: Procedure: [id number] DX/KNEE THREE VIEWS BILATERAL Exam Date: 04/05/18 Exam Time: 1213 REPORT STAT US: Signed PROCEDURE: KNEE THREE VIEWS BILATERAL TECHNIQUE: AP, lateral and oblique views right and left knees. Total 6 radiograph. INDICATION: Falls COMPARISON: None. FINDINGS: Both knees are intact. Mild 3 comp artment joint space narrowing bilaterally, most dominant in both medial nicholas rtments. Small marginal osteophytes. No effusions. Regional soft tissues are unremarkable. 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 Dictated by: Kiko June M.D. on 04/05/2018 at 13:09 Electronically approved by: Kiko June M.D. on 04/05/2018 at 13:09 Dictated By: KIKO JUNE MD 1309 Transcribed By: ULYSSES on 04/05/18 1309 COPY TO: PARDEEP BEAL MD SP LUMBAR, COMPLETE MIN 8YM2508-57-98 13:07:00 [place] [address] Patient Name: PARDEEP VERDE MR #: [id number] : 1950 Age/Sex: 68/M Req #: [id number] Adm Physician: Ordered by: PARDEEP BEAL MD Report #: [id number] Location: [facility] Room/Bed: Procedure: [id number] DX/SP LUMBAR, COMPLETE MIN 4VW Exam Date: 04/05/18 Exam Time: 1240 REPORT STA TUS: Signed PROCEDURE: SP LUMBAR, COMPLETE MIN 4VW TECHNIQUE: AP, later al, coned-down lateral and bilateral oblique views lumbar spine: 5 radiograph s INDICATION: Falls COMPARISON: None. FINDINGS: 5 nonrib-bearing lumbar vertebral bodies. Normal vertebral body height. Multilevel degener ative disc disease as evidenced by endplate sclerosis with marginal osteophyt osis. The space narrowing most notable at L4-L5. Bilateral facet arthropathy at L5-S1. No spondylolysis. CONCLUSION: Mild multilevel degenerat philly disc disease and L5-S1 facet arthropathy. Moderate degenerative disc dise ase at L4-L5. Dictated by: Kiko June M.D. on 04/05/2018 at 13:07 Electronically approved by: Kiko June M.D. on 04/05/20 18 at 13:07 Dictated By: KIKO JUNE MD Electronically Sig heather By: KIKO JUNE MD on 04/05/18 1307 Transcribed By: ULYSSES on 04/05/18 13 07 COPY TO: PARDEEP BEAL MD Vitamin B1 Zfkab6923-33-02 09:21:00 * Test Item Value Reference Range Interpretation Comments Vitamin B1 Level (test code = 08534-8) 121.8 Reference Range:66.5 - 200.0 nmol/L Disclaimer: This test was developed and its performance characteristics determined by [employer]. It has not been cleared or a pproved by the Food and Drug Administration.Testing performed by:[employer] [address] [phone]. Kade Bustamante [facility] WorthVitamin B2 Sjigl2855-66-24 09:21:00* Test Item Value Reference Range Interpretation Comments Vitamin B2 Level (test code = 6695-1) 131 Reference Range:137 - 370 ug/LReference interval reflects flavinadeninedinucleot noemi (FAD), that accounts for approximately 90% of the total riboflavin in whole blood.Testing performed by:[facility] [address] [place], [place] [phone]: Seven Obando [facility] Hospitals of AmericaVitamin B1 Avfwm6667-65-84 09:21:00* Test Item Value Reference Range Interpretation Comments Vitamin B1 Level (test code = 99192-2) 121.8 Reference Range:66.5 - 200.0 nmol/L Disclaimer: This test was developed and its performance characteristics determined by [employer]. It has not been cleared or a pproved by the Food and Drug Administration.Testing performed by:[employer] [address] [phone]. Kade Bustamante [facility] WorthVitamin B2 Qaxcg8776-91-53 09:21:00* Test Item Value Reference Range Interpretation Comments Vitamin B2 Level (test code = 6695-1) 131 Reference Range:137 - 370 ug/LReference interval reflects flavinadeninedinucleot noemi (FAD), that accounts for approximately 90% of the total riboflavin in whole blood.Testing performed by:[facility] [address] [phone]: Seven Obando [facility] Hospitals of AmericaAnti-Nuclear Antibody Uiswsv8322-32-52 09:18:00* Test Item Value Reference Range Interpretation Comments Anti-Nuclear Antibody Screen (test code = 5048-4) Negative Reference Range:Negative <1:80Borderline 1:80Positive >1:80Testing performed by:[facility] [address] [phone]: Seven Obando [facility] Hospitals of AmericaAnti-Nuclear Antibody Qdtqbv4707-80-74 09:18:00* Test Item Value Reference Range Interpretation Comments Anti-Nuclear Antibody Screen (test code = 5048-4) Negative Reference Range:Negative <1:80Borderline 1:80Positive >1:80Testing performed by:fsboWOW[address] [id number]: Seven Obando [facility] CampusS-A/Ro Gmfvskpf1295-65-24 21:56:00* Test Item Value Reference Range Interpretation Comments SS-A/Ro Antibody (test code = DJD7957) -0.2 0.0-0.9 [facility] HospitalS-B/La Tvpqitnm6509-87-54 21:56:00* Test Item Value Reference Range Interpretation Comments SS-B/La Antibody (test code = BNG6865) 0.5 0.0-0.9 Performed at: [address] [id number] Director: Seven Obando MD, Phone: [phone] Scott & [facility] Medical Center – HillcrestRheumatoid Rohdgz1048-24-08 21:56:00* Test Item Value Reference Range Interpretation Comments Rheumatoid Factor (test code = 34728-1) -10.0 0.0-13.9 [facility] Hill[facility]stC-Reactive Fhynkpt0454-79-50 21:56:00* Test Item Value Reference Range Interpretation Comments C-Reactive Protein (test code = 1987-5) 2.2 0.0-4.9 Performed at: [address] [id number] Director: Seven Obando MD, Phone: [phone] Methodist Baytown HospitalS-A/Ro Plhwyyto8386-49-42 21:56:00* Test Item Value Reference Range Interpretation Comments SS-A/Ro Antibody (test code = RWO0792) <0.2 0.0-0.9 [facility] HospitalS-B/La Maoiarix8934-75-25 21:56:00* Test Item Value Reference Range Interpretation Comments SS-B/La Antibody (test code = TZS3555) 0.5 0.0-0.9 Performed at: [address] [id number] Director: Seven Obando MD, Phone: [phone] Scott & White Medical Center – HillcrestRheumatoid Oticzu5417-32-38 21:56:00* Test Item Value Reference Range Interpretation Comments Rheumatoid Factor (test code = 07405-0) <10.0 0.0-13.9 [facility] Hill[facility]stC-Reactive Fwvgxey0893-58-61 21:56:00* Test Item Value Reference Range Interpretation Comments C-Reactive Protein (test code = 1987-5) 2.2 0.0-4.9 Performed at: [address] [id number] Director: Seven Obando MD, Phone: [phone] [facility]ohn [facility] Kubbzte7475-98-97 12:12:00* Test Item Value Reference Range Interpretation Comments Bedside Glucose (test code = 05056-5) 241 70-120 H Meter ID: [id number] Spohn Hospital – [facility] Glucose 2018-02-04 12:12:00* Test Item Value Reference Range Interpretation Comments Bedside Glucose (test code = 20542-5) 241 70-120 H Meter ID: [id number] Methodist Baytown Hospitalodium Level 2018-02-04 07:03:00* Test Item Value Reference Range Interpretation Comments Sodium Level (test code = 2951-2) 140 136-145 [facility] HillcrestPotassium Aozkd6322-87-51 07:03:00* Test Item Value Reference Range Interpretation Comments Potassium Level (test code = 2823-3) 4.2 3.5-5.1 [facility] HillcrestChloride Otomm4889-37-52 07:03:00* Test Item Value Reference Range Interpretation Comments Chloride Level (test code = 2075-0) 108 98-107 H [facility] HillcrestCarbon Dioxide Qdljh2343-81-70 07:03:00* Test Item Value Reference Range Interpretation Comments Carbon Dioxide Level (test code = 2028-9) 24 22-29 [facility] HillcrestAnion Ujv8012-86-66 07:03:00* Test Item Value Reference Range Interpretation Comments Anion Gap (test code = 76925-8) 12.2 8-16 [facility]stBlood Urea Ufcquhiy6921-93-47 07:03:00* Test Item Value Reference Range Interpretation Comments Blood Urea Nitrogen (test code = 3094-0) 15 7-26 [facility]stCreatinine2018-04-12 07:03:00* Test Item Value Reference Range Interpretation Comments Creatinine (test code = 2160-0) 0.85 0.72-1.25 [facility]stBUN/Creatinine Kcxaj3417-78-48 07:03:00* Test Item Value Reference Range Interpretation Comments BUN/Creatinine Ratio (test code = 3097-3) 18 6-25 [facility] Hill[facility]stEstimat Glomerular Filtration Rate 2018-02-04 07:03:00* Test Item Value Reference Range Interpretation Comments Estimat Glomerular Filtration Rate (test code = 75722-6) 60- >60 Ranges were taken from the National Kidney Disease Education Program and the [facility] Foundation literature.Reference ranges:60 or greater: Xrewtd74-05 ( for 3 consecutive months): Chronic kidney disease 15 or less: [address] failureCH[facility] Patients [facility] CenterGlucose Pskqy9509-26-31 07:03:00* Test Item Value Reference Range Interpretation Comments Glucose Level (test code = EKH7797) 216 74-118 H [facility]stCalcium Nlnsy8184-75-31 07:03:00* Test Item Value Reference Range Interpretation Comments Calcium Level (test code = 14646-7) 8.9 8.4-10.2 [facility]odium Vgjsu4768-50-02 07:03:00* Test Item Value Reference Range Interpretation Comments Sodium Level (test code = 2951-2) 140 136-145 [facility]stPotassium Vylzs6900-32-27 07:03:00* Test Item Value Reference Range Interpretation Comments Potassium Level (test code = 2823-3) 4.2 3.5-5.1 [facility]stChloride Iscpo4582-95-51 07:03:00* Test Item Value Reference Range Interpretation Comments Chloride Level (test code = 2075-0) 108 98-107 H [facility]stCarbon Dioxide Cqvxq6761-12-46 07:03:00* Test Item Value Reference Range Interpretation Comments Carbon Dioxide Level (test code = 2028-9) 24 22-29 [facility]stAnion Hyq4553-14-77 07:03:00* Test Item Value Reference Range Interpretation Comments Anion Gap (test code = 79873-6) 12.2 8-16 [facility]stBlood Urea Zfampmrw4593-06-06 07:03:00* Test Item Value Reference Range Interpretation Comments Blood Urea Nitrogen (test code = 3094-0) 15 7-26 [facility]stCreatinine2018-04-12 07:03:00* Test Item Value Reference Range Interpretation Comments Creatinine (test code = 2160-0) 0.85 0.72-1.25 [facility]stBUN/Creatinine Cclle3743-90-55 07:03:00* Test Item Value Reference Range Interpretation Comments BUN/Creatinine Ratio (test code = 3097-3) 18 6-25 [facility]stEstimat Glomerular Filtration Rate 2018-02-04 07:03:00* Test Item Value Reference Range Interpretation Comments Estimat Glomerular Filtration Rate (test code = 376695334) 60- >60 Ranges were taken from the National Kidney Disease Education Program and the [facility] Kidney Foundation literature.Reference ranges:60 or greater: Ofctdq07-66 ( for 3 consecutive months): Chronic kidney disease 15 or less: Kidney failureBaylor Scott & [facility]crestGlucose Texma0262-19-20 07:03:00* Test Item Value Reference Range Interpretation Comments Glucose Level (test code = VBQ4617) 216 74-118 H [facility]stCalcium Izggq4480-72-94 07:03:00* Test Item Value Reference Range Interpretation Comments Calcium Level (test code = 90827-5) 8.9 8.4-10.2 [facility]stVitamin B12 Aomzm0346-42-12 20:27:00* Test Item Value Reference Range Interpretation Comments Vitamin B12 Level (test code = 29632-8) 245 213-816 [facility]stFolate2018-04-11 20:27:00* Test Item Value Reference Range Interpretation Comments Folate (test code = 2284-8) 3.6 7.0-15.4 L [facility]stVitamin B12 Ixjfs1337-02-33 20:27:00* Test Item Value Reference Range Interpretation Comments Vitamin B12 Level (test code = 35474-3) 245 213-816 [facility]stFolate2018-04-11 20:27:00* Test Item Value Reference Range Interpretation Comments Folate (test code = 2284-8) 3.6 7.0-15.4 L [facility]stVitamin B12 Shegi6617-81-56 20:27:00* Test Item Value Reference Range Interpretation Comments Vitamin B12 Level (test code = 88641-4) 245 213-816 [facility]stFolate2018-04-11 20:27:00* Test Item Value Reference Range Interpretation Comments Folate (test code = 2284-8) 3.6 7.0-15.4 L [facility]stErythrocyte Sedimentation Quta0338-13-16 20:14:00* Test Item Value Reference Range Interpretation Comments Erythrocyte Sedimentation Rate (test code = 4537-7) 3 0- 13 [facility]stErythrocyte Sedimentation Vvvd5493-03-48 20:14:00* Test Item Value Reference Range Interpretation Comments Erythrocyte Sedimentation Rate (test code = 4537-7) 3 0- 13 [facility]stErythrocyte Sedimentation Dicd7191-60-56 20:14:00* Test Item Value Reference Range Interpretation Comments Erythrocyte Sedimentation Rate (test code = 4537-7) 3 0- 13 [facility]stThyroid Stimulating Hormone (TSH) 2018-02-03 20:12:00* Test Item Value Reference Range Interpretation Comments Thyroid Stimulating Hormone (TSH) (test code = 97968-2) 5.077 0.350-4.940 H [facility]stThyroid Stimulating Hormone (TSH) 2018-02-03 20:12:00* Test Item Value Reference Range Interpretation Comments Thyroid Stimulating Hormone (TSH) (test code = 82609-8) 5.077 0.350-4.940 H [facility]stThyroid Stimulating Hormone (TSH) 2018-02-03 20:12:00* Test Item Value Reference Range Interpretation Comments Thyroid Stimulating Hormone (TSH) (test code = 98046-7) 5.077 0.350-4.940 H [facility]stHemoglobin A1c Mpitrbg1414-94-94 19:44:00 * Test Item Value Reference Range Interpretation Comments Hemoglobin A1c Percent (test code = Hemoglobin A1c Percent) 7.3 4.0-7.0 H [facility]stHemoglobin A1c Ccpsnhf2230-96-28 19:44:00 * Test Item Value Reference Range Interpretation Comments Hemoglobin A1c Percent (test code = Hemoglobin A1c Percent) 7.3 4.0-7.0 H [facility]stHemoglobin A1c Igwnfhw1600-99-36 19:44:00 * Test Item Value Reference Range Interpretation Comments Hemoglobin A1c Percent (test code = Hemoglobin A1c Percent) 7.3 4.0-7.0 H [facility]stTotal Cddbpuihh6203-67-33 20:55:00* Test Item Value Reference Range Interpretation Comments Total Bilirubin (test code = 1975-2) 0.4 0.2-1.2 [facility] Hill[facility]stAspartate Amino Transf (AST/SGOT) 2018-02-02 20:55:00* Test Item Value Reference Range Interpretation Comments Aspartate Amino Transf (AST/SGOT) (test code = Aspartate Amino Transf (AST/SGOT)) 54 5-34 H [facility]stAlanine Aminotransferase (ALT/SGPT) 2018-02-02 20:55:00* Test Item Value Reference Range Interpretation Comments Alanine Aminotransferase (ALT/SGPT) (test code = 1742-6) 39 0-55 [facility]stTotal Uffqcvf8458-12-18 20:55:00* Test Item Value Reference Range Interpretation Comments Total Protein (test code = 2885-2) 7.3 6.5-8.1 [facility]stAlbumin2018-04-10 20:55:00* Test Item Value Reference Range Interpretation Comments Albumin (test code = 1751-7) 3.7 3.5-5.0 [facility]stGlobulin2018-04-10 20:55:00* Test Item Value Reference Range Interpretation Comments Globulin (test code = 95955-2) 3.6 2.3-3.5 H [facility]stAlbumin/Globulin Rnrej5393-14-71 20:55:00 * Test Item Value Reference Range Interpretation Comments Albumin/Globulin Ratio (test code = 1759-0) 1.0 0.8-2.0 [facility]stAlkaline Oejowojtajp3218-59-06 20:55:00* Test Item Value Reference Range Interpretation Comments Alkaline Phosphatase (test code = 6768-6) 116 40-150 [facility]stTotal Bdrtugvno6812-38-25 20:55:00* Test Item Value Reference Range Interpretation Comments Total Bilirubin (test code = 1975-2) 0.4 0.2-1.2 [facility] Hill[facility]stAspartate Amino Transf (AST/SGOT) 2018-02-02 20:55:00* Test Item Value Reference Range Interpretation Comments Aspartate Amino Transf (AST/SGOT) (test code = Aspartate Amino Transf (AST/SGOT)) 54 5-34 H [facility]stAlanine Aminotransferase (ALT/SGPT) 2018-02-02 20:55:00* Test Item Value Reference Range Interpretation Comments Alanine Aminotransferase (ALT/SGPT) (test code = 1742-6) 39 0-55 [facility]stTotal Usmcghq1082-57-58 20:55:00* Test Item Value Reference Range Interpretation Comments Total Protein (test code = 2885-2) 7.3 6.5-8.1 [facility]stAlbumin2018-04-10 20:55:00* Test Item Value Reference Range Interpretation Comments Albumin (test code = 1751-7) 3.7 3.5-5.0 [facility]stGlobulin2018-04-10 20:55:00* Test Item Value Reference Range Interpretation Comments Globulin (test code = 81150-8) 3.6 2.3-3.5 H [facility]stAlbumin/Globulin Ecgha8521-00-60 20:55:00 * Test Item Value Reference Range Interpretation Comments Albumin/Globulin Ratio (test code = 1759-0) 1.0 0.8-2.0 [facility] Hill[facility]stAlkaline Mnlogtomald3968-14-76 20:55:00* Test Item Value Reference Range Interpretation Comments Alkaline Phosphatase (test code = 6768-6) 116 40-150 [facility]stWhite Blood Naufk3449-27-24 20:40:00* Test Item Value Reference Range Interpretation Comments White Blood Count (test code = 6690-2) 9.62 4.8-10.8 [facility] Hill[facility]stRed Blood Vwngf4886-11-04 20:40:00* Test Item Value Reference Range Interpretation Comments Red Blood Count (test code = 789-8) 4.22 4.3-5.7 L [facility]stHemoglobin2018-04-10 20:40:00* Test Item Value Reference Range Interpretation Comments Hemoglobin (test code = 79427-0) 13.6 14.0-18.0 L [facility]stHematocrit2018-04-10 20:40:00* Test Item Value Reference Range Interpretation Comments Hematocrit (test code = 4544-3) 40.1 38.2-49.6 [facility]stMean Corpuscular Eyhtoc9898-95-95 20:40:00* Test Item Value Reference Range Interpretation Comments Mean Corpuscular Volume (test code = 787-2) 95.0 81-99 [facility] Hill[facility]stMean Corpuscular Fduqkyuejy0321-82-38 20:40:00* Test Item Value Reference Range Interpretation Comments Mean Corpuscular Hemoglobin (test code = 785-6) 32.2 28-32 H [facility]stMean Corpuscular Hemoglobin Concent 2018-02-02 20:40:00* Test Item Value Reference Range Interpretation Comments Mean Corpuscular Hemoglobin Concent (test code = 786-4) 33.9 31-35 [facility] Hill[facility]stRed Cell Distribution Zbkit8139-94-35 20:40:00* Test Item Value Reference Range Interpretation Comments Red Cell Distribution Width (test code = 06773-7) 12.2 11.7 -14.4 [facility] Hill[facility]stPlatelet Kedfr2956-44-93 20:40:00* Test Item Value Reference Range Interpretation Comments Platelet Count (test code = 777-3) 146 140-360 [facility]stNeutrophils (%) (Auto)2018-02-02 20:40:00 * Test Item Value Reference Range Interpretation Comments Neutrophils (%) (Auto) (test code = 47875-9) 61.0 38.7-80.0 [facility]stLymphocytes (%) (Auto)2018-02-02 20:40:00 * Test Item Value Reference Range Interpretation Comments Lymphocytes (%) (Auto) (test code = 736-9) 30.6 18.0-39.1 [facility]stMonocytes (%) (Auto)2018-02-02 20:40:00* Test Item Value Reference Range Interpretation Comments Monocytes (%) (Auto) (test code = 5905-5) 6.2 4.4-11.3 [facility]stEosinophils (%) (Auto)2018-02-02 20:40:00 * Test Item Value Reference Range Interpretation Comments Eosinophils (%) (Auto) (test code = 713-8) 1.2 0.0-6.0 [facility]stBasophils (%) (Auto)2018-02-02 20:40:00* Test Item Value Reference Range Interpretation Comments Basophils (%) (Auto) (test code = 706-2) 0.6 0.0-1.0 [facility] Hill[facility]stIM GRANULOCYTES %2018-02-02 20:40:00* Test Item Value Reference Range Interpretation Comments IM GRANULOCYTES % (test code = IM GRANULOCYTES %) 0.4 0.0- 1.0 [facility]stNeutrophils # (Auto)2018-02-02 20:40:00* Test Item Value Reference Range Interpretation Comments Neutrophils # (Auto) (test code = 751-8) 5.9 2.1-6.9 [facility]stLymphocytes # (Auto)2018-02-02 20:40:00* Test Item Value Reference Range Interpretation Comments Lymphocytes # (Auto) (test code = 00676-8) 2.9 1.0-3.2 [facility]stMonocytes # (Auto)2018-02-02 20:40:00* Test Item Value Reference Range Interpretation Comments Monocytes # (Auto) (test code = 742-7) 0.6 0.2-0.8 [facility]stEosinophils # (Auto)2018-02-02 20:40:00* Test Item Value Reference Range Interpretation Comments Eosinophils # (Auto) (test code = 711-2) 0.1 0.0-0.4 [facility]stBasophils # (Auto)2018-02-02 20:40:00* Test Item Value Reference Range Interpretation Comments Basophils # (Auto) (test code = 704-7) 0.1 0.0-0.1 [facility]stAbsolute Immature Granulocyte (auto 2018-02-02 20:40:00* Test Item Value Reference Range Interpretation Comments Absolute Immature Granulocyte (auto (earle t code = Absolute Immature Granulocyte (auto) 0.04 0-0.1 [facility]stWhite Blood Nkgze4097-77-19 20:40:00* Test Item Value Reference Range Interpretation Comments White Blood Count (test code = 6690-2) 9.62 4.8-10.8 [facility] Hill[facility]stRed Blood Dalah3613-61-17 20:40:00* Test Item Value Reference Range Interpretation Comments Red Blood Count (test code = 789-8) 4.22 4.3-5.7 L [facility]stHemoglobin2018-04-10 20:40:00* Test Item Value Reference Range Interpretation Comments Hemoglobin (test code = 24008-7) 13.6 14.0-18.0 L [facility]stHematocrit2018-04-10 20:40:00* Test Item Value Reference Range Interpretation Comments Hematocrit (test code = 4544-3) 40.1 38.2-49.6 [facility]stMean Corpuscular Gjvliu3587-88-73 20:40:00* Test Item Value Reference Range Interpretation Comments Mean Corpuscular Volume (test code = 787-2) 95.0 81-99 [facility]stMean Corpuscular Nnoskfvcga0217-50-44 20:40:00* Test Item Value Reference Range Interpretation Comments Mean Corpuscular Hemoglobin (test code = 785-6) 32.2 28-32 H [facility]stMean Corpuscular Hemoglobin Concent 2018-02-02 20:40:00* Test Item Value Reference Range Interpretation Comments Mean Corpuscular Hemoglobin Concent (test code = 786-4) 33.9 31-35 [facility] Hill[facility]stRed Cell Distribution Lfqzo1262-57-31 20:40:00* Test Item Value Reference Range Interpretation Comments Red Cell Distribution Width (test code = 59987-6) 12.2 11.7 -14.4 [facility]stPlatelet Xoxjg2392-44-16 20:40:00* Test Item Value Reference Range Interpretation Comments Platelet Count (test code = 777-3) 146 140-360 [facility]stNeutrophils (%) (Auto)2018-02-02 20:40:00 * Test Item Value Reference Range Interpretation Comments Neutrophils (%) (Auto) (test code = 76614-3) 61.0 38.7-80.0 [facility]stLymphocytes (%) (Auto)2018-02-02 20:40:00 * Test Item Value Reference Range Interpretation Comments Lymphocytes (%) (Auto) (test code = 736-9) 30.6 18.0-39.1 [facility]stMonocytes (%) (Auto)2018-02-02 20:40:00* Test Item Value Reference Range Interpretation Comments Monocytes (%) (Auto) (test code = 5905-5) 6.2 4.4-11.3 [facility]stEosinophils (%) (Auto)2018-02-02 20:40:00 * Test Item Value Reference Range Interpretation Comments Eosinophils (%) (Auto) (test code = 713-8) 1.2 0.0-6.0 [facility]stBasophils (%) (Auto)2018-02-02 20:40:00* Test Item Value Reference Range Interpretation Comments Basophils (%) (Auto) (test code = 706-2) 0.6 0.0-1.0 [facility]stIM GRANULOCYTES %2018-02-02 20:40:00* Test Item Value Reference Range Interpretation Comments IM GRANULOCYTES % (test code = IM GRANULOCYTES %) 0.4 0.0- 1.0 [facility]stNeutrophils # (Auto)2018-02-02 20:40:00* Test Item Value Reference Range Interpretation Comments Neutrophils # (Auto) (test code = 751-8) 5.9 2.1-6.9 [facility]stLymphocytes # (Auto)2018-02-02 20:40:00* Test Item Value Reference Range Interpretation Comments Lymphocytes # (Auto) (test code = 58166-8) 2.9 1.0-3.2 [facility]stMonocytes # (Auto)2018-02-02 20:40:00* Test Item Value Reference Range Interpretation Comments Monocytes # (Auto) (test code = 742-7) 0.6 0.2-0.8 [facility]stEosinophils # (Auto)2018-02-02 20:40:00* Test Item Value Reference Range Interpretation Comments Eosinophils # (Auto) (test code = 711-2) 0.1 0.0-0.4 [facility]stBasophils # (Auto)2018-02-02 20:40:00* Test Item Value Reference Range Interpretation Comments Basophils # (Auto) (test code = 704-7) 0.1 0.0-0.1 [facility]stAbsolute Immature Granulocyte (auto 2018-02-02 20:40:00* Test Item Value Reference Range Interpretation Comments Absolute Immature Granulocyte (auto (earle t code = Absolute Immature Granulocyte (auto) 0.04 0-0.1 [facility] Hill[facility]stProthrombin Iijq3869-11-42 14:18:00* Test Item Value Reference Range Interpretation Comments Prothrombin Time (test code = 5902-2) 12.9 11.9-14.5 [facility] Hill[facility]stProthromb Time International Ratio 2017-10-06 14:18:00* Test Item Value Reference Range Interpretation Comments Prothromb Time International Ratio (test code = 6301-6) 0.93 Oral Anticoagulant Therapy INR Values:1. Low Intensity Therapy 1.5 - 2.02 . Moderate Intensity Therapy 2.0 - 3.03. High Intensity Therapy(1) 2.5 - 3. 54. High Intensity Therapy(2) 3.0 - 4.05. Panic Value INR > 5.0 [facility] Hill[facility]stProthrombin Gteq2510-07-75 14:18:00* Test Item Value Reference Range Interpretation Comments Prothrombin Time (test code = 5902-2) 12.9 11.9-14.5 [facility]stProthromb Time International Ratio 2017-10-06 14:18:00* Test Item Value Reference Range Interpretation Comments Prothromb Time International Ratio (test code = 6301-6) 0.93 Oral Anticoagulant Therapy INR Values:1. Low Intensity Therapy 1.5 - 2.02 . Moderate Intensity Therapy 2.0 - 3.03. High Intensity Therapy(1) 2.5 - 3. 54. High Intensity Therapy(2) 3.0 - 4.05. Panic Value INR > 5.0 [facility] Hill[facility]stTriglycerides Njaol3312-46-93 13:58:00* Test Item Value Reference Range Interpretation Comments Triglycerides Level (test code = 2571-8) 328 0-149 H [facility]stCholesterol Nhjwf7866-09-51 13:58:00* Test Item Value Reference Range Interpretation Comments Cholesterol Level (test code = 2093-3) 154 0-199 Less than 200 mg/dL Low Ulug297 - 239 mg/dL Borderline Arhv559 m g/dl and greater High Risk [facility] HillcrestLDL Svonigeqzih2350-24-69 13:58:00* Test Item Value Reference Range Interpretation Comments LDL Cholesterol (test code = 2089-1) 62 60-130 [facility] Hill[facility]stHDL Fdycrvmckkt7473-10-06 13:58:00* Test Item Value Reference Range Interpretation Comments HDL Cholesterol (test code = 2085-9) 26 40-60 L [facility]stCholesterol/HDL Raqvx2066-12-21 13:58:00 * Test Item Value Reference Range Interpretation Comments Cholesterol/HDL Ratio (test code = 9830-1) 5.9 3.9-4.7 H [facility]stTriglycerides Xmzgo3061-06-61 13:58:00* Test Item Value Reference Range Interpretation Comments Triglycerides Level (test code = 2571-8) 328 0-149 H [facility]stCholesterol Wrnkn0500-99-91 13:58:00* Test Item Value Reference Range Interpretation Comments Cholesterol Level (test code = 2093-3) 154 0-199 Less than 200 mg/dL Low Sbwr893 - 239 mg/dL Borderline Txff030 m g/dl and greater High Risk [facility] Hill[facility]stLDL Ldpzcgsufoj8744-31-03 13:58:00* Test Item Value Reference Range Interpretation Comments LDL Cholesterol (test code = 2089-1) 62 60-130 [facility] Hill[facility]stHDL Gmsqsptfpng3118-66-95 13:58:00* Test Item Value Reference Range Interpretation Comments HDL Cholesterol (test code = 2085-9) 26 40-60 L [facility]stCholesterol/HDL Jmrqi3627-63-47 13:58:00 * Test Item Value Reference Range Interpretation Comments Cholesterol/HDL Ratio (test code = 9830-1) 5.9 3.9-4.7 H [facility]stUS RENAL RETROPERITONEAL COMP [facility] [address] [address] Patient Name: PARDEEP VERDE MR #: [id number] : Age/Sex: 68/M Req #: [id number] Adm Physician: PARDEEP MEJIA MD Ordered by: PARDEEP BEAL MD Report #: [id number] Location : MED/SURG Room/Bed: [facility] Procedure: [id number] US/US RENAL RETROPERITONEAL COMP Exam Date: 02/04/18 Exam Time: 1020 REPORT STATUS: Signed PROCEDURE: US RETROPERITONEAL ( KID LUCI ). COMPARISON: None. INDICATIONS: ARF TECHNIQUE: Urrutia-scale and co aldo sonographic images of the bilateral kidneys and bladder where obtained in transverse and longitudinal planes. FINDINGS: RIGHT KIDNEY: 1 1.3 cm, cortex 2.4 cm Cysts: None. Solid masses: None. Stones: None. Hyd ronephrosis: None. Echogenicity: Normal. LEFT KIDNEY: 10.5 cm, cortex 2. 3 cm Cysts: None. Solid masses: None. Stones: None. Hydronephrosis: None . Echogenicity: Normal. Bladder: Normal contour. Left ureteral jet was v isualized. Right ureteral jet was not visualized. Prostate: Normal. CONCLUSION: No acute sonographic abnormality. Dictated by: Emeka Pickett M.D. on 02/04/2018 at 11:57 Electronically approved by: Emeka park M.D. on 02/04/2018 at 11:57 Dictated By: EMEKA PICKETT MD Elect ronically Signed By: EMEKA PICKETT MD on 02/04/18 115 Transcribed By: ULYSSES on 0 02/04/18 1157 COPY TO: PARDEEP BEAL MD CT BRAIN WO [address] [address] Patient Name: PARDEEP VERDE MR #: [id number] : 1950 Age/Sex: 68/M Req #: [id number] Adm Physician: PARDEEP MEJIA MD Ordered by: PARDEEP BEAL MD Report #: [id number] Location : MED/SURG Room/Bed: [facility] Procedure: [id number] CT/CT BRAIN WO Exam Date: 02/02/18 Exam Time: 1999 REPORT STATUS: Signed EXAMINATION: Head CT without contrast. HISTOR Y:Near syncope. COMPARISON:None. TECHNIQUE: Multidetector axial images we re obtained from the foramen magnum to the [...] to small vessel ischemic changes. No acute h emorrhage, mass or acute major vascular territorial infarct. Arteries: No density suggestive of thrombosis. Dural sinuses: No abnormal density queen ggestive of thrombosis. Ventricles: Mild compensated dilatation due to vo lume loss. No hydrocephalus. Extra-axial spaces: No abnormal density. Brain volume: Normal for age. Craniocervical junction: No mass, Joseph ri malformation, or basilar invagination. Sella: No mass. Paranas al/mastoid sinuses: Imaged portions unremarkable. IMPRESSION: Suboptimal evaluation due to motion artifacts, despite the limitation no gross acute intr acranial abnormality. Mild supratentorial white matter microvascular ischem ic changes. Mild generalized cerebral volume loss. Signed by: Dr. Damaso Shearer M.D. on 02/02/2018 8:27 PM Dictated By: VENUS SHEARER MD E lectronically Signed By: VENUS SHEARER MD on 02/02/182026 Transcribed By: CONCHA DELGADO on 02/02/182026 COPY TO: PARDEEP BEAL MD
[2020-09-19] MEDS ORDERED: HYDROMORPHONE 1MG/1ML INJ IM ONE (17:47)
[2020-09-19] MEDS ORDERED: KETOROLAC TROMETHAMINE 30 MG/ML VIAL IM ONE (17:47)
--- NOTE | 2020-09-19 18:07 | Diagnostic Imaging Report ---
Exam: CT head without contrast, CT cervical spine without contrast History: 70-year-old male with head/neck pain following a fall. Comparison studies: Head CT 02/02/2018 Technique: Axial images were obtained from the brain and cervical spine. Coronal and sagittal images reconstructed from the axial data. Dose modulation, iterative reconstruction, and/or weight based adjustment of the mA/kV was utilized to reduce the radiation dose to as low as reasonably achievable. Intravenous contrast: None Findings: Head CT: Scalp/skull: No abnormalities. No fractures, blastic or lytic lesions. Brain sulci: Mildly prominent. Ventricles: Mild compensatory dilatation. No hydrocephalus. Extra-axial spaces: No masses. No fluid collections. Parenchyma: Nonspecific few, scattered supratentorial white matter hypodensity are likely related to small vessel ischemic changes. No masses, hemorrhage, acute or chronic cortical vascular insults. Sellar/suprasellar region: No abnormalities. Craniocervical junction: Patent foramen magnum. No Chiari one malformation. Cervical spine CT: Airway: Patent. Fractures: None. Soft tissues: No gross abnormalities. Atlantoaxial articulation: Intact. Advanced degenerative findings at the atlantoaxial interval. Alignment: Straightening of the usual cervical lordosis. Levoscoliotic curvature with the apex at C5. Cervicomedullary junction: No abnormalities. Patent foramen magnum. Vertebrae: No vertebral body fracture. Osseous fusion of C5-C6. Degenerative changes: Moderate degenerative changes of the cervical spine. Severe degenerative changes in the anterior atlantodental joint. C3-C4: Posterior disc osteophyte complex results in mild canal stenosis. Moderate right foraminal stenosis due to facet and uncovertebral arthrosis. C4-C5: Severe right foraminal stenosis due to facet and uncovertebral arthrosis. C6-C7: Posterior disc osteophyte complex results in mild canal stenosis. Mild right and severe left foraminal stenosis due to facet and uncovertebral arthrosis. Incidental findings: Atherosclerotic calcification in the bilateral carotid bulbs.. IMPRESSION: Head CT: No acute abnormalities. Chronic findings: Mild diffuse cerebral cortical volume loss. Mild supratentorial white matter microvascular ischemic changes. Cervical spine CT: 1. No acute fracture of the cervical spine. 2. Moderate degenerative findings of the cervical spine, as described above. 3. Cannot adequately evaluate for ligament, spinal cord and or vascular abnormalities. A preliminary report was given by neuroradiology fellow Dr. Card at 6:07 PM on 09/19/2020. I have reviewed the images and agree with findings on the preliminary report. Signed by: Dr. Ashli Shearer M.D. on 09/19/2020 8:23 PM
--- NOTE | 2020-09-19 18:21 | Diagnostic Imaging Report ---
SHOULDER LEFT COMPLETE, ELBOW LEFT AP LAT, HUMERUS LEFT 2+VIEWS - 3 views HISTORY: Pain status post fall. COMPARISON: None available. FINDINGS: Bones: There is a comminuted displaced impaction fracture of the left humeral neck. Degenerative changes of the elbow joint. There is mild deformity of the coronoid process of the ulna not well visualized due to positioning. Joints: The joint spaces are well-maintained. Soft tissues: The soft tissues appear unremarkable. IMPRESSION: Comminuted displaced impaction fracture of the left humeral neck. Signed by: Dr. Nick Benitez M.D. on 09/19/2020 6:17 PM
--- NOTE | 2020-09-19 18:24 | Diagnostic Imaging Report ---
WRIST COMPLETE LEFT - 3 views HISTORY: Pain status post fall. COMPARISON: None available. FINDINGS: Bones: There is a comminuted impaction fracture of the distal radial metadiaphysis, with intra-articular extension, and dorsal angulation. There is also lateral displacement of the distal fracture fragment. Joints: The joint spaces are well-maintained. Soft tissues: Overlying soft tissue swelling. Coarse calcification in the soft tissues of the ventral distal forearm. IMPRESSION: Comminuted impaction fracture of the distal radial metadiaphysis, with intra-articular extension, and dorsal angulation Signed by: Dr. Nick Benitez M.D. on 09/19/2020 6:20 PM
--- NOTE | 2020-09-19 18:26 | Diagnostic Imaging Report ---
EXAMINATION: CHEST SINGLE (NOT PORTABLE) INDICATION: Pain. Trauma. COMPARISON: 06/14/2020. FINDINGS: TUBES and LINES: None. LUNGS: There is diffuse coarsening of the pulmonary interstitium suture with honeycombing, increased since the prior examination consistent with interstitial lung disease/fibrosis. Parenchymal scarring in the left lower lobe, unchanged. PLEURA: No pleural effusion or pneumothorax. HEART AND MEDIASTINUM: The cardiomediastinal silhouette is stable. BONES AND SOFT TISSUES: No acute osseous lesion. Soft tissues are unremarkable. UPPER ABDOMEN: No free air under the diaphragm. IMPRESSION: Interval increase in bilateral pulmonary fibrosis. No acute abnormality. Signed by: Dr. Nick Benitez M.D. on 09/19/2020 6:23 PM
[2020-09-19 20:20] VITALS: BP 111/58
== END 2020-09-19 20:25 | disposition home or self-care (01) ==
LOC: ER 16:48
DX: S52.592A Other fractures of lower end of left radius, initial encounter for closed fracture (principal); M54.2 Cervicalgia; M25.512 Pain in left shoulder; W18.30XA Fall on same level, unspecified, initial encounter; Y93.89 Activity, other specified; Y92.008 Other place in unspecified non-institutional (private) residence as the place of occurrence of the external cause; I10 Essential (primary) hypertension; E11.9 Type 2 diabetes mellitus without complications; E78.5 Hyperlipidemia, unspecified; N18.9 Chronic kidney disease, unspecified; K76.9 Liver disease, unspecified; J44.9 Chronic obstructive pulmonary disease, unspecified
CPT/HCPCS: 29125; 70450; 71045; 72125; 73030; 73060; 73070; 73110; 99284; J1170; J1885

== ENCOUNTER 2020-09-23 18:17 | Emergency (ER) | payer MEDICARE, OTHER ==
[~2020-09-23] VITALS: Ht 165.1 cm; Wt 103.9 kg
--- NOTE | 2020-09-23 18:44 | Emergency Department Note ---
History of Present Illnes History of Present Illness Chief Complaint: Extremity Trauma/Pain History of Present Illness This is a 70 year old male arrived to the ED with complaints of left arm swelling, recent cast placement after a doral radius fracture several days ago. Chief Complaint Comment C/O OF LEFT ARM SWELLING,NUMBNESS AND TINGLING SINCE 09/21. PATIENT STATES HE HAS NOT BEEN KEEPING IT ELEVATED BECAUSE IT IS TOO HARD TO RAISE UP. PATIENT HAD VOLAR SPLINT PLACED 09/19. HE NOTICED ON 09/21 THAT THERE WAS INCREASED SWELLING AND BEGAN TO FEEL NUMB ON ENTIRE LEFT ARM. BECAUSE OF HOLIDAY AND WEEKEND HE HAS NOT BEEN IN TO SEE AN ORTHOPEDIC DOCTOR. IN TRIAGE, CAST REMOVED FOR DR. ARCINIEGA TO EVALUATE Historian: Patient Additional Treatment DATABASE CONSULTANT: NONE Onset (how long ago): day(s) Severity: mild Onset quality: sudden Duration (how long): day(s) Timing of current episode: constant Progression: worsening Chronicity: new Past Medical/Family History Physician Review I have reviewed the patient's past medical and family history. Any updates have been documented here. Past Medical History Recent Fever: No Clinical Suspicion of Infectio: No New/Unexplained Change in Ment: No Past Medical History: Hypertension, Diabetes, COPD, Liver Disease, Hyperlipedemia, Chronic Kidney Disease Other Medical History: LIVER CIRROHSIS Past Surgical History: Cataract Removal Other Surgery: BILATERAL EYE CATARACT Other Last Tetanus: UTD Review of Systems Review of Systems Constitutional: Reports no symptoms EENTM: Reports no symptoms Cardiovascular: Reports no symptoms Respiratory: Reports no symptoms Gastrointestinal: Reports no symptoms Genitourinary: Reports no symptoms Musculoskeletal: Reports as per HPI, Reports joint swelling Integumentary: Reports no symptoms Neurological: Reports no symptoms Psychological: Reports no symptoms Endocrine: Reports no symptoms Hematological/Lymphatic: Reports no symptoms Physical Exam Related Data Allergies: Coded Allergies: No Known Allergies (Unverified , 09/23/20) Triage Vital Signs Vital Signs Date Time Temp Pulse Resp B/P (MAP) Pulse Ox O2 Delivery O2 Flow Rate FiO2 09/23/20 18:27 Room Air Vital signs reviewed: Yes Physical Exam CONSTITUTIONAL Constitutional: Present well-developed, Present well-nourished HENT HENT: Present normocephalic, Present atraumatic, Present oropharynx clear/moist, Present nose normal HENT L/R: Present left ext ear normal, Present right ext ear normal EYES Eyes: Reports PERRL, Reports conjunctivae normal NECK Neck: Present ROM normal PULMONARY Pulmonary: Present effort normal, Present breath sounds normal CARDIOVASCULAR Cardiovascular: Present regular rhythm, Present heart sounds normal, Present capillary refill normal, Present normal rate GASTROINTESTINAL Abdominal: Present soft, Present nontender, Present bowel sounds normal GENITOURINARY Genitourinary: Present exam deferred SKIN Skin: Present other (+swelling over left wrist, ecchymosis noted over left upper extremity- +radial pulse, soft compartments) MUSCULOSKELETAL Musculoskeletal: Present ROM normal NEUROLOGICAL Neurological: Present alert, Present oriented x 3, Present no gross motor or sensory deficits PSYCHOLOGICAL Psychological: Present mood/affect normal, Present judgement normal Assessment & Plan Medical Decision Making CINDY 70 M arrived to the ED with complaints of left upper extremity swelling, cast noted to be too tight, replaced, patient placed in sling- instructed to keep arm above heart. Recommended outpt ortho follow up with in 24-48hrs. Assessment & Plan Final Impression: (1) Distal radius fracture, left Depart Disposition: HOME, SELF-CARE Last Vital Signs Date Time Temp Pulse Resp B/P (MAP) Pulse Ox O2 Delivery O2 Flow Rate FiO2 09/23/20 18:27 Room Air Home Meds Active Scripts Tramadol Hcl (ULTRAM) 50 Mg Tablet, 50 MG PO Q6HR PRN for MUSCLE SPASMS, #12 TAB Prov:ALBERTINA ARCINIEGA DO 09/23/20 Reported Medications Insulin Detemir (Levemir Flextouch) 100 Unit/1 Ml Insuln.pen, SC BID, UNIT 06/18/20 Metformin Hcl (METFORMIN HCL) 500 Mg Tablet, 500 MG PO BID, #60 TAB 06/02/19 Insulin Glargine (LANTUS 3ML PEN) 100 Units/1 Ml Inj, SQ BID 40 UNITS IN AM 50 UNITS AT NIGHT 05/03/19 Gabapentin (GABAPENTIN) 300 Mg Capsule, 300 MG PO TID 04/09/19 Lisinopril (LISINOPRIL) 10 Mg Tablet, 100 MG PO DAILY, #30 TAB 10/05/17 ALBERTINA ARCINIEGA DO Sep 23, 2020 18:44
[2020-09-23] MEDS ORDERED: ULTRAM50 MG PO (18:48)
--- OUTSIDE RECORDS SUMMARY | 2020-09-23 18:58 | XMS REPORT | Clinical Summary ---
Author Author [facility] Organization [facility] Address Unknown Phone Unavailable Care Team Providers Care Animal Control Officer Name Role Phone Lakia Otero DMD [phone] Allergies No Known Allergies Medications End [...] 2 times Xerosis cutis daily. Label in [place] Active fenofibrate TOME 1 90 tablet 3 [...] times daily Dermatophytosis of foot Label in [place]. Active metFORMIN (GLUCOPHAGE-XR) Take 1 tablet 180 [...] 08/01/2013 and Up Results Not on fileafter 09/23/2019 Insurance Type Payer Benefit Subscriber ID Effective Phone Address Plan / Dates Group [place] MEDICAID [id number] xxxxxxxxx 2016-P [phone] [id number] MEDICARE [place], [place] BENEFICIAR [id number] Y
--- OUTSIDE RECORDS SUMMARY | 2020-09-23 18:58 | XMS REPORT | Clinical Summary ---
Author Author [facility] Address Unknown Phone Unavailable Care Team Providers Care Automobile Accessories Installer Name Role Phone Pardeep Garduno MD PCP [phone] Allergies No Known Active Allergies Medications [...] Orders Only Orthopedic Surgery 07/13/2020 Travel after 09/23/2019 Surgical History Surgery Date Site/Laterality Comments INJECTION, STEROID, 08/28/2020 Right Procedure: Therapeutic Left TFESI of L4/5 and SPINE, LUMBAR, EPIDURAL, L3/4; Surgeon: Ramandeep Willingham MD; Location: [facility] OR; Service: Pain Management; Laterality: Right; Medical [...] Recorded COVID-19 Exposure Response 09/12/2020 5:59 PM TOILET AND LAUNDRY SOAP SUPERVISOR In the last month, have you been in contact with No / Unsure someone who was confirmed or suspected to have Coronavirus / COVID-19? Last Filed Vital Signs Reading Time Taken Comments Vital Sign 121/67 08/28/2020 8:28 AM TOILET AND LAUNDRY SOAP SUPERVISOR Blood Pressure 65 08/28/2020 8:28 AM TOILET AND LAUNDRY SOAP SUPERVISOR Pulse 36.4 C (97.5 F) 08/28/2020 8:04 AM TOILET AND LAUNDRY SOAP SUPERVISOR Temperature 19 08/28/2020 8:28 AM TOILET AND LAUNDRY SOAP SUPERVISOR Respiratory Rate 95% 08/28/2020 8:28 AM TOILET AND LAUNDRY SOAP SUPERVISOR Oxygen Saturation - - Inhaled Oxygen Concentration 89.4 kg (197 lb) 08/17/2020 2:19 PM CDT Weight 172.7 cm (5' 8") 08/17/2020 2:19 PM CDT Height 29.95 08/17/2020 2:19 PM CDT Body Mass Index Plan of Treatment Care Team Description Date Type Specialty ColmentRamandeep eaton MD [address] [facility] [address] [place], [place] [id number] 09/24/2020 Office Visit Orthopedic Surgery Health Maintenance Due Date Last Done Comments DIABETES: RETINAL EYE 1961 EXAM DIABETIC FOOT EXAM 1961 URINE MICROALBUMIN 1961 COLONOSCOPY SCREENING 2001 SHINGLES VACCINES (#1) 2001 65+ PNEUMOCOCCAL VACCINE 01/24/2016 (1 of 1 - PPSV23) INFLUENZA VACCINE 05/26/2020 Procedures Comments Procedure Name Priority Date/Time Associated Diag nosis ECG 12-LEAD Routine 08/28/2020 8:15 AM TOILET AND LAUNDRY SOAP SUPERVISOR OR FL < 1 HOUR Routine 08/28/2020 8:10 AM TOILET AND LAUNDRY SOAP SUPERVISOR INJECTION, STEROID, 08/28/2020 Lumbosacral radic ulopathy SPINE, LUMBAR, EPIDURAL, 7:42 AM TOILET AND LAUNDRY SOAP SUPERVISOR SINGLE POC GLUCOSE Routine 08/28/2020 7:19 AM TOILET AND LAUNDRY SOAP SUPERVISOR MRI LUMBAR SPINE WO Routine 08/03/2020 Lumbar rad iculopathy CONTRAST 8:16 PM CDT XR LUMBAR SPINE 2 OR 3 VW Routine 07/17/2020 Low back pain, 4:05 PM CDT unspecified back pain laterality, unspecified chronicity, unspecified whether sciatica present NURSING COMMUNICATION Routine 07/16/2020 XR ABD/PELVIC EXTERNAL Routine 06/28/2020 STUDY 3:18 PM CDT XR LOWER EXTREMITY Routine 06/28/2020 EXTERNAL STUDY 3:12 PM CDT after 09/23/2019 Results * ECG 12 lead (08/28/2020 8:15 AM TOILET AND LAUNDRY SOAP SUPERVISOR) Ventricular 71 [facility] rate Atrial rate 71 [facility] OK interval 164 [facility] QRSD interval 98 [...] is n ot available. Performing Organization Address City/[facility] Code P alin Number [facility] [address] [place] [address] * OR [place] < 1 Hour (08/28/2020 8:10 AM TOILET AND LAUNDRY SOAP SUPERVISOR) Specimen Narrative Performed At EXAMINATION: OR FL < 1 HOUR [facility] C-arm fluoroscopy was requested in OR. FLUORO TIME 1:52 IMPRESSION: Intraoperative fluoroscopic images. Rad iologist was not present during the examination. Separate operative report will be issue d by the physician performing the procedure. [id number] Procedure Note Hm Interface, Radiology Results Incoming - 08/28/2020 10:12 AM TOILET AND LAUNDRY SOAP SUPERVISOR EXAMINATION: OR FL < 1 HOUR C-arm fluoroscopy was requested in OR. FLUORO TIME 1:52 IMPRESSION: Intraoperative fluoroscopic images. Radiologist was not present during the examination. Separate operative report will be issued by the physician performing the procedure. [id number] Performing Organization Address City/State/ZIP Code P alin Number [facility] [address] [place] [address] * POC glucose (08/28/2020 7:19 AM TOILET AND LAUNDRY SOAP SUPERVISOR) POC glucose 121 (H) 65 - 99 mg/dL [place] Comment: MICHELLE BURR Communication Manager Name: [facility] Device ID: [id number] Specimen Blood Performing Organization Address City/State/ZIP Code [place] [address] [place], [place] [address] [facility] [place] MICHELLE BURR [address] [place] [address] [facility] * MRI Lumbar Spine Wo Contrast [...] Code P alin Number [facility] [address] [place] [address] * XR Lumbar Spine 2 Or 3 [...] This exam was not acquired at a [facility] facility an d has not been [facility] interpreted by a [facility] Provider. The exam was imported into our imaging system. Performing Organization Address [facility]/ZIP Code P alin Number [facility] [address] [place] [address] * XR Lower Extremity External Study (06/28/2020 3:12 PM CDT) Specimen Narrative Performed At This exam was not acquired at a [facility] facility an d has not been [facility] interpreted by a Scientologist Provider. The exam was imported into our imaging system. Performing Organization Address City/[facility]/ZIP Code P alin Number [facility] [address] [place] [address] after 09/23/2019 Insurance Type Payer Benefit Subscriber ID Effective Phone Address Plan / Dates Group O [facility] MEDICARE [facility] DUAL [id number] 2019-P COMPLETE resent [facility] Advance Directives For more information, please contact: [phone] Patient Manager Med Surg Explanation Type Date Recorded Advance Directives, Living Will and Medical Power of Astronomy Professor
--- OUTSIDE RECORDS SUMMARY | 2020-09-23 19:00 | XMS REPORT | Continuity of Care Document ---
Author Author [facility] t Organization [facility] Address [address] [place] [address] Phone Unavailable Care Team Providers Care Name Role Phone MD PARDEEP BEAL MD PCP Sonia Moffett Attphys Unavailable Julia Hamm Attphys Unavailable Ramandeep Willingham MD Attphys Donovan Cross MD Attphys Ry Henderson DO Attphys [phone] Gisela Zayas MA Attphys Unavailable Blanco ROSA Attphys Unavailable Robby DELCID Attphys Unavailable EMIGDIO, PARDEEP Attphys Unavailable Kingston FERNANDO Attphys Unavailable LAMAR BONILLA Attphys Unavailable MANEEVESFany Hahn Attphys Unavailable Prashant KEEN Attphys Unavailable RAMANDEEP WILLINGHAM Admphys Unavailable PARDEEP BEAL Admphys Unavailable Payers Payer Name Policy Type Policy Number Effective Date Expiration Date [facility] [id number] 2019 00:00 :00 [facility] [id number] [facility] Medicare A & B [id number] [facility] UHC MEDICAREUHC DUAL COMPLETE [id number] 2018-PresentHMO [id number] 2019 00:00:00 [facility] [id number] 2019 00:00:00 [facility] [employer] [id number] 2018 00:00:00 [facility] [employer] [id number] 2017 00:00:00 [facility] Problems Condition Name Condition Details Condition Category Status Onset Date Resolution Date Last Treatment Date Treating Clinician Comments Source Lumbosacral radiculopathy Lumbosacral radiculopathy Disease Ac tive 2020-08-10 00:00:00 [facility] DM type 2, uncontrolled, with neuropathy DM type 2, un controlled, with neuropathy Disease Active 2015-06-28 00:00:00 [facility] Acute renal insufficiency Acute renal insufficiency Problem Active [facility] Dehydration Dehydration Problem Active [facility] Diarrhea Diarrhea Problem Active [facility] Hypotension due to hypovolemia Hypotension due to hypovolemia Problem Active [facility] Vomiting Vomiting Problem Active [facility] Diverticulitis Diverticulitis Problem Active [facility] Occult blood in stools Occult blood in stools Problem Active [facility] Pancreatitis Pancreatitis Problem Active [facility] Chest pain Chest pain Problem Active [facility] Pneumonia Pneumonia Problem Active [facility] Septic shock Septic shock Problem Active [facility] Fracture of shoulder Problem Active [facility] Fracture of distal end of left radius Problem Active [facility] Hypertension Hypertension Disease Active [facility] Diabetes Diabetes Disease Active [facility] Cervical spinal stenosis Cervical spinal stenosis Disease Active [facility] Allergies, Adverse Reactions, Alerts Allergy Name Allergy Type Status Severity Reaction(s) Onset Date Inacti ve Date Treating Clinician Comments Source No Known Allergies DA Active U 2018-02-27 00:00:00 [facility] Family History Family Member Diagnosis Comments Start Date Stop Date Source Natural brother Diabetes Jett Bustamante ethodist Natural brother Diabetes Anatoly [facility] Natural mother Diabetes Jett Me thodist Natural mother [facility] Natural sister Diabetes Anatoly [facility] Social History Social Habit Start Date Stop Date Quantity Comments Source Exposure to SARS-CoV-2 (event) Not sure Jett Jo Sex Assigned At [facility] Tobacco use and exposure 2020-08-28 00:00:00 2020-08-28 00:00:00 Elaine hope used Jett Jo History of tobacco use 1963-12-17 00:00:00 2019-11-12 00:00:00 Yudycarlene waters smoker Jett Jo Cigarettes smoked current (pack per day) - Reported 00:00:00 2016-02-29 00:00:00 [facility] Cigarette pack-years 2016-02-29 00:00:00 2016-02-29 00:00:00 [facility] Alcohol intake 2016-02-29 00:00:00 2016-02-29 00:00:00 Current drinker of alcohol (finding) [facility] Alcohol Comment 2010-07-31 00:00:00 2010-07-31 00:00:00 social [facility] Smoking Status Start Date Stop Date Source Former smoker 2020-08-28 00:00:00 2020-08-28 00:00:00 Jett Jo Current every day smoker 2016-02-29 00:00:00 [facility] Medications Ordered Medication Name Filled Medication Name [...] 4 times daily as needed for Wheezing. [facility] blood glucose (PRECISION XTRA TEST STRIPS) test strips 2016-03-03 00:00:00 Yes 2 times weekly. [place] Abelardo ceci gabapentin (NEURONTIN) 300 mg capsule 2016-02-29 00:00:00 Yes 300mg Q.[id number] Take 300 mg by mouth 3 (three) times a day. [facility] gabapentin (NEURONTIN) 300 mg capsule 2016-02-29 00:00:00 Yes Type 2 diabetes mellitus with diabetic polyneuropathy 300mg Take 1 capsule by mouth 3 times daily. [facility] blood glucose meter (PRECISION XTRA GLUCOMETER) 2016-02-29 00:00 :00 Yes Use as directed.. [facility] metFORMIN XR (GLUCOPHAGE-XR) 500 mg 24 hr tablet 2015-10-17 00:00:00 Yes 500mg QD Take 500 mg by mouth daily. [facility] lisinopriL (PRINIVIL) 20 mg tablet 2015-10-17 00:00:00 Yes 20mg QD Take 20 mg by mouth daily. [facility] metFORMIN (GLUCOPHAGE-XR) 500 mg ER extended release tablet 2015-10-17 00:00:00 Yes Essential hypertension 500mg Q.5D Take 1 tablet by mouth 2 times daily. [facility] lisinopril (PRINIVIL, ZESTRIL) 20 mg tablet 2015-10-17 00:00 :00 Yes Essential hypertension 20mg QD Take 1 tablet by mouth daily. [facility] varenicline (CHANTIX) 1 mg tablet 2015-10-17 00:00:00 Ye s Tobacco abuse 1mg Q.5D Take 1 tablet by mouth 2 times daily. [facility] ketoconazole (NIZORAL) 2 % topical cream 2014-11-28 00:00:00 Yes Dermatophytosis of foot Q.5D Apply to affecte d area 2 times daily Label in Icelandic. [facility] ipratropium (ATROVENT HFA) 17 mcg/actuation inhaler 11-14 00:00:00 Yes COPD (chronic obstructive pulmonary disease) 2{puff} Inhale 2 Puffs by mouth 4 times daily. [facility] piroxicam (FELDENE) 20 mg capsule 2014-06-16 00:00:00 Yes Plantar fasciitis 20mg QD Take 1 capsule by mouth daily with dinner. [facility] clotrimazole (LOTRIMIN) 1 % external solution 2014-06-16 00: 00:00 Yes Onychomycosis File nails and apply 2 drops 2 times daily f or 1 year. [facility] nystatin (MYCOSTATIN) topical cream 2014-06-16 00:00:00 Yes Tinea pedis Q.5D Apply to affected area 2 times daily. [facility] fenofibrate nanocrystallized (TRICOR) 145 mg tablet 03-28 00:00:00 Yes TOME 1 TABLETA P OR LA BOCA CADA POORNIMA.(AUTO SUBSTITUCION PARA FENOFIBRATE 160) [facility] ammonium lactate (LAC-HYDRIN) 12 % lotion 2013-09-13 00:00:0 0 Yes Xerosis cutis Q.5D Apply to affected area 2 times daily. Label in Icelandic [facility] LANCETS 2013-09-01 00:00:00 Yes Type II or unspecified type diabetes mellitus without mention of complication, not stated as uncontrolled every other day. [facility] fenofibrate (LOFIBRA) 160 mg tablet 2013-09-01 00:00:00 Yes Pure hyperglyceridemia 160mg QD Take 1 tablet by mouth daily. [facility] albuterol-ipratropium (COMBIVENT) 18-103 mcg/actuation Aero 2013-09-01 00:00:00 Yes COPD (chronic obstructive pulmonary dise ase) 2{puff} Administer 2 Puffs by inhalation 4 times daily. [facility] tamsulosin (FLOMAX) 0.4 mg extended release capsule 03-22 00:00:00 Yes Hypertrophy of prostate without urinary obstruction and other lower urinary tract symptoms (LUTS) .4mg QD Take 1 capsule by mouth daily. [facility] budesonide-formoterol (SYMBICORT HFA) 160-4.5 mcg/actuation inhaler 2012-12-09 00:00:00 Yes Obstructive chronic bronchitis with exac erbation 2{puff} Q.5D 2 Puffs by Mouth route 2 times daily. [facility] benzonatate (TESSALON) 100 mg capsule 2012-12-09 00:00:00 Yes Cough 200mg Take 2 capsules by mouth 3 times daily as needed for Cough. [facility] Gabapentin Gabapentin Yes 300 Three Times A Day [facility] Insulin Detemir (Levemir Flextouch) 100 Unit/[address]PEN Insulin Detemir (Levemir Flextouch) 100 Unit/1 Ml INSULN.PEN Yes Twice A Day [facility] Insulin Glargine (Lantus 3ML Pen) 100 Units/1 Ml INJ I nsulin Glargine (Lantus 3ML Pen) 100 Units/1 Ml INJ Yes Twice A Da y [facility] Lisinopril Lisinopril Yes 100 Daily [facility] Metformin Hcl Metformin Hcl Yes 500 Twice A Day [facility] Fenofibrate Fenofibrate 2020-06-18 00:00:00 No 160 D aily [facility] Fluticasone/Salmeterol (Advair 250-50 Diskus) 1 Each D ISK.W.DEV Fluticasone/Salmeterol (Advair 250-50 Diskus) 1 Each DISK.W.DEV 2020-06-18 00:00:00 No 1 Twice A Day [facility] Montelukast Sodium Montelukast Sodium 2020-06-18 00:00:00 No 10 Daily [facility] Omeprazole Omeprazole 2020-06-18 00:00:00 No 20 Marifer ly [facility] Prednisone Prednisone 2020-06-18 00:00:00 No 10 [facility] Tamsulosin Hcl Tamsulosin Hcl 2020-06-18 00:00:00 No .4 Daily [facility] Tramadol Hcl/Acetaminophen (Ultracet Tablet) 1 Each TA BLET Tramadol Hcl/Acetaminophen (Ultracet Tablet) 1 Each TABLET 2020-06-18 00:00:00 No 1 Every 6 Hours as needed for Moderate Pain (4-6) [facility] Lubiprostone (Amitiza) 24 Mcg CAPSULE Lubiprostone (Amitiza) 24 Mcg CAPSULE 2019-06-02 00:00:00 No 24 Twice A Day [facility] Levofloxacin (Levaquin) 500 Mg TABLET Levofloxacin (Levaquin) 50 0 Mg TABLET 2019-05-03 00:00:00 No 500 Daily [facility] Metformin Hcl Metformin Hcl 2019-05-03 00:00:00 No 500 Twice A Day [facility] Metronidazole (Flagyl) 250 Mg TABLET Metronidazole (Flagyl) 250 Mg TABLET 2019-05-03 00:00:00 No 500 Every 8 Hours [facility] Gabapentin Gabapentin 2018-02-04 00:00:00 No 300 Thr ee Times A Day [facility] Immunizations Ordered Immunization Name Filled Immunization Name Date Status Comments Source Herpes Zoster Vaccine In Clinic 2016-02-29 00:00:00 Tristan ann [facility] Influenza Vaccine 2015-07-31 00:00:00 Completed [facility] Influenza Vaccine 2014-07-05 00:00:00 Completed [facility] Pneumoccoccal 2013-08-01 00:00:00 Completed [facility] PPD 2012-03-08 00:00:00 Completed [facility] Influenza Vaccine 2011-07-25 00:00:00 [facility] Influenza Vaccine 2010-08-15 00:00:00 [facility] Tdap Tetanus, diphtheria, acellular pertussis Vaccine 2010-08-15 00:00:00 [facility] Vital Signs Vital Name Observation Time Observation Value Comments Source Body Temperature 2020-09-19 20:20:00 98.1 [degF] [facility] Heart Rate 2020-09-19 20:20:00 69 /min [facility] Respiratory rate 2020-09-19 20:20:00 16 /min [facility] BP Systolic 2020-09-19 20:20:00 111 mm[Hg] [facility] BP Diastolic 2020-09-19 20:20:00 58 mm[Hg] [facility] Oxygen saturation by Pulse oximetry 2020-09-19 20:20:00 98 /min [facility] Weight 2020-09-19 16:56:00 229 [lb_av] [facility] BMI (Body Mass Index) 2020-09-19 16:56:00 38.1 kg/m2 [facility] Systolic blood pressure 2020-08-28 08:28:00 121 mm[Hg] [facility] Diastolic blood pressure 2020-08-28 08:28:00 67 mm[Hg] Jett Jo Heart rate 2020-08-28 08:28:00 65 /min Jett Jo Respiratory rate 2020-08-28 08:28:00 19 /min Bryan dill [facility] Oxygen saturation in Arterial blood by Pulse oximetry 2019-10 08:28:00 95 /min Jett Y[facility]dan[facility] Body temperature 2020-08-28 08:04:00 36.39 Katie Bryan dill [facility] Body height 2020-08-17 14:19:00 172.7 cm [facility] Body weight 2020-08-17 14:19:00 89.359 kg Jett Dillardist BMI 2020-08-17 14:19:00 29.95 kg/m2 Jett Jo Procedures Procedure Date / Time Performed Performing Clinician [facility] e Computed tomography of brain without radiopaque contrast 2020-08 00:00:00 [facility] Computed tomography of cervical spine without contrast 2020-08-27 5 00:00:00 [facility] X-ray of chest, single view 2020-09-19 00:00:00 [facility] ECG 12-LEAD 2020-08-28 08:15:20 Ramandeep Willingham ethmaheshst OR FL < 1 HOUR 2020-08-28 08:10:00 Ramandeep Willingham ethmaheshst INJECTION, STEROID, SPINE, LUMBAR, EPIDURAL, SINGLE 07:42:00 Ramandeep Willingham POC GLUCOSE 2020-08-28 07:19:00 Ramandeep Willingham ethodist MRI LUMBAR SPINE WO CONTRAST 2020-08-03 20:16:29 Han Henderson XR LUMBAR SPINE 2 OR 3 VW 2020-07-17 16:05:14 Han Henderson NURSING COMMUNICATION 2020-07-16 00:00:00 Provider, Iveth Jo XR ABD/PELVIC EXTERNAL STUDY 2020-06-28 15:18:07 Han Henderson XR LOWER EXTREMITY EXTERNAL STUDY 2020-06-28 15:12:14 Casey Henderson EXC THIGH/KNEE LES SC < 3 CM 2020-06-19 00:00:00 [facility] X-ray of chest, two views 2020-06-14 00:00:00 [facility] Computed tomography of chest without contrast 2020-04-18 00:00:0 0 [facility] Plan of Care Planned Activity Planned Date Details Comments Source Future Scheduled Test 2020-05-26 00:00:00 INFLUENZA VACCINE [code = INFLUENZA VACCINE] [facility] Scheduled Test 2016-07-20 00:00:00 DM Retinal Exam (Y early) [code = DM Retinal Exam (Yearly)] [facility] Scheduled Test 2016-06-15 00:00:00 Hemoglobin A1c ela surement (procedure) [code = 31280034] [facility] Scheduled Test 2016-01-24 00:00:00 65+ PNEUMOCOCCAL V ACCINE (1 of 1 - PPSV23) [code = 65+ PNEUMOCOCCAL VACCINE (1 of 1 - PPSV23)] [facility] Scheduled Test 2001 00:00:00 COLONOSCOPY SCREEN ING [code = COLONOSCOPY SCREENING] [facility] Scheduled Test 2001 00:00:00 SHINGLES VACCINES (#1) [code = SHINGLES VACCINES (#1)] [facility] Scheduled Test 2001 00:00:00 Screening for jose luis gnant neoplasm of colon (procedure) [code = 508624109] [facility] Scheduled Test 1969 00:00:00 DM Foot Exam (Year ly) [code = DM Foot Exam (Yearly)] [facility] Scheduled Test 1961 00:00:00 DIABETES: RETINAL EYE EXAM [code = DIABETES: RETINAL EYE EXAM] [facility] Scheduled Test 1961 00:00:00 DIABETIC FOOT EXAM [code = DIABETIC FOOT EXAM] [facility] Scheduled Test 1961 00:00:00 URINE MICROALBUMIN [code = URINE MICROALBUMIN] [facility] Instructions Splint/Cast Care [facility] Instructions Fractures - Colles' [facility] Instructions Fractures - Humerus [facility] Instructions Sling - Wearing [facility] Encounters Start Date/Time End Date/Time Encounter Type Admission Type Att[facility] Care Department Encounter ID Source 2020-09-19 16:48:00 2020-09-19 20:25:00 Departed Emergency Room 1 Jean-Paul Moffett [facility] [id number] [facility] 2020-08-28 00:00:00 2020-08-28 00:00:00 Outpatient LAUREN WILLINGHAM [facility] [id number] [facility] 2020-08-17 00:00:00 2020-08-17 00:00:00 Outpatient COLLAUREN DELGADO [facility] [id number] [facility] 2020-08-10 00:00:00 2020-08-10 00:00:00 Outpatient HENDERSON, VELVET D [facility] [id number] [facility] 2020-08-06 00:00:00 2020-08-06 00:00:00 Outpatient HENDERSON, VELVET D [facility] [id number] [facility] 2020-08-03 00:00:00 2020-08-03 00:00:00 Outpatient HENDERSON, VELVET D [facility] [id number] [facility] 2020-08-03 00:00:00 2020-08-03 00:00:00 Outpatient HENDERSON, VELVET D [facility] [id number] [facility] 2020-07-30 00:00:00 2020-07-30 00:00:00 Outpatient HENDERSON, VELVET D [facility] [id number] [facility] 2020-07-27 00:00:00 2020-07-27 00:00:00 Outpatient HENDERSON, VELVET D [facility] [id number] [facility] 2020-07-25 00:00:00 2020-07-25 00:00:00 Outpatient HENDERSON, VELVET D [facility] [id number] [facility] 2020-07-20 00:00:00 2020-07-20 00:00:00 Outpatient HEDNERSON, VELVET D [facility] [id number] [facility] 2020-07-16 00:00:00 2020-07-16 00:00:00 Outpatient HENDERSON, VELVET D [facility] [id number] [facility] 2020-07-16 00:00:00 2020-07-16 00:00:00 Outpatient HENDERSON, VELVET D [facility] [id number] [facility] 2020-07-16 00:00:00 2020-07-16 00:00:00 Outpatient VELVET HENDERSON [facility] [id number] [facility] 2020-07-16 00:00:00 2020-07-16 00:00:00 Outpatient VELVET HENDERSON [facility] [id number] [facility] 2020-06-19 11:47:00 2020-06-19 11:47:00 Registered Surgical Day Car e 3 DARRELL ROSA [facility] [id number] [facility] 2020-04-18 14:10:00 2020-04-18 14:10:00 Registered Clinic 3 MIKE DELCID [facility] [id number] [facility] 2019-11-15 19:27:00 2019-11-23 19:00:00 Discharged Inpatient 1 PARDEEP BEAL [facility] [id number] [facility] 2019-11-06 18:55:00 2019-11-08 13:48:00 Discharged Inpatient (obs) 1 BURAK FERNANDO [facility] [id number] [facility] 2019-06-13 09:56:00 2019-06-13 09:56:00 Registered Clinic 3 LAMAR BONILLA [facility] [id number] [facility] 2019-06-09 11:44:00 2019-06-09 11:44:00 Registered Surgical Day Care [facility] [id number] [facility] 2019-05-12 08:22:00 2019-05-12 08:22:00 Registered Surgical Day Care [facility] [id number] [facility] 2019-05-05 17:13:00 2019-05-05 20:20:00 Departed Emergency Room 1 SOBIA DELATORRE [facility] [id number] [facility] 2019-04-09 22:53:00 2019-04-13 12:20:00 Discharged Inpatient 1 BURAK FERNANDO [facility] [id number] [facility] 2018-09-30 23:33:00 2018-10-04 17:05:00 Discharged Inpatient (obs) 1 ALBERTINA KEEN [facility] [id number] [facility] 2018-07-27 15:42:00 2018-08-25 23:59:00 Discharged Recurring [facility] [id number] [facility] 2018-06-30 12:57:00 2018-07-25 23:59:00 Discharged Recurring [facility] [id number] [facility] 2018-04-05 11:51:00 2018-04-05 11:51:00 Registered Clinic 3 EMIGDIO [facility] [id number] [facility] 2018-02-02 18:32:00 2018-02-04 13:23:00 Discharged Inpatient EL EMIGDIO PARDEEP [facility] [id number] [facility] 2017-10-06 11:50:00 2017-10-06 11:50:00 Registered Surgical Day Care [facility] [id number] [facility] Results Test Description Test Time Test Comments Results Result Comments Source CHEST SINGLE (NOT PORTABLE) 2020-09-19 18:20:00 [facility] 1950 Sex: [place] [id number] Patient Name: PARDEEP VERDE MR #: [id number] : 1950 Age/Sex: 70/M Req #: [id number] Adm Physician: Ordered by: Jean-Paul Moffett MD Report #: [id number] Location: ER Room/Bed: Procedure: [id number] DX/CHEST SINGLE (NOT PORTABLE) Exam Date: 09/19/20 Exam Time: 1730 REPORT STATUS: Signed EXAMINATION: CHEST SINGLE (NOT PORTABLE) INDICATION: Pain. Trauma. COMPARISON: 06/14/2020. FINDINGS: TUBES and LINES: None. LUNGS: There is diffuse coarsening of the pulmonary interstitium suture with honeycombing, increased since the prior examination consistent with interstitial lung disease/fibrosis. Parenchymal scarring in the left lower lobe, unchanged. PLEURA: No pleural effusion or pneumothorax. HEART AND MEDIASTINUM: The cardiomediastinal silhouette is stable. BONES AND SOFT TISSUES: No acute osseous lesion. Soft tissues are unremarkable. UPPER ABDOMEN: No free air under the diaphragm. IMPRESSION: Interval increase in bilateral pulmonary fibrosis. No acute abnormality. Signed by: Dr. Nick Benitez M.D. on 09/19/2020 6:23 PM Dictated By: GEOFFREY BENITEZ MD, MD 22 Transcribed By: NEMO on 09/19/201822 COPY TO: JEAN-PAUL MOFFETT MD WRIST COMPLETE LEFT 2020-09-19 18:17:00 [facility] : 1950 Sex: M [facility] [address] [address] Patient Name: PARDEEP VERDE MR #: [id number] : 1950 Age/Sex: 70/M Req #: [id number] Adm Physician: Ordered by: Jean-Paul Moffett MD Report #: [id number] Location: ER Room/Bed: Procedure: [id number] DX/WRIST COMPLETE LEFT Exam Date: 09/19/20 Exam Time: 1730 REPORT STATUS: Signed WRIST COMPLETE LEFT - 3 views HISTORY: Pain status post fall. COMPARISON: None available. FINDINGS: Bones: There is a comminuted impaction fracture of the distal radial metadiaphysis, with intra-articular extension, and dorsal angulation. There is also lateral displacement of the distal fracture fragment. Joints: The joint spaces are well-maintained. Soft tissues: Overlying soft tissue swelling. Coarse calcification in the soft tissues of the ventral distal forearm. IMPRESSION: Comminuted impaction fracture of the distal radial metadiaphysis, with intra-articular extension, and dorsal angul ation Signed by: Dr. Nick Benitez M.D. on 09/19/2020 6:20 PM Dictated By: GEOFFREY BENITEZ MD, MD 19 Transcribed By: NEMO on 09/19/201819 COPY TO: JEAN-PAUL MOFFETT MD HUMERUS LEFT 2+VIEWS 2020-09-19 18:12:00 [facility] : 1950 Sex: [place] [address] Patient Name: PARDEEP VERDE MR #: [id number] : 1950 Age/Sex: 70/M Req #: [id number] [facility] Physician: Ordered by: Jean-Paul Moffett MD Report #: [id number] Location: ER Room/Bed: Procedure: [id number] DX/HUMERUS LEFT 2+VIEWS Exam Date: 09/19/20 Exam Time: 1730 REPORT STATUS: Signed SHOULDER LEFT COMPLETE, ELBOW LEFT AP LAT, HUMERUS LEFT 2+VIEWS - 3 views HISTORY: Pain status post fall. COMPARISON: None available. FINDINGS: Bones: There is a comminuted displaced impaction fracture of the left humeral neck. Degenerative changes of the elbow joint. There is mild deformity of the coronoid process of the ulna not well visualized due to positioning. Joints: The joint spaces are well-maintained. Soft tissues: The soft tissues appear unremarkable. IMPRESSION: Comminuted displaced impaction fracture of the left humeral neck. Signed by: Dr. Nick Benitez M.D. on 09/19/2020 6:17 PM Dictated By: GEOFFREY BENITEZ MD, MD 16 Transcribed By: NEMO on 09/19/201816 COPY TO: JEAN-PAUL MOFFETT MD ELBOW LEFT AP LAT 2020-09-19 18:12:00 [facility]ENTERName: PARDEEP VERDE : 1950 Sex: M [place] [address] Patient Name: PARDEEP VERDE MR #: [id number] : 1950 Age/Sex: 70/M Req #: [id number] [facility] Physician: Ordered by: Jean-Paul Moffett MD Report #: [id number] Location: Room/Bed: Procedure: [id number] DX/ELBOW LEFT AP LAT Exam Date: 09/19/20 Exam Time: 1730 REPORT STATUS: Signed SHOULDER LEFT COMPLETE, ELBOW LEFT AP LAT, HUMERUS LEFT 2+VIEWS - 3 views HISTORY: Pain status post fall. COMPARISON: None available. FINDINGS: Bones: There is a comminuted displaced impaction fracture of the left humeral neck. Degenerative changes of the elbow joint. There is mild deformity of the coronoid process of the ulna not well visualized due to positioning. Joints: The joint spaces are well-maintained. Soft tissues: The soft tissues appear unremarkable. IMPRESSION: Comminuted displaced impaction fracture of the left humeral neck. Signed by: Dr. Nick Benitez M.D. on 09/19/2020 6:17 PM Dictated By: GEOFFREY BENITEZ MD, MD 16 Transcribed By: NEMO on 09/19/201816 COPY TO: JEAN-PAUL MOFFETT MD SHOULDER LEFT COMPLETE 2020-09-19 18:12:00 [facility] CENTERName: PARDEEP VERDE : 1950 Sex: M [place] [address] Patient Name: PARDEEP VERDE MR #: [id number] : 1950 Age/Sex: 70/M Req #: [id number] Adm Physician: Ordered by: Jean-Paul Moffett MD Report #: [id number] Location: ER Room/Bed: Procedure: [id number] DX/SHOULDER LEFT COMPLETE Exam Date: 09/19/20 Exam Time: 1730 REPORT STATUS: Signed SHOULDER LEFT COMPLETE, ELBOW LEFT AP LAT, HUMERUS LEFT 2+VIEWS - 3 views HISTORY: Pain status post fall. COMPARISON: None available. FINDINGS: Bones: There is a comminuted displaced impaction fracture of the left humeral neck. Degenerative changes of the elbow joint. There is mild deformity of the coronoid process of the ulna not well visualized due to positioning. Joints: The joint spaces are well-maintained. Soft tissues: The soft tissues appear unremarkable. IMPRESSION: Comminuted displaced impaction fracture of the left humeral neck. Signed by: Dr. Nick Benitez M.D. on 09/19/2020 6:17 PM Dictated By: GEOFFREY BENITEZ MD, MD 16 Transcribed By: NEMO on 09/19/201816 COPY TO: JEAN-PAUL MOFFETT MD CT BRAIN WO 2020-09-19 17:51:00 [facility] 1950 Sex: M [facility] [address] [place] [address] Patient Name: PARDEEP VERDE MR #: [id number] : 1950 Age/Sex: 70/M Req #: [id number] Adm Physician: Ordered by: Jean-Paul Moffett MD Report #: [id number] Location: ER Room/Bed: Procedure: [id number] CT/CT BRAIN WO Exam Date: 09/19/20 Exam Time: 1730 REPORT STATUS: Signed Exam: CT head without contrast, CT cervical spine without contrast History: 70-year-old male with head/neck pain following a fall. Comparison studies: Head CT 02/02/2018 Technique: Axial images were obtained from the brain and cervical spine. Coronal and sagittal images reconstructed from the axial data. Dose modulation, iterative reconstruction, and/or weight based adjustment of the mA/kV was utilized to reduce the radiation dose to as low as reasonably achievable. Intravenous contrast: None Findings: Head CT: Scalp/skull: No abnormalities. No fractures, blastic or lytic lesions. Brain sulci: Mildly prominent. Ventricles: Mild compensatory dilatation. No hydrocephalus. Extra-axial spaces: No masses. No fluid collections. Parenchyma: Nonspecific few, scattered supratentorial white matter hypodensity are likely related to small vessel ischemic changes. No masses, hemorrhage, acute or chronic cortical vascular insults. Sellar/suprasellar region: No abnormalities. Craniocervical junction: Patent foramen magnum. No Chiari one malformation. Cervical spine CT: Airway: Patent. Fractures: None. Soft tissues: No gross abnormalities. Atlantoaxial articulation: Intact. Advanced degenerative findings at the atlantoaxial interval. Alignment: Straightening of the usual cervical lordosis. Levoscoliotic curvature with the apex at C5. Cervicomedullary junction: No abnormalities. Patent foramen magnum. Vertebrae: No vertebral body fracture. Osseous fusion of C5-C6. Degenerative changes: Moderate degenerative changes of the cervical spine. Severe degenerative changes in the anterior atlantodental joint. C3- C4: Posterior disc osteophyte complex results in mild canal stenosis. Moderate right foraminal stenosis due to facet and uncovertebral arthrosis. C4-C5: Severe right foraminal stenosis due to facet and uncovertebral arthrosis. C6-C7: Posterior disc osteophyte complex results in mild canal stenosis. Mild right and severe left foraminal stenosis due to facet and uncovertebral arthrosis. Incidental findings: Atherosclerotic calcification in the bilateral carotid bulbs.. IMPRESSION: Head CT: No acute abnormalities. Chronic findings: Mild diffuse cerebral cortical volume loss. Mild supratentorial white matter microvascular ischemic changes. Cervical spine CT: 1. No acute fracture of the cervical spine. 2. Moderate degenerative findings of the cervical spine, as described above. 3. Cannot adequately evaluate for ligament, spinal cord and or vascular abnormalities. A preliminary report was given by neuroradiology fellow Dr. Card at 6:07 PM on 09/19/2020. I have reviewed the images and agree with findings on the preliminary report. Signed by: Dr. Venus Shearer M.D. on 09/19/2020 8:23 PM Dictated By: VENUS SHEARER MD 22 Transcribed By: NEMO on 09/19/202022 COPY TO: JEAN-PAUL MOFFETT MD CT CERVICAL SPINE WO 2020-09-19 17:51:00 [facility] 1950 Sex: M [address] [place], [place] [address] Patient Name: PARDEEP VERDE MR #: [id number] : 1950 Age/Sex: 70/M [facility] #: [id number] Req #: [id number] [facility] Physician: Ordered by: Jean-Paul Moffett MD Report #: [id number] Location: ER Room/Bed: Procedure: [id number] CT/CT CERVICAL SPINE WO Exam Date: 09/19/20 Exam Time: 1730 REPORT STATUS: Signed Exam: CT head without contrast, CT cervical spine without contrast History: 70-year-old male with head/neck pain following a fall. Comparison studies: Head CT 02/02/2018 Technique: Axial images were obtained from the brain and cervical spine. Coronal and sagittal images reconstructed from the axial data. Dose modulation, iterative reconstruction, and/or weight based adjustment of the mA/kV was utilized to reduce the radiation dose to as low as reasonably achievable. Intravenous contrast: None Findings: Head CT: Scalp/skull: No abnormalities. No fractures, blastic or lytic lesions. Brain sulci: Mildly prominent. Ventricles: Mild compensatory dilatation. No hydrocephalus. Extra-axial spaces: No masses. No fluid collections. Parenchyma: Nonspecific few, scattered supratentorial white matter hypodensity are likely related to small vessel ischemic changes. No masses, hemorrhage, acute or chronic cortical vascular insults. Sellar/suprasellar region: No abnormalities. Craniocervical junction: Patent foramen magnum. No Chiari one malformation. Cervical spine CT: Airway: Patent. Fractures: None. Soft tissues: No gross abnormalities. Atlantoaxial articulation: Intact. Advanced degenerative findings at the atlantoaxial interval. Alignment: Straightening of the usual cervical lordosis. Levoscoliotic curvature with the apex at C5. Cervicomedullary junction: No abnormalities. Patent foramen magnum. Vertebrae: No vertebral body fracture. Osseous fusion of C5-C6. Degenerative changes: Moderate degenerative changes of the cervical spine. Severe degenerative changes in the anterior atlantodental joint. C3-C4: Posterior disc osteophyte complex results in mild canal stenosis. Moderate right foraminal stenosis due to facet and uncovertebral arthrosis. C4-C5: Severe right foraminal stenosis due to facet and uncovertebral arthrosis. C6-C7: Posterior disc osteophyte complex results in mild canal stenosis. Mild right and severe left foraminal stenosis due to facet and uncovertebral arthrosis. Incidental findings: Atherosclerotic calcification in the bilateral carotid bulbs.. IMPRESSION: Head CT: No acute abnormalities. Chronic findings: Mild diffuse cerebral cortical volume loss. Mild supratentorial white matter microvascular ischemic changes. Cervical spine CT: 1. No acute fracture of the cervical spine. 2. Moderate degenerative findings of the cervical spine, as described above. 3. Cannot adequately evaluate for ligament, spinal cord and or vascular abnormalities. A preliminary report was given by neuroradiology fellow Dr. Card at 6:07 PM on 09/19/2020. I have reviewed the images and agree with findings on the preliminary report. Signed by: Dr. Venus Shearer M.D. on 09/19/2020 8:23 PM Dictated By: VENUS SHEARER MD 22 Transcribed By: NEMO on 09/19/202022 COPY TO: JEAN-PAUL MOFFETT MD ECG 12 lead 2020-08-29 08:02:11 Test Item Ventricular rate (test code = 253) 71 Atrial rate (test code = 255) 71 [place] interval (test code = 266) 164 QRSD [...] sinus rhythm-N ormal ECG-No previous ECGs available- [facility] FL < 1 [id number] 10:09:56Hm Interface, Radiology Results - 08/28/2020 10:12 AM CSTEXAMINATION: OR FL < 1 HOURC-arm fluoroscopy was requested in OR. FLUORO TIME 1:52IMPRESSION:Intraoperative fluoroscopic images. Radiologist was not present during the examination.Separate operative report will be issued by the physician performing the proced ure.[id number] Methodist[facility]OC dacwver3025-97-72 07:19:59* Test Item Value Reference Range Interpretation Comments POC glucose (test code = 82179-1) 121 mg/dL 65-99 H [facility]drinier Tender Name: Saud Alvarado ID: [id number] Lab Interpretation (test code = 05809-8) Abnormal [facility] Lumbar Sp[facility] Wo Elbbvqan8602-13-17 21:00:52Hm Interface, Radiology Results - 08/03/2020 9:03 PM CDTEXAMINATION: MRI LUMBAR [...] changes at individual levels are provided above. [id number] [facility] XR Lumbar Spine 2 Or 3 Gd8254-52-04 16:05:14I ordered and reviewed 3 views of the lumbar spine today in the office and discussed them with the patient. He has diffuse osteoarthritic changes.[facility] MethodistXR Abd/Pelvic External Study 2020-07-16 15:18:19This exam was not acquired at a [facility] facility and has not been interpreted by a [facility] Provider. The exam was imported into our imaging system.[facility] Lower Extremity External Heqqp7152-68-22 15:12:26This exam was not acquired at a [facility] facility and has not been interpreted by a [facility] Provider. The exam was imported into our imaging system.[facility]- XR HIP W/PEL UNI 2+V IK4101-59-74 11:06:00 FAX: Sammy Fernández MD [phone] [place]: St: REG FAX: Pardeep Dawkins MD [phone] Name: PARDEEP VERDE [facility] [place] : 1950 Age/S: 70/M [address] Unit #: [id number] Loc: [place] [address] Phys: Sammy Weaver MD Acct: [id number] Dis Date: Status: REG RCR PHONE #: [phone] Exam Date: 06/28/2020 1100 FAX #: Reason: RIGHT HIP PAIN EXAMS: CPT CODE: [id number] XR HIP W/PEL UNI 2+[place] [id number] HISTORY: RIGHT HIP PAIN EXAM: AP pelvis [...] but no acute fracture or malalignment. Location: [facility] Electronically Si gned by David Gutierrez MD on 06/28/2020 at 1106 Reported an d signed by: David Gutierrez MD CC: Sammy Weaver MD; Pardeep Beal Technologist: Akilah Cleary RT(R) Trnscrd Date/Time/By: 06/28/2020 (1105) : By: [email or web address] Orig Print D/T: S: 06/28/2020 (9694) PAGE 1 Signed Report Capillary blood glucose measurement by glucometer (mass/volume)2020-06-19 12:08:00* Test Item Value Reference Range Interpretation Comments Bedside Glucose (test code = 04652-4) 149 mg/dL 70-120 Meter ID: [id number] Children's Medical CenterFluoroscopic procedure less than one hour dxgvrrxo4456-92-28 14:22:00* Test Item Value Reference Range Interpretation Comments Coronavirus (PCR) (test code = Coronavirus (PCR)) NOT DETECTED NOTD E[employer]ED [employer] Aptima SARS-CoV-2 assay is a nucleic amplification test intended for the qualitative detection of RNA from SARS-CoV-2 from nasopharyngeal (FISHING BOAT MATE) specimens. It is used under Emergency Use Authorization (EUA) by FDA.A positive result is indicative of the presence of SARS-CoV-2 RNA. Clinical correlation with patient history and other diagnostic information is necessary to determine patient infe ction status.A negative (Not Detected) result does not preclude SARS-CoV-2 infec tion. Clinical Correlation with patient history and other diagnostic information should be used in patient management decisions.Invalid: Unable to generate a va lid result on this specimen. Please submit a new specimen for reprat testing oc clinically indicated.Tesing performed by:[facility] Laboratory [address] [place] [id number], Ry Mancilla MD, PhD [facility] CenterBll[facility] leukocytes automated count (number/volume)2020-06-14 13:50:00* Test Item Value Reference Range Interpretation Comments White Blood Count (test code = 6690-2) 8.45 10*3/uL 4.8-10.8 [facility] CenterBll[facility] erythrocytes automated count (number/volume)2020-06-14 13:50:00* Test Item Value Reference Range Interpretation Comments Red Blood Count (test code = 789-8) 4.30 10*6/mL 4.3-5.7 [facility] CenterBlood hemoglobin measurement (moles/volume)2020-06-14 13:50:00* Test Item Value Reference Range Interpretation Comments Hemoglobin (test code = 94004-1) 14.1 g/dL 14.0-18.0 [facility] CenterAutomated blood hematocrit (volume fraction)2020-06-14 13:50:00* Test Item Value Reference Range Interpretation Comments Hematocrit (test code = 4544-3) 42.3 % 38.2-49.6 [facility] CenterAutomated erythrocyte mean corpuscular hcxfqb5829-70-63 13:50:00* Test Item Value Reference Range Interpretation Comments Mean Corpuscular Volume (test code = 787-2) 98.4 81-99 [facility] CenterAutomated erythrocyte mean corpuscular hemoglobin (mass per erythrocyte)2020-06-14 13:50:00* Test Item Value Reference Range Interpretation Comments Mean Corpuscular Hemoglobin (test code = 785-6) 32.8 pg 28-32 [facility] CenterAutomated erythrocyte mean corpuscular hemoglobin concentration measurement (mass/volume)2020-06-14 13:50:00* Test Item Value Reference Range Interpretation Comments Mean Corpuscular Hemoglobin Concent (test code = 786-4) 33.3 g/dL 31-35 [facility] CenterRDW TwbYj-Kwc0615-01-20 13:50:00* Test Item Value Reference Range Interpretation Comments Red Cell Distribution Width (test code = 21342-8) 12.5 % 11.7 -14.4 [facility] CenterAutomated blood platelet count (count/volume)2020-06-14 13:50:00* Test Item Value Reference Range Interpretation Comments Platelet Count (test code = 777-3) 130 10*3/uL 140-360 [facility] CenterAutomated blood segmented neutrophil count as percentage of total ondrjadbdj0586-96-50 13:50:00* Test Item Value Reference Range Interpretation Comments Neutrophils (%) (Auto) (test code = 69936-9) 69.7 % 38.7-80.0 [facility] CenterAutomated blood lymphocyte count as percentage ot total xqhshtjowt4887-04-47 13:50:00* Test Item Value Reference Range Interpretation Comments Lymphocytes (%) (Auto) (test code = 736-9) 21.3 % 18.0-39.1 [facility] CenterAutomated blood monocyte count as percentage of total wtkoekhbmz8543-80-12 13:50:00* Test Item Value Reference Range Interpretation Comments Monocytes (%) (Auto) (test code = 5905-5) 6.5 % 4.4-11.3 [facility] CenterAutomated blood eosinophil count as percentage of total fpeouaerku1183-02-02 13:50:00* Test Item Value Reference Range Interpretation Comments Eosinophils (%) (Auto) (test code = 713-8) 1.4 % 0.0-6.0 [facility] CenterAutomated blood basophil count as percentage of total mmpgzaiamc6105-41-10 13:50:00* Test Item Value Reference Range Interpretation Comments Basophils (%) (Auto) (test code = 706-2) 0.7 % 0.0-1.0 [facility] CenterFluoroscopic procedure less than one hour ctishlge2266-45-92 13:50:00* Test Item Value Reference Range Interpretation Comments IM GRANULOCYTES % (test code = IM GRANULOCYTES %) 0.4 % 0.0- 1.0 [facility] CenterAutomated blood neutrophil count 2020-06-14 13:50:00* Test Item Value Reference Range Interpretation Comments Neutrophils # (Auto) (test code = 751-8) 5.9 2.1-6.9 [facility] CenterBlood lymphocytes count (number/volume) 2020-06-14 13:50:00* Test Item Value Reference Range Interpretation Comments Lymphocytes # (Auto) (test code = 29584-2) 1.8 1.0-3.2 [facility] CenterBllake [facility] monocytes automated count (number/volume)2020-06-14 13:50:00* Test Item Value Reference Range Interpretation Comments Monocytes # (Auto) (test code = 742-7) 0.6 0.2-0.8 [facility] CenterAutomated blood eosinophil count 2020-06-14 13:50:00* Test Item Value Reference Range Interpretation Comments Eosinophils # (Auto) (test code = 711-2) 0.1 0.0-0.4 [facility] CenterAutomated blood basophil count (count/volume)2020-06-14 13:50:00* Test Item Value Reference Range Interpretation Comments Basophils # (Auto) (test code = 704-7) 0.1 0.0-0.1 [facility] CenterFluoroscopic procedure less than one hour ydnxmxcc1048-72-35 13:50:00* Test Item Value Reference Range Interpretation Comments Absolute Immature Granulocyte (auto (earle t code = Absolute Immature Granulocyte (auto) 0.03 10*3/uL 0-0.1 [facility] CenterProthrombin time (PT) in platelet poor plasma by coagulation kxotv1351-41-13 13:50:00* Test Item Value Reference Range Interpretation Comments Prothrombin Time (test code = 5902-2) 14.5 s 11.9-14.5 [facility] CenterINR in Platelet poor plasma by Coagulation wfnfu9547-35-99 13:50:00* Test Item Value Reference Range Interpretation Comments Prothromb Time International Ratio (test code = 6301-6) 1.07 Oral Anticoagulant Therapy INR Values:1. Low Intensity Therapy 1.5 - 2.02 . Moderate Intensity Therapy 2.0 - 3.03. High Intensity Therapy(1) 2.5 - 3. 54. High Intensity Therapy(2) 3.0 - 4.05. Panic Value INR > 5.0 [facility] Medical CenterActivated partial thromboplastin time (aPTT) in platelet poor plasma by coagulation bvmxd5148-70-35 13:50:00* Test Item Value Reference Range Interpretation Comments Activated Partial Thromboplast Time (test code = 28091-9) 31.5 s 23.8-35.5 [facility] Tomballerum or plasma sodium measurement (moles/volume)2020-06-14 13:50:00* Test Item Value Reference Range Interpretation Comments Sodium Level (test code = 2951-2) 140 mmol/L 136-145 [facility] Tomballerum or plasma potassium measurement (moles/volume)2020-06-14 13:50:00* Test Item Value Reference Range Interpretation Comments Potassium Level (test code = 2823-3) 4.0 mmol/L 3.5-5.1 [facility] Tomballerum or plasma chloride measurement (moles/volume)2020-06-14 13:50:00* Test Item Value Reference Range Interpretation Comments Chloride Level (test code = 2075-0) 109 mmol/L 98-107 [facility] Tomballerum or plasma carbon dioxide, total measurement (moles/volume)2020-06-14 13:50:00* Test Item Value Reference Range Interpretation Comments Carbon Dioxide Level (test code = 2028-9) 19 mmol/L 22-29 [facility] Tomballerum or plasma anion rgp2765-71-33 13:50:00* Test Item Value Reference Range Interpretation Comments Anion Gap (test code = 84728-8) 16.0 mmol/L 8-16 [facility] Tomballerum or plasma urea nitrogen measurement (mass/volume)2020-06-14 13:50:00* Test Item Value Reference Range Interpretation Comments Blood Urea Nitrogen (test code = 3094-0) 13 mg/dL 7- [facility] Tomballerum or plasma creatinine measurement (mass/volume)2020-06-14 13:50:00* Test Item Value Reference Range Interpretation Comments Creatinine (test code = 2160-0) 0.78 mg/dL 0.72-1.25 [facility] Tomballerum or plasma urea nitrogen/creatinine mass rblja4139-10-43 13:50:00* Test Item Value Reference Range Interpretation Comments BUN/Creatinine Ratio (test code = 3097-3) 17 6- [facility] Medical CenterEstimated glomerular filtration rate (GFR) vjcjmphdzsuyw7726-23-65 13:50:00* Test Item Value Reference Range Interpretation Comments Estimat Glomerular Filtration Rate (test code = 236288315) > 60 mL/ min >60 Ranges were taken from the National Kidney Disease Education Program and the [facility] [employer] literature.Reference ranges:60 or greater: Fbewgk80-66 ( for 3 consecutive months): Chronic kidney disease 15 or less: Kidney failureCook Children's Medical CenterGlucose rsqixzxbyuy8997-57-84 13:50:00* Test Item Value Reference Range Interpretation Comments Glucose Level (test code = TOM4618) 131 mg/dL 74-118 [facility] Tomballerum or plasma calcium measurement (mass/volume)2020-06-14 13:50:00* Test Item Value Reference Range Interpretation Comments Calcium Level (test code = 32946-7) 9.3 mg/dL 8.4-10.2 [facility] Tomballerum or plasma total bilirubin measurement (mass/volume)2020-06-14 13:50:00* Test Item Value Reference Range Interpretation Comments Total Bilirubin (test code = 1975-2) 0.6 mg/dL 0.2-1.2 [facility] CenterFluoroscopic procedure less than one hour esxgmxtz3608-50-62 13:50:00* Test Item Value Reference Range Interpretation Comments Aspartate Amino Transf (AST/SGOT) (test code = Aspartate Amino Transf (AST/SGOT)) 57 [IU]/L 5-34 [facility] Tomballerum or plasma alanine aminotransferase measurement (enzymatic activity/volume)2020-06-14 13:50:00* Test Item Value Reference Range Interpretation Comments Alanine Aminotransferase (ALT/SGPT) (test code = 1742-6) 37 [IU]/L 0-55 [facility] Tomballerum or plasma protein measurement (mass/volume)2020-06-14 13:50:00* Test Item Value Reference Range Interpretation Comments Total Protein (test code = 2885-2) 7.8 g/dL 6.5-8.1 [facility] Tomballerum or plasma albumin measurement (mass/volume)2020-06-14 13:50:00* Test Item Value Reference Range Interpretation Comments Albumin (test code = 1751-7) 3.6 g/dL 3.5-5.0 [facility] CenterPlasma globulin measurement (mass/volume) 2020-06-14 13:50:00* Test Item Value Reference Range Interpretation Comments Globulin (test code = 70609-9) 4.2 g/dL 2.3-3.5 [facility] Tomballerum or plasma albumin/globulin mass sfyhl7233-65-16 13:50:00* Test Item Value Reference Range Interpretation Comments Albumin/Globulin Ratio (test code = 1759-0) 0.9 0.8-2.0 [facility] Tomballerum or plasma alkaline phosphatase measurement (enzymatic activity/volume)2020-06-14 13:50:00* Test Item Value Reference Range Interpretation Comments Alkaline Phosphatase (test code = 6768-6) 128 [IU]/L 40-150 [facility] CenterCHEST 2 QMNZX9379-75-38 13:38:00 [place] [address] Patient Name: PARDEEP VERDE MR #: [id number] : 1950 Age/Sex: 70/M Req #: [id number] Adm Physician: Ordered by: DARRELL ROSA MD Report #: [id number] Location: OR Room/Bed: Procedure: [id number] DX/CHEST 2 EWS Exam Date: 06/14/20 Exam Time: 1310 REPORT STATUS: Signed Exam: CHEST 2 VIEWS Date: 06/14/2020 1:38 PM INDICATION: [id number] PRE OP Com parison: 11/14 03/14 [...] 1:40 PM Dictated By: BG RODRIGUEZ MD 1340 Transcribed By: NEMO on 06/14/20 1340 COPY T O: DARRELL ROSA MD - XR KNEE 3 V SR2715-84-55 17:11:00 Name: PARDEEP VERDE [facility] : 1950 Age/S:70 /M [address] [facility] Unit#:[id number] Loc: [place] [address] Phys: WhiteWill geovanna D FISHING BOAT MATE Dis Date: PHONE #: [phone] Status: REG ER FAX #: [phone] Exam Date: 05/23/2020 Re ason: TRAUMA EXAMS: CPT CODE: [id number] XR KNEE 3 [place] [id number] EXAM: Pelvis, one view, right hip, 2 [...] soft tissues unremarkable. IMPRESSION: 1. No evidence o f acute osseous trauma. 2. Mild osteoarthritis of both hip joints. 3. 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 4. A dvanced osteoarthritis of the right knee joint, affecting primarily the medial compartment. Location code: [facility] El ectronically Signed by Kia Valladares on 05/23 at 1711 Reported and signed by: Maria C Valladares M.D. CC: Pardeep Beal; Kade Blevins NP Technologist: CALEB HUERTA RT(R),CT Trnscrpt Data: 05/23/2020 (1711) [email or web address] Orig Print D/T: S: 05/23/2020 (4468) PAGE 1 Signed Report - XR HIP W/PEL UNI 2+V [id number] 17:11:00 Name: PARDEEP VERDE [facility] : 1950 Age/S:70 /M [address] [facility] Unit#:[id number] Loc: [place] [address] Phys: Kade Blevins [employer] MATE Dis Date: PHONE #: [phone] Status: REG ER FAX #: [phone] Exam Date: 05/23/2020 Reason: TRAUMA EXAMS: CPT CODE: [id number] XR HIP W/PEL UNI 2+[place] [address] EXAM: Pelvis, one view, right hip, 2 [...] affecting primarily the medial compartment. Location code: [facility] at 1711 Reported and signed by: Dhruv Valladares M.D. CC: Pardeep Beal; Kade Blevins NP Technologist: CALEB HUERTA RT(R),CT Trnscrpt Data: 05/23/2020 (171) KathyGRW Orig Print D/T: S: 05/23/2020 (2617) PAGE 1 Signed Report SURGICAL [id number] 04:11:00 RUN DATE: 05/08/20 [facility] *LIVE* PAGE 1 RUN TIME: 411 Specimen Inqui ry RUN USER: INTERFACE PATIENT: PARDEEP VERDE ACCT #: [id number] LOC: MARC #: [id number] AGE/SX: 70/M ROOM: RE05/04/20REG DR: Fiona Taylor MD : 52 BED: DIS: STATUS: [facility] [place] TLOC: SPEC #: [id number] RECD: 05/04/20 STATUS: JOSE ELIAS PURI #: [id number] RACHELLE: 05/04/[address]: Finoa Taylor MD ENTERED: 05/07/20 SP TYPE: SURG SPEC OTHR DR: DOES_N OT KNOW Pardeep Beal MDORDERED: GM LEVEL 4 CODES: [id number] - SOFT TISSUES, N COPIES TO: DOES_NOT KNOW Fiona Taylor MD [address] [place] [address] [phone] Pardeep Beal MD [address] [place], [place] [id number] [phone] PROCEDURES: GM LEVEL 4 (Incomplete) TISSUES: 1. [...] ON NEXT PAGE -- RUN DATE: 05/08/20 [facility] *LIVE* PAGE 2 RUN TIME: 411 Specimen Inquiry RUN USER: INTERFACE SPEC #: [id number] PATIENT: PARDEEP VERDE #[id number] (Continued) PRE-OP DIAGNOSIS Pancreatic cyst REVIEWED BY: RAY Signed SIGNATURE ON FILE Han Cagle DO 05/08/20 0411 END OF R EPORT [id number] 13:13:00* Test Item Value Reference Range Interpretation Comments GLUBED (test code = GLUBED) 132 MG/DL 70-110 H Performed by certified barrel rib matting machine operator at [facility] LIWGZQ2935-83-41 12:13:00* Test Item Value Reference Range Interpretation Comments GLUBED (test code = GLUBED) 148 MG/DL 70-110 H Performed by certified barrel rib matting machine operator at [facility] Novel Coronavirus 2019 Rmdcnyw2078-79-82 03:23:00* Test Item Value Reference Range Interpretation Comments Novel Coronavirus 2019 Inhouse (test code = COVNONPUI) Negative Negative - XR CHEST 2 [id number] 16:24:00 FAX: Fiona Perea MD [phone] Rodney: St: PRE FAX: Pardeep Dawkins MD [phone] FAX: Jenni Culver N Name: PARDEEP VERDE [facility] : 1950 Age/S: 70/M [address] [place] [address] Blvd Unit #: [id number] Loc: [place] [address] Phys: Jenni Culver [employer]ING [employer] MATE Acct: [id number] Dis Date: Status: PRE SDC PH ONE #: [phone] Exam Date: 05/02/2020 1615 FAX #: [phone] Reason: PREOP EXAMS: CPT CODE: [id number] XR CHEST 2 V 46656 EXAM: XR CHEST 2 VIEWS DATE: 05/02/2020 3:20 PM : 1950; Age: 70 years y/o Male INDICATION: Pancreatic cyst PREOP COMPARISON: November 14, 2019 TECHNIQUE: PA and lateral chest radiographs. FINDINGS: Lines, tubes and hardware: None. Lungs and pleura: Moderate peripheral fibrotic changes are again seen. N o definite consolidation. No pleural effusion. Heart and mediasti num: The heart size is normal for technique. Vascular calcifications are p resent at the aorta. Pulmonary vascularity is normal. IMPRESSION: No acute cardiopulmonary process. SL: [id number] at 1624 Reported and signed by: Eligio Rodriguez D.O. CC: Fiona Taylor MD; Pardeep Beal MD; Jenni Culver NP Technologist: Sergio Corral RT(R) Trnscrd Date/Time/By: 05/02/20 20 (0011) : By: [email or web address] Orig Print D/T: S: 05/02/2020 (2903) PAGE 1 Signed Report BASIC METABOLIC [id number] 15:52:00* Test Item Value Reference Range Interpretation [...] CA) 8.9 mg/dL 8.0-10.5 N BASIC METABOLIC [id number] 15:49:00* Test Item Value Reference Range Interpretation [...] CA) 8.9 mg/dL 8.0-10.5 N CBC W/AUTO [id number] 15:43:00* Test Item Value Reference Range Interpretation [...] (test code = MDIFF) NO CT CHEST [id number] 15:17:00 [place] [address] Patient Name: PARDEEP VERDE MR #: [id number] : 1950 Age/Sex: 70/M Req #: [id number] Adm Physician: Ordered by: MIKE DELCID MD Report #: [id number] Location: CT Room/Bed: Procedure: [id number] CT/CT CHEST WO Exam Date: 04/18/20 Exam [...] 04/18/20 1528 COPY TO: MIKE DELCID MD, [facility] Bedside Uorpsqp3239-08-32 16:32:00* Test Item Value Reference Range Interpretation Comments Bedside Glucose (test code = 71372-2) 149 70-120 H Meter ID: [id number] [facility] Tomballodium Level 2019-11-21 06:37:00* Test Item Value Reference Range Interpretation Comments Sodium Level (test code = 2951-2) 137 136-145 [facility]Potassium Baneu1852-27-52 06:37:00* Test Item Value Reference Range Interpretation Comments Potassium Level (test code = 2823-3) 3.7 3.5-5.1 [facility] CenterChloride Rozme4774-82-63 06:37:00* Test Item Value Reference Range Interpretation Comments Chloride Level (test code = 2075-0) 106 98-107 [facility] CenterCarbon Dioxide Mlqzl1143-59-50 06:37:00* Test Item Value Reference Range Interpretation Comments Carbon Dioxide Level (test code = 2028-9) 21 22-29 L [facility] CenterAnion Gbp9429-59-04 06:37:00* Test Item Value Reference Range Interpretation Comments Anion Gap (test code = 40990-7) 13.7 8-16 [facility] CenterBlood Urea Vooznaie8737-27-19 06:37:00* Test Item Value Reference Range Interpretation Comments Blood Urea Nitrogen (test code = 3094-0) 11 7-26 [facility] CenterCreatinine2020-01-27 06:37:00* Test Item Value Reference Range Interpretation Comments Creatinine (test code = 2160-0) 0.65 0.72-1.25 L [facility] CenterBUN/Creatinine Swvxk6578-82-14 06:37:00* Test Item Value Reference Range Interpretation Comments BUN/Creatinine Ratio (test code = 3097-3) 17 6-25 [facility] CenterEstimat Glomerular Filtration Rate 2019-11-21 06:37:00* Test Item Value Reference Range Interpretation Comments Estimat Glomerular Filtration Rate (test code = 531839493) > 60 >60 Ranges were taken from the National Kidney Disease Education Program and the [facility] [employer] literature.Reference ranges:60 or greater: Ycsltm61-22 ( for 3 consecutive months): Chronic kidney disease 15 or less: Kidney failureCook Children's Medical CenterGlucose Eqosk3940-74-56 06:37:00* Test Item Value Reference Range Interpretation Comments Glucose Level (test code = XVJ6932) 131 74-118 H [facility] CenterCalcium Umiun0138-59-88 06:37:00* Test Item Value Reference Range Interpretation Comments Calcium Level (test code = 71906-4) 8.8 8.4-10.2 [facility] CenterTotal Lqdpclogz5466-48-13 06:37:00* Test Item Value Reference Range Interpretation Comments Total Bilirubin (test code = 1975-2) 1.0 0.2-1.2 [facility] CenterAspartate Amino Transf (AST/SGOT) 2019-11-21 06:37:00* Test Item Value Reference Range Interpretation Comments Aspartate Amino Transf (AST/SGOT) (test code = Aspartate Amino Transf (AST/SGOT)) 56 5-34 H [facility] CenterAlanine Aminotransferase (ALT/SGPT) 2019-11-21 06:37:00* Test Item Value Reference Range Interpretation Comments Alanine Aminotransferase (ALT/SGPT) (test code = 1742-6) 52 0-55 [facility] CenterTotal Pqezqvl9419-58-12 06:37:00* Test Item Value Reference Range Interpretation Comments Total Protein (test code = 2885-2) 6.7 6.5-8.1 [facility] CenterAlbumin2020-01-27 06:37:00* Test Item Value Reference Range Interpretation Comments Albumin (test code = 1751-7) 2.4 3.5-5.0 L [facility] CenterGlobulin2020-01-27 06:37:00* Test Item Value Reference Range Interpretation Comments Globulin (test code = 91685-2) 4.3 2.3-3.5 H [facility] CenterAlbumin/Globulin Ltaby7348-60-58 06:37:00 * Test Item Value Reference Range Interpretation Comments Albumin/Globulin Ratio (test code = 1759-0) 0.6 0.8-2.0 L [facility] CenterAlkaline Fxryjmipzft9265-97-73 06:37:00* Test Item Value Reference Range Interpretation Comments Alkaline Phosphatase (test code = 6768-6) 123 40-150 [facility] CenterLactic Acid Yjgbm0470-89-88 06:07:00* Test Item Value Reference Range Interpretation Comments Lactic Acid Level (test code = Lactic Acid Level) 1.5 0.5- 2.0 [facility] CenterWhite Blood Cadve4673-51-53 06:00:00* Test Item Value Reference Range Interpretation Comments White Blood Count (test code = 6690-2) 8.32 4.8-10.8 [facility] CenterRed Blood Tbqxj4658-14-30 06:00:00* Test Item Value Reference Range Interpretation Comments Red Blood Count (test code = 789-8) 2.98 4.3-5.7 L [facility] CenterHemoglobin2020-01-27 06:00:00* Test Item Value Reference Range Interpretation Comments Hemoglobin (test code = 36476-7) 9.7 14.0-18.0 L [facility] CenterHematocrit2020-01-27 06:00:00* Test Item Value Reference Range Interpretation Comments Hematocrit (test code = 4544-3) 30.1 38.2-49.6 L [facility] CenterMean Corpuscular Doqnqt6152-14-53 06:00:00* Test Item Value Reference Range Interpretation Comments Mean Corpuscular Volume (test code = 787-2) 101.0 81-99 H [facility] CenterMean Corpuscular Afkrawgguy0878-37-71 06:00:00* Test Item Value Reference Range Interpretation Comments Mean Corpuscular Hemoglobin (test code = 785-6) 32.6 28-32 H [facility] CenterMean Corpuscular Hemoglobin Concent 2019-11-21 06:00:00* Test Item Value Reference Range Interpretation Comments Mean Corpuscular Hemoglobin Concent (test code = 786-4) 32.2 31-35 [facility] CenterRed Cell Distribution Gnula6900-06-50 06:00:00* Test Item Value Reference Range Interpretation Comments Red Cell Distribution Width (test code = 80769-9) 13.2 11.7 -14.4 [facility] CenterPlatelet Rgspr1986-09-64 06:00:00* Test Item Value Reference Range Interpretation Comments Platelet Count (test code = 777-3) 169 140-360 [facility] CenterNeutrophils (%) (Auto)2019-11-21 06:00:00 * Test Item Value Reference Range Interpretation Comments Neutrophils (%) (Auto) (test code = 62883-3) 57.6 38.7-80.0 [facility] CenterLymphocytes (%) (Auto)2019-11-21 06:00:00 * Test Item Value Reference Range Interpretation Comments Lymphocytes (%) (Auto) (test code = 736-9) 26.8 18.0-39.1 [facility] CenterMonocytes (%) (Auto)2019-11-21 06:00:00* Test Item Value Reference Range Interpretation Comments Monocytes (%) (Auto) (test code = 5905-5) 10.0 4.4-11.3 [facility] CenterEosinophils (%) (Auto)2019-11-21 06:00:00 * Test Item Value Reference Range Interpretation Comments Eosinophils (%) (Auto) (test code = 713-8) 2.2 0.0-6.0 [facility] CenterBasophils (%) (Auto)2019-11-21 06:00:00* Test Item Value Reference Range Interpretation Comments Basophils (%) (Auto) (test code = 706-2) 0.6 0.0-1.0 [facility] CenterIM GRANULOCYTES %2019-11-21 06:00:00* Test Item Value Reference Range Interpretation Comments IM GRANULOCYTES % (test code = IM GRANULOCYTES %) 2.8 0.0- 1.0 H [facility] CenterNeutrophils # (Auto)2019-11-21 06:00:00* Test Item Value Reference Range Interpretation Comments Neutrophils # (Auto) (test code = 751-8) 4.8 2.1-6.9 [facility] CenterLymphocytes # (Auto)2019-11-21 06:00:00* Test Item Value Reference Range Interpretation Comments Lymphocytes # (Auto) (test code = 11667-5) 2.2 1.0-3.2 [facility] CenterMonocytes # (Auto)2019-11-21 06:00:00* Test Item Value Reference Range Interpretation Comments Monocytes # (Auto) (test code = 742-7) 0.8 0.2-0.8 [facility] CenterEosinophils # (Auto)2019-11-21 06:00:00* Test Item Value Reference Range Interpretation Comments Eosinophils # (Auto) (test code = 711-2) 0.2 0.0-0.4 [facility] CenterBasophils # (Auto)2019-11-21 06:00:00* Test Item Value Reference Range Interpretation Comments Basophils # (Auto) (test code = 704-7) 0.1 0.0-0.1 [facility] CenterAbsolute Immature Granulocyte (auto 2019-11-21 06:00:00* Test Item Value Reference Range Interpretation Comments Absolute Immature Granulocyte (auto (earle t code = Absolute Immature Granulocyte (auto) 0.23 0-0.1 H [facility] CenterBlood Dscwhpn9020-26-43 18:19:00* Test Item Value Reference Range Interpretation Comments Blood Culture (test code = 74327022) NO GROWTH AFTER 5 DAYS, FINAL REPORT [facility] CenterCreatine Jlrpcu2238-39-30 06:34:00* Test Item Value Reference Range Interpretation Comments Creatine Kinase (test code = 2157-6) 80 30-200 [facility] CenterB-Type Natriuretic Rzvdpvn4705-31-77 06:11:00* Test Item Value Reference Range Interpretation Comments B-Type Natriuretic Peptide (test code = 08028-2) 83.5 0-100 [facility] CenterCHEST 2 WBARO1836-28-81 11:53:00 [place] [address] Patient Name: PARDEEP VERDE MR #: [id number] : 1950 Age/Sex: 69/M Req #: [id number] Adm Physician: PARDEEP BEAL MD Ordered by: JACKY NGO MD Report #: [id number] Location: IMCU Room/Bed: IMCU 198-1 Procedure: [id number] DX/C HEST 2 VIEWS Exam Date: 11/19/19 Exam Time: 1138 REPORT STATUS: Signed Chest, 1 view , 11/19/2019. History: Right-sided pneumonia. Comparison: 2019. Findings: The cardiomediastinal silhouette and pulmonary vasculature are within normal limits for a portable exam. Diffuse patchy reticular nodular opacities throughout the right lung. Diffuse coarsening of the left pulmonary interstitium, particularly in the lower lobe. Hyperinflation of the left uppe r lobe again observed. There are no acute osseous or soft tissue abnormalities . Impression: No significant interval change. Findings consistent with diffuse right lung and left lower lobe infectious etiology superimposed on chr onic changes. Signed by: Dr. Nick Benitez M.D. on 11/19/2019 11:54 AM Dictated By: GEOFFREY BENIETZ MD, MD 1154 Transcribed By: NEMO on 11/19/19 1154 [employer] ADMINISTRATOR Y TO: JACKY NGO MD CHEST SINGLE (PORTABLE)2019-11-18 08:50:00 [place] [address] Patient Name: PARDEEP VERDE MR #: [id number] : 1950 Age/Sex: 69/M Req #: [id number] Adm Physician: PARDEEP BEAL MD Ordered by: MIKE DELCID MD Report #: [id number] Location: ICU Room/Bed: ICU 191-1 Procedure: [id number] DX /CHEST SINGLE (PORTABLE) Exam Date: 11/18/19 [...] AM Dictated By: SOLOMON CLARK MD [facility] Signed By: SOLOMON CLARK MD on 11/18/19852 Transcribed By: NEMO on 11/18/19852 COPY TO: MIKE DELCID MD, [facility] CHEST SINGLE (PORTABLE)2019-11-17 08:40:00 [place] [address] Patient Name: PARDEEP VERDE MR #: [id number] : 1950 Age/Sex: 69/M Req #: [id number] Adm Physician: PARDEEP BEAL MD Ordered by: MIKE DELCID MD Report #: [id number] Location: ICU Room/Bed: ICU [facility] Procedure: [id number] DX /CHEST SINGLE (PORTABLE) Exam Date: 11/17/19 Exam Ti me: 0610 REPORT STATUS: Signed Opal aayusht, 1 view, 11/17/2019. History: Pneumonia, shortness of [...] on 11/17/19840 COPY TO: MIKE DELCID MD, ABI Creatine Kinase QT8706-53-92 05:58:00* Test Item Value Reference Range Interpretation Comments Creatine Kinase MB (test code = 35212-2) 4.90 0-5.0 [facility] CenterTroponin U7709-08-97 05:58:00* Test Item Value Reference Range Interpretation Comments Troponin I (test code = LRB9086) 0.081 0-0.300 [facility] CenterMagnesium Qrqnf2239-08-54 10:38:00* Test Item Value Reference Range Interpretation Comments Magnesium Level (test code = 63102-1) 1.6 1.3-2.1 [facility] CenterCHES SINGLE (PORTABLE)2019-11-16 08:54:00 [place] [address] Patient Name: PARDEEP VERDE MR #: [id number] : 1950 Age/Sex: 69/M Req #: [id number] Adm Physician: PARDEEP BEAL MD Ordered by: BURAK FERNANDO MD Report #: [id number] Location: ICU Room/Bed: ICU [facility] Procedure: [id number] DX/C HEST SINGLE (PORTABLE) Exam Date: 11/16/19 Exam Time : 0530 REPORT STATUS: Signed [address] st, 1 view, 11/16/2019. History: Shortness of [...] TO: BURAK FERNANDO MD Differential Total Cells Yiebgkr5916-86-84 07:41:00* Test Item Value Reference Range Interpretation Comments Differential Total Cells Counted (test code = Differcarlene tial Total Cells Counted) 100 [facility] CenterNeutrophils % (Manual)2019-11-16 07:41:00 * Test Item Value Reference Range Interpretation Comments Neutrophils % (Manual) (test code = 84170-4) 77 40-74 H [facility] CenterBand Neutrophils %2019-11-16 07:41:00* Test Item Value Reference Range Interpretation Comments Band Neutrophils % (test code = 764-1) 9 [facility] CenterLymphocytes % (Manual)2019-11-16 07:41:00 * Test Item Value Reference Range Interpretation Comments Lymphocytes % (Manual) (test code = 737-7) 6 19-48 L [facility] CenterMonocytes % (Manual)2019-11-16 07:41:00* Test Item Value Reference Range Interpretation Comments Monocytes % (Manual) (test code = 744-3) 8 3.4-9.0 [facility] CenterPlatelet Morphology Pfjtvnu3209-66-93 07:41:00* Test Item Value Reference Range Interpretation Comments Platelet Morphology Comment (test code = 94796-2) NORMAL [facility] CenterRed Cell Morphology Bcjxdsf4021-44-92 07:41:00* Test Item Value Reference Range Interpretation Comments Red Cell Morphology Comment (test code = 6742-1) NORMAL [facility] CenterArterial Blood iA1425-16-67 01:45:00* Test Item Value Reference Range Interpretation Comments Arterial Blood pH (test code = 2744-1) 7.40 7.31-7.41 [facility] CenterArterial Blood Partial Pressure CO2 2019-11-16 01:45:00* Test Item Value Reference Range Interpretation Comments Arterial Blood Partial Pressure CO2 (test code = 2018-) 21 41-51 L [facility] CenterArterial Blood Partial Pressure O2 2019-11-16 01:45:00* Test Item Value Reference Range Interpretation Comments Arterial Blood Partial Pressure O2 (test code = 2018-) 90 80-105 [facility] CenterArterial Blood DTJ73242-75-84 01:45:00* Test Item Value Reference Range Interpretation Comments Arterial Blood HCO3 (test code = 1960-4) 13 23-28 L [facility] CenterArterial Blood Base Vvqzty6601-55-05 01:45:00* Test Item Value Reference Range Interpretation Comments Arterial Blood Base Excess (test code = 1925-7) -12.0 -2-3 L [facility] CenterArterial Blood Oxygen Saturation 2019-11-16 01:45:00* Test Item Value Reference Range Interpretation Comments Arterial Blood Oxygen Saturation (test code = 2708-6) 97.0 95-98 [facility] CenterFiO22020-01-22 01:45:00* Test Item Value Reference Range Interpretation Comments FiO2 (test code = FiO2) 50 Pt was BIPAP 12/6 50% blood drwan from left brachial artery.[facility] CenterInfluenza Virus Types A,B Rsevgnv0846-67-48 01:03:00* Test Item Value Reference Range Interpretation Comments Influenza Virus Types A,B Antigen (test code = 58893-4) NEGATIVE NEGATIVE [facility] CenterUrine QBN9795-87-77 21:59:00* Test Item Value Reference Range Interpretation Comments Urine WBC (test code = 5821-4) NONE 0-5 [facility] CenterUrine SBQ6693-03-87 21:59:00* Test Item Value Reference Range Interpretation Comments Urine RBC (test code = 59750-3) 6-10 0-5 H [facility] CenterUrine Ekdxgmiv7905-55-83 21:59:00* Test Item Value Reference Range Interpretation Comments Urine Bacteria (test code = 14636-0) MODERATE NONE H [facility] CenterUrine Epithelial Xchvw8685-57-39 21:59:00 * Test Item Value Reference Range Interpretation Comments Urine Epithelial Cells (test code = 27192-3) RARE NONE [facility] CenterUrine Calcium Oxalate Igyagwrf9333-20-82 21:59:00* Test Item Value Reference Range Interpretation Comments Urine Calcium Oxalate Crystals (test code = 5774-5) RARE FE W [facility] CenterUrine Amorphous Zimuldpb6705-71-60 21:59:00* Test Item Value Reference Range Interpretation Comments Urine Amorphous Sediment (test code = 8246-1) MODERATE FEW H [facility] CenterUrine Hyaline Qfsnb6677-54-88 21:59:00* Test Item Value Reference Range Interpretation Comments Urine Hyaline Casts (test code = 83823-4) 2-5 0-1 H [facility] CenterUrine Uyiis7632-46-13 21:50:00* Test Item Value Reference Range Interpretation Comments Urine Color (test code = 5778-6) YELLOW YELLOW [facility] CenterUrine Kaskaor1975-22-02 21:50:00* Test Item Value Reference Range Interpretation Comments Urine Clarity (test code = 31307-7) SL CLOUDY CLEAR H [facility] CenterUrine Specific Yopfnjc0393-53-85 21:50:00 * Test Item Value Reference Range Interpretation Comments Urine Specific [place] (test code = 5811-5) 1.020 1.010-1.02 5 [facility] CenterUrine lY6496-21-96 21:50:00* Test Item Value Reference Range Interpretation Comments Urine pH (test code = 25840-7) 5.5 5-7 [facility] CenterUrine Leukocyte Cnnfjhhj8459-24-38 21:50:00* Test Item Value Reference Range Interpretation Comments Urine Leukocyte Esterase (test code = 5799-2) NEGATIVE NEGATIVE [facility] CenterUrine Xmviqwl6168-18-67 21:50:00* Test Item Value Reference Range Interpretation Comments Urine Nitrite (test code = 25559-0) NEGATIVE NEGATIVE [facility] CenterUrine Hxqcjmf1052-71-39 21:50:00* Test Item Value Reference Range Interpretation Comments Urine Protein (test code = 5804-0) 2+ NEGATIVE H [facility] CenterUrine Glucose (UA)2019-11-15 21:50:00* Test Item Value Reference Range Interpretation Comments Urine Glucose (UA) (test code = 2349-9) NEGATIVE NEGATIVE [facility] CenterUrine Nsotuju0267-36-55 21:50:00* Test Item Value Reference Range Interpretation Comments Urine Ketones (test code = 14687-1) NEGATIVE NEGATIVE [facility] CenterUrine Lnslapvnwkbl7750-70-04 21:50:00* Test Item Value Reference Range Interpretation Comments Urine Urobilinogen (test code = 80616-2) 0.2 0.2-1 [facility] CenterUrine Vqpoqjgwg2218-09-64 21:50:00* Test Item Value Reference Range Interpretation Comments Urine Bilirubin (test code = 1978-6) NEGATIVE NEGATIVE [facility] CenterUrine Ikxgh5311-88-99 21:50:00* Test Item Value Reference Range Interpretation Comments Urine Blood (test code = 38734-6) 2+ NEGATIVE H [facility] CenterPlatelet Vsmwuhrt1710-15-21 20:13:00* Test Item Value Reference Range Interpretation Comments Platelet Estimate (test code = 06371-1) ADEQUATE [facility] CenterProthrombin Ljyc3105-79-66 18:18:00* Test Item Value Reference Range Interpretation Comments Prothrombin Time (test code = 5902-2) 16.8 11.9-14.5 H [facility] CenterProthromb Time International Ratio 2019-11-15 18:18:00* Test Item Value Reference Range Interpretation Comments Prothromb Time International Ratio (test code = 6301-6) 1.30 Oral Anticoagulant Therapy INR Values:1. Low Intensity Therapy 1.5 - 2.02 . Moderate Intensity Therapy 2.0 - 3.03. High Intensity Therapy(1) 2.5 - 3. 54. High Intensity Therapy(2) 3.0 - 4.05. Panic Value INR > 5.0 [facility] CenterActivated Partial Thromboplast Time 2019-11-15 18:18:00* Test Item Value Reference Range Interpretation Comments Activated Partial Thromboplast Time (test code = 23422-4) 35.4 23.8-35.5 [facility] [facility]2019-11-15 17:58:00 [place] [address] Patient Name: PARDEEP VERDE MR #: [id number] : 1950 Age/Sex: 69/M Req #: [id number] Adm Physician: Ordered by: BURAK FERNANDO MD Report #: [id number] Location: ER Room/Bed: Procedure: [id number] DX/CH EST SINGLE (PORTABLE) Exam Date: 11/15/19 Exam Time: 174 REPORT STATUS: Signed EXAM INATION: CHEST SINGLE [...] upper lobe and right lower lobe airspace opacitie s may represent pneumonia. COPD. Stable fibrosis of the left lung. Signed by: Dr. Celestina Wheat MD on 11/15/2019 6:00 PM Dictated By: CELESTINA WHEAT MD 1800 T ranscribed By: NEMO on 11/15/19 1800 COPY TO: BURAK FERNANDO MD DRUGS OF ABUSE SCREEN ML4909-04-23 22:57:00* Test Item Value Reference Range Interpretation [...] NEGATIVE <300 ng/mL DRUGS OF ABUSE SCREEN [id number] 22:21:00* Test Item Value Reference Range Interpretation [...] code = MET[place]URN) NEGATIVE <300 ng/mL URINALYSIS [id number] 22:15:00* Test Item Value Reference Range Interpretation [...] NEGATIVE UA NITRITE DIPSTICK (test code = ENLSY) NEGATIVE NEGATIVE UA LEUKOCYTE ESTERASE W REFLEX (test code = LEUUR) NEGATIVE [place]/uL NEGATIVE UA WBC (test code = WBCU) 0-5 per HPF 0-5 UA RBC (test code = RBCU) 0-2 #/HPF 0-5 UA EPITHELIAL CELLS (test code = EPIU) None seen per HPF Few UA BACTERIA (test code = BACU) NONE SEEN per HPF NONE Urine Source? Clean CatchURINALYSIS [id number] 22:13:00* Test Item Value Reference Range Interpretation [...] per HPF NONE Urine Source? Clean CatchURINALYSIS VIUWGPBM3305-88-84 22:13:00* Test Item Value Reference Range Interpretation [...] Urine Source? Clean Catch- XR CHEST 1 [id number] 22:07:00 FAX: Jennifer Cook MD [place]: St: [facility] FAX: Pardeep Dawkins MD [phone] Name: PARDEEP VERDE [facility] : 1950 Age/S: 69/M [address] Unit #: [id number] Loc: [facility] [place] [address] Phys: Jennifer Cook MD Acct: [id number] Dis Date: Status: REG ER PHONE #: [phone] Exam Date: 11/14/20194 FAX #: [phone] Reason: fall EXAMS: CPT CODE: [id number] XR CHEST 1 V 36333 REASON FOR EXAM: fall EXAM ORDER DATE: 10/27 9:36 PM Ordering: Jennifer Cook MD Attending:Bart Cook MD Location: PROCEDURE: - XR CHEST 1 V COMPARISON: 02/27/2018 FINDINGS: Portable AP frontal view o f the chest obtained at 9:44 PM shows mild patchy diffuse airspace opacity . There is no evidence of effusion. The heart size is within normal limits . Pulmonary vasculatures are unremarkable. IMPRESSION: Di ffuse pulmonary fibrosis with atelectasis of the lung bases at 2207 Reported and signed by: Michael Carlos M.D. CC: Jennifer Cook MD; Pardeep Beal Technologist: ARTURO RAMOS(R) Trnscrd Date/Time/By: 11/14/2019 (2206) : By: Dallin JohnsVTL Orig Print D/T: S: 11/14/2019 (2210) PAGE 1 Signed Report B-TYPE NATRIURETIC [id number] 20:30:00* Test Item Value Reference Range Interpretation Comments B-TYPE NATRIURETIC PEPTIDE (test code = BNP) 64.65 pgram/mL 0-100 N BASIC METABOLIC [id number] 19:56:00* Test Item Value Reference Range Interpretation [...] CA) 8.8 mg/dL 8.5-10.1 N HEPATIC FUNCTION [id number] 19:56:00* Test Item Value Reference Range Interpretation [...] reference range due to change in reagent. [id number]-[id number] 19:56:00* Test Item Value Reference Range Interpretation Comments TROPONIN-I (test code = TROPI) <0.015 ng/mL 0-0.045 N [id number] 19:56:00* Test Item Value Reference Range Interpretation [...] ANADDITIONAL CHARGE TO THE PATIENT. BASIC METABOLIC [id number] 19:47:00* Test Item Value Reference Range Interpretation [...] code = CA) mg/dL 8.5-10.1 HEPATIC FUNCTION [id number] 19:47:00* Test Item Value Reference Range Interpretation [...] TOTAL (test code = ALKP) IUnit/L 45-117 AALKQKHO-J0002-91-20 19:47:00* Test Item Value Reference Range Interpretation Comments TROPONIN-I (test code = TROPI) ng/mL 0-0.045 WXQZFQQ5309-48-10 19:47:00* Test Item Value Reference Range Interpretation Comments ALCOHOL (test code = ALC) mg/dL 0-3 - CT HEAD/BRAIN W/O [id number] 19:47:00 Name: PARDEEP VERDE [facility] : 1950 Age/S: 69 / M [address] [facility] Unit #: [id number] Loc: [place] [address] Phys: Jennifer Cook MD Acct: [id number] Dis Date: Status: REG ER PHONE #: [phone] Exam Date: 11/14/20191934 FAX #: [phone] Reason: Syncope EXAMS: CPT CODE: [id number] CT HEAD/BRAIN W/O CONT 41838 REASON FOR EXAM: Syncope EXAM ORDER DATE: 11/14/2019 7:09 PM Ordering: Jennifer Cook MD Attending:Jennifer Cook MD Location:[facility] PROCEDURE: - CT HEAD/BRAIN W/O CONT COMPARISON: FINDINGS: CT images of the brain were obtained without IV contrast. Dose modulation, iterative reconstruction, and/or weight based adjustment of the MA/KV was utilized to reduce the radiation dose to as low as reasonably achievable. Mild patchy low densities appearance of the paraventricular region noted consistent with nonspecific white matter disease. The palacio- white matter delineation is unremarkable. The ventricles, cisterns, and sulci are unremarkable. There is no evidence of hemorrhage, mass, mass effect. There is no evidence of acute or old infarct. The calvarium is intact. IMPRESSION: Unremarkable brain. at 1947 Reported and signed by: Michael Carlos M.D. CC: Jennifer Cook MD; Pardeep Beal Technologist:Gemini Welsh RT(R) CTDI: DLP: Trnscb Date/Time: 11/14/2019 (1946) tANGELICAL Orig Print D/T: S: 11/14/2019 (1949) PAGE 1 Signed Report - XR HIP W/PEL UNI 2+V LT 2019-11-14 19:40:00 FAX: Jennifer Cook MD [place]: St: [facility] FAX: Pardeep Dawkins MD [phone] Name: PARDEEP VERDE [facility] : 1950 Age/S: 69/M [address] [facility] Unit #: [id number] Loc: [place] [address] Phys: Jennifer Cook MD Acct: [id number] Dis Date: Status: REG ER PHONE #: [phone] Exam Date: 11/14/20191938 FAX #: [phone] Reason: FALL EXAMS: CPT CODE: [id number] XR HIP W/PEL UNI 2+V LT 04673 REASON FOR EXAM: FALL EXAM ORDER DATE: 11/14/2019 7:09 PM Ordering: Jennifer Cook MD Attending:Jennifer Cook MD Location:[facility] PROCEDURE: - XR HIP W/PEL UNI 2+V LT FINDINGS: 3 views of the left hip with fron dilip view of the pelvis were obtained. The osseous structures are unremarka ble in size and shape. The joint spaces are maintained. No evidence of f racture. There is normal alignment of the left hip joint IMPRESSION: Unremarkable left hip at 1940 Reported and signed by: Michael Carlos M.D. CC: Jennifer Cook MD; Pardeep Beal Technologist: NICOLAS Conrad nscrd Date/Time/By: 11/14/2019 (1939) : By: GitaL Orig Print D/T: S: 11/14/2019 (1942) PAGE 1 Eva d Report - XR KNEE 1 OR 2 V [id number] 19:40:00 FAX: Jennifer Cook MD [place]: St: REG FAX: Pardeep Dawkins MD [phone] Name: PARDEEP VERDE [facility] : 1950 Age/S: 69/M [address] [facility] Unit #: [id number] Loc: [place] [address] Phys: Jennifer Cook MD Acct: [id number] Dis Date: Status: REG ER PHONE #: [phone] Exam Date: 11/14/20191938 FAX #: [phone] Reason: FALL EXAMS: CPT CODE: [id number] XR KNEE 1 OR 2 V LT [address] REASON FOR EXAM: FALL EXA M ORDER DATE: 11/14/2019 7:09 PM Ordering: Jennifer Cook MD Attending:Jennifer Cook MD Location:[facility] PROCEDURE: - X R KNEE 1 OR 2 V LT FINDINGS: 2 views of the left knee were obtaine d. The osseous structures are unremarkable in size and shape. The joint s paces are maintained. No evidence of fracture. No evidence of joint effu fran. The patella is intact IMPRESSION: Unremarkable left knee at 1939 Reported and signed by: Kia Byrd C: Jennifer Cook MD; Pardeep Beal Technologist: NICOLAS GIRDER Trnscrd Date/Time/By: 11/14/2019 (1939) : By: Hanane Orig Print D/T: S: 11/14/2019 (1942) PAGE 1 Signed Report CBC W/O [id number] 19:39:00* Test Item Value Reference Range Interpretation [...] = MPV) 12.7 fL 6.7-11.0 H Bedside Ztczstl1137-55-44 07:15:00* Test Item Value Reference Range Interpretation Comments Bedside Glucose (test code = 91493-8) 132 70-120 H Meter ID: [id number] [facility] HospitalCreatine Kinase MB 2019-11-07 14:51:00* Test Item Value Reference Range Interpretation Comments Creatine Kinase MB (test code = 49236-0) 0.80 0-5.0 [facility] CenterTroponin [id number] 14:51:00* Test Item Value Reference Range Interpretation Comments Troponin I (test code = BME9667) < 0.001 0-0.300 [facility] CenterCreatine Qwaxed6202-28-87 14:32:00* Test Item Value Reference Range Interpretation Comments Creatine Kinase (test code = 2157-6) 52 30-200 [facility] CenterMagnesium Lwfhp1845-99-63 10:58:00* Test Item Value Reference Range Interpretation Comments Magnesium Level (test code = 55468-0) 1.6 1.3-2.1 [facility] Tomballodium Zkpif1797-17-14 06:58:00* Test Item Value Reference Range Interpretation Comments Sodium Level (test code = 2951-2) 138 136-145 [facility] CenterPotassium Ougni9508-96-59 06:58:00* Test Item Value Reference Range Interpretation Comments Potassium Level (test code = 2823-3) 3.7 3.5-5.1 [facility] CenterChloride Muiff4668-59-91 06:58:00* Test Item Value Reference Range Interpretation Comments Chloride Level (test code = 2075-0) 106 98-107 [facility] CenterCarbon Dioxide Oyljl6039-17-71 06:58:00* Test Item Value Reference Range Interpretation Comments Carbon Dioxide Level (test code = 2028-9) 22 22-29 [facility] CenterAnion Hsp8585-30-08 06:58:00* Test Item Value Reference Range Interpretation Comments Anion Gap (test code = 31007-3) 13.7 8-16 [facility] CenterBlood Urea Lznjtdhi7544-80-93 06:58:00* Test Item Value Reference Range Interpretation Comments Blood Urea Nitrogen (test code = 3094-0) 17 7-26 [facility] CenterCreatinine2020-01-13 06:58:00* Test Item Value Reference Range Interpretation Comments Creatinine (test code = 2160-0) 0.80 0.72-1.25 [facility] CenterBUN/Creatinine Onles0993-08-91 06:58:00* Test Item Value Reference Range Interpretation Comments BUN/Creatinine Ratio (test code = 3097-3) 21 6-25 [facility] CenterEstimat Glomerular Filtration Rate 2019-11-07 06:58:00* Test Item Value Reference Range Interpretation Comments Estimat Glomerular Filtration Rate (test code = 374646409) > 60 >60 Ranges were taken from the National Kidney Disease Education Program and the [facility] [employer] literature.Reference ranges:60 or greater: Qxnqnj18-23 ( for 3 consecutive months): Chronic kidney disease 15 or less: Kidney failureCook Children's Medical CenterGlucose Ahyvd1062-84-89 06:58:00* Test Item Value Reference Range Interpretation Comments Glucose Level (test code = QPP7283) 139 74-118 H [facility] CenterCalcium Sqduf0309-23-00 06:58:00* Test Item Value Reference Range Interpretation Comments Calcium Level (test code = 27815-6) 8.8 8.4-10.2 [facility] CenterTotal Kwqvxtwld8151-78-38 06:58:00* Test Item Value Reference Range Interpretation Comments Total Bilirubin (test code = 1975-2) 0.6 0.2-1.2 [facility] Medical CenterAspartate Amino Transf (AST/SGOT) 2019-11-07 06:58:00* Test Item Value Reference Range Interpretation Comments Aspartate Amino Transf (AST/SGOT) (test code = Aspartate Amino Transf (AST/SGOT)) 33 5-34 [facility] CenterAlanine Aminotransferase (ALT/SGPT) 2019-11-07 06:58:00* Test Item Value Reference Range Interpretation Comments Alanine Aminotransferase (ALT/SGPT) (test code = 1742-6) 23 0-55 [facility] CenterTotal Yopjutt4871-66-53 06:58:00* Test Item Value Reference Range Interpretation Comments Total Protein (test code = 2885-2) 7.1 6.5-8.1 [facility] CenterAlbumin2020-01-13 06:58:00* Test Item Value Reference Range Interpretation Comments Albumin (test code = 1751-7) 3.2 3.5-5.0 L [facility] CenterGlobulin2020-01-13 06:58:00* Test Item Value Reference Range Interpretation Comments Globulin (test code = 54684-9) 3.9 2.3-3.5 H [facility] CenterAlbumin/Globulin Vumfc6704-95-53 06:58:00 * Test Item Value Reference Range Interpretation Comments Albumin/Globulin Ratio (test code = 1759-0) 0.8 0.8-2.0 [facility] CenterAlkaline Ewjqzaseedd6427-37-31 06:58:00* Test Item Value Reference Range Interpretation Comments Alkaline Phosphatase (test code = 6768-6) 121 40-150 [facility] CenterTriglycerides Akaeh2223-33-55 06:58:00* Test Item Value Reference Range Interpretation Comments Triglycerides Level (test code = 2571-8) 172 0-149 H [facility] CenterCholesterol Tjigt5680-94-80 06:58:00* Test Item Value Reference Range Interpretation Comments Cholesterol Level (test code = 2093-3) 114 0-199 Less than 200 mg/dL Low Zrza082 - 239 mg/dL Borderline Gnfr373 m g/dl and greater High Risk [facility] Medical CenterLDL Iuftabpvhlj4391-97-12 06:58:00* Test Item Value Reference Range Interpretation Comments LDL Cholesterol (test code = 2089-1) 61 60-130 [facility] CenterHDL Bdvvjuxakpn7652-68-71 06:58:00* Test Item Value Reference Range Interpretation Comments HDL Cholesterol (test code = 2085-9) 19 40-60 L [facility] CenterCholesterol/HDL Rftdv0249-62-27 06:58:00 * Test Item Value Reference Range Interpretation Comments Cholesterol/HDL Ratio (test code = 9830-1) 6.0 3.9-4.7 H [facility] CenterTriglycerides Gzhes7254-52-16 06:58:00* Test Item Value Reference Range Interpretation Comments Triglycerides Level (test code = 2571-8) 172 0-149 H [facility] CenterCholesterol Nyome3974-13-23 06:58:00* Test Item Value Reference Range Interpretation Comments Cholesterol Level (test code = 2093-3) 114 0-199 Less than 200 mg/dL Low Niep846 - 239 mg/dL Borderline Ejcq447 m g/dl and greater High Risk [facility] CenterLDL Hhcrnyhlznh5807-14-19 06:58:00* Test Item Value Reference Range Interpretation Comments LDL Cholesterol (test code = 2089-1) 61 60-130 [facility] CenterHDL Pfxvflkqvvq5524-43-95 06:58:00* Test Item Value Reference Range Interpretation Comments HDL Cholesterol (test code = 2085-9) 19 40-60 L [facility] CenterCholesterol/HDL Gipbj9132-95-19 06:58:00 * Test Item Value Reference Range Interpretation Comments Cholesterol/HDL Ratio (test code = 9830-1) 6.0 3.9-4.7 H [facility] CenterWhite Blood Pfaog1828-67-68 06:20:00* Test Item Value Reference Range Interpretation Comments White Blood Count (test code = 6690-2) 6.17 4.8-10.8 [facility] CenterRed Blood Fkbmk3214-56-00 06:20:00* Test Item Value Reference Range Interpretation Comments Red Blood Count (test code = 789-8) 4.04 4.3-5.7 L [facility] CenterHemoglobin2020-01-13 06:20:00* Test Item Value Reference Range Interpretation Comments Hemoglobin (test code = 44020-9) 13.2 14.0-18.0 L [facility] CenterHematocrit2020-01-13 06:20:00* Test Item Value Reference Range Interpretation Comments Hematocrit (test code = 4544-3) 39.9 38.2-49.6 [facility] CenterMean Corpuscular Zqurof4799-74-51 06:20:00* Test Item Value Reference Range Interpretation Comments Mean Corpuscular Volume (test code = 787-2) 98.8 81-99 [facility] CenterMean Corpuscular Zwdtswchng1782-56-82 06:20:00* Test Item Value Reference Range Interpretation Comments Mean Corpuscular Hemoglobin (test code = 785-6) 32.7 28-32 H [facility] Medical CenterMean Corpuscular Hemoglobin Concent 2019-11-07 06:20:00* Test Item Value Reference Range Interpretation Comments Mean Corpuscular Hemoglobin Concent (test code = 786-4) 33.1 31-35 [facility] CenterRed Cell Distribution Kdjia0371-56-70 06:20:00* Test Item Value Reference Range Interpretation Comments Red Cell Distribution Width (test code = 69187-3) 12.8 11.7 -14.4 [facility] Medical CenterPlatelet Qcfff3956-68-90 06:20:00* Test Item Value Reference Range Interpretation Comments Platelet Count (test code = 777-3) 97 140-360 L [facility] CenterNeutrophils (%) (Auto)2019-11-07 06:20:00 * Test Item Value Reference Range Interpretation Comments Neutrophils (%) (Auto) (test code = 65364-9) 55.7 38.7-80.0 [facility] CenterLymphocytes (%) (Auto)2019-11-07 06:20:00 * Test Item Value Reference Range Interpretation Comments Lymphocytes (%) (Auto) (test code = 736-9) 34.2 18.0-39.1 [facility] CenterMonocytes (%) (Auto)2019-11-07 06:20:00* Test Item Value Reference Range Interpretation Comments Monocytes (%) (Auto) (test code = 5905-5) 7.8 4.4-11.3 [facility] CenterEosinophils (%) (Auto)2019-11-07 06:20:00 * Test Item Value Reference Range Interpretation Comments Eosinophils (%) (Auto) (test code = 713-8) 1.8 0.0-6.0 [facility] CenterBasophils (%) (Auto)2019-11-07 06:20:00* Test Item Value Reference Range Interpretation Comments Basophils (%) (Auto) (test code = 706-2) 0.3 0.0-1.0 [facility] CenterIM GRANULOCYTES %2019-11-07 06:20:00* Test Item Value Reference Range Interpretation Comments IM GRANULOCYTES % (test code = IM GRANULOCYTES %) 0.2 0.0- 1.0 [facility] CenterNeutrophils # (Auto)2019-11-07 06:20:00* Test Item Value Reference Range Interpretation Comments Neutrophils # (Auto) (test code = 751-8) 3.4 2.1-6.9 [facility] CenterLymphocytes # (Auto)2019-11-07 06:20:00* Test Item Value Reference Range Interpretation Comments Lymphocytes # (Auto) (test code = 06594-5) 2.1 1.0-3.2 [facility] CenterMonocytes # (Auto)2019-11-07 06:20:00* Test Item Value Reference Range Interpretation Comments Monocytes # (Auto) (test code = 742-7) 0.5 0.2-0.8 [facility] CenterEosinophils # (Auto)2019-11-07 06:20:00* Test Item Value Reference Range Interpretation Comments Eosinophils # (Auto) (test code = 711-2) 0.1 0.0-0.4 [facility] CenterBasophils # (Auto)2019-11-07 06:20:00* Test Item Value Reference Range Interpretation Comments Basophils # (Auto) (test code = 704-7) 0.0 0.0-0.1 [facility] CenterAbsolute Immature Granulocyte (auto 2019-11-07 06:20:00* Test Item Value Reference Range Interpretation Comments Absolute Immature Granulocyte (auto (earle t code = Absolute Immature Granulocyte (auto) 0.01 0-0.1 [facility] CenterCHEST 2 HYMAF0881-36-56 17:42:00 [place] [address] Patient Name: PARDEEP VERDE MR #: [id number] : 1950 Age/Sex: 69/M Req #: [id number] Adm Physician: Ordered by: SOLOMON OJEDA [employer]ING [employer]AT MATE Report #: [id number] Location: ER Room/Bed: Procedure: [id number] DX/ CHEST 2 VIEWS Exam Date: 11/06/19 Exam Time: 1719 REPORT STATUS: Signed EXAMINATION: CHEST 2 VIEWS INDICATION: Chest pain, left side ORDER PLACED BY Robby Peña [id number] Y COMPARISON: Chest x-ray 04/09/2019 FIN DINGS: [...] 11/06/191743 COPY TO: SOLOMON OJEDA NP Prothrombin Chxy0384-88-41 16:22:00* Test Item Value Reference Range Interpretation Comments Prothrombin Time (test code = 5902-2) 13.6 11.9-14.5 [facility] CenterProthromb Time International Ratio 2019-11-06 16:22:00* Test Item Value Reference Range Interpretation Comments Prothromb Time International Ratio (test code = 6301-6) 0.99 Oral Anticoagulant Therapy INR Values:1. Low Intensity Therapy 1.5 - 2.02 . Moderate Intensity Therapy 2.0 - 3.03. High Intensity Therapy(1) 2.5 - 3. 54. High Intensity Therapy(2) 3.0 - 4.05. Panic Value INR > 5.0 [facility] Medical CenterActivated Partial Thromboplast Time 2019-11-06 16:22:00* Test Item Value Reference Range Interpretation Comments Activated Partial Thromboplast Time (test code = 53052-1) 32.8 23.8-35.5 [facility] CenterUS XVRHG6967-41-14 13:15:00 [place] [address] Patient Name: PARDEEP VERDE MR #: [id number] : 1950 Age/Sex: 69/M Req #: [id number] Adm Physician: Ordered by: LAMAR BONILLA MD Report #: [id number] Location: Room/Bed: Procedure: [id number] US/U S LIVER Exam Date: 06/13/19 Exam Time: 1019 REPORT STATUS: Signed Right upper aracely drjj abdominal ultrasound, 06/13/2019. History: Hepatitis. Compari son: [...] 1:18 PM Dictated By: SOLOMON CLARK MD 17 Transcribed By: NEMO on 06/13/191317 COPY TO: LAMAR BONILLA MD Hepatitis A IgM Bsqgssic2275-16-43 17:19:00* Test Item Value Reference Range Interpretation Comments Hepatitis A IgM Antibody (test code = 54032-7) Negative Negativ e [facility] Surface Paioijc0196-41-72 17:19:00* Test Item Value Reference Range Interpretation Comments Hepatitis B Surface Antigen (test code = 5196-1) Negative Negat [facility] B Core IgM Upchjhmp8387-13-45 17:19:00* Test Item Value Reference Range Interpretation Comments Hepatitis B Core IgM Antibody (test code = 01041-6) Negative Ne [facility] C Gnkdrwuu0651-07-89 17:19:00* Test Item Value Reference Range Interpretation Comments Hepatitis C Antibody (test code = 50100-8) <0.1 0.0-0.9 Negative: < 0.8 Indeterminate: 0.8 - 0.9 Positive: > 0.9 The CDC recommends that a positive HCV antibody result be followed up with a HCV Nucleic Acid Amplification test (116579).Performed at: [facility] [id number] [place], [place] [id number] Director: Seven Obando MD, Phone: [phone] Heart & Surgical Hospital A IgM Antibody 2019-06-10 17:19:00* Test Item Value Reference Range Interpretation Comments Hepatitis A IgM Antibody (test code = 16691-8) Negative Negativ e [facility] B Surface Dwucvaa4346-30-71 17:19:00* Test Item Value Reference Range Interpretation Comments Hepatitis B Surface Antigen (test code = 5196-1) Negative Negat [facility] B Core IgM Jehugcfj1906-69-67 17:19:00* Test Item Value Reference Range Interpretation Comments Hepatitis B Core IgM Antibody (test code = 54493-1) Negative [facility] Jcdzntyw7638-12-78 17:19:00* Test Item Value Reference Range Interpretation Comments Hepatitis C Antibody (test code = 88938-0) <0.1 0.0-0.9 Negative: < 0.8 Indeterminate: 0.8 - 0.9 Positive: > 0.9 The CDC recommends that a positive HCV antibody result be followed up with a HCV Nucleic Acid Amplification test (684564).Performed at: [facility] [address] [place], [place] [id number] Director: Seven Obando MD, Phone: [phone] Children's Medical CenterClostridium Difficile Toxin A & T2845-60-60 10:20:00* Test Item Value Reference Range Interpretation Comments Clostridium Difficile Toxin A & B (test code = 376262426) NEGATIVE NEGATIVE Testing on stool aspirate specimens is outside ball sorter claims since specime n type not validated on this assay.[facility] Clostridium Difficile Toxin A & R0291-53-41 10:20:00* Test Item Value Reference Range Interpretation Comments Clostridium Difficile Toxin A & B (test code = 088305112) NEGATIVE NEGATIVE Testing on stool aspirate specimens is outside ball sorter claims since specime n type not validated on this assay.[facility]ball[facility] Lactoferrin (LAB)2019-06-09 15:37:00* Test Item Value Reference Range Interpretation Comments Stool Lactoferrin (LAB) (test code = 73589-6) NEGATIVE NEGATIVE Testing on stool aspirate specimens is outside ball sorter claims since specime n type not validated on this assay.[facility] Lactoferrin (LAB)2019-06-09 15:37:00* Test Item Value Reference Range Interpretation Comments Stool Lactoferrin (LAB) (test code = 33388-1) NEGATIVE NEGATIVE Testing on stool aspirate specimens is outside ball sorter claims since specime n type not validated on this assay.[facility] Ibmthamadmqe7676-92-70 05:12:00* Test Item Value Reference Range Interpretation Comments Stool Calprotectin (test code = 65712-6) <16 0-120 Concentration Interpretation Follow-Up<16 - 50 ug/g Normal None>50 -120 ug/g Borderline Re-evaluate in 4-6 weeks >120 ug/g Abnormal Repeat as clinically indicatedPerformed at: - [facility] [address] [place], [place] [id number] Director: Adelia Fishman MD, Phone: [phone] Houston Healthcare Tomballtool Lxdbtmzucbut6379-20-37 05:12:00* Test Item Value Reference Range Interpretation Comments Stool Calprotectin (test code = 35983-0) <16 0-120 Concentration Interpretation Follow-Up<16 - 50 ug/g Normal None>50 -120 ug/g Borderline Re-evaluate in 4-6 weeks >120 ug/g Abnormal Repeat as clinically indicatedPerformed at: BN [facility] [address] [place], [place] [id number] Director: Adelia Fishman MD, Phone: [phone] [facility] [id number] 19:23:00 [facility] [address] [address] Patient Name: PARDEEP VERDE MR #: [id number] : 1950 Age/Sex: 69/M Req #: [id number] Adm Physician: Ordered by: SOBIA DELATORRE MD Report #: [id number] Location: ER Room/Bed: Procedure: [id number] C T/CT ABDOMEN/PELVIS W Exam Date: 05/05/19 Exam Time: 1900 REPORT STATUS: Signed EXAM : CT Abdomen and Pelvis WITH contrast INDICATION: [...] or solid mass lesions. No stones. GI TRACT : No abnormal distention, wall thickening, or evidence [...] 1936 COPY TO: SOBIA DELATORRE MD Urine [id number] 18:49:00* Test Item Value Reference Range Interpretation Comments Urine WBC (test code = 5821-4) NONE 0-5 [facility] [id number] 18:49:00* Test Item Value Reference Range Interpretation Comments Urine RBC (test code = 31801-2) NONE 0-5 [facility] Xwabqjbf6808-44-59 18:49:00* Test Item Value Reference Range Interpretation Comments Urine Bacteria (test code = 55459-5) FEW NONE [facility] CenterU[facility] Epithelial Hbchx0796-48-33 18:49:00 * Test Item Value Reference Range Interpretation Comments Urine Epithelial Cells (test code = 07414-4) MODERATE NONE [facility] CenterU[facility] Arufd1804-87-19 18:49:00* Test Item Value Reference Range Interpretation Comments Urine Mucus (test code = 8247-9) MODERATE RARE H [facility] CenterU[facility] MWZ0785-96-05 18:49:00* Test Item Value Reference Range Interpretation Comments Urine WBC (test code = 5821-4) NONE 0-5 [facility] Center[facility] [id number] 18:49:00* Test Item Value Reference Range Interpretation Comments Urine RBC (test code = 70502-1) NONE 0-5 [facility] Wjhnvgml7740-76-41 18:49:00* Test Item Value Reference Range Interpretation Comments Urine Bacteria (test code = 29402-9) FEW NONE [facility] Epithelial Lnruc8537-67-29 18:49:00 * Test Item Value Reference Range Interpretation Comments Urine Epithelial Cells (test code = 18446-5) MODERATE NONE [facility] Uqhyi9926-93-13 18:49:00* Test Item Value Reference Range Interpretation Comments Urine Mucus (test code = 8247-9) MODERATE RARE H [facility] CenterU[facility] Ooheg3980-20-27 18:49:00* Test Item Value Reference Range Interpretation Comments Urine Mucus (test code = 8247-9) MODERATE RARE H [facility] Tomballodium Aeyki0037-85-94 18:38:00* Test Item Value Reference Range Interpretation Comments Sodium Level (test code = 2951-2) 136 136-145 [facility] CenterPotassium Inzoj0168-17-55 18:38:00* Test Item Value Reference Range Interpretation Comments Potassium Level (test code = 2823-3) 3.6 3.5-5.1 [facility] CenterChloride Szwtx7179-98-25 18:38:00* Test Item Value Reference Range Interpretation Comments Chloride Level (test code = 2075-0) 106 98-107 [facility] CenterCarbon Dioxide Ukqav4313-76-71 18:38:00* Test Item Value Reference Range Interpretation Comments Carbon Dioxide Level (test code = 2028-9) 19 22-29 L [facility] CenterAnion Gbr3777-78-60 18:38:00* Test Item Value Reference Range Interpretation Comments Anion Gap (test code = 69500-5) 14.6 8-16 [facility] CenterBlood Urea Hfradqok6274-14-45 18:38:00* Test Item Value Reference Range Interpretation Comments Blood Urea Nitrogen (test code = 3094-0) 15 7-26 [facility] CenterCreatinine2019-07-11 18:38:00* Test Item Value Reference Range Interpretation Comments Creatinine (test code = 2160-0) 0.91 0.72-1.25 [facility] CenterBUN/Creatinine Sqbcv3065-71-72 18:38:00* Test Item Value Reference Range Interpretation Comments BUN/Creatinine Ratio (test code = 3097-3) 16 6-25 [facility] CenterEstimat Glomerular Filtration Rate 2019-05-05 18:38:00* Test Item Value Reference Range Interpretation Comments Estimat Glomerular Filtration Rate (test code = 504594974) > 60 >60 Ranges were taken from the National Kidney Disease Education Program and the [facility] literature.Reference ranges:60 or greater: Hnzadd30-78 ( for 3 consecutive months): Chronic kidney disease 15 or less: Kidney failureCook Children's Medical CenterGlucose Lezzc0475-47-51 18:38:00* Test Item Value Reference Range Interpretation Comments Glucose Level (test code = NBW8287) 200 74-118 H [facility] CenterCalcium Nxibx6001-12-41 18:38:00* Test Item Value Reference Range Interpretation Comments Calcium Level (test code = 53007-7) 9.4 8.4-10.2 [facility] CenterTotal Cbqfhuqft0741-68-67 18:38:00* Test Item Value Reference Range Interpretation Comments Total Bilirubin (test code = 1975-2) 0.8 0.2-1.2 [facility] CenterAspartate Amino Transf (AST/SGOT) 2019-05-05 18:38:00* Test Item Value Reference Range Interpretation Comments Aspartate Amino Transf (AST/SGOT) (test code = Aspartate Amino Transf (AST/SGOT)) 64 5-34 H [facility] CenterAlanine Aminotransferase (ALT/SGPT) 2019-05-05 18:38:00* Test Item Value Reference Range Interpretation Comments Alanine Aminotransferase (ALT/SGPT) (test code = 1742-6) 37 0-55 [facility] CenterTotal Gubnvxs7347-74-61 18:38:00* Test Item Value Reference Range Interpretation Comments Total Protein (test code = 2885-2) 8.2 6.5-8.1 H [facility] CenterAlbumin2019-07-11 18:38:00* Test Item Value Reference Range Interpretation Comments Albumin (test code = 1751-7) 3.9 3.5-5.0 [facility] CenterGlobulin2019-07-11 18:38:00* Test Item Value Reference Range Interpretation Comments Globulin (test code = 12059-5) 4.3 2.3-3.5 H [facility] CenterAlbumin/Globulin Dnigh5675-05-34 18:38:00 * Test Item Value Reference Range Interpretation Comments Albumin/Globulin Ratio (test code = 1759-0) 0.9 0.8-2.0 [facility] CenterAlkaline Descdbdbgvb7824-36-77 18:38:00* Test Item Value Reference Range Interpretation Comments Alkaline Phosphatase (test code = 6768-6) 244 40-150 H [facility] CenterUrine Cvtbi6865-98-91 18:36:00* Test Item Value Reference Range Interpretation Comments Urine Color (test code = 5778-6) STRAW YELLOW [facility] CenterUrine Xxholio3743-81-81 18:36:00* Test Item Value Reference Range Interpretation Comments Urine Clarity (test code = 72179-2) CLEAR CLEAR [facility] CenterUrine Specific Lgmesdq1006-26-93 18:36:00 * Test Item Value Reference Range Interpretation Comments Urine Specific [place] (test code = 5811-5) >=1.030 1.010-1.02 5 [facility] CenterUrine [id number] 18:36:00* Test Item Value Reference Range Interpretation Comments Urine pH (test code = 67085-5) 5.5 5-7 [facility] CenterUrine Leukocyte Ozrtdbyr3161-74-44 18:36:00* Test Item Value Reference Range Interpretation Comments Urine Leukocyte Esterase (test code = 68299-6) TRACE NEGATIV E H [facility] CenterUrine Eagquqg0169-95-55 18:36:00* Test Item Value Reference Range Interpretation Comments Urine Nitrite (test code = 68941-0) NEGATIVE NEGATIVE [facility] CenterUrine Ddlneqa4719-90-74 18:36:00* Test Item Value Reference Range Interpretation Comments Urine Protein (test code = 75561-0) TRACE NEGATIVE [facility] Glucose (UA)2019-05-05 18:36:00* Test Item Value Reference Range Interpretation Comments Urine Glucose (UA) (test code = 84536-2) NEGATIVE NEGATIVE [facility] CenterUrine Xsyztxb2291-30-34 18:36:00* Test Item Value Reference Range Interpretation Comments Urine Ketones (test code = 90504-0) TRACE NEGATIVE H [facility] CenterUrine Ttxpemowofbg5175-16-10 18:36:00* Test Item Value Reference Range Interpretation Comments Urine Urobilinogen (test code = 10835-3) 0.2 0.2-1 [facility] CenterUrine Blsvucxst6167-19-57 18:36:00* Test Item Value Reference Range Interpretation Comments Urine Bilirubin (test code = 1977-8) NEGATIVE NEGATIVE [facility] CenterUrine Okjqf7555-56-09 18:36:00* Test Item Value Reference Range Interpretation Comments Urine Blood (test code = 56617-7) NEGATIVE NEGATIVE [facility] CenterUrine Ocolv0977-81-37 18:36:00* Test Item Value Reference Range Interpretation Comments Urine Color (test code = 5778-6) STRAW YELLOW [facility] CenterUrine Rwoibbh6463-67-34 18:36:00* Test Item Value Reference Range Interpretation Comments Urine Clarity (test code = 02318-1) CLEAR CLEAR [facility] CenterUrine Specific Momedfu3950-68-96 18:36:00 * Test Item Value Reference Range Interpretation Comments Urine Specific [place] (test code = 5811-5) >=1.030 1.010-1.02 5 [facility] CenterUrine jL1557-05-75 18:36:00* Test Item Value Reference Range Interpretation Comments Urine pH (test code = 58348-6) 5.5 5-7 [facility] CenterUrine Leukocyte Oyfsniib6073-02-42 18:36:00* Test Item Value Reference Range Interpretation Comments Urine Leukocyte Esterase (test code = 10688-1) TRACE NEGATIV E H [facility] CenterUrine Riwqypt2930-47-25 18:36:00* Test Item Value Reference Range Interpretation Comments Urine Nitrite (test code = 89703-2) NEGATIVE NEGATIVE [facility] CenterUrine Xynlcgb1100-22-64 18:36:00* Test Item Value Reference Range Interpretation Comments Urine Protein (test code = 24882-5) TRACE NEGATIVE [facility]andUrine Glucose (UA)2019-05-05 18:36:00* Test Item Value Reference Range Interpretation Comments Urine Glucose (UA) (test code = 18016-2) NEGATIVE NEGATIVE [facility] CenterUrine Kcqtati4406-12-94 18:36:00* Test Item Value Reference Range Interpretation Comments Urine Ketones (test code = 99380-8) TRACE NEGATIVE H [facility] CenterUrine Kaohgchcsajd5700-71-42 18:36:00* Test Item Value Reference Range Interpretation Comments Urine Urobilinogen (test code = 54654-0) 0.2 0.2-1 [facility] CenterUrine Qsrcmqeuh5965-79-54 18:36:00* Test Item Value Reference Range Interpretation Comments Urine Bilirubin (test code = 1977-8) NEGATIVE NEGATIVE [facility] CenterUrine Iezoi0339-35-96 18:36:00* Test Item Value Reference Range Interpretation Comments Urine Blood (test code = 85771-4) NEGATIVE NEGATIVE [facility] CenterWhite Blood Yjeuv6801-96-85 18:23:00* Test Item Value Reference Range Interpretation Comments White Blood Count (test code = 6690-2) 8.62 4.8-10.8 [facility] CenterRed Blood Ydcsv8524-84-07 18:23:00* Test Item Value Reference Range Interpretation Comments Red Blood Count (test code = 789-8) 4.32 4.3-5.7 [facility] CenterHemoglobin2019-07-11 18:23:00* Test Item Value Reference Range Interpretation Comments Hemoglobin (test code = 34009-0) 14.0 14.0-18.0 [facility] CenterHematocrit2019-07-11 18:23:00* Test Item Value Reference Range Interpretation Comments Hematocrit (test code = 4544-3) 42.1 38.2-49.6 [facility] CenterMean Corpuscular Jmyztq9719-36-23 18:23:00* Test Item Value Reference Range Interpretation Comments Mean Corpuscular Volume (test code = 787-2) 97.5 81-99 [facility] CenterMean Corpuscular Sqqzukiwqp9225-59-00 18:23:00* Test Item Value Reference Range Interpretation Comments Mean Corpuscular Hemoglobin (test code = 785-6) 32.4 28-32 H [facility] CenterMean Corpuscular Hemoglobin Concent 2019-05-05 18:23:00* Test Item Value Reference Range Interpretation Comments Mean Corpuscular Hemoglobin Concent (test code = 786-4) 33.3 31-35 [facility] CenterRed Cell Distribution Kwadh1802-64-66 18:23:00* Test Item Value Reference Range Interpretation Comments Red Cell Distribution Width (test code = 11007-8) 12.6 11.7 -14.4 [facility] CenterPlatelet Jwzyu9872-87-70 18:23:00* Test Item Value Reference Range Interpretation Comments Platelet Count (test code = 777-3) 120 140-360 L [facility] CenterNeutrophils (%) (Auto)2019-05-05 18:23:00 * Test Item Value Reference Range Interpretation Comments Neutrophils (%) (Auto) (test code = 70670-2) 65.7 38.7-80.0 [facility] CenterLymphocytes (%) (Auto)2019-05-05 18:23:00 * Test Item Value Reference Range Interpretation Comments Lymphocytes (%) (Auto) (test code = 736-9) 24.7 18.0-39.1 [facility] CenterMonocytes (%) (Auto)2019-05-05 18:23:00* Test Item Value Reference Range Interpretation Comments Monocytes (%) (Auto) (test code = 5905-5) 7.1 4.4-11.3 [facility] CenterEosinophils (%) (Auto)2019-05-05 18:23:00 * Test Item Value Reference Range Interpretation Comments Eosinophils (%) (Auto) (test code = 713-8) 1.6 0.0-6.0 [facility] CenterBasophils (%) (Auto)2019-05-05 18:23:00* Test Item Value Reference Range Interpretation Comments Basophils (%) (Auto) (test code = 706-2) 0.6 0.0-1.0 [facility] CenterIM GRANULOCYTES %2019-05-05 18:23:00* Test Item Value Reference Range Interpretation Comments IM GRANULOCYTES % (test code = IM GRANULOCYTES %) 0.3 0.0- 1.0 [facility] CenterNeutrophils # (Auto)2019-05-05 18:23:00* Test Item Value Reference Range Interpretation Comments Neutrophils # (Auto) (test code = 751-8) 5.7 2.1-6.9 [facility] CenterLymphocytes # (Auto)2019-05-05 18:23:00* Test Item Value Reference Range Interpretation Comments Lymphocytes # (Auto) (test code = 47080-6) 2.1 1.0-3.2 [facility] CenterMonocytes # (Auto)2019-05-05 18:23:00* Test Item Value Reference Range Interpretation Comments Monocytes # (Auto) (test code = 742-7) 0.6 0.2-0.8 [facility] CenterEosinophils # (Auto)2019-05-05 18:23:00* Test Item Value Reference Range Interpretation Comments Eosinophils # (Auto) (test code = 711-2) 0.1 0.0-0.4 [facility] CenterBasophils # (Auto)2019-05-05 18:23:00* Test Item Value Reference Range Interpretation Comments Basophils # (Auto) (test code = 704-7) 0.1 0.0-0.1 [facility] CenterAbsolute Immature Granulocyte (auto 2019-05-05 18:23:00* Test Item Value Reference Range Interpretation Comments Absolute Immature Granulocyte (auto (earle t code = Absolute Immature Granulocyte (auto) 0.03 0-0.1 [facility] CenterBedside Bzuhslj5064-11-82 10:57:00* Test Item Value Reference Range Interpretation Comments Bedside Glucose (test code = 20770-4) 132 70-120 H Meter ID: [id number] Children's Medical CenterDifferential Total Cells Cnicxxo5145-94-87 11:09:00* Test Item Value Reference Range Interpretation Comments Differential Total Cells Counted (test code = Differen tial Total Cells Counted) 100 [facility] CenterNeutrophils % (Manual)2019-04-13 11:09:00 * Test Item Value Reference Range Interpretation Comments Neutrophils % (Manual) (test code = 31395-4) 61 40-74 [facility] CenterLymphocytes % (Manual)2019-04-13 11:09:00 * Test Item Value Reference Range Interpretation Comments Lymphocytes % (Manual) (test code = 737-7) 27 19-48 [facility] CenterMonocytes % (Manual)2019-04-13 11:09:00* Test Item Value Reference Range Interpretation Comments Monocytes % (Manual) (test code = 744-3) 9 3.4-9.0 [facility] CenterEosinophils % (Manual)2019-04-13 11:09:00 * Test Item Value Reference Range Interpretation Comments Eosinophils % (Manual) (test code = 714-6) 3 0-7 [facility] CenterPlatelet Bwqqvhzh0536-64-11 11:09:00* Test Item Value Reference Range Interpretation Comments Platelet Estimate (test code = 84498-3) ADEQUATE [facility] CenterPlatelet Morphology Juytthx3687-27-38 11:09:00* Test Item Value Reference Range Interpretation Comments Platelet Morphology Comment (test code = 44952-7) NORMAL [facility] CenterRed Cell Morphology Tycihyy2152-24-68 11:09:00* Test Item Value Reference Range Interpretation Comments Red Cell Morphology Comment (test code = 6742-1) NORMAL [facility] CenterDifferential Total Cells Counted 2019-04-13 11:09:00* Test Item Value Reference Range Interpretation Comments Differential Total Cells Counted (test code = Differcarlene tial Total Cells Counted) 100 [facility] CenterNeutrophils % (Manual)2019-04-13 11:09:00 * Test Item Value Reference Range Interpretation Comments Neutrophils % (Manual) (test code = 62157-6) 61 40-74 [facility] CenterLymphocytes % (Manual)2019-04-13 11:09:00 * Test Item Value Reference Range Interpretation Comments Lymphocytes % (Manual) (test code = 737-7) 27 19-48 [facility] CenterMonocytes % (Manual)2019-04-13 11:09:00* Test Item Value Reference Range Interpretation Comments Monocytes % (Manual) (test code = 744-3) 9 3.4-9.0 [facility] CenterEosinophils % (Manual)2019-04-13 11:09:00 * Test Item Value Reference Range Interpretation Comments Eosinophils % (Manual) (test code = 714-6) 3 0-7 [facility] CenterPlatelet Qtbghqqt3515-19-34 11:09:00* Test Item Value Reference Range Interpretation Comments Platelet Estimate (test code = 28129-0) ADEQUATE [facility] CenterPlatelet Morphology Vahwara2185-92-00 11:09:00* Test Item Value Reference Range Interpretation Comments Platelet Morphology Comment (test code = 98299-0) NORMAL [facility] CenterRed Cell Morphology Wogzduv1569-73-58 11:09:00* Test Item Value Reference Range Interpretation Comments Red Cell Morphology Comment (test code = 6742-1) NORMAL [facility] CenterDifferential Total Cells Counted 2019-04-13 11:09:00* Test Item Value Reference Range Interpretation Comments Differential Total Cells Counted (test code = Stella booker Total Cells Counted) 100 [facility] CenterNeutrophils % (Manual)2019-04-13 11:09:00 * Test Item Value Reference Range Interpretation Comments Neutrophils % (Manual) (test code = 44206-4) 61 40-74 [facility] CenterLymphocytes % (Manual)2019-04-13 11:09:00 * Test Item Value Reference Range Interpretation Comments Lymphocytes % (Manual) (test code = 737-7) 27 19-48 [facility] CenterMonocytes % (Manual)2019-04-13 11:09:00* Test Item Value Reference Range Interpretation Comments Monocytes % (Manual) (test code = 744-3) 9 3.4-9.0 [facility] CenterEosinophils % (Manual)2019-04-13 11:09:00 * Test Item Value Reference Range Interpretation Comments Eosinophils % (Manual) (test code = 714-6) 3 0-7 [facility] CenterPlatelet Gmzyxmvx4718-24-41 11:09:00* Test Item Value Reference Range Interpretation Comments Platelet Estimate (test code = 20035-4) ADEQUATE [facility] CenterPlatelet Morphology Fwlgpkx0875-31-42 11:09:00* Test Item Value Reference Range Interpretation Comments Platelet Morphology Comment (test code = 19997-0) NORMAL [facility] CenterRed Cell Morphology Hiblkxk9246-25-35 11:09:00* Test Item Value Reference Range Interpretation Comments Red Cell Morphology Comment (test code = 6742-1) NORMAL [facility] CenterEosinophils % (Manual)2019-04-13 11:09:00 * Test Item Value Reference Range Interpretation Comments Eosinophils % (Manual) (test code = 714-6) 3 0-7 [facility] CenterWhite Blood Habry2216-51-84 06:09:00* Test Item Value Reference Range Interpretation Comments White Blood Count (test code = 6690-2) 5.60 4.8-10.8 [facility] CenterRed Blood Ctvln0047-19-17 06:09:00* Test Item Value Reference Range Interpretation Comments Red Blood Count (test code = 789-8) 3.86 4.3-5.7 L [facility] CenterHemoglobin2019-06-19 06:09:00* Test Item Value Reference Range Interpretation Comments Hemoglobin (test code = 59549-0) 12.7 14.0-18.0 L [facility] CenterHematocrit2019-06-19 06:09:00* Test Item Value Reference Range Interpretation Comments Hematocrit (test code = 4544-3) 37.1 38.2-49.6 L [facility] CenterMean Corpuscular Jmmjue3415-82-19 06:09:00* Test Item Value Reference Range Interpretation Comments Mean Corpuscular Volume (test code = 787-2) 96.1 81-99 [facility] CenterMean Corpuscular Nvcmggtojz6435-37-24 06:09:00* Test Item Value Reference Range Interpretation Comments Mean Corpuscular Hemoglobin (test code = 785-6) 32.9 28-32 H [facility] CenterMean Corpuscular Hemoglobin Concent 2019-04-13 06:09:00* Test Item Value Reference Range Interpretation Comments Mean Corpuscular Hemoglobin Concent (test code = 786-4) 34.2 31-35 [facility] CenterRed Cell Distribution Wjonb7789-99-66 06:09:00* Test Item Value Reference Range Interpretation Comments Red Cell Distribution Width (test code = 88066-7) 13.0 11.7 -14.4 [facility] CenterPlatelet Pscvv9472-46-52 06:09:00* Test Item Value Reference Range Interpretation Comments Platelet Count (test code = 777-3) 99 140-360 L [facility] Tomballodium Hrmyo4750-15-64 05:49:00* Test Item Value Reference Range Interpretation Comments Sodium Level (test code = 2951-2) 140 136-145 [facility] CenterPotassium Rxacb3021-36-50 05:49:00* Test Item Value Reference Range Interpretation Comments Potassium Level (test code = 2823-3) 3.6 3.5-5.1 [facility] CenterChloride Uqqqe8753-85-72 05:49:00* Test Item Value Reference Range Interpretation Comments Chloride Level (test code = 2075-0) 111 98-107 H [facility] CenterCarbon Dioxide Qlhcu8456-68-85 05:49:00* Test Item Value Reference Range Interpretation Comments Carbon Dioxide Level (test code = 2028-9) 21 22-29 L [facility] CenterAnion Zqr6644-94-46 05:49:00* Test Item Value Reference Range Interpretation Comments Anion Gap (test code = 26609-3) 11.6 8-16 [facility] CenterBlood Urea Lhzdsmlh6043-69-40 05:49:00* Test Item Value Reference Range Interpretation Comments Blood Urea Nitrogen (test code = 3094-0) 10 7-26 [facility] CenterCreatinine2019-06-19 05:49:00* Test Item Value Reference Range Interpretation Comments Creatinine (test code = 2160-0) 0.73 0.72-1.25 [facility] CenterBUN/Creatinine Bbjzz2514-21-61 05:49:00* Test Item Value Reference Range Interpretation Comments BUN/Creatinine Ratio (test code = 3097-3) 14 6-25 [facility] CenterEstimat Glomerular Filtration Rate 2019-04-13 05:49:00* Test Item Value Reference Range Interpretation Comments Estimat Glomerular Filtration Rate (test code = 008094544) > 60 >60 Ranges were taken from the National Kidney Disease Education Program and the [facility] literature.Reference ranges:60 or greater: Uhcazn16-30 ( for 3 consecutive months): Chronic kidney disease 15 or less: Kidney failureCook Children's Medical CenterGlucose Vpjcj6011-02-67 05:49:00* Test Item Value Reference Range Interpretation Comments Glucose Level (test code = KZW6325) 153 74-118 H [facility] CenterCalcium Alsrm1935-04-93 05:49:00* Test Item Value Reference Range Interpretation Comments Calcium Level (test code = 31163-1) 8.7 8.4-10.2 [facility] A IgM Hxbqgpis9743-62-38 05:22:00* Test Item Value Reference Range Interpretation Comments Hepatitis A IgM Antibody (test code = 72395-0) Negative Negativ e [facility] B Surface Ydwyjuk1937-59-83 05:22:00* Test Item Value Reference Range Interpretation Comments Hepatitis B Surface Antigen (test code = 5196-1) Negative Negat philly [facility] B Core IgM Huulxlnw9408-44-79 05:22:00* Test Item Value Reference Range Interpretation Comments Hepatitis B Core IgM Antibody (test code = 81316-4) Negative Ne [facility] C Konrkwam4865-73-10 05:22:00* Test Item Value Reference Range Interpretation Comments Hepatitis C Antibody (test code = 43679-0) <0.1 0.0-0.9 Negative: < 0.8 Indeterminate: 0.8 - 0.9 Positive: > 0.9 The CDC recommends that a positive HCV antibody result be followed up with a HCV Nucleic Acid Amplification test ([id number]).Performed at: [facility] [id number] [place] [address] [id number] Director: Seven Obando MD, Phone: [phone] A IgM Antibody 2019-04-12 05:22:00* Test Item Value Reference Range Interpretation Comments Hepatitis A IgM Antibody (test code = 80431-1) Negative Negativ e [facility] B Surface Huvtjof9287-23-95 05:22:00* Test Item Value Reference Range Interpretation Comments Hepatitis B Surface Antigen (test code = 5196-1) Negative [facility]at [facility] Core IgM Fwvsbkmd4808-58-58 05:22:00* Test Item Value Reference Range Interpretation Comments Hepatitis B Core IgM Antibody (test code = 60336-7) Negative [facility] Gsvkqffc2295-20-71 05:22:00* Test Item Value Reference Range Interpretation Comments Hepatitis C Antibody (test code = 71025-1) <0.1 0.0-0.9 Negative: < 0.8 Indeterminate: 0.8 - 0.9 Positive: > 0.9 The CDC recommends that a positive HCV antibody result be followed up with a HCV Nucleic Acid Amplification test ([id number]).Performed at: - [facility] [id number] [place], [place] [id number] Director: Seven Obando MD, Phone: [phone] Stone Oak Hospitalol Lactoferrin (LAB) 2019-04-11 14:12:00* Test Item Value Reference Range Interpretation Comments Stool Lactoferrin (LAB) (test code = 65746-4) POSITIVE NEGATIVE H Testing on stool aspirate specimens is outside ball sorter claims since specime n type not validated on this assay.[facility] Lactoferrin (LAB)2019-04-11 14:12:00* Test Item Value Reference Range Interpretation Comments Stool Lactoferrin (LAB) (test code = 06578-1) POSITIVE NEGATIVE H Testing on stool aspirate specimens is outside ball sorter claims since specime n type not validated on this assay.[facility] Bxkonly8660-83-60 09:48:00* Test Item Value Reference Range Interpretation Comments Urine Culture (test code = 630-4) Organism: ESCHERICHIA COLI [facility] Gdhhznw2942-59-77 09:48:00* Test Item Value Reference Range Interpretation Comments Urine Culture (test code = 630-4) Organism: ESCHERICHIA COLI [facility] Awgcwoa6561-62-19 09:48:00* Test Item Value Reference Range Interpretation Comments Urine Culture (test code = 630-4) No Result Data Provided [facility] Kvuuzeg1344-20-51 09:48:00* Test Item Value Reference Range Interpretation Comments Urine Culture (test code = 630-4) No Result Data Provided [facility] 06:56:00* Test Item Value Reference Range Interpretation Comments Lipase (test code = 3040-3) 43 8-78 [facility]-17 06:56:00* Test Item Value Reference Range Interpretation Comments Lipase (test code = 3040-3) 43 8-78 [facility]2019-[facility] 06:56:00* Test Item Value Reference Range Interpretation Comments Lipase (test code = 3040-3) 43 8-78 [facility] CenterLipase2019-06-17 06:56:00* Test Item Value Reference Range Interpretation Comments Lipase (test code = 3040-3) 43 8-78 [facility] CenterTotal Sahmqruai8995-43-09 06:08:00* Test Item Value Reference Range Interpretation Comments Total Bilirubin (test code = 1975-2) 1.0 0.2-1.2 [facility] CenterAspartate Amino Transf (AST/SGOT) 2019-04-11 06:08:00* Test Item Value Reference Range Interpretation Comments Aspartate Amino Transf (AST/SGOT) (test code = Aspartate Amino Transf (AST/SGOT)) 40 5-34 H [facility] CenterAlanine Aminotransferase (ALT/SGPT) 2019-04-11 06:08:00* Test Item Value Reference Range Interpretation Comments Alanine Aminotransferase (ALT/SGPT) (test code = 1742-6) 31 0-55 [facility] Ckvnmer1203-93-28 06:08:00* Test Item Value Reference Range Interpretation Comments Total Protein (test code = 2885-2) 6.7 6.5-8.1 [facility] CenterAlbumin2019-06-17 06:08:00* Test Item Value Reference Range Interpretation Comments Albumin (test code = 1751-7) 3.0 3.5-5.0 L [facility] CenterGlobulin2019-06-17 06:08:00* Test Item Value Reference Range Interpretation Comments Globulin (test code = 13831-1) 3.7 2.3-3.5 H [facility] CenterAlbumin/Globulin Ktzxe7789-74-76 06:08:00 * Test Item Value Reference Range Interpretation Comments Albumin/Globulin Ratio (test code = 1759-0) 0.8 0.8-2.0 [facility] CenterAlkaline Bivouagibny3671-42-03 06:08:00* Test Item Value Reference Range Interpretation Comments Alkaline Phosphatase (test code = 6768-6) 256 40-150 H [facility] CenterClostridium Difficile Toxin A & B 2019-04-10 14:45:00* Test Item Value Reference Range Interpretation Comments Clostridium Difficile Toxin A & B (test code = 240892126) NEGATIVE NEGATIVE Testing on stool aspirate specimens is outside ball sorter claims since specime n type not validated on this assay.[facility] Clostridium Difficile Toxin A & M2676-34-34 14:45:00* Test Item Value Reference Range Interpretation Comments Clostridium Difficile Toxin A & B (test code = 964633541) NEGATIVE NEGATIVE Testing on stool aspirate specimens is outside ball sorter claims since specime n type not validated on this assay.[facility] Bedside Ixtsoei7043-09-25 12:17:00* Test Item Value Reference Range Interpretation Comments Bedside Glucose (test code = 79838-2) 173 70-120 H Meter ID: [id number] Children's Medical CenterAmylase Level 2019-04-10 06:40:00* Test Item Value Reference Range Interpretation Comments Amylase Level (test code = 1798-8) 60 25-125 [facility] CenterAmylase Zjwrj3929-91-64 06:40:00* Test Item Value Reference Range Interpretation Comments Amylase Level (test code = 1798-8) 60 25-125 [facility] CenterAmylase Gsazj6994-84-33 06:40:00* Test Item Value Reference Range Interpretation Comments Amylase Level (test code = 1798-8) 60 25-125 [facility] CenterAmylase Rmtbe7338-49-38 06:40:00* Test Item Value Reference Range Interpretation Comments Amylase Level (test code = 1798-8) 60 25-125 [facility] CenterNeutrophils (%) (Auto)2019-04-10 06:05:00 * Test Item Value Reference Range Interpretation Comments Neutrophils (%) (Auto) (test code = 44569-0) 65.1 38.7-80.0 [facility] CenterLymphocytes (%) (Auto)2019-04-10 06:05:00 * Test Item Value Reference Range Interpretation Comments Lymphocytes (%) (Auto) (test code = 736-9) 24.3 18.0-39.1 [facility] CenterMonocytes (%) (Auto)2019-04-10 06:05:00* Test Item Value Reference Range Interpretation Comments Monocytes (%) (Auto) (test code = 5905-5) 7.6 4.4-11.3 [facility] CenterEosinophils (%) (Auto)2019-04-10 06:05:00 * Test Item Value Reference Range Interpretation Comments Eosinophils (%) (Auto) (test code = 713-8) 2.1 0.0-6.0 [facility] CenterBasophils (%) (Auto)2019-04-10 06:05:00* Test Item Value Reference Range Interpretation Comments Basophils (%) (Auto) (test code = 706-2) 0.5 0.0-1.0 [facility] CenterIM GRANULOCYTES %2019-04-10 06:05:00* Test Item Value Reference Range Interpretation Comments IM GRANULOCYTES % (test code = IM GRANULOCYTES %) 0.4 0.0- 1.0 [facility] CenterNeutrophils # (Auto)2019-04-10 06:05:00* Test Item Value Reference Range Interpretation Comments Neutrophils # (Auto) (test code = 751-8) 5.3 2.1-6.9 [facility] CenterLymphocytes # (Auto)2019-04-10 06:05:00* Test Item Value Reference Range Interpretation Comments Lymphocytes # (Auto) (test code = 39820-8) 2.0 1.0-3.2 [facility] CenterMonocytes # (Auto)2019-04-10 06:05:00* Test Item Value Reference Range Interpretation Comments Monocytes # (Auto) (test code = 742-7) 0.6 0.2-0.8 [facility] CenterEosinophils # (Auto)2019-04-10 06:05:00* Test Item Value Reference Range Interpretation Comments Eosinophils # (Auto) (test code = 711-2) 0.2 0.0-0.4 [facility] CenterBasophils # (Auto)2019-04-10 06:05:00* Test Item Value Reference Range Interpretation Comments Basophils # (Auto) (test code = 704-7) 0.0 0.0-0.1 [facility] CenterAbsolute Immature Granulocyte (auto 2019-04-10 06:05:00* Test Item Value Reference Range Interpretation Comments Absolute Immature Granulocyte (auto (earle t code = Absolute Immature Granulocyte (auto) 0.03 0-0.1 [facility] CenterCT ABDOMEN/PELVIS N0594-14-16 22:02:00 [facility] [address] [place] [address] Patient Name: PARDEEP VERDE MR #: [id number] : 1950 Age/Sex: 69/M Req #: [id number] Adm Physician: Ordered by: BURAK FERNANDO MD Report #: [id number] Location: ER Room/Bed: Procedure: [id number] CT/CT ABDOMEN/PELVIS W Exam Date: 04/09/19 Exam Time: 212 5 REPORT STATUS: Signed EXAM: CT Abdomen and [...] images 76 and 77, possibly mild diverticulitis. Appendi x is normal. PELVIC ORGANS/BLADDER: Unremarkable. LYMPH NODES: [...] fat-containing inguinal hernias, left greater than right. IMPRESSION : 1. Findings suggestive of acute sigmoid diverticulitis. No abscess formati on. 2. Possible mild acute edematous interstitial pancreatitis in the prop er clinical setting. Recommend correlation with amylase and lipase. 3. H epatic cirrhosis. 4. Mild shy mesentery is nonspecific, however, may ref lect ongoing inflammatory/infectious process in the abdomen as described above . 5. Splenomegaly and portal hypertension. Signed by: Dr. Nick Benitez M.D. on 04/09/2019 10:23 PM Dictated By: GEOFFREY BENITEZ MD, MD 22 Transcribed By: NMEO on 04/09/192222 COPY TO: BURAK FERNANDO MD CHEST SINGLE (PORTABLE)2019-04-09 22:00:00 [facility] [place] [address] Patient Name: PARDEEP VERDE MR #: [id number] : 1950 Age/Sex: 69/M Req #: [id number] Adm Physician: Ordered by: BURAK FERNANDO MD Report #: [id number] Location: ER Room/Bed: Procedure: [id number] DX/CH EST SINGLE (PORTABLE) Exam Date: 04/09/19 [...] COPY TO: BURAK FERNANDO MD Stool Occult Nsvrg2186-43-87 20:33:00* Test Item Value Reference Range Interpretation Comments Stool Occult Blood (test code = 2335-8) POSITIVE NEGATIVE H [facility] Occult Dkhsp7595-44-75 20:33:00* Test Item Value Reference Range Interpretation Comments Stool Occult Blood (test code = 2335-8) POSITIVE NEGATIVE [facility] Occult Zznsr3506-25-16 20:33:00* Test Item Value Reference Range Interpretation Comments Stool Occult Blood (test code = 2335-8) POSITIVE NEGATIVE [facility] Occult Hzqcs7033-26-08 20:33:00* Test Item Value Reference Range Interpretation Comments Stool Occult Blood (test code = 2335-8) POSITIVE NEGATIVE [facility] Ivict4303-72-47 19:31:00* Test Item Value Reference Range Interpretation Comments Magnesium Level (test code = 70742-0) 2.0 1.3-2.1 [facility] CenterCreatine Rlgjbc1160-16-64 19:31:00* Test Item Value Reference Range Interpretation Comments Creatine Kinase (test code = 2157-6) 61 30-200 [facility] CenterCreatine Kinase OE9648-39-33 19:31:00* Test Item Value Reference Range Interpretation Comments Creatine Kinase MB (test code = 88785-3) 0.40 0-5.0 [facility] CenterTrregionalone health centernin Y1175-02-67 19:31:00* Test Item Value Reference Range Interpretation Comments Troponin I (test code = GNF7749) < 0.001 0-0.300 [facility] Jrffx0452-03-70 19:31:00* Test Item Value Reference Range Interpretation Comments Magnesium Level (test code = 25383-2) 2.0 1.3-2.1 [facility] CenterCreatine Maedav8531-36-34 19:31:00* Test Item Value Reference Range Interpretation Comments Creatine Kinase (test code = 2157-6) 61 30-200 [facility] CenterCreatine Kinase JP5633-18-46 19:31:00* Test Item Value Reference Range Interpretation Comments Creatine Kinase MB (test code = 31296-6) 0.40 0-5.0 [facility] CenterTrformerly [facility] memorial hospitaln G4429-91-96 19:31:00* Test Item Value Reference Range Interpretation Comments Troponin I (test code = BXD5096) < 0.001 0-0.300 [facility] CenterUrine YBL6329-37-39 19:17:00* Test Item Value Reference Range Interpretation Comments Urine WBC (test code = 5821-4) 0-5 0-5 [facility] CenterUrine KDF6869-84-82 19:17:00* Test Item Value Reference Range Interpretation Comments Urine RBC (test code = 42016-4) 0-5 0-5 [facility] CenterUrine Morcehol7675-85-32 19:17:00* Test Item Value Reference Range Interpretation Comments Urine Bacteria (test code = 39551-4) FEW [facility] Epithelial Enqte7215-48-65 19:17:00 * Test Item Value Reference Range Interpretation Comments Urine Epithelial Cells (test code = 06833-7) NONE [facility] Txdcm4795-21-15 19:17:00* Test Item Value Reference Range Interpretation Comments Urine Yeast (test code = 68945-1) RARE [facility] Uduxo8355-47-65 19:17:00* Test Item Value Reference Range Interpretation Comments Urine Yeast (test code = 88337-3) RARE [facility] Nutvn9617-70-03 19:17:00* Test Item Value Reference Range Interpretation Comments Urine Yeast (test code = 00036-5) RARE [facility] Jrruu0086-63-55 19:17:00* Test Item Value Reference Range Interpretation Comments Urine Yeast (test code = 67944-9) RARE NONE [facility]andProthrombin Ywqk9500-17-20 19:07:00* Test Item Value Reference Range Interpretation Comments Prothrombin Time (test code = 5902-2) 13.7 11.9-14.5 [facility] CenterProthromb Time International Ratio 2019-04-09 19:07:00* Test Item Value Reference Range Interpretation Comments Prothromb Time International Ratio (test code = 6301-6) 1.00 Oral Anticoagulant Therapy INR Values:1. Low Intensity Therapy 1.5 - 2.02 . Moderate Intensity Therapy 2.0 - 3.03. High Intensity Therapy(1) 2.5 - 3. 54. High Intensity Therapy(2) 3.0 - 4.05. Panic Value INR > 5.0 [facility] CenterActivated Partial Thromboplast Time 2019-04-09 19:07:00* Test Item Value Reference Range Interpretation Comments Activated Partial Thromboplast Time (test code = 55532-0) 32.0 23.8-35.5 [facility] CenterProthrombin Chex2773-67-79 19:07:00* Test Item Value Reference Range Interpretation Comments Prothrombin Time (test code = 5902-2) 13.7 11.9-14.5 [facility] CenterProthromb Time International Ratio 2019-04-09 19:07:00* Test Item Value Reference Range Interpretation Comments Prothromb Time International Ratio (test code = 6301-6) 1.00 Oral Anticoagulant Therapy INR Values:1. Low Intensity Therapy 1.5 - 2.02 . Moderate Intensity Therapy 2.0 - 3.03. High Intensity Therapy(1) 2.5 - 3. 54. High Intensity Therapy(2) 3.0 - 4.05. Panic Value INR > 5.0 [facility] CenterActivated Partial Thromboplast Time 2019-04-09 19:07:00* Test Item Value Reference Range Interpretation Comments Activated Partial Thromboplast Time (test code = 93414-2) 32.0 23.8-35.5 [facility] CenterUrine Ibqss9551-57-89 18:57:00* Test Item Value Reference Range Interpretation Comments Urine Color (test code = 5778-6) YELLOW YELLOW [facility] CenterUrine Rmqyvdm9767-72-25 18:57:00* Test Item Value Reference Range Interpretation Comments Urine Clarity (test code = 36238-0) CLEAR CLEAR [facility] CenterUrine Specific Qaerdut3183-33-29 18:57:00 * Test Item Value Reference Range Interpretation Comments Urine Specific [facility] (test code = 5811-5) 1.020 1.010-1.02 5 [facility] CenterUrine rJ0790-73-43 18:57:00* Test Item Value Reference Range Interpretation Comments Urine pH (test code = 78251-4) 5 5-7 [facility] CenterUrine Leukocyte Veeeemqo8736-59-92 18:57:00* Test Item Value Reference Range Interpretation Comments Urine Leukocyte Esterase (test code = 59424-4) NEGATIVE NEGATIV E [facility] CenterUrine Iilthug8627-11-46 18:57:00* Test Item Value Reference Range Interpretation Comments Urine Nitrite (test code = 85838-1) NEGATIVE NEGATIVE [facility] CenterUrine Xefkgjv6692-51-19 18:57:00* Test Item Value Reference Range Interpretation Comments Urine Protein (test code = 05090-5) NEGATIVE NEGATIVE [facility] CenterUrine Glucose (UA)2019-04-09 18:57:00* Test Item Value Reference Range Interpretation Comments Urine Glucose (UA) (test code = 25359-0) 3+ NEGATIVE [facility] CenterUrine Udubgqv4426-56-97 18:57:00* Test Item Value Reference Range Interpretation Comments Urine Ketones (test code = 48986-5) NEGATIVE NEGATIVE [facility] CenterUrine Nbpugffbpydn1693-90-03 18:57:00* Test Item Value Reference Range Interpretation Comments Urine Urobilinogen (test code = 27773-2) 0.2 0.2-1 [facility] CenterUrine Ccsaykhzr9104-37-04 18:57:00* Test Item Value Reference Range Interpretation Comments Urine Bilirubin (test code = 1977-8) NEGATIVE NEGATIVE [facility] CenterUrine Yrcwt0088-48-07 18:57:00* Test Item Value Reference Range Interpretation Comments Urine Blood (test code = 05767-1) NEGATIVE NEGATIVE [facility] CenterBedside Lsbidlj9518-20-90 16:27:00* Test Item Value Reference Range Interpretation Comments Bedside Glucose (test code = 21606-6) 115 70-120 Meter ID: [id number] Children's Medical CenterWhite Blood Count 2018-10-02 05:49:00* Test Item Value Reference Range Interpretation Comments White Blood Count (test code = 6690-2) 9.89 4.8-10.8 [facility] CenterRed Blood Zfssx7288-79-32 05:49:00* Test Item Value Reference Range Interpretation Comments Red Blood Count (test code = 789-8) 4.15 4.3-5.7 L [facility] CenterHemoglobin2018-12-08 05:49:00* Test Item Value Reference Range Interpretation Comments Hemoglobin (test code = 65481-0) 13.5 14.0-18.0 L [facility] CenterHematocrit2018-12-08 05:49:00* Test Item Value Reference Range Interpretation Comments Hematocrit (test code = 4544-3) 40.8 38.2-49.6 [facility] CenterMean Corpuscular Shbitk0028-95-11 05:49:00* Test Item Value Reference Range Interpretation Comments Mean Corpuscular Volume (test code = 787-2) 98.3 81-99 [facility] CenterMean Corpuscular Reivwpurnu7425-62-16 05:49:00* Test Item Value Reference Range Interpretation Comments Mean Corpuscular Hemoglobin (test code = 785-6) 32.5 28-32 H [facility] CenterMean Corpuscular Hemoglobin Concent 2018-10-02 05:49:00* Test Item Value Reference Range Interpretation Comments Mean Corpuscular Hemoglobin Concent (test code = 786-4) 33.1 31-35 [facility] CenterRed Cell Distribution Bimls2230-76-36 05:49:00* Test Item Value Reference Range Interpretation Comments Red Cell Distribution Width (test code = 20635-6) 12.0 11.7 -14.4 [facility] CenterPlatelet Joqkk4423-51-99 05:49:00* Test Item Value Reference Range Interpretation Comments Platelet Count (test code = 777-3) 69 140-360 L [facility] CenterNeutrophils (%) (Auto)2018-10-02 05:49:00 * Test Item Value Reference Range Interpretation Comments Neutrophils (%) (Auto) (test code = 49899-8) 60.2 38.7-80.0 [facility] CenterLymphocytes (%) (Auto)2018-10-02 05:49:00 * Test Item Value Reference Range Interpretation Comments Lymphocytes (%) (Auto) (test code = 736-9) 29.3 18.0-39.1 [facility] CenterMonocytes (%) (Auto)2018-10-02 05:49:00* Test Item Value Reference Range Interpretation Comments Monocytes (%) (Auto) (test code = 5905-5) 7.9 4.4-11.3 [facility] CenterEosinophils (%) (Auto)2018-10-02 05:49:00 * Test Item Value Reference Range Interpretation Comments Eosinophils (%) (Auto) (test code = 713-8) 1.5 0.0-6.0 [facility] CenterBasophils (%) (Auto)2018-10-02 05:49:00* Test Item Value Reference Range Interpretation Comments Basophils (%) (Auto) (test code = 706-2) 0.6 0.0-1.0 [facility] CenterIM GRANULOCYTES %2018-10-02 05:49:00* Test Item Value Reference Range Interpretation Comments IM GRANULOCYTES % (test code = IM GRANULOCYTES %) 0.5 0.0- 1.0 [facility] CenterNeutrophils # (Auto)2018-10-02 05:49:00* Test Item Value Reference Range Interpretation Comments Neutrophils # (Auto) (test code = 751-8) 6.0 2.1-6.9 [facility] CenterLymphocytes # (Auto)2018-10-02 05:49:00* Test Item Value Reference Range Interpretation Comments Lymphocytes # (Auto) (test code = 41630-2) 2.9 1.0-3.2 [facility] CenterMonocytes # (Auto)2018-10-02 05:49:00* Test Item Value Reference Range Interpretation Comments Monocytes # (Auto) (test code = 742-7) 0.8 0.2-0.8 [facility] CenterEosinophils # (Auto)2018-10-02 05:49:00* Test Item Value Reference Range Interpretation Comments Eosinophils # (Auto) (test code = 711-2) 0.2 0.0-0.4 [facility] CenterBasophils # (Auto)2018-10-02 05:49:00* Test Item Value Reference Range Interpretation Comments Basophils # (Auto) (test code = 704-7) 0.1 0.0-0.1 [facility] CenterAbsolute Immature Granulocyte (auto 2018-10-02 05:49:00* Test Item Value Reference Range Interpretation Comments Absolute Immature Granulocyte (auto (earle t code = Absolute Immature Granulocyte (auto) 0.05 0-0.1 [facility] CenterClostridium Difficile Toxin A & B 2018-10-01 11:15:00* Test Item Value Reference Range Interpretation Comments Clostridium Difficile Toxin A & B (test code = 761507681) NEGATIVE NEGATIVE Testing on stool aspirate specimens is outside ball sorter claims since specime n type not validated on this assay.[facility] Tomballodium Cilje5042-22-85 05:43:00* Test Item Value Reference Range Interpretation Comments Sodium Level (test code = 2951-2) 136 136-145 [facility] CenterPotassium Sclji6975-89-83 05:43:00* Test Item Value Reference Range Interpretation Comments Potassium Level (test code = 2823-3) 4.1 3.5-5.1 [facility] CenterChloride Pcilr3021-45-77 05:43:00* Test Item Value Reference Range Interpretation Comments Chloride Level (test code = 2075-0) 110 98-107 H [facility] CenterCarbon Dioxide Uzuos9365-37-68 05:43:00* Test Item Value Reference Range Interpretation Comments Carbon Dioxide Level (test code = 2028-9) 17 22-29 L [facility] CenterAnion Stf3659-03-91 05:43:00* Test Item Value Reference Range Interpretation Comments Anion Gap (test code = 11257-4) 13.1 8-16 [facility] CenterBlood Urea Zdzrwtnv7526-13-78 05:43:00* Test Item Value Reference Range Interpretation Comments Blood Urea Nitrogen (test code = 3094-0) 23 7-26 [facility] CenterCreatinine2018-12-07 05:43:00* Test Item Value Reference Range Interpretation Comments Creatinine (test code = 2160-0) 1.02 0.72-1.25 [facility] CenterBUN/Creatinine Iedfx5902-89-32 05:43:00* Test Item Value Reference Range Interpretation Comments BUN/Creatinine Ratio (test code = 3097-3) 23 6-25 [facility] CenterEstimat Glomerular Filtration Rate 2018-10-01 05:43:00* Test Item Value Reference Range Interpretation Comments Estimat Glomerular Filtration Rate (test code = 143931209) > 60 >60 Ranges were taken from the National Kidney Disease Education Program and the [facility] literature.Reference ranges:60 or greater: Tgmhpf03-45 ( for 3 consecutive months): Chronic kidney disease 15 or less: Kidney failureCook Children's Medical CenterGlucose Oagwl8439-21-26 05:43:00* Test Item Value Reference Range Interpretation Comments Glucose Level (test code = WFM2981) 152 74-118 H [facility] CenterCalcium Piqja0940-98-54 05:43:00* Test Item Value Reference Range Interpretation Comments Calcium Level (test code = 49553-4) 8.4 8.4-10.2 [facility] CenterTotal Hheglyfrn6863-33-98 05:43:00* Test Item Value Reference Range Interpretation Comments Total Bilirubin (test code = 1975-2) 0.9 0.2-1.2 [facility] CenterAspartate Amino Transf (AST/SGOT) 2018-10-01 05:43:00* Test Item Value Reference Range Interpretation Comments Aspartate Amino Transf (AST/SGOT) (test code = Aspartate Amino Transf (AST/SGOT)) 43 5-34 H [facility] CenterAlanine Aminotransferase (ALT/SGPT) 2018-10-01 05:43:00* Test Item Value Reference Range Interpretation Comments Alanine Aminotransferase (ALT/SGPT) (test code = 1742-6) 33 0-55 [facility] CenterTotal Uvswdno1426-09-21 05:43:00* Test Item Value Reference Range Interpretation Comments Total Protein (test code = 2885-2) 6.6 6.5-8.1 [facility] CenterAlbumin2018-12-07 05:43:00* Test Item Value Reference Range Interpretation Comments Albumin (test code = 1751-7) 3.1 3.5-5.0 L [facility] CenterGlobulin2018-12-07 05:43:00* Test Item Value Reference Range Interpretation Comments Globulin (test code = 80644-3) 3.5 2.3-3.5 [facility] CenterAlbumin/Globulin Jhoyn2760-71-15 05:43:00 * Test Item Value Reference Range Interpretation Comments Albumin/Globulin Ratio (test code = 1759-0) 0.9 0.8-2.0 [facility] CenterAlkaline Yfkjhzlkocd1810-58-40 05:43:00* Test Item Value Reference Range Interpretation Comments Alkaline Phosphatase (test code = 6768-6) 159 40-150 H [facility] CenterCT ABDOMEN/PELVIS EV4614-09-72 22:55:00 [facility] [address] [place] [address] Patient Name: PARDEEP VERDE MR #: [id number] : 1950 Age/Sex: 68/M Req #: [id number] Adm Physician: Ordered by: SOLOMON OJEDA [employer] Report #: [id number] Location: ER Room/Bed: Procedure: [id number] CT/ CT ABDOMEN/PELVIS WO Exam Date: 09/30/18 [...] No acute abnormality in the abdomen or pelvis . 2. Morphologic changes which can be seen with cirrhosis/chronic liver diseas e. Signed by: Dr Kate Frank MD on 09/30/2018 11:00 PM Dictated By : KATE FRANK MD 2 300 Transcribed By: NEMO on 09/30/18 2300 COPY TO: SOLOMON OJEDA P Urine NTL6631-55-81 21:03:00* Test Item Value Reference Range Interpretation Comments Urine WBC (test code = 5821-4) 0-5 0-5 [facility] CenterUrine ARK2006-33-94 21:03:00* Test Item Value Reference Range Interpretation Comments Urine RBC (test code = 53141-7) 0-5 0-5 [facility] CenterUrine Rfhiqyhh0772-59-98 21:03:00* Test Item Value Reference Range Interpretation Comments Urine Bacteria (test code = 46757-4) MANY NONE H [facility] CenterUrine Epithelial Jvwqn3742-42-19 21:03:00 * Test Item Value Reference Range Interpretation Comments Urine Epithelial Cells (test code = 82647-5) FEW NONE [facility] CenterUrine Wunks8266-88-52 20:37:00* Test Item Value Reference Range Interpretation Comments Urine Color (test code = 5778-6) YELLOW YELLOW [facility] CenterUrine Uulqtwp8768-80-42 20:37:00* Test Item Value Reference Range Interpretation Comments Urine Clarity (test code = 00230-3) CLEAR CLEAR [facility] Specific Vdegbao7647-45-80 20:37:00 * Test Item Value Reference Range Interpretation Comments Urine Specific [facility] (test code = 5811-5) 1.025 1.010-1.02 5 [facility] CenterUrine lY6384-35-08 20:37:00* Test Item Value Reference Range Interpretation Comments Urine pH (test code = 70898-3) 6 5-7 [facility] CenterUrine Leukocyte Uiyacaji3231-25-96 20:37:00* Test Item Value Reference Range Interpretation Comments Urine Leukocyte Esterase (test code = 5799-2) NEGATIVE NEGATIVE [facility] Xxohrwi6343-36-33 20:37:00* Test Item Value Reference Range Interpretation Comments Urine Nitrite (test code = 42272-8) NEGATIVE NEGATIVE [facility] CenterUrine Rritrav2529-56-17 20:37:00* Test Item Value Reference Range Interpretation Comments Urine Protein (test code = 5804-0) 2+ NEGATIVE H [facility] CenterUrine Glucose (UA)2018-09-30 20:37:00* Test Item Value Reference Range Interpretation Comments Urine Glucose (UA) (test code = 2349-9) NEGATIVE NEGATIVE [facility] CenterUrine Xgvmmnh5630-44-57 20:37:00* Test Item Value Reference Range Interpretation Comments Urine Ketones (test code = 49278-6) NEGATIVE NEGATIVE [facility] CenterUrine Xmodyzfrgada1416-18-96 20:37:00* Test Item Value Reference Range Interpretation Comments Urine Urobilinogen (test code = 28587-2) 0.2 0.2-1 [facility] CenterUrine Fknaqdvzd4878-33-44 20:37:00* Test Item Value Reference Range Interpretation Comments Urine Bilirubin (test code = 1978-6) 1+ NEGATIVE H Confirmatory test currently unavailable. False positive results may occur.[facility] CenterUrine Wnrlx3009-50-87 20:37:00* Test Item Value Reference Range Interpretation Comments Urine Blood (test code = 04280-9) NEGATIVE NEGATIVE [facility] CenterProthrombin Liew1291-82-94 20:01:00* Test Item Value Reference Range Interpretation Comments Prothrombin Time (test code = 5902-2) 13.4 11.9-14.5 [facility] CenterProthromb Time International Ratio 2018-09-30 20:01:00* Test Item Value Reference Range Interpretation Comments Prothromb Time International Ratio (test code = 6301-6) 0.94 Oral Anticoagulant Therapy INR Values:1. Low Intensity Therapy 1.5 - 2.02 . Moderate Intensity Therapy 2.0 - 3.03. High Intensity Therapy(1) 2.5 - 3. 54. High Intensity Therapy(2) 3.0 - 4.05. Panic Value INR > 5.0 [facility] CenterActivated Partial Thromboplast Time 2018-09-30 20:01:00* Test Item Value Reference Range Interpretation Comments Activated Partial Thromboplast Time (test code = 43579-6) 31.2 23.8-35.5 [facility] CenterCreatine Kinase JA3798-11-65 20:00:00* Test Item Value Reference Range Interpretation Comments Creatine Kinase MB (test code = 13252-0) 1.10 0-5.0 [facility] CenterTroponin P9459-09-39 20:00:00* Test Item Value Reference Range Interpretation Comments Troponin I (test code = NAT0825) < 0.001 0-0.300 [facility] CenterCHEST SINGLE (PORTABLE)2018-09-30 19:55:00 [facility] [address] [address] Patient Name: PARDEEP VERDE MR #: [id number] : 1950 Age/Sex: 68/M Req #: [id number] Adm Physician: Ordered by: SOLOMON OJEDA [employer] Report #: [id number] Location: ER Room/Bed: Procedure: [id number] DX/ CHEST SINGLE (PORTABLE) Exam Date: 09/30/18 [...] NEMO on 09/30/181955 COPY TO: SOLOMON PRIEST [employer] Lactic Acid Xkilf1650-67-79 19:54:00* Test Item Value Reference Range Interpretation Comments Lactic Acid Level (test code = Lactic Acid Level) 22.8 4.5- 19.8 [facility] TexasCreatine Vigdlx7462-59-43 19:54:00* Test Item Value Reference Range Interpretation Comments Creatine Kinase (test code = 2157-6) 76 30-200 [facility] CenterLipase2018-12-06 19:54:00* Test Item Value Reference Range Interpretation Comments Lipase (test code = 3040-3) 81 8-78 H [facility] CenterLactic Acid Zyzxo0153-17-29 19:54:00* Test Item Value Reference Range Interpretation Comments Lactic Acid Level (test code = Lactic Acid Level) 22.8 4.5- 19.8 [facility] TexasLactic Acid Xbvqm3032-07-37 19:54:00* Test Item Value Reference Range Interpretation Comments Lactic Acid Level (test code = Lactic Acid Level) 22.8 4.5- 19.8 [facility] TexasKNEE THREE VIEWS NABQVXDEC7456-58-16 13:09:00 [place] [address] Patient Name: PARDEEP VERDE MR #: [id number] : 1950 Age/Sex: 68/M Req #: [id number] [facility] Physician: Ordered by: PARDEEP BEAL MD Report #: [id number] Location: [facility] Room/Bed: Procedure: [id number] DX/KNEE THREE VIEWS BILATERAL Exam Date: 04/05/18 [...] PARDEEP BEAL MD SP LUMBAR, COMPLETE MIN 3SU7730-12-05 13:07:00 [place] [address] Patient Name: PARDEEP VERDE MR #: [id number] : 1950 Age/Sex: 68/M Req #: [id number] Adm Physician: Ordered by: PARDEEP BEAL MD Report #: [id number] Location: [facility] Room/Bed: Procedure: [id number] DX/SP LUMBAR, COMPLETE MIN 4VW Exam Date: [...] COPY TO: PARDEEP BEAL MD Vitamin B1 Tqihk7821-98-22 09:21:00 * Test Item Value Reference Range Interpretation Comments Vitamin B1 Level (test code = 18706-5) 121.8 Reference Range:66.5 - 200.0 nmol/L Disclaimer: This test was developed and its performance characteristics determined by [facility]. It has not been cleared or a pproved by the Food and Drug Administration.Testing performed by:[facility] [address] [phone]. Kade Bustamante [facility]manVitamin B2 Rvcvw7490-96-57 09:21:00* Test Item Value Reference Range Interpretation Comments Vitamin B2 Level (test code = 6695-1) 131 Reference Range:137 - 370 ug/LReference interval reflects flavinadeninedinucleot noemi (FAD), that accounts for approximately 90% of the total riboflavin in whole blood.Testing performed by:[facility] [address] [place], [place] [phone]: Seven Obando [facility] HospitalVitamin B1 Mvfma5636-60-15 09:21:00* Test Item Value Reference Range Interpretation Comments Vitamin B1 Level (test code = 33785-2) 121.8 Reference Range:66.5 - 200.0 nmol/L Disclaimer: This test was developed and its performance characteristics determined by [facility]. It has not been cleared or a pproved by the Food and Drug Administration.Testing performed by:[facility] [place] [phone]. Kade Bustamante [facility] KaufmanVitamin B2 Dhjbc5458-98-53 09:21:00* Test Item Value Reference Range Interpretation Comments Vitamin B2 Level (test code = 6695-1) 131 Reference Range:137 - 370 ug/LReference interval reflects flavinadeninedinucleot noemi (FAD), that accounts for approximately 90% of the total riboflavin in whole blood.Testing performed by:[address] [phone]: Seven Obando [facility] HospitalAnti-Nuclear Antibody Ejczvz7824-78-02 09:18:00* Test Item Value Reference Range Interpretation Comments Anti-Nuclear Antibody Screen (test code = 5048-4) Negative Reference Range:Negative <1:80Borderline 1:80Positive >1:80Testing performed by:[address] [phone]: Seven Obando [facility] HospitalAnti-Nuclear Antibody Uhidir3509-62-29 09:18:00* Test Item Value Reference Range Interpretation Comments Anti-Nuclear Antibody Screen (test code = 5048-4) Negative Reference Range:Negative <1:80Borderline 1:80Positive >1:80Testing performed by:[address] [phone]: Seven Obando [facility] CenterS-A/Ro Mguxggfg0651-23-83 21:56:00* Test Item Value Reference Range Interpretation Comments SS-A/Ro Antibody (test code = ELB8311) -0.2 0.0-0.9 [facility]ballS-B/La Ekhvwrfb8173-26-38 21:56:00* Test Item Value Reference Range Interpretation Comments SS-B/La Antibody (test code = AUO8596) 0.5 0.0-0.9 Performed at: [address] [id number] Director: Seven Obando MD, Phone: [phone] Children's Medical CenterRheumatoid Jvkoal8907-33-58 21:56:00* Test Item Value Reference Range Interpretation Comments Rheumatoid Factor (test code = 44660-7) -10.0 0.0-13.9 [facility] CenterC-Reactive Gpqybqa5704-88-24 21:56:00* Test Item Value Reference Range Interpretation Comments C-Reactive Protein (test code = 1988-5) 2.2 0.0-4.9 Performed at: [address] [id number] Director: Seven Obando MD, Phone: [phone] [facility] Healthcare TomballS-A/Ro Rtxgreba5603-66-34 21:56:00* Test Item Value Reference Range Interpretation Comments SS-A/Ro Antibody (test code = NWN7963) <0.2 0.0-0.9 [facility]ballS-B/La Bpmglogt2373-36-72 21:56:00* Test Item Value Reference Range Interpretation Comments SS-B/La Antibody (test code = OYR9249) 0.5 0.0-0.9 Performed at: [address] [id number] Director: Seven Obando MD, Phone: [phone] Children's Medical CenterRheumatoid Iwodri0565-86-45 21:56:00* Test Item Value Reference Range Interpretation Comments Rheumatoid Factor (test code = 18021-7) <10.0 0.0-13.9 [facility] CenterC-Reactive Zahcquq1023-14-02 21:56:00* Test Item Value Reference Range Interpretation Comments C-Reactive Protein (test code = 1987-5) 2.2 0.0-4.9 Performed at: [address] [id number] Director: Seven Obando MD, Phone: [phone] [facility] Xmbxgas1357-35-95 12:12:00* Test Item Value Reference Range Interpretation Comments Bedside Glucose (test code = 47177-6) 241 70-120 H Meter ID: [id number] Hermann [facility] Hospital Glucose 2018-02-04 12:12:00* Test Item Value Reference Range Interpretation Comments Bedside Glucose (test code = 35098-6) 241 70-120 H Meter ID: [id number] Houston Healthcare Tomballodium Level 2018-02-04 07:03:00* Test Item Value Reference Range Interpretation Comments Sodium Level (test code = 2951-2) 140 136-145 [facility] CenterPotassium Rsmaf6105-25-10 07:03:00* Test Item Value Reference Range Interpretation Comments Potassium Level (test code = 2823-3) 4.2 3.5-5.1 [facility] CenterChloride Svvfi2335-37-50 07:03:00* Test Item Value Reference Range Interpretation Comments Chloride Level (test code = 2075-0) 108 98-107 H [facility] CenterCarbon Dioxide Aooxs1677-78-65 07:03:00* Test Item Value Reference Range Interpretation Comments Carbon Dioxide Level (test code = 2028-9) 24 22-29 [facility] CenterAnion Oox8695-86-68 07:03:00* Test Item Value Reference Range Interpretation Comments Anion Gap (test code = 54999-8) 12.2 8-16 [facility] CenterBlood Urea Qsibfblh0880-96-67 07:03:00* Test Item Value Reference Range Interpretation Comments Blood Urea Nitrogen (test code = 3094-0) 15 7-26 [facility] CenterCreatinine2018-04-12 07:03:00* Test Item Value Reference Range Interpretation Comments Creatinine (test code = 2160-0) 0.85 0.72-1.25 [facility] CenterBUN/Creatinine Phnbw4552-24-24 07:03:00* Test Item Value Reference Range Interpretation Comments BUN/Creatinine Ratio (test code = 3097-3) 18 6-25 [facility] CenterEstimat Glomerular Filtration Rate 2018-02-04 07:03:00* Test Item Value Reference Range Interpretation Comments Estimat Glomerular Filtration Rate (test code = 77316-6) 60- >60 Ranges were taken from the National Kidney Disease Education Program and the [facility] literature.Reference ranges:60 or greater: Diwprj47-99 ( for 3 consecutive months): Chronic kidney disease 15 or less: Kidney failureCook Children's Medical CenterGlucose Sukqf0927-00-52 07:03:00* Test Item Value Reference Range Interpretation Comments Glucose Level (test code = TSP6655) 216 74-118 H [facility] CenterCalcium Fqfji1912-11-75 07:03:00* Test Item Value Reference Range Interpretation Comments Calcium Level (test code = 07526-0) 8.9 8.4-10.2 [facility] Tomballodium Zvxft7993-26-67 07:03:00* Test Item Value Reference Range Interpretation Comments Sodium Level (test code = 2951-2) 140 136-145 [facility] CenterPotassium Bnyvz1470-64-35 07:03:00* Test Item Value Reference Range Interpretation Comments Potassium Level (test code = 2823-3) 4.2 3.5-5.1 [facility] CenterChloride Mqqmx5929-96-43 07:03:00* Test Item Value Reference Range Interpretation Comments Chloride Level (test code = 2075-0) 108 98-107 H [facility] CenterCarbon Dioxide Sukdf0504-29-29 07:03:00* Test Item Value Reference Range Interpretation Comments Carbon Dioxide Level (test code = 2028-9) 24 22-29 [facility] CenterAnion Mlh3568-56-30 07:03:00* Test Item Value Reference Range Interpretation Comments Anion Gap (test code = 79817-9) 12.2 8-16 [facility] CenterBlood Urea Trmhlwrl2611-55-64 07:03:00* Test Item Value Reference Range Interpretation Comments Blood Urea Nitrogen (test code = 3094-0) 15 7-26 [facility] CenterCreatinine2018-04-12 07:03:00* Test Item Value Reference Range Interpretation Comments Creatinine (test code = 2160-0) 0.85 0.72-1.25 [facility] CenterBUN/Creatinine Ilhbd8740-47-80 07:03:00* Test Item Value Reference Range Interpretation Comments BUN/Creatinine Ratio (test code = 3097-3) 18 6-25 [facility] CenterEstimat Glomerular Filtration Rate 2018-02-04 07:03:00* Test Item Value Reference Range Interpretation Comments Estimat Glomerular Filtration Rate (test code = 017846968) 60- >60 Ranges were taken from the National Kidney Disease Education Program and the [facility] Kidney Foundation literature.Reference ranges:60 or greater: Xciwvm07-08 ( for 3 consecutive months): Chronic kidney disease 15 or less: Kidney failureCook Children's Medical CenterGlucose Hhehm9701-77-74 07:03:00* Test Item Value Reference Range Interpretation Comments Glucose Level (test code = YIT8028) 216 74-118 H [facility] CenterCalcium Bmkay4040-25-54 07:03:00* Test Item Value Reference Range Interpretation Comments Calcium Level (test code = 94196-1) 8.9 8.4-10.2 [facility] CenterVitamin B12 Ljsti0866-66-46 20:27:00* Test Item Value Reference Range Interpretation Comments Vitamin B12 Level (test code = 89225-5) 245 213-816 [facility] CenterFolate2018-04-11 20:27:00* Test Item Value Reference Range Interpretation Comments Folate (test code = 2284-8) 3.6 7.0-15.4 L [facility] CenterVitamin B12 Aemud4951-53-94 20:27:00* Test Item Value Reference Range Interpretation Comments Vitamin B12 Level (test code = 25881-0) 245 213-816 [facility] CenterFolate2018-04-11 20:27:00* Test Item Value Reference Range Interpretation Comments Folate (test code = 2284-8) 3.6 7.0-15.4 L [facility] CenterVitamin B12 Crzpg9390-83-04 20:27:00* Test Item Value Reference Range Interpretation Comments Vitamin B12 Level (test code = 77754-0) 245 213-816 [facility] CenterFolate2018-04-11 20:27:00* Test Item Value Reference Range Interpretation Comments Folate (test code = 2284-8) 3.6 7.0-15.4 L [facility] CenterErythrocyte Sedimentation Mgxq6484-46-32 20:14:00* Test Item Value Reference Range Interpretation Comments Erythrocyte Sedimentation Rate (test code = 4537-7) 3 0- 13 [facility] CenterErythrocyte Sedimentation Qvoc7150-10-84 20:14:00* Test Item Value Reference Range Interpretation Comments Erythrocyte Sedimentation Rate (test code = 4537-7) 3 0- 13 [facility] CenterErythrocyte Sedimentation Tryn4901-55-92 20:14:00* Test Item Value Reference Range Interpretation Comments Erythrocyte Sedimentation Rate (test code = 4537-7) 3 0- 13 [facility] CenterThyroid Stimulating Hormone (TSH) 2018-02-03 20:12:00* Test Item Value Reference Range Interpretation Comments Thyroid Stimulating Hormone (TSH) (test code = 33009-4) 5.077 0.350-4.940 H [facility] CenterThyroid Stimulating Hormone (TSH) 2018-02-03 20:12:00* Test Item Value Reference Range Interpretation Comments Thyroid Stimulating Hormone (TSH) (test code = 88292-1) 5.077 0.350-4.940 H [facility] CenterThyroid Stimulating Hormone (TSH) 2018-02-03 20:12:00* Test Item Value Reference Range Interpretation Comments Thyroid Stimulating Hormone (TSH) (test code = 24380-9) 5.077 0.350-4.940 H [facility] CenterHemoglobin A1c Rqkzxhk1890-94-62 19:44:00 * Test Item Value Reference Range Interpretation Comments Hemoglobin A1c Percent (test code = Hemoglobin A1c Percent) 7.3 4.0-7.0 H [facility] CenterHemoglobin A1c Ydhfxhq5935-37-49 19:44:00 * Test Item Value Reference Range Interpretation Comments Hemoglobin A1c Percent (test code = Hemoglobin A1c Percent) 7.3 4.0-7.0 H [facility] CenterHemoglobin A1c Kqqkhwy9667-94-46 19:44:00 * Test Item Value Reference Range Interpretation Comments Hemoglobin A1c Percent (test code = Hemoglobin A1c Percent) 7.3 4.0-7.0 H [facility] CenterTotal Daugdhjub4309-00-40 20:55:00* Test Item Value Reference Range Interpretation Comments Total Bilirubin (test code = 1975-2) 0.4 0.2-1.2 [facility] CenterAspartate Amino Transf (AST/SGOT) 2018-02-02 20:55:00* Test Item Value Reference Range Interpretation Comments Aspartate Amino Transf (AST/SGOT) (test code = Aspartate Amino Transf (AST/SGOT)) 54 5-34 H [facility] CenterAlanine Aminotransferase (ALT/SGPT) 2018-02-02 20:55:00* Test Item Value Reference Range Interpretation Comments Alanine Aminotransferase (ALT/SGPT) (test code = 1742-6) 39 0-55 [facility] CenterTotal Wwuhyja6064-65-99 20:55:00* Test Item Value Reference Range Interpretation Comments Total Protein (test code = 2885-2) 7.3 6.5-8.1 [facility] CenterAlbumin2018-04-10 20:55:00* Test Item Value Reference Range Interpretation Comments Albumin (test code = 1751-7) 3.7 3.5-5.0 [facility] CenterGlobulin2018-04-10 20:55:00* Test Item Value Reference Range Interpretation Comments Globulin (test code = 08701-0) 3.6 2.3-3.5 H [facility] CenterAlbumin/Globulin Zrwdq1695-67-50 20:55:00 * Test Item Value Reference Range Interpretation Comments Albumin/Globulin Ratio (test code = 1759-0) 1.0 0.8-2.0 [facility] CenterAlkaline Xddfkugigqs3075-61-38 20:55:00* Test Item Value Reference Range Interpretation Comments Alkaline Phosphatase (test code = 6768-6) 116 40-150 [facility] CenterTotal Fggajfryx9410-26-53 20:55:00* Test Item Value Reference Range Interpretation Comments Total Bilirubin (test code = 1975-2) 0.4 0.2-1.2 [facility] CenterAspartate Amino Transf (AST/SGOT) 2018-02-02 20:55:00* Test Item Value Reference Range Interpretation Comments Aspartate Amino Transf (AST/SGOT) (test code = Aspartate Amino Transf (AST/SGOT)) 54 5-34 H [facility] CenterAlanine Aminotransferase (ALT/SGPT) 2018-02-02 20:55:00* Test Item Value Reference Range Interpretation Comments Alanine Aminotransferase (ALT/SGPT) (test code = 1742-6) 39 0-55 [facility] CenterTotal Cxucbwi3216-62-89 20:55:00* Test Item Value Reference Range Interpretation Comments Total Protein (test code = 2885-2) 7.3 6.5-8.1 [facility] CenterAlbumin2018-04-10 20:55:00* Test Item Value Reference Range Interpretation Comments Albumin (test code = 1751-7) 3.7 3.5-5.0 [facility] CenterGlobulin2018-04-10 20:55:00* Test Item Value Reference Range Interpretation Comments Globulin (test code = 38017-1) 3.6 2.3-3.5 H [facility] CenterAlbumin/Globulin Ivcgs9604-80-54 20:55:00 * Test Item Value Reference Range Interpretation Comments Albumin/Globulin Ratio (test code = 1759-0) 1.0 0.8-2.0 [facility] CenterAlkaline Iaczrfdptyo3450-22-27 20:55:00* Test Item Value Reference Range Interpretation Comments Alkaline Phosphatase (test code = 6768-6) 116 40-150 [facility] CenterWhite Blood Gnjib1755-29-10 20:40:00* Test Item Value Reference Range Interpretation Comments White Blood Count (test code = 6690-2) 9.62 4.8-10.8 [facility] CenterRed Blood Zjspx1601-03-20 20:40:00* Test Item Value Reference Range Interpretation Comments Red Blood Count (test code = 789-8) 4.22 4.3-5.7 L [facility] CenterHemoglobin2018-04-10 20:40:00* Test Item Value Reference Range Interpretation Comments Hemoglobin (test code = 08448-7) 13.6 14.0-18.0 L [facility] CenterHematocrit2018-04-10 20:40:00* Test Item Value Reference Range Interpretation Comments Hematocrit (test code = 4544-3) 40.1 38.2-49.6 [facility] CenterMean Corpuscular Lqamck3845-60-09 20:40:00* Test Item Value Reference Range Interpretation Comments Mean Corpuscular Volume (test code = 787-2) 95.0 81-99 [facility] CenterMean Corpuscular Gxoievqxav2822-44-41 20:40:00* Test Item Value Reference Range Interpretation Comments Mean Corpuscular Hemoglobin (test code = 785-6) 32.2 28-32 H [facility] CenterMean Corpuscular Hemoglobin Concent 2018-02-02 20:40:00* Test Item Value Reference Range Interpretation Comments Mean Corpuscular Hemoglobin Concent (test code = 786-4) 33.9 31-35 [facility] CenterRed Cell Distribution Rpupq4858-96-20 20:40:00* Test Item Value Reference Range Interpretation Comments Red Cell Distribution Width (test code = 56657-8) 12.2 11.7 -14.4 [facility] CenterPlatelet Qwhgg8575-31-08 20:40:00* Test Item Value Reference Range Interpretation Comments Platelet Count (test code = 777-3) 146 140-360 [facility]Ne[facility] (%) (Auto)2018-02-02 20:40:00 * Test Item Value Reference Range Interpretation Comments Neutrophils (%) (Auto) (test code = 10747-4) 61.0 38.7-80.0 [facility] CenterLymphocytes (%) (Auto)2018-02-02 20:40:00 * Test Item Value Reference Range Interpretation Comments Lymphocytes (%) (Auto) (test code = 736-9) 30.6 18.0-39.1 [facility] CenterMonocytes (%) (Auto)2018-02-02 20:40:00* Test Item Value Reference Range Interpretation Comments Monocytes (%) (Auto) (test code = 5905-5) 6.2 4.4-11.3 [facility] CenterEosinophils (%) (Auto)2018-02-02 20:40:00 * Test Item Value Reference Range Interpretation Comments Eosinophils (%) (Auto) (test code = 713-8) 1.2 0.0-6.0 [facility] CenterBasophils (%) (Auto)2018-02-02 20:40:00* Test Item Value Reference Range Interpretation Comments Basophils (%) (Auto) (test code = 706-2) 0.6 0.0-1.0 [facility] CenterIM GRANULOCYTES %2018-02-02 20:40:00* Test Item Value Reference Range Interpretation Comments IM GRANULOCYTES % (test code = IM GRANULOCYTES %) 0.4 0.0- 1.0 [facility] CenterNeutrophils # (Auto)2018-02-02 20:40:00* Test Item Value Reference Range Interpretation Comments Neutrophils # (Auto) (test code = 751-8) 5.9 2.1-6.9 [facility] CenterLymphocytes # (Auto)2018-02-02 20:40:00* Test Item Value Reference Range Interpretation Comments Lymphocytes # (Auto) (test code = 30945-2) 2.9 1.0-3.2 [facility] CenterMonocytes # (Auto)2018-02-02 20:40:00* Test Item Value Reference Range Interpretation Comments Monocytes # (Auto) (test code = 742-7) 0.6 0.2-0.8 [facility] CenterEosinophils # (Auto)2018-02-02 20:40:00* Test Item Value Reference Range Interpretation Comments Eosinophils # (Auto) (test code = 711-2) 0.1 0.0-0.4 [facility] CenterBasophils # (Auto)2018-02-02 20:40:00* Test Item Value Reference Range Interpretation Comments Basophils # (Auto) (test code = 704-7) 0.1 0.0-0.1 [facility] CenterAbsolute Immature Granulocyte (auto 2018-02-02 20:40:00* Test Item Value Reference Range Interpretation Comments Absolute Immature Granulocyte (auto (earle t code = Absolute Immature Granulocyte (auto) 0.04 0-0.1 [facility] CenterWhite Blood Cnwco8949-56-99 20:40:00* Test Item Value Reference Range Interpretation Comments White Blood Count (test code = 6690-2) 9.62 4.8-10.8 [facility] CenterRed Blood Yyzed1534-50-98 20:40:00* Test Item Value Reference Range Interpretation Comments Red Blood Count (test code = 789-8) 4.22 4.3-5.7 L [facility] CenterHemoglobin2018-04-10 20:40:00* Test Item Value Reference Range Interpretation Comments Hemoglobin (test code = 76168-3) 13.6 14.0-18.0 L [facility] CenterHematocrit2018-04-10 20:40:00* Test Item Value Reference Range Interpretation Comments Hematocrit (test code = 4544-3) 40.1 38.2-49.6 [facility] CenterMean Corpuscular Dovfll1233-61-97 20:40:00* Test Item Value Reference Range Interpretation Comments Mean Corpuscular Volume (test code = 787-2) 95.0 81-99 [facility] CenterMean Corpuscular Nynlkkndwx4343-11-34 20:40:00* Test Item Value Reference Range Interpretation Comments Mean Corpuscular Hemoglobin (test code = 785-6) 32.2 28-32 H [facility] CenterMean Corpuscular Hemoglobin Concent 2018-02-02 20:40:00* Test Item Value Reference Range Interpretation Comments Mean Corpuscular Hemoglobin Concent (test code = 786-4) 33.9 31-35 [facility] CenterRed Cell Distribution Mdnpc2506-33-88 20:40:00* Test Item Value Reference Range Interpretation Comments Red Cell Distribution Width (test code = 83181-9) 12.2 11.7 -14.4 [facility] CenterPlatelet Kjzvp8633-28-27 20:40:00* Test Item Value Reference Range Interpretation Comments Platelet Count (test code = 777-3) 146 140-360 [facility] CenterNeutrophils (%) (Auto)2018-02-02 20:40:00 * Test Item Value Reference Range Interpretation Comments Neutrophils (%) (Auto) (test code = 35356-3) 61.0 38.7-80.0 [facility] CenterLymphocytes (%) (Auto)2018-02-02 20:40:00 * Test Item Value Reference Range Interpretation Comments Lymphocytes (%) (Auto) (test code = 736-9) 30.6 18.0-39.1 [facility] CenterMonocytes (%) (Auto)2018-02-02 20:40:00* Test Item Value Reference Range Interpretation Comments Monocytes (%) (Auto) (test code = 5905-5) 6.2 4.4-11.3 [facility] CenterEosinophils (%) (Auto)2018-02-02 20:40:00 * Test Item Value Reference Range Interpretation Comments Eosinophils (%) (Auto) (test code = 713-8) 1.2 0.0-6.0 [facility] CenterBasophils (%) (Auto)2018-02-02 20:40:00* Test Item Value Reference Range Interpretation Comments Basophils (%) (Auto) (test code = 706-2) 0.6 0.0-1.0 [facility] CenterIM GRANULOCYTES %2018-02-02 20:40:00* Test Item Value Reference Range Interpretation Comments IM GRANULOCYTES % (test code = IM GRANULOCYTES %) 0.4 0.0- 1.0 [facility] CenterNeutrophils # (Auto)2018-02-02 20:40:00* Test Item Value Reference Range Interpretation Comments Neutrophils # (Auto) (test code = 751-8) 5.9 2.1-6.9 [facility] CenterLymphocytes # (Auto)2018-02-02 20:40:00* Test Item Value Reference Range Interpretation Comments Lymphocytes # (Auto) (test code = 89432-5) 2.9 1.0-3.2 [facility] CenterMonocytes # (Auto)2018-02-02 20:40:00* Test Item Value Reference Range Interpretation Comments Monocytes # (Auto) (test code = 742-7) 0.6 0.2-0.8 [facility] CenterEosinophils # (Auto)2018-02-02 20:40:00* Test Item Value Reference Range Interpretation Comments Eosinophils # (Auto) (test code = 711-2) 0.1 0.0-0.4 [facility] CenterBasophils # (Auto)2018-02-02 20:40:00* Test Item Value Reference Range Interpretation Comments Basophils # (Auto) (test code = 704-7) 0.1 0.0-0.1 [facility] CenterAbsolute Immature Granulocyte (auto 2018-02-02 20:40:00* Test Item Value Reference Range Interpretation Comments Absolute Immature Granulocyte (auto (earle t code = Absolute Immature Granulocyte (auto) 0.04 0-0.1 [facility] CenterProthrombin Hirw4590-84-43 14:18:00* Test Item Value Reference Range Interpretation Comments Prothrombin Time (test code = 5902-2) 12.9 11.9-14.5 [facility] CenterProthromb Time International Ratio 2017-10-06 14:18:00* Test Item Value Reference Range Interpretation Comments Prothromb Time International Ratio (test code = 6301-6) 0.93 Oral Anticoagulant Therapy INR Values:1. Low Intensity Therapy 1.5 - 2.02 . Moderate Intensity Therapy 2.0 - 3.03. High Intensity Therapy(1) 2.5 - 3. 54. High Intensity Therapy(2) 3.0 - 4.05. Panic Value INR > 5.0 [facility] CenterProthrombin Slfg1459-17-84 14:18:00* Test Item Value Reference Range Interpretation Comments Prothrombin Time (test code = 5902-2) 12.9 11.9-14.5 [facility] CenterProthromb Time International Ratio 2017-10-06 14:18:00* Test Item Value Reference Range Interpretation Comments Prothromb Time International Ratio (test code = 6301-6) 0.93 Oral Anticoagulant Therapy INR Values:1. Low Intensity Therapy 1.5 - 2.02 . Moderate Intensity Therapy 2.0 - 3.03. High Intensity Therapy(1) 2.5 - 3. 54. High Intensity Therapy(2) 3.0 - 4.05. Panic Value INR > 5.0 [facility] CenterTriglycerides Ongiq9542-89-92 13:58:00* Test Item Value Reference Range Interpretation Comments Triglycerides Level (test code = 2571-8) 328 0-149 H [facility] CenterCholesterol Alqin0126-24-73 13:58:00* Test Item Value Reference Range Interpretation Comments Cholesterol Level (test code = 2093-3) 154 0-199 Less than 200 mg/dL Low Cwaw348 - 239 mg/dL Borderline Hmxj138 m g/dl and greater High Risk [facility] CenterLDL Dlncxxxpdgh0820-48-80 13:58:00* Test Item Value Reference Range Interpretation Comments LDL Cholesterol (test code = 2089-1) 62 60-130 [facility] Uvqiiibkeif8798-56-20 13:58:00* Test Item Value Reference Range Interpretation Comments HDL Cholesterol (test code = 2085-9) 26 40-60 L [facility] CenterCholesterol/HDL Soljr1951 13:58:00 * Test Item Value Reference Range Interpretation Comments Cholesterol/HDL Ratio (test code = 9830-1) 5.9 3.9-4.7 H [facility] CenterTriglycerides Sjxqr1635-83-53 13:58:00* Test Item Value Reference Range Interpretation Comments Triglycerides Level (test code = 2571-8) 328 0-149 H [facility] CenterCholesterol Lxoqy4375-65-51 13:58:00* Test Item Value Reference Range Interpretation Comments Cholesterol Level (test code = 2093-3) 154 0-199 Less than 200 mg/dL Low Xjtw123 - 239 mg/dL Borderline Mldu129 m g/dl and greater High Risk [facility] CenterLDL Vkdvrpjylem7126-48-24 13:58:00* Test Item Value Reference Range Interpretation Comments LDL Cholesterol (test code = 2089-1) 62 60-130 [facility] Gzbmmrrggkf5412-73-31 13:58:00* Test Item Value Reference Range Interpretation Comments HDL Cholesterol (test code = 2085-9) 26 40-60 L [facility] CenterCholesterol/HDL Giicn1690-42-75 13:58:00 * Test Item Value Reference Range Interpretation Comments Cholesterol/HDL Ratio (test code = 9830-1) 5.9 3.9-4.7 H [facility] CenterUS RENAL RETROPERITONEAL COMP [facility] [address] [address] Patient Name: PARDEEP VERDE MR #: [id number] : Age/Sex: 68/M Req #: [id number] Adm Physician: PARDEEP MEJIA MD Ordered by: PARDEEP BEAL MD Report #: [id number] Location : MED/SURG Room/Bed: [facility] Procedure: [id number] US/US RENAL RETROPERITONEAL COMP Exam Date: 02/04/18 [...] 02/04/18 115 Transcribed By: ULYSSES on 0 02/04/187 COPY TO: PARDEEP BEAL MD CT BRAIN WO [place] [address] Patient Name: PARDEEP VERDE MR #: [id number] : 1950 Age/Sex: 68/M Req #: [id number] Adm Physician: PARDEEP MEJIA MD Ordered by: PARDEEP BEAL MD Report #: [id number] Location : MED/SURG Room/Bed: [facility] Procedure: [id number] CT/CT BRAIN WO Exam Date: 02/02/18 Exam Time: 1999 REPORT STATUS: Signed EXAMINATION: Head CT without contrast. HISTOR Y:Near syncope. COMPARISON:None. TECHNIQUE: Multidetector axial images we re obtained from the foramen magnum to the vertex without contrast. The images were reconstructed using brain and bone algorithms. Thin section brain image s were reformatted into coronal and sagittal planes. [...]
[2020-09-23 19:45] VITALS: BP 117/60
== END 2020-09-23 19:40 | disposition home or self-care (01) ==
LOC: ER 18:56
DX: Z47.89 Encounter for other orthopedic aftercare (principal); I10 Essential (primary) hypertension; E11.9 Type 2 diabetes mellitus without complications; E78.5 Hyperlipidemia, unspecified; J44.9 Chronic obstructive pulmonary disease, unspecified; K76.9 Liver disease, unspecified
CPT/HCPCS: 99283

== ENCOUNTER 2020-09-24 16:35 | Emergency (ER) | payer MEDICARE, OTHER ==
[~2020-09-24] VITALS: Ht 165.1 cm; Wt 103.9 kg
== END 2020-09-24 20:04 | disposition home or self-care (01) ==
LOC: ER 17:09
DX: S00.83XA Contusion of other part of head, initial encounter (principal); M25.571 Pain in right ankle and joints of right foot; W01.0XXA Fall on same level from slipping, tripping and stumbling without subsequent striking against object, initial encounter; Y93.01 Activity, walking, marching and hiking; Y92.008 Other place in unspecified non-institutional (private) residence as the place of occurrence of the external cause; I10 Essential (primary) hypertension; E11.9 Type 2 diabetes mellitus without complications; J44.9 Chronic obstructive pulmonary disease, unspecified; E78.5 Hyperlipidemia, unspecified; K74.60 Unspecified cirrhosis of liver
CPT/HCPCS: 70450; 72125; 99283

== ENCOUNTER 2020-11-18 16:46 | Inpatient (IN) | payer MEDICARE, OTHER ==
[~2020-11-18] VITALS: Ht 165.1 cm; Wt 103.9 kg
[2020-11-18] MEDS ORDERED: AZITHROMYCIN 500MG/NS 250 ML 250 ML IV STA (17:04)
[2020-11-18] MEDS ORDERED: DEXAMETHASONE SOD PHOS 10 MG/1 ML VIAL IV NR (17:09)
[2020-11-18] MEDS ORDERED: ASPIRIN 81 MG CHEW TAB PO ONE (17:15)
[2020-11-18] MEDS: SODIUM CHLORIDE 0.9% 1000ML 1,000 ML IV SCH (18:57)
[2020-11-18 19:04] LABS: BASOPHILS # (AUTO) 0.1 (0.0-0.1); BASOPHILS % 0.5 % (0.0-1.0); EOSINOPHILS # (AUTO) 0.1 (0.0-0.4); EOSINOPHILS % 1.3 % (0.0-6.0); HEMATOCRIT 37.8 % (38.2-49.6); HEMOGLOBIN 12.6 g/dL (14.0-18.0); LYMPHOCYTES # (AUTO) 1.3 (1.0-3.2); LYMPHOCYTES % 13.8 % (18.0-39.1); MEAN CORPUSCULAR HEMOGLOBIN 32.5 pg (28-32); MEAN CORPUSCULAR HGB CONC 33.3 g/dL (31-35); MEAN CORPUSCULAR VOLUME 97.4 fL (81-99); MONOCYTES # (AUTO) 0.9 (0.2-0.8); MONOCYTES % 9.5 % (4.4-11.3); NEUTROPHILS # (AUTO) 6.8 (2.1-6.9); NEUTROPHILS % 74.5 % (38.7-80.0); PLATELET COUNT 110 x10e3/uL (140-360); RED BLOOD COUNT 3.88 x10e6/uL (4.3-5.7); RED CELL DISTRIBUTION WIDTH 13.6 % (11.7-14.4)
[2020-11-18 19:24] LABS: ALANINE AMINOTRANSFERASE 27 IU/L (0-55); ALBUMIN/GLOBULIN RATIO 0.7 (0.8-2.0); ALKALINE PHOSPHATASE 128 IU/L (40-150); ANION GAP 13.3 mmol/L (8-16); BLOOD UREA NITROGEN 22 mg/dL (7-26); BUN/CREATININE RATIO 29 (6-25); CALCIUM 8.4 mg/dL (8.4-10.2); CARBON DIOXIDE 19 mmol/L (22-29); CHLORIDE 106 mmol/L (98-107); CREATINE KINASE 51 IU/L (30-200); CREATININE, SERUM 0.76 mg/dL (0.72-1.25); EST GLOMERULAR FILTRATION RATE > 60 ML/MIN (60-); GLUCOSE 114 mg/dL (74-118); POTASSIUM 4.3 mmol/L (3.5-5.1); SODIUM 134 mmol/L (136-145)
[2020-11-18 19:35] LABS: B-TYPE NATRIURETIC PEPTIDE2 121.3 pg/mL (0-100)
[2020-11-18] MEDS ORDERED: SODIUM CHLORIDE 0.9% 50ML 50 ML ONE (19:59)
[2020-11-18] MEDS ORDERED: IOPAMIDOL 370 MG/ML 200 ML INFUS..BTL INJ ONE (19:59)
[2020-11-18] MEDS ORDERED: DEXTROSE 50% SYRINGE 50 ML IV PRN (20:15)
[2020-11-18] MEDS: INSULIN REGULAR, HUMAN 100 UNIT/1 ML 3ML VIAL SQ SCH (21:00)
[2020-11-18 21:59] VITALS: BP 134/69
[2020-11-18 22:09] VITALS: BP 134/69
[2020-11-18] MEDS ORDERED: TRELEGY ELLIPT1 EACH INH (22:43)
[2020-11-18] MEDS ORDERED: ALBUTEROL0.63 MG/3 NEB (22:43)
[2020-11-18] MEDS ORDERED: TRICOR145 MG PO (22:43)
[2020-11-18] MEDS ORDERED: HYDROCODON-ACE1 EA11 PO (22:43)
[2020-11-18] MEDS ORDERED: ACETAMINOPHEN325 M1 PO (22:43)
[2020-11-18] MEDS ORDERED: SPIRIVA18 MCG INH (22:43)
[2020-11-18] MEDS: ACETAMINOPHEN 325 MG TAB PO PRN (23:40)
[2020-11-19] VITALS (9 sets, daily range): BP systolic 103–138; BP diastolic 50–73
[2020-11-19 05:41] LABS: BASOPHILS % 0.2 % (0.0-1.0); HEMATOCRIT 34.8 % (38.2-49.6); HEMOGLOBIN 11.4 g/dL (14.0-18.0); LYMPHOCYTES # (AUTO) 0.8 (1.0-3.2); LYMPHOCYTES % 14.6 % (18.0-39.1); MEAN CORPUSCULAR HEMOGLOBIN 31.7 pg (28-32); MEAN CORPUSCULAR HGB CONC 32.8 g/dL (31-35); MEAN CORPUSCULAR VOLUME 96.7 fL (81-99); MONOCYTES # (AUTO) 0.2 (0.2-0.8); MONOCYTES % 3.5 % (4.4-11.3); NEUTROPHILS # (AUTO) 4.2 (2.1-6.9); NEUTROPHILS % 81.3 % (38.7-80.0); PLATELET COUNT 86 x10e3/uL (140-360); RED CELL DISTRIBUTION WIDTH 13.4 % (11.7-14.4)
[2020-11-19] MEDS: SODIUM CHLORIDE 0.9% 1000ML 1,000 ML IV SCH (05:46)
[2020-11-19 06:00] LABS: ALANINE AMINOTRANSFERASE 26 IU/L (0-55); ALBUMIN 2.7 g/dL (3.5-5.0); ALBUMIN/GLOBULIN RATIO 0.7 (0.8-2.0); ALKALINE PHOSPHATASE 108 IU/L (40-150); ANION GAP 15.4 mmol/L (8-16); BLOOD UREA NITROGEN 16 mg/dL (7-26); BUN/CREATININE RATIO 24 (6-25); CALCIUM 8.1 mg/dL (8.4-10.2); CARBON DIOXIDE 17 mmol/L (22-29); CHLORIDE 107 mmol/L (98-107); CREATININE, SERUM 0.68 mg/dL (0.72-1.25); EST GLOMERULAR FILTRATION RATE > 60 ML/MIN (60-); GLUCOSE 199 mg/dL (74-118); MAGNESIUM 1.3 MG/DL (1.3-2.1); POTASSIUM 4.4 mmol/L (3.5-5.1); SODIUM 135 mmol/L (136-145)
[2020-11-19 06:23] LABS: THYROID STIMULATING HORMONE 1.018 uIU/mL (0.350-4.940)
[2020-11-19] MEDS ORDERED: IPRATROPIUM BROMIDE INHALER 12.9 GM INH INH SCH (07:00)
[2020-11-19 07:57] LABS: PLATELET ESTIMATE MODERATELY DECREASED; PLATELET MORPHOLOGY COMMENT NORMAL
[2020-11-19] MEDS: CHOLECALCIFEROL 1,000 UNIT TAB PO SCH (08:02)
[2020-11-19] MEDS: ZINC SULFATE 220 MG CAP PO SCH (08:02)
[2020-11-19] MEDS: ENOXAPARIN SOD INJ 40 MG/0.4 ML SYR SC SCH (08:02)
[2020-11-19] MEDS: CEFTRIAXONE SOD 1 GM/NS 50 ML 50 ML IV SCH (08:02)
[2020-11-19] MEDS: INSULIN REGULAR, HUMAN 100 UNIT/1 ML 3ML VIAL SQ SCH ×4 (08:02→21:00)
[2020-11-19] MEDS: ASCORBIC ACID 500 MG TAB PO SCH ×2 (08:02→16:35)
[2020-11-19] MEDS ORDERED: DEXAMETHASONE SOD PHOS 10 MG/1 ML VIAL IV SCH (09:00)
[2020-11-19] MEDS: AZITHROMYCIN 500MG/NS 250 ML 250 ML IV SCH (09:55)
[2020-11-19] MEDS: ACETAMINOPHEN 325 MG TAB PO PRN (10:51)
[2020-11-19] MEDS ORDERED: ACETAMINOPHEN 325 MG TAB PO PRN ×2 (14:00→14:30)
[2020-11-19] MEDS ORDERED: ALBUTEROL SULF 0.083% NEB SOLN 3 ML NEB NEB PRN (14:00)
[2020-11-19] MEDS: HYDROCODONE/APAP 5MG-325MG TAB PO PRN (16:00)
[2020-11-19] MEDS ORDERED: REMDESIVIR 200MG/NS 100ML 200 MG in SODIUM CHLORIDE 0.9% 100 ML 100 ML IV ONE (16:30)
[2020-11-19] MEDS: METFORMIN HCL 500 MG TAB PO SCH (16:35)
[2020-11-19] MEDS: GABAPENTIN 300 MG CAP PO SCH (16:35)
[2020-11-19] MEDS: ZOLPIDEM TARTRATE 5 MG TAB PO PRN (21:41)
[2020-11-20] VITALS (7 sets, daily range): BP systolic 119–151; BP diastolic 69–79
[2020-11-20] MEDS: TIOTROPIUM 18 MCG INH POWDER INH SCH (06:00)
[2020-11-20] MEDS: INSULIN REGULAR, HUMAN 100 UNIT/1 ML 3ML VIAL SQ SCH ×4 (07:30→20:57)
[2020-11-20] MEDS: CEFTRIAXONE SOD 1 GM/NS 50 ML 50 ML IV SCH (08:36)
[2020-11-20] MEDS: GABAPENTIN 300 MG CAP PO SCH ×2 (08:36→16:22)
[2020-11-20] MEDS: METFORMIN HCL 500 MG TAB PO SCH ×2 (08:36→16:22)
[2020-11-20] MEDS: DEXAMETHASONE SOD PHOS 10 MG/1 ML VIAL IV SCH (08:36)
[2020-11-20] MEDS: FENOFIBRATE 145 MG TAB PO SCH (08:37)
[2020-11-20] MEDS: ZINC SULFATE 220 MG CAP PO SCH (08:37)
[2020-11-20] MEDS: ENOXAPARIN SOD INJ 40 MG/0.4 ML SYR SC SCH (08:37)
[2020-11-20] MEDS: CHOLECALCIFEROL 1,000 UNIT TAB PO SCH (08:37)
[2020-11-20] MEDS: ASCORBIC ACID 500 MG TAB PO SCH ×2 (08:37→16:22)
[2020-11-20] MEDS ORDERED: LISINOPRIL 10 MG TAB PO SCH (09:00)
[2020-11-20] MEDS: AZITHROMYCIN 500MG/NS 250 ML 250 ML IV SCH (09:47)
[2020-11-20] MEDS: REMDESIVIR 100MG/NS 100ML 100 MG in SODIUM CHLORIDE 0.9% 100 ML 100 ML IV SCH (14:09)
[2020-11-20] MEDS: ZOLPIDEM TARTRATE 5 MG TAB PO PRN (22:29)
[2020-11-21] VITALS (7 sets, daily range): BP systolic 93–123; BP diastolic 54–70
[2020-11-21] MEDS: TIOTROPIUM 18 MCG INH POWDER INH SCH (06:00)
[2020-11-21] MEDS: INSULIN REGULAR, HUMAN 100 UNIT/1 ML 3ML VIAL SQ SCH ×4 (07:30→21:00)
[2020-11-21] MEDS: METFORMIN HCL 500 MG TAB PO SCH ×2 (09:00→16:38)
[2020-11-21] MEDS: ENOXAPARIN SOD INJ 40 MG/0.4 ML SYR SC SCH (09:25)
[2020-11-21] MEDS: GABAPENTIN 300 MG CAP PO SCH ×2 (09:25→16:38)
[2020-11-21] MEDS: DEXAMETHASONE SOD PHOS 10 MG/1 ML VIAL IV SCH (09:25)
[2020-11-21] MEDS: ZINC SULFATE 220 MG CAP PO SCH (09:25)
[2020-11-21] MEDS: CEFTRIAXONE SOD 1 GM/NS 50 ML 50 ML IV SCH (09:25)
[2020-11-21] MEDS: FENOFIBRATE 145 MG TAB PO SCH (09:25)
[2020-11-21] MEDS: CHOLECALCIFEROL 1,000 UNIT TAB PO SCH (09:25)
[2020-11-21] MEDS: ASCORBIC ACID 500 MG TAB PO SCH ×2 (09:25→16:38)
[2020-11-21] MEDS: LISINOPRIL 20 MG TAB PO SCH (09:26)
[2020-11-21] MEDS: AZITHROMYCIN 500MG/NS 250 ML 250 ML IV SCH (10:00)
[2020-11-21] MEDS: ASPIRIN 81 MG CHEW TAB PO SCH (10:23)
[2020-11-21] MEDS: REMDESIVIR 100MG/NS 100ML 100 MG in SODIUM CHLORIDE 0.9% 100 ML 100 ML IV SCH (13:41)
[2020-11-21] MEDS: ZOLPIDEM TARTRATE 5 MG TAB PO PRN (20:27)
[2020-11-22] VITALS: BP 94/57
[2020-11-22 05:31] LABS: BASOPHILS % 0.1 % (0.0-1.0); EOSINOPHILS % 0.4 % (0.0-6.0); HEMATOCRIT 36.2 % (38.2-49.6); LYMPHOCYTES # (AUTO) 1.5 (1.0-3.2); LYMPHOCYTES % 20.3 % (18.0-39.1); MEAN CORPUSCULAR HEMOGLOBIN 32.2 pg (28-32); MEAN CORPUSCULAR HGB CONC 33.1 g/dL (31-35); MEAN CORPUSCULAR VOLUME 97.1 fL (81-99); MONOCYTES # (AUTO) 0.6 (0.2-0.8); MONOCYTES % 7.4 % (4.4-11.3); NEUTROPHILS # (AUTO) 5.3 (2.1-6.9); NEUTROPHILS % 71.4 % (38.7-80.0); PLATELET COUNT 84 x10e3/uL (140-360); RED BLOOD COUNT 3.73 x10e6/uL (4.3-5.7); RED CELL DISTRIBUTION WIDTH 13.7 % (11.7-14.4)
[2020-11-22] MEDS: TIOTROPIUM 18 MCG INH POWDER INH SCH (06:00)
[2020-11-22 06:06] LABS: ALANINE AMINOTRANSFERASE 35 IU/L (0-55); ALBUMIN 2.6 g/dL (3.5-5.0); ALBUMIN/GLOBULIN RATIO 0.7 (0.8-2.0); ALKALINE PHOSPHATASE 108 IU/L (40-150); ANION GAP 13.8 mmol/L (8-16); BLOOD UREA NITROGEN 25 mg/dL (7-26); BUN/CREATININE RATIO 40 (6-25); CALCIUM 7.9 mg/dL (8.4-10.2); CARBON DIOXIDE 20 mmol/L (22-29); CHLORIDE 107 mmol/L (98-107); CREATININE, SERUM 0.62 mg/dL (0.72-1.25); EST GLOMERULAR FILTRATION RATE > 60 ML/MIN (60-); GLUCOSE 110 mg/dL (74-118); POTASSIUM 3.8 mmol/L (3.5-5.1); SODIUM 137 mmol/L (136-145)
[2020-11-22 07:30] VITALS: BP 105/53
[2020-11-22] MEDS: INSULIN REGULAR, HUMAN 100 UNIT/1 ML 3ML VIAL SQ SCH ×4 (07:30→21:00)
[2020-11-22 07:35] VITALS: BP 105/53
[2020-11-22] MEDS: METFORMIN HCL 500 MG TAB PO SCH ×2 (08:00→17:33)
[2020-11-22] MEDS: LISINOPRIL 20 MG TAB PO SCH (09:00)
[2020-11-22] MEDS: ASCORBIC ACID 500 MG TAB PO SCH ×2 (09:04→17:33)
[2020-11-22] MEDS: CHOLECALCIFEROL 1,000 UNIT TAB PO SCH (09:04)
[2020-11-22] MEDS: FENOFIBRATE 145 MG TAB PO SCH (09:04)
[2020-11-22] MEDS: DEXAMETHASONE SOD PHOS 10 MG/1 ML VIAL IV SCH (09:04)
[2020-11-22] MEDS: GABAPENTIN 300 MG CAP PO SCH ×2 (09:04→17:33)
[2020-11-22] MEDS: ASPIRIN 81 MG CHEW TAB PO SCH (09:04)
[2020-11-22] MEDS: CEFTRIAXONE SOD 1 GM/NS 50 ML 50 ML IV SCH (09:04)
[2020-11-22] MEDS: ENOXAPARIN SOD INJ 40 MG/0.4 ML SYR SC SCH (09:04)
[2020-11-22] MEDS: ZINC SULFATE 220 MG CAP PO SCH (09:04)
[2020-11-22 11:30] VITALS: BP 109/59
[2020-11-22] MEDS: REMDESIVIR 100MG/NS 100ML 100 MG in SODIUM CHLORIDE 0.9% 100 ML 100 ML IV SCH (14:15)
[2020-11-22 16:25] VITALS: BP 118/61
[2020-11-22] MEDS: ZOLPIDEM TARTRATE 5 MG TAB PO PRN (20:20)
[2020-11-22 21:00] VITALS: BP 124/51
[2020-11-23] VITALS: BP 108/56
[2020-11-23 04:00] VITALS: BP 131/68
[2020-11-23] MEDS: TIOTROPIUM 18 MCG INH POWDER INH SCH (06:00)
[2020-11-23] MEDS: INSULIN REGULAR, HUMAN 100 UNIT/1 ML 3ML VIAL SQ SCH ×2 (07:30→11:30)
[2020-11-23] MEDS: METFORMIN HCL 500 MG TAB PO SCH (08:00)
[2020-11-23] MEDS: ASPIRIN 81 MG CHEW TAB PO SCH (09:01)
[2020-11-23] MEDS: DEXAMETHASONE SOD PHOS 10 MG/1 ML VIAL IV SCH (09:01)
[2020-11-23] MEDS: LISINOPRIL 20 MG TAB PO SCH (09:01)
[2020-11-23] MEDS: CEFTRIAXONE SOD 1 GM/NS 50 ML 50 ML IV SCH (09:01)
[2020-11-23] MEDS: ENOXAPARIN SOD INJ 40 MG/0.4 ML SYR SC SCH (09:01)
[2020-11-23] MEDS: CHOLECALCIFEROL 1,000 UNIT TAB PO SCH (09:01)
[2020-11-23] MEDS: ZINC SULFATE 220 MG CAP PO SCH (09:01)
[2020-11-23] MEDS: FENOFIBRATE 145 MG TAB PO SCH (09:01)
[2020-11-23] MEDS: ASCORBIC ACID 500 MG TAB PO SCH (09:01)
[2020-11-23] MEDS: GABAPENTIN 300 MG CAP PO SCH (09:01)
[2020-11-23] MEDS: HYDROCODONE/APAP 5MG-325MG TAB PO PRN (11:20)
[2020-11-23 11:25] VITALS: BP 133/67
[2020-11-23] MEDS: REMDESIVIR 100MG/NS 100ML 100 MG in SODIUM CHLORIDE 0.9% 100 ML 100 ML IV SCH (14:13)
== END 2020-11-23 15:42 | disposition home or self-care (01) | DRG 177 ==
LOC: ER 16:50 → ERHOLD 17:08 → MED/SURG2 21:40 → IMCU 11-19 19:41
PROVIDERS: ADMIT Internal Medicine; ATTEND Internal Medicine
PROC: 8E0ZXY6 Isolation (ICD-10-PCS; principal; 2020-11-18)
PROC: XW033E5 Introduction of Remdesivir Anti-infective into Peripheral Vein, Percutaneous Approach, New Technology Group 5 (ICD-10-PCS; 2020-11-19)
DX: U07.1 COVID-19 (principal); J12.82 Pneumonia due to coronavirus disease 2019; J96.21 Acute and chronic respiratory failure with hypoxia; J44.0 Chronic obstructive pulmonary disease with (acute) lower respiratory infection; J44.1 Chronic obstructive pulmonary disease with (acute) exacerbation; E87.2 Acidosis; E11.9 Type 2 diabetes mellitus without complications; D69.6 Thrombocytopenia, unspecified; J84.10 Pulmonary fibrosis, unspecified; I25.10 Atherosclerotic heart disease of native coronary artery without angina pectoris; E11.40 Type 2 diabetes mellitus with diabetic neuropathy, unspecified; K70.30 Alcoholic cirrhosis of liver without ascites
CPT/HCPCS: 36415; 71260; 80053; 82550; 82553; 82948; 83605; 83735; 83880; 84443; 84484; 85025; 87040; 93005; 93306; 99284; J0456; J0696; J1100; J1650; J1817; J7030; Q9967; U0002

== ENCOUNTER 2020-12-02 11:22 | Inpatient (IN) | payer MEDICARE, OTHER ==
[~2020-12-02] VITALS: Ht 170.2 cm; Wt 90.7 kg
[~2020-12-02 11:22] MED LIST changes: +ACETAMINOPHEN325 M1 PO; +ALBUTEROL0.63 MG/3 NEB; +HYDROCODON-ACE1 EA11 PO; +TRELEGY ELLIPT1 EACH INH; +TRICOR145 MG PO
[2020-12-02] MEDS: SODIUM CHLORIDE 0.9% 1000ML 1,000 ML IV SCH ×8 (11:50→20:29)
[2020-12-02] MEDS ORDERED: IOPAMIDOL 370 MG/ML 200 ML INFUS..BTL INJ ONE (11:53)
[2020-12-02] MEDS ORDERED: SODIUM CHLORIDE 0.9% 50ML 50 ML ONE (11:53)
[2020-12-02] MEDS ORDERED: SODIUM CHLORIDE FLUSH 10 ML SYR INJ PRN (12:00)
[2020-12-02] MEDS ORDERED: SODIUM CHLORIDE 0.9% 1000ML 1,000 ML ONE (12:36)
[2020-12-02] MEDS ORDERED: PIPER-TAZ 3.375 GM 50 ML IV ONE (13:15)
[2020-12-02] MEDS: IPRATROPIUM/ALBUTEROL SULFATE 4 GM INH INH SCH ×3 (14:10→23:20)
[2020-12-02 15:20] VITALS: BP_SYST 133; BP_DIAS 59; BP_DIAS 68
[2020-12-02 16:29] VITALS: BP 132/68
[2020-12-02] MEDS: PIPER-TAZ 3.375 GM 50 ML IV SCH (18:02)
[2020-12-02 20:00] VITALS: BP 119/62
[2020-12-02 21:00] VITALS: BP 119/62
[2020-12-03] VITALS (8 sets, daily range): BP systolic 101–128; BP diastolic 56–79
[2020-12-03] MEDS: PIPER-TAZ 3.375 GM 50 ML IV SCH ×4 (00:41→17:17)
[2020-12-03] MEDS: SODIUM CHLORIDE 0.9% 1000ML 1,000 ML IV SCH (01:47)
[2020-12-03] MEDS: IPRATROPIUM/ALBUTEROL SULFATE 4 GM INH INH SCH ×6 (03:00→23:17)
[2020-12-03] MEDS ORDERED: HYDROCODONE/APAP 5MG-325MG TAB PO PRN (09:45)
[2020-12-03] MEDS ORDERED: ALBUTEROL SULF 0.083% NEB SOLN 3 ML NEB NEB PRN (09:45)
[2020-12-03] MEDS ORDERED: DEXTROSE 50% SYRINGE 50 ML IV PRN (09:45)
[2020-12-03] MEDS ORDERED: ACETAMINOPHEN 325 MG TAB PO PRN (10:00)
[2020-12-03] MEDS ORDERED: Fluticasone/Umeclidin/Vilanter (Trelegy Ellipta 100-62.5-25) INH PRN (10:15)
[2020-12-03] MEDS: GABAPENTIN 300 MG CAP PO SCH ×2 (10:27→16:18)
[2020-12-03] MEDS: ASCORBIC ACID 500 MG TAB PO SCH ×2 (10:27→16:18)
[2020-12-03] MEDS: LISINOPRIL 10 MG TAB PO SCH (10:27)
[2020-12-03] MEDS: ZINC SULFATE 220 MG CAP PO SCH (10:27)
[2020-12-03] MEDS: INSULIN LISPRO 100 UNIT/1 ML 3ML VIAL SQ SCH ×3 (11:30→21:00)
[2020-12-03] MEDS: INSULIN REGULAR, HUMAN 100 UNIT/1 ML 3ML VIAL SQ SCH ×3 (11:30→20:36)
[2020-12-03] MEDS: METFORMIN HCL 500 MG TAB PO SCH (16:17)
[2020-12-03] MEDS: GUAIFENESIN/DEXTROMETHORPHAN LIQD 5 ML UDC NG PRN (20:32)
[2020-12-04] VITALS (7 sets, daily range): BP systolic 100–135; BP diastolic 60–75
[2020-12-04] MEDS: SODIUM CHLORIDE 0.9% 1000ML 1,000 ML IV SCH ×2 (00:14→16:57)
[2020-12-04] MEDS: IPRATROPIUM/ALBUTEROL SULFATE 4 GM INH INH SCH ×5 (03:22→23:23)
[2020-12-04] MEDS: PIPER-TAZ 3.375 GM 50 ML IV SCH ×4 (05:22→16:58)
[2020-12-04] MEDS: TIOTROPIUM 18 MCG INH POWDER INH SCH (06:00)
[2020-12-04] MEDS: INSULIN LISPRO 100 UNIT/1 ML 3ML VIAL SQ SCH ×4 (07:30→20:28)
[2020-12-04] MEDS: INSULIN REGULAR, HUMAN 100 UNIT/1 ML 3ML VIAL SQ SCH ×4 (07:30→20:20)
[2020-12-04] MEDS ORDERED: DEXAMETHASONE PHOS 4MG/ML 5ML MULTIDOSE VIAL IV SCH (07:30)
[2020-12-04] MEDS: METFORMIN HCL 500 MG TAB PO SCH ×2 (08:00→16:58)
[2020-12-04] MEDS: ZINC SULFATE 220 MG CAP PO SCH (08:13)
[2020-12-04] MEDS: GABAPENTIN 300 MG CAP PO SCH ×2 (08:13→16:58)
[2020-12-04] MEDS: CHOLECALCIFEROL 400 UNIT TAB PO SCH (08:13)
[2020-12-04] MEDS: LISINOPRIL 10 MG TAB PO SCH (08:13)
[2020-12-04] MEDS: FENOFIBRATE 145 MG TAB PO SCH (08:13)
[2020-12-04] MEDS: ASCORBIC ACID 500 MG TAB PO SCH ×2 (08:13→16:58)
[2020-12-04] MEDS ORDERED: DEXAMETHASONE SOD PHOS INJ 4 MG/ML VIAL IV SCH (08:15)
[2020-12-04] MEDS ORDERED: ENOXAPARIN SOD INJ 40 MG/0.4 ML SYR SC SCH (17:00)
[2020-12-04] MEDS: GUAIFENESIN/DEXTROMETHORPHAN LIQD 5 ML UDC NG PRN (20:21)
[2020-12-05] VITALS: BP 119/70
[2020-12-05] MEDS: IPRATROPIUM/ALBUTEROL SULFATE 4 GM INH INH SCH ×3 (02:20→11:16)
[2020-12-05 04:00] VITALS: BP 117/57
[2020-12-05] MEDS: PIPER-TAZ 3.375 GM 50 ML IV SCH ×2 (05:04)
[2020-12-05] MEDS: TIOTROPIUM 18 MCG INH POWDER INH SCH (06:00)
[2020-12-05] MEDS: INSULIN REGULAR, HUMAN 100 UNIT/1 ML 3ML VIAL SQ SCH (07:30)
[2020-12-05] MEDS: INSULIN LISPRO 100 UNIT/1 ML 3ML VIAL SQ SCH ×2 (07:30→11:30)
[2020-12-05 07:53] VITALS: BP 99/64
[2020-12-05] MEDS: GABAPENTIN 300 MG CAP PO SCH (08:41)
[2020-12-05] MEDS: ZINC SULFATE 220 MG CAP PO SCH (08:41)
[2020-12-05] MEDS: FENOFIBRATE 145 MG TAB PO SCH (08:41)
[2020-12-05] MEDS: METFORMIN HCL 500 MG TAB PO SCH (08:41)
[2020-12-05] MEDS: ASCORBIC ACID 500 MG TAB PO SCH (08:41)
[2020-12-05] MEDS: CHOLECALCIFEROL 400 UNIT TAB PO SCH (08:41)
[2020-12-05] MEDS: LISINOPRIL 10 MG TAB PO SCH (08:41)
[2020-12-05 09:00] VITALS: BP 99/64
[2020-12-05] MEDS ORDERED: PREDNISONE 20 MG TAB PO SCH (09:00)
[2020-12-05] MEDS: GUAIFENESIN/DEXTROMETHORPHAN LIQD 5 ML UDC NG PRN (09:59)
[2020-12-05 11:15] VITALS: BP 118/59
[2020-12-05] MEDS ORDERED: PIPERACILLIN/TAZOBAC 3.375 GM in SODIUM CHLORIDE 0.9% 50ML 50 ML IV SCH (12:00)
== END 2020-12-05 14:18 | disposition home or self-care (01) | DRG 177 ==
LOC: FSED 11:42 → ERHOLD 11:58 → MED/SURG3 14:51
PROVIDERS: ADMIT Internal Medicine; ATTEND Internal Medicine
PROC: 8E0ZXY6 Isolation (ICD-10-PCS; principal; 2020-12-02)
DX: U07.1 COVID-19 (principal); J12.82 Pneumonia due to coronavirus disease 2019; J96.01 Acute respiratory failure with hypoxia; J44.1 Chronic obstructive pulmonary disease with (acute) exacerbation; K74.60 Unspecified cirrhosis of liver; I10 Essential (primary) hypertension; I25.10 Atherosclerotic heart disease of native coronary artery without angina pectoris; E11.40 Type 2 diabetes mellitus with diabetic neuropathy, unspecified; Z79.899 Other long term (current) drug therapy; J84.10 Pulmonary fibrosis, unspecified
CPT/HCPCS: 36415; 71260; 80053; 82553; 82948; 83605; 83880; 84484; 85025; 87040; 96361; 99284; J1100; J1650; J1817; J2543; J7030; J7512; Q9967; U0002

== ENCOUNTER 2020-12-14 16:20 | Emergency (ER) | payer MEDICARE, OTHER ==
[~2020-12-14] VITALS: Ht 175.3 cm; Wt 90.7 kg
[2020-12-14] MEDS ORDERED: ALBUTEROL/IPRATROPIUM 3 ML NEB NEB ONE (18:00)
[2020-12-14] MEDS ORDERED: ELIQUIS2.5 MG PO (18:29)
[2020-12-14] MEDS ORDERED: CEPHALEXIN500 MG PO (21:13)
== END 2020-12-14 21:30 | disposition home or self-care (01) ==
LOC: FSED 17:31
DX: R18.8 Other ascites (principal); K74.60 Unspecified cirrhosis of liver; D69.6 Thrombocytopenia, unspecified; Z11.52 Encounter for screening for COVID-19; I10 Essential (primary) hypertension; E11.9 Type 2 diabetes mellitus without complications; E78.5 Hyperlipidemia, unspecified; I48.91 Unspecified atrial fibrillation; J44.9 Chronic obstructive pulmonary disease, unspecified; I50.9 Heart failure, unspecified; R94.31 Abnormal electrocardiogram [ECG] [EKG]
CPT/HCPCS: 71250; 74176; 80053; 82553; 83880; 84484; 85025; 93005; 99284; U0002

== ENCOUNTER 2020-12-16 15:27 | Emergency (ER) | payer MEDICARE, OTHER ==
[~2020-12-16] VITALS: Ht 175.3 cm; Wt 90.7 kg
[~2020-12-16 15:27] MED LIST changes: +CEPHALEXIN500 MG PO; +ELIQUIS2.5 MG PO
== END 2020-12-16 17:15 | disposition home or self-care (01) ==
LOC: ER 15:31
DX: E09.649 Drug or chemical induced diabetes mellitus with hypoglycemia without coma (principal); T38.3X5A Adverse effect of insulin and oral hypoglycemic [antidiabetic] drugs, initial encounter; Y92.008 Other place in unspecified non-institutional (private) residence as the place of occurrence of the external cause; R18.8 Other ascites; K74.60 Unspecified cirrhosis of liver; I10 Essential (primary) hypertension; E78.5 Hyperlipidemia, unspecified; J44.9 Chronic obstructive pulmonary disease, unspecified; I50.9 Heart failure, unspecified
CPT/HCPCS: 36415; 82948; 99284

== ENCOUNTER → 2020-12-20 | Outpatient (CLI) | payer MEDICARE, OTHER ==
[~2020-12-20] MED LIST changes: +ALBUMIN 25% 12.5GM 50ML 200 ML IV ONE; +COMBIVENT RESPIM4 GM IH; +DOCUSATE SODIU100 MG PO
[2020-12-20 11:01] LABS: HEMOGLOBIN 11.9 g/dL (14.0-18.0)
[2020-12-20 11:20] LABS: INR 1.11
[2020-12-20 11:21] LABS: PARTIAL THROMBOPLASTIN TIME 35.8 seconds (23.8-35.5)
[2020-12-20 15:47] LABS: RBC,BODY FLUID 285 cells/uL; WBC,BODY FLUID 271 cells/uL
[2020-12-20 15:58] LABS: BODY FLUID APPEARANCE TURBID; BODY FLUID TYPE PERITONEAL
[2020-12-20 17:40] LABS: LYMPHOCYTES,BODY FLUID 62 %; MONO/MACROPHG,BODY FLUID 14 %; NEUTROPHILS,BODY FLUID 24 %
== END ==
LOC: US 10:25
PROVIDERS: ATTEND Internal Medicine Gastroenterology
DX: R18.8 Other ascites (principal)
CPT/HCPCS: 36415; 49083; 85014; 85049; 85610; 85730; 87070; 87205; 88112; 88305; 89051

== ENCOUNTER 2020-12-21 12:29 | Inpatient (IN) | payer MEDICARE, OTHER ==
[~2020-12-21] VITALS: Ht 175.3 cm; Wt 96.2 kg
[~2020-12-21 12:29] MED LIST changes: -ALBUMIN 25% 12.5GM 50ML 200 ML IV ONE; -COMBIVENT RESPIM4 GM IH; -DOCUSATE SODIU100 MG PO
[2020-12-21] MEDS ORDERED: CEFEPIME 1GM/NS 0.9% 50 ML 50 ML IV SCH (12:50)
[2020-12-21] MEDS: CEFEPIME HCL 1GM 1 GM in SODIUM CHLORIDE 0.9% 50ML 50 ML IV SCH (13:49)
[2020-12-21 14:32] LABS: BASOPHILS # (AUTO) 0.1 (0.0-0.1); BASOPHILS % 0.6 % (0.0-1.0); EOSINOPHILS # (AUTO) 0.2 (0.0-0.4); HEMATOCRIT 35.7 % (38.2-49.6); HEMOGLOBIN 11.8 g/dL (14.0-18.0); LYMPHOCYTES % 12.1 % (18.0-39.1); MEAN CORPUSCULAR HEMOGLOBIN 32.5 pg (28-32); MEAN CORPUSCULAR HGB CONC 33.1 g/dL (31-35); MEAN CORPUSCULAR VOLUME 98.3 fL (81-99); MONOCYTES # (AUTO) 0.8 (0.2-0.8); NEUTROPHILS # (AUTO) 6.2 (2.1-6.9); NEUTROPHILS % 75.1 % (38.7-80.0); PLATELET COUNT 106 x10e3/uL (140-360); RED BLOOD COUNT 3.63 x10e6/uL (4.3-5.7); RED CELL DISTRIBUTION WIDTH 14.8 % (11.7-14.4)
[2020-12-21 14:55] LABS: ALANINE AMINOTRANSFERASE 24 IU/L (0-55); ALBUMIN 3.1 g/dL (3.5-5.0); ALBUMIN/GLOBULIN RATIO 1.1 (0.8-2.0); ALKALINE PHOSPHATASE 91 IU/L (40-150); ANION GAP 14.7 mmol/L (8-16); BLOOD UREA NITROGEN 51 mg/dL (7-26); BUN/CREATININE RATIO 50 (6-25); CALCIUM 8.2 mg/dL (8.4-10.2); CARBON DIOXIDE 19 mmol/L (22-29); CHLORIDE 102 mmol/L (98-107); CREATINE KINASE 74 IU/L (30-200); CREATININE, SERUM 1.01 mg/dL (0.72-1.25); EST GLOMERULAR FILTRATION RATE > 60 ML/MIN (60-); GLUCOSE 127 mg/dL (74-118); POTASSIUM 4.7 mmol/L (3.5-5.1); SODIUM 131 mmol/L (136-145)
[2020-12-21 15:26] LABS: B-TYPE NATRIURETIC PEPTIDE2 112.3 pg/mL (0-100)
[2020-12-21] MEDS ORDERED: SODIUM CHLORIDE 0.9% 1000ML 1,000 ML IV STA (15:35)
[2020-12-21 22:45] VITALS: BP 108/63
[2020-12-21 22:49] VITALS: BP 108/63
[2020-12-21] MEDS ORDERED: COMBIVENT RESPIM4 GM IH (23:22)
[2020-12-21] MEDS ORDERED: DOCUSATE SODIU100 MG PO (23:22)
[2020-12-21] MEDS ORDERED: TRICOR145 MG PO (23:22)
[2020-12-21] MEDS ORDERED: ACETAMINOPHEN 325 MG TAB PO PRN (23:45)
[2020-12-21] MEDS ORDERED: ALBUTEROL/IPRATROPIUM 3 ML NEB NEB PRN (23:45)
[2020-12-22] VITALS (7 sets, daily range): BP systolic 101–125; BP diastolic 67–95
[2020-12-22 02:06] LABS: CREATINE KINASE MB 1.5 ng/mL (0-5.0)
[2020-12-22 05:38] LABS: BASOPHILS % 0.7 % (0.0-1.0); EOSINOPHILS # (AUTO) 0.2 (0.0-0.4); EOSINOPHILS % 3.1 % (0.0-6.0); HEMATOCRIT 34.4 % (38.2-49.6); HEMOGLOBIN 11.5 g/dL (14.0-18.0); LYMPHOCYTES # (AUTO) 0.9 (1.0-3.2); LYMPHOCYTES % 16.4 % (18.0-39.1); MEAN CORPUSCULAR HGB CONC 33.4 g/dL (31-35); MEAN CORPUSCULAR VOLUME 98.9 fL (81-99); MONOCYTES # (AUTO) 0.6 (0.2-0.8); MONOCYTES % 10.3 % (4.4-11.3); NEUTROPHILS # (AUTO) 3.9 (2.1-6.9); NEUTROPHILS % 69.1 % (38.7-80.0); PLATELET COUNT 90 x10e3/uL (140-360); RED BLOOD COUNT 3.48 x10e6/uL (4.3-5.7); RED CELL DISTRIBUTION WIDTH 14.7 % (11.7-14.4)
[2020-12-22 06:02] LABS: ALANINE AMINOTRANSFERASE 23 IU/L (0-55); ALBUMIN 2.8 g/dL (3.5-5.0); ALBUMIN/GLOBULIN RATIO 1.1 (0.8-2.0); ALKALINE PHOSPHATASE 82 IU/L (40-150); ANION GAP 13.3 mmol/L (8-16); BLOOD UREA NITROGEN 41 mg/dL (7-26); BUN/CREATININE RATIO 55 (6-25); CALCIUM 8.1 mg/dL (8.4-10.2); CARBON DIOXIDE 21 mmol/L (22-29); CHLORIDE 105 mmol/L (98-107); CREATININE, SERUM 0.74 mg/dL (0.72-1.25); EST GLOMERULAR FILTRATION RATE > 60 ML/MIN (60-); GLUCOSE 93 mg/dL (74-118); POTASSIUM 4.3 mmol/L (3.5-5.1); SODIUM 135 mmol/L (136-145)
[2020-12-22 06:05] LABS: CREATINE KINASE MB 1.3 ng/mL (0-5.0)
[2020-12-22] MEDS ORDERED: FUROSEMIDE 40 MG TAB PO SCH (09:00)
[2020-12-22] MEDS: SPIRONOLACTONE 25 MG TAB PO SCH ×2 (09:44→16:00)
[2020-12-22] MEDS ORDERED: CEFEPIME HCL 1 GM VIAL ONE (12:17)
[2020-12-22] MEDS ORDERED: SODIUM CHLORIDE 0.9% 50ML 50 ML ONE (12:17)
[2020-12-22] MEDS: CEFEPIME HCL 1GM 1 GM in SODIUM CHLORIDE 0.9% 50ML 50 ML IV SCH (14:10)
[2020-12-22] MEDS ORDERED: ALBUTEROL SULF 0.083% NEB SOLN 3 ML NEB NEB PRN (15:00)
[2020-12-22] MEDS ORDERED: ACETAMINOPHEN 325 MG TAB PO PRN (15:00)
[2020-12-22] MEDS ORDERED: DOCUSATE SODIUM 100 MG CAP PO PRN (15:00)
[2020-12-22] MEDS: APIXAB 2.5 MG TABLET PO SCH (16:00)
[2020-12-22] MEDS: DEXAMETHASONE 4 MG TAB PO SCH (16:00)
[2020-12-22] MEDS: METFORMIN HCL 500 MG TAB PO SCH (16:00)
[2020-12-22] MEDS: GABAPENTIN 300 MG CAP PO SCH (16:00)
[2020-12-22] MEDS: HYDROCODONE/APAP 5MG-325MG TAB PO PRN (20:37)
[2020-12-22] MEDS: CEFAZOLIN SOD 1 GM/NS 50ML 50 ML IV SCH (21:55)
[2020-12-23] VITALS (8 sets, daily range): BP systolic 97–109; BP diastolic 59–71
[2020-12-23] MEDS: CEFAZOLIN SOD 1 GM/NS 50ML 50 ML IV SCH ×3 (05:40→21:57)
[2020-12-23] MEDS: TIOTROPIUM 18 MCG INH POWDER INH SCH (06:00)
[2020-12-23 06:33] LABS: ANION GAP 11.6 mmol/L (8-16); BLOOD UREA NITROGEN 34 mg/dL (7-26); BUN/CREATININE RATIO 47 (6-25); CALCIUM 7.8 mg/dL (8.4-10.2); CARBON DIOXIDE 22 mmol/L (22-29); CHLORIDE 105 mmol/L (98-107); CREATININE, SERUM 0.72 mg/dL (0.72-1.25); EST GLOMERULAR FILTRATION RATE > 60 ML/MIN (60-); GLUCOSE 136 mg/dL (74-118); POTASSIUM 4.6 mmol/L (3.5-5.1); SODIUM 134 mmol/L (136-145)
[2020-12-23 07:23] LABS: FERRITIN 284.53 ng/mL (21.81-274.66)
[2020-12-23] MEDS: FUROSEMIDE INJ 10 MG/ML 4 ML VIAL IV SCH (09:16)
[2020-12-23] MEDS: METFORMIN HCL 500 MG TAB PO SCH ×2 (09:16→17:02)
[2020-12-23] MEDS: SPIRONOLACTONE 25 MG TAB PO SCH ×2 (09:16→17:02)
[2020-12-23] MEDS: GABAPENTIN 300 MG CAP PO SCH ×2 (09:17→17:02)
[2020-12-23] MEDS: LISINOPRIL 10 MG TAB PO SCH (09:17)
[2020-12-23] MEDS: FENOFIBRATE 145 MG TAB PO SCH (09:17)
[2020-12-23] MEDS: APIXAB 2.5 MG TABLET PO SCH ×2 (09:17→17:02)
[2020-12-23] MEDS ORDERED: SODIUM CHLORIDE 0.9% 50ML 50 ML ONE (15:52)
[2020-12-23] MEDS: DEXAMETHASONE 4 MG TAB PO SCH (16:26)
[2020-12-23] MEDS: HYDROCODONE/APAP 5MG-325MG TAB PO PRN (20:53)
[2020-12-24] VITALS (7 sets, daily range): BP systolic 93–125; BP diastolic 56–66
[2020-12-24] MEDS: CEFAZOLIN SOD 1 GM/NS 50ML 50 ML IV SCH ×3 (05:37→22:53)
[2020-12-24] MEDS: TIOTROPIUM 18 MCG INH POWDER INH SCH (05:38)
[2020-12-24] MEDS: METFORMIN HCL 500 MG TAB PO SCH ×2 (08:00→16:22)
[2020-12-24] MEDS: FUROSEMIDE INJ 10 MG/ML 4 ML VIAL IV SCH ×2 (08:30→20:53)
[2020-12-24] MEDS: SPIRONOLACTONE 25 MG TAB PO SCH ×2 (09:00→16:22)
[2020-12-24] MEDS: GABAPENTIN 300 MG CAP PO SCH ×2 (09:00→16:22)
[2020-12-24] MEDS: LISINOPRIL 10 MG TAB PO SCH (09:00)
[2020-12-24] MEDS: APIXAB 2.5 MG TABLET PO SCH ×2 (09:00→16:22)
[2020-12-24] MEDS ORDERED: PROPOFOL IV EMULSION 10 MG/ML 20 ML VIAL ONE (12:31)
[2020-12-24] MEDS ORDERED: LIDOCAINE HCL 2% LOCAL INJ 5 ML SDV VIAL INJ ONE (12:31)
[2020-12-24] MEDS: DEXAMETHASONE 4 MG TAB PO SCH (16:22)
[2020-12-24] MEDS: PANTOPRAZOLE 40 MG 10ML VIAL IV SCH ×2 (16:22→20:53)
[2020-12-24] MEDS: FENOFIBRATE 145 MG TAB PO SCH (16:22)
[2020-12-24] MEDS ORDERED: SODIUM CHLORIDE 0.9% 250ML 250 ML ONE (23:03)
[2020-12-25] VITALS: BP 110/68
[2020-12-25 04:20] VITALS: BP 113/66
[2020-12-25] MEDS: TIOTROPIUM 18 MCG INH POWDER INH SCH (05:19)
[2020-12-25] MEDS: CEFAZOLIN SOD 1 GM/NS 50ML 50 ML IV SCH (06:09)
[2020-12-25 07:44] VITALS: BP 117/76
[2020-12-25 07:56] VITALS: BP 117/76
[2020-12-25] MEDS ORDERED: BALSAM PERU/CASTOR OIL 60 GM OINT...G. TP SCH (09:00)
[2020-12-25] MEDS: FUROSEMIDE INJ 10 MG/ML 4 ML VIAL IV SCH (09:42)
[2020-12-25] MEDS: METFORMIN HCL 500 MG TAB PO SCH (09:42)
[2020-12-25] MEDS: APIXAB 2.5 MG TABLET PO SCH (09:43)
[2020-12-25] MEDS: SPIRONOLACTONE 25 MG TAB PO SCH (09:43)
[2020-12-25] MEDS: FENOFIBRATE 145 MG TAB PO SCH (09:43)
[2020-12-25] MEDS: GABAPENTIN 300 MG CAP PO SCH (09:43)
[2020-12-25 10:13] LABS: ANION GAP 12.5 mmol/L (8-16); BLOOD UREA NITROGEN 36 mg/dL (7-26); BUN/CREATININE RATIO 46 (6-25); CALCIUM 8.5 mg/dL (8.4-10.2); CARBON DIOXIDE 22 mmol/L (22-29); CHLORIDE 102 mmol/L (98-107); CREATININE, SERUM 0.79 mg/dL (0.72-1.25); EST GLOMERULAR FILTRATION RATE > 60 ML/MIN (60-); GLUCOSE 140 mg/dL (74-118); POTASSIUM 4.5 mmol/L (3.5-5.1); SODIUM 132 mmol/L (136-145)
[2020-12-25 11:34] VITALS: BP 111/67
== END 2020-12-25 14:45 | disposition home or self-care (01) | DRG 602 ==
LOC: ER 12:51 → ERHOLD 16:22 → MED/SURG2 22:22 → MED/SURG3 12-22 18:22 → OBSVTOIN 12-23 06:35
PROVIDERS: ADMIT Internal Medicine; ATTEND Internal Medicine
PROC: 8E0ZXY6 Isolation (ICD-10-PCS; principal; 2020-12-23)
PROC: 06L38CZ Occlusion of Esophageal Vein with Extraluminal Device, Via Natural or Artificial Opening Endoscopic (ICD-10-PCS; 2020-12-24)
DX: L03.119 Cellulitis of unspecified part of limb (principal); I85.11 Secondary esophageal varices with bleeding; J44.1 Chronic obstructive pulmonary disease with (acute) exacerbation; K76.6 Portal hypertension; L03.116 Cellulitis of left lower limb; L03.115 Cellulitis of right lower limb; B94.8 Sequelae of other specified infectious and parasitic diseases; K70.31 Alcoholic cirrhosis of liver with ascites; I25.10 Atherosclerotic heart disease of native coronary artery without angina pectoris; E11.40 Type 2 diabetes mellitus with diabetic neuropathy, unspecified; Z79.899 Other long term (current) drug therapy; Z87.891 Personal history of nicotine dependence; R06.02 Shortness of breath; L89.626 Pressure-induced deep tissue damage of left heel; L89.616 Pressure-induced deep tissue damage of right heel; F10.20 Alcohol dependence, uncomplicated; Z20.822 Contact with and (suspected) exposure to COVID-19
CPT/HCPCS: 36415; 71045; 76705; 80048; 80053; 82105; 82550; 82553; 82607; 82728; 82746; 82948; 83540; 83605; 83690; 83735; 83880; 84466; 84484; 85025; 85045; 87040; 97139; 99251; 99284; G0378; J0690; J0692; J1940; J2001; J7030; J7050; U0002

== ENCOUNTER → 2020-12-24 | Day surgery (SDC) | payer MEDICARE, OTHER ==
[~2020-12-24] MED LIST changes: +COMBIVENT RESPIM4 GM IH; +DOCUSATE SODIU100 MG PO
[2020-12-24 14:17] VITALS: BP 124/63
== END | disposition home or self-care (01) ==
LOC: OR 21:44
PROVIDERS: ATTEND Internal Medicine Gastroenterology
DX: K74.60 Unspecified cirrhosis of liver (principal); I85.10 Secondary esophageal varices without bleeding; K76.6 Portal hypertension; K31.89 Other diseases of stomach and duodenum; K26.9 Duodenal ulcer, unspecified as acute or chronic, without hemorrhage or perforation; K44.9 Diaphragmatic hernia without obstruction or gangrene; R18.8 Other ascites; R19.7 Diarrhea, unspecified; I11.0 Hypertensive heart disease with heart failure; I50.9 Heart failure, unspecified; Z79.84 Long term (current) use of oral hypoglycemic drugs; Z86.16 Personal history of COVID-19
CPT/HCPCS: 43270

== ENCOUNTER 2021-01-15 11:06 | Emergency (ER) | payer OTHER ==
[~2021-01-15] VITALS: Ht 172.7 cm; Wt 117.9 kg
[2021-01-15 13:05] VITALS: BP 134/72
== END 2021-01-15 13:06 | disposition home or self-care (01) ==
LOC: ER 11:31
DX: S00.83XA Contusion of other part of head, initial encounter (principal); M25.551 Pain in right hip; M25.561 Pain in right knee; W01.0XXA Fall on same level from slipping, tripping and stumbling without subsequent striking against object, initial encounter; Y93.01 Activity, walking, marching and hiking; Y92.008 Other place in unspecified non-institutional (private) residence as the place of occurrence of the external cause; I10 Essential (primary) hypertension; E11.9 Type 2 diabetes mellitus without complications; K74.60 Unspecified cirrhosis of liver; E78.5 Hyperlipidemia, unspecified; J44.9 Chronic obstructive pulmonary disease, unspecified; I50.9 Heart failure, unspecified; I48.91 Unspecified atrial fibrillation
CPT/HCPCS: 70450; 71045; 99283